=== PATIENT | male | born 1955 | race Caucasian/White ===

== ENCOUNTER → 2017-06-19 | Outpatient (CLI) | payer MEDICARE | END | disposition home or self-care (01) | LOC: RADUSMAIN 08:51 | PROVIDERS: ATTEND Family Medicine | DX: Z53.9 Procedure and treatment not carried out, unspecified reason (principal) ==

== ENCOUNTER → 2018-03-15 | Outpatient (CLI) | payer MEDICARE ==
[2018-03-15 11:08] LABS: INR 1.4 (<1.2); Prothrombin Time 13.2 sec (9.0-12.0)
== END | disposition home or self-care (01) ==
LOC: LABWHC1 10:20
PROVIDERS: ATTEND Dentist Oral and Maxillofacial Surgery
DX: D68.9 Coagulation defect, unspecified (principal)
CPT/HCPCS: 36415; 85610

== ENCOUNTER → 2018-05-30 | Outpatient (CLI) | payer MEDICARE ==
--- NOTE | 2018-05-30 14:05 | US ---
EXAMINATION TYPE: US duplex aorta DATE OF EXAM: 05/30/2018 COMPARISON: NONE CLINICAL HISTORY: 63-year-old male Z13.6Encounter for screening for cardiovascular di. TECHNIQUE: Multiple sonographic images of the abdominal aorta are obtained. FINDINGS: EXAM MEASUREMENTS: Abdominal Aorta: Proximal: 1.8cm Mid: 1.4cm Distal: 1.5cm Bifurcation: Right 1.0, Left 1.1cm Salt Cutter notes: Patient of large body habitus carrying weight in his abdomen, extensive overlying bowel gas. Limited views of aorta, not seen in it's entirety. IMPRESSION: Technically limited exam. Only segments of the abdominal aorta are visualized. No AAA is identified i n the visualized portions.
== END | disposition home or self-care (01) ==
LOC: RADUSWWP 12:46
PROVIDERS: ATTEND Family Medicine
DX: Z13.6 Encounter for screening for cardiovascular disorders (principal)
CPT/HCPCS: 93979

== ENCOUNTER 2020-05-06 20:07 | Inpatient (IN) | payer MEDICARE ==
[2020-05-06 20:20] VITALS: RESP 18
--- NOTE | 2020-05-06 20:35 | ED ---
Recheck HPI - General Chief Complaint: Recheck/Abnormal Lab/Rx Stated Complaint: Hypotension, poss med reaction Time Seen by Provider: 05/06/20 20:10 Source: patient, family, RN notes reviewed Mode of arrival: wheelchair Limitations: no limitations - History of Present Illness Initial Comments: This is a 65-year-old male history atrial fibrillation who had previously been on sotalol which apparently was not keeping his rate down he was started on vera pamil today and strongly after taking it was used feeling dizzy lightheaded with some visual disturbances. 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 Patient denies any chest pain shortness of breath or other symptoms at this time. He just feels weak MD Complaint: other - Related Data Home Medications Medication Instructions Recorded Confirmed Lisinopril-Hctz 20-25 mg 1 tab PO DAILY 11/30/15 05/06/20 [Zestoretic 20-25] Sotalol [Betapace] 240 mg PO BID 11/30/15 05/06/20 Cholecalciferol [Vitamin D3 (25 2,000 unit PO DAILY 05/06/20 05/06/20 Mcg = 1000 Iu)] Melatonin 5 mg PO HS 05/06/20 05/06/20 Verapamil HCl [Verapamil ER] 120 mg PO BID 05/06/20 05/06/20 Warfarin [Coumadin] 2.5 mg PO MOTH@2100 05/06/20 05/06/20 Warfarin [Coumadin] 5 mg PO SUTUWEFRSA@2100 05/06/20 05/06/20 diphenhydrAMINE HCL [Benadryl] 12.5 mg PO HS PRN 05/06/20 05/06/20 Allergies Allergy/AdvReac Type Severity Reaction Status Date / Time Sulfa (Sulfonamide Allergy dizzy,light Verified 05/06/20 21:40 Antibiotics) headed/hivsudeep s Review of Systems ROS Statement: Those systems with pertinent positive or pertinent negative responses have been documented in the HPI. ROS Other: All systems not noted in ROS Statement are negative. Past Medical History Past Medical History: Atrial Fibrillation, Hypertension History of Any Multi-Drug Resistant Organisms: None Reported Past Surgical History: Cardiac Ablation, Orthopedic Surgery Additional Past Surgical History / Comment(s): cardioversion x 2, right shoulder surg. Past Anesthesia/Blood Transfusion Reactions: No Reported Reaction Smoking Status: Never smoker Past Alcohol Use History: Occasional Past Drug Use History: None Reported - Past Family History Mother Family Medical History: No Reported History General Exam - General Exam Comments Initial Comments: This is a well-developed well-nourished awake alert oriented 3 male Limitations: no limitations General appearance: alert, in no apparent distress Head exam: Present: atraumatic, normocephalic, normal inspection Eye exam: Present: normal appearance, PERRL, EOMI. Absent: scleral icterus, conjunctival injection, periorbital swelling ENT exam: Present: normal exam, mucous membranes moist Neck exam: Present: normal inspection, full ROM, other. Absent: tenderness, meningismus, lymphadenopathy Respiratory exam: Present: normal lung sounds bilaterally. Absent: respiratory distress, wheezes, rales, rhonchi, stridor Cardiovascular Exam: Present: normal rhythm, bradycardia, irregular rhythm. Absent: systolic murmur, diastolic murmur, rubs, gallop, clicks GI/Abdominal exam: Present: soft, normal bowel sounds. Absent: distended, tenderness, guarding, rebound, rigid Extremities exam: Present: normal inspection, full ROM, normal capillary refill. Absent: tenderness, pedal edema, joint swelling, calf tenderness Back exam: Present: normal inspection Neurological exam: Present: alert, oriented X3, CN II-XII intact Psychiatric exam: Present: normal affect, normal mood Skin exam: Present: warm, dry, intact, normal color. Absent: rash Course Vital Signs 05/06/20 05/06/20 05/06/20 20:09 20:19 20:36 Temperature 98.0 F Pulse Rate 42 L 46 L 45 L Respiratory 20 18 18 Rate Blood Pressure 83/52 91/65 90/60 O2 Sat by Pulse 97 98 100 Oximetry 05/06/20 05/06/20 05/06/20 21:06 21:35 22:13 Temperature 98.3 F Pulse Rate 46 L 50 L 45 L Respiratory 18 18 18 Rate Blood Pressure 79/45 87/56 93/61 O2 Sat by Pulse 100 98 99 Oximetry 05/06/20 22:35 Temperature Pulse Rate 45 L Respiratory 18 Rate Blood Pressure 105/64 O2 Sat by Pulse 100 Oximetry - Reevaluation(s) Reevaluation #1: 05/06/20 22:53 I did reevaluate patient several occasions. He is feeling improved though his blood pressure is slowly coming up. Heart rate still in the 40s. Medical Decision Making - Medical Decision Making Patient is responding slowly to the fluids and his blood pressure is responding appropriately. Heart rate still in the 40s. He is awake alert oriented 3 in no distress at this time I did discuss findings with him and his . Also Dr. Pak patient will be admitted for monitoring and cardiology consultation - Lab Data Result diagrams: 05/06/20 20:33 05/06/20 20:33 Lab Results 05/06/20 05/06/20 05/06/20 Range/Units 20:33 20:33 20:33 WBC 13.7 H (3.8-10.6) k/uL RBC 4.52 (4.30-5.90) m/uL Hgb 13.9 (13.0-17.5) gm/dL Hct 43.6 (39.0-53.0) % MCV 96.3 (80.0-100.0) fL MCH 30.7 (25.0-35.0) pg MCHC 31.9 (31.0-37.0) g/dL RDW 12.5 (11.5-15.5) % Plt Count 375 (150-450) k/uL Neutrophils % 78 % Lymphocytes % 12 % Monocytes % 5 % Eosinophils % 2 % Basophils % 1 % Neutrophils # 10.7 H (1.3-7.7) k/uL Lymphocytes # 1.6 (1.0-4.8) k/uL Monocytes # 0.7 (0-1.0) k/uL Eosinophils # 0.3 (0-0.7) k/uL Basophils # 0.1 (0-0.2) k/uL PT 15.7 H (9.0-12.0) sec INR 1.6 H (<1.2) APTT 31.1 H (22.0-30.0) sec Sodium 128 L (137-145) mmol/L Potassium 4.5 (3.5-5.1) mmol/L Chloride 90 L (98-107) mmol/L Carbon Dioxide 26 (22-30) mmol/L Anion Gap 12 mmol/L BUN 30 H (9-20) mg/dL Creatinine 1.69 H (0.66-1.25) mg/dL Est GFR (CKD-EPI)AfAm 48 (>60 ml/min/1.73 sqM) Est GFR (CKD-EPI)NonAf 41 (>60 ml/min/1.73 sqM) Glucose 102 H (74-99) mg/dL Calcium 10.2 (8.4-10.2) mg/dL Magnesium 1.6 (1.6-2.3) mg/dL Total Bilirubin 0.4 (0.2-1.3) mg/dL AST 34 (17-59) U/L ALT 32 (4-49) U/L Alkaline Phosphatase 141 H (38-126) U/L Creatine Kinase 39 L (55-170) U/L Troponin I (0.000-0.034) ng/mL Total Protein 7.6 (6.3-8.2) g/dL Albumin 4.7 (3.5-5.0) g/dL 05/06/20 Range/Units 20:33 WBC (3.8-10.6) k/uL RBC (4.30-5.90) m/uL Hgb (13.0-17.5) gm/dL Hct (39.0-53.0) % MCV (80.0-100.0) fL MCH (25.0-35.0) pg MCHC (31.0-37.0) g/dL RDW (11.5-15.5) % Plt Count (150-450) k/uL Neutrophils % % Lymphocytes % % Monocytes % % Eosinophils % % Basophils % % Neutrophils # (1.3-7.7) k/uL Lymphocytes # (1.0-4.8) k/uL Monocytes # (0-1.0) k/uL Eosinophils # (0-0.7) k/uL Basophils # (0-0.2) k/uL PT (9.0-12.0) sec INR (<1.2) APTT (22.0-30.0) sec Sodium (137-145) mmol/L Potassium (3.5-5.1) mmol/L Chloride (98-107) mmol/L Carbon Dioxide (22-30) mmol/L Anion Gap mmol/L BUN (9-20) mg/dL Creatinine (0.66-1.25) mg/dL Est GFR (CKD-EPI)AfAm (>60 ml/min/1.73 sqM) Est GFR (CKD-EPI)NonAf (>60 ml/min/1.73 sqM) Glucose (74-99) mg/dL Calcium (8.4-10.2) mg/dL Magnesium (1.6-2.3) mg/dL Total Bilirubin (0.2-1.3) mg/dL AST (17-59) U/L ALT (4-49) U/L Alkaline Phosphatase (38-126) U/L Creatine Kinase (55-170) U/L Troponin I <0.012 (0.000-0.034) ng/mL Total Protein (6.3-8.2) g/dL Albumin (3.5-5.0) g/dL - EKG Data -: EKG Interpreted by Me (Atrial fibrillation rate of 46 QRS 80 QT since QTC 506/442) - Radiology Data Radiology results: report reviewed (I did review the imaging and report no acute findings.), image reviewed Critical Care Time Critical Care Time: Yes Total Critical Care Time: 37 Critical Care Time: 37 minutes of critical care time which includes the initial presentation with history physical labs x-rays multiple reevaluation the patient response to therapy discuss with the patient has regarding findings discussed with the admitting physician admission orders and documentation of the above Disposition Clinical Impression: Bradycardia, Hypotension, Renal insufficiency, Dehydration, Idiosyncratic reaction to medication after proper dose Disposition: ADMITTED IP TO THIS [facility] Condition: Fair Referrals: Fitz Barton MD [Primary Care Provider] - 1-2 days
[2020-05-06] MEDS ORDERED: SODIUM CHLORIDE 0.9% 1,000 ML IV STA (20:38)
[2020-05-06] MEDS ORDERED: SODIUM CHLORIDE 0.9% 1,000 ML IV ONE (20:38)
[2020-05-06 20:51] LABS: Basophils # (A) 0.1 k/uL (0-0.2); Basophils % (A) 1 %; Eosinophils # (A) 0.3 k/uL (0-0.7); Eosinophils % (A) 2 %; HCT 43.6 % (39.0-53.0); HGB 13.9 gm/dL (13.0-17.5); Lymphocytes # (A) 1.6 k/uL (1.0-4.8); Lymphocytes % (A) 12 %; MCH 30.7 pg (25.0-35.0); MCHC 31.9 g/dL (31.0-37.0); MCV 96.3 fL (80.0-100.0); Mean Platelet Volume 7.9; Monocytes # (A) 0.7 k/uL (0-1.0); Monocytes % (A) 5 %; Neutrophils # (A) 10.7 k/uL (1.3-7.7); Neutrophils % (A) 78 %; Platelet Count 375 k/uL (150-450); RBC 4.52 m/uL (4.30-5.90); RDW 12.5 % (11.5-15.5); WBC 13.7 k/uL (3.8-10.6)
--- NOTE | 2020-05-06 20:52 | XR ---
EXAMINATION TYPE: XR chest 2V DATE OF EXAM: 05/06/2020 COMPARISON: 05/28/2013 HISTORY: Short of breath. Dizziness. Dysrhythmia. TECHNIQUE: 2 views FINDINGS: Heart and mediastinum are normal. Lungs are clear. Diaphragm is normal. Bony thorax appears normal. IMPRESSION: Normal chest. No change.
[2020-05-06 20:59] LABS: INR 1.6 (<1.2); Partial Thromboplastin Time 31.1 sec (22.0-30.0); Prothrombin Time 15.7 sec (9.0-12.0)
[2020-05-06 21:22] LABS: Albumin 4.7 g/dL (3.5-5.0); Calcium 10.2 mg/dL (8.4-10.2); Magnesium 1.6 mg/dL (1.6-2.3); Potassium 4.5 mmol/L (3.5-5.1); Total Bilirubin 0.4 mg/dL (0.2-1.3); Total Protein 7.6 g/dL (6.3-8.2)
[2020-05-06] MEDS ORDERED: WARFARIN 5 MG TAB PO ONE (22:15)
[2020-05-06] MEDS ORDERED: NALOXONE 0.4 MG/ML 1 ML VIAL IV PRN (22:56)
[2020-05-07] MEDS ORDERED: diphenhydrAMINE ELIXIR 25 MG/10 ML CUP PO PRN
--- NOTE | 2020-05-07 00:07 | P.HPIM ---
History of Present Illness H&P Date: 05/06/20 The patient is a 65-year-old male with a PMH of paroxysmal atrial fibrillation (on Coumadin) and hypertension who presented to the ED for dizziness. The patient reports that he was seen at his PMDs office a few days ago and was noted to have A. fib with RVR on EKG, for which he was prescribed Cardizem. The insurance however did not cover Cardizem and the patient was subsequently switched to verapamil which he finally filled the prescription for today. reports that 3-4 hours after taking his verapamil, he was outside with his when he began feeling dizzy and lightheaded. The symptoms progressed and the patient's subsequently drove him home where she checked his blood pressure which was 80s over 60s and his heart rate was in the 40s. She then drove the patient to the emergency room. At time of interview, the patient reported no dizziness at rest, though he had not been up out of his bed. He denied any additional complaints including chest pain, shortness of breath, nausea, v omiting, or diaphoresis. He further denied fever, chills, cough, or abdominal pain. Chest x-ray was unremarkable with EKG showing sinus bradycardia with first-degree AV block at 46 bpm. Laboratory evaluation revealed a troponin less than 0.012, WBC count 13.7, BUN 30, creatinine 1.69, sodium 128, chloride 90, and INR 1.6. Review of Systems Pertinent positives and negatives as discussed in HPI, a complete review of systems was performed and all other systems are negative. Past Medical History Past Medical History: Atrial Fibrillation, Hypertension History of Any Multi-Drug Resistant Organisms: None Reported Past Surgical History: Cardiac Ablation, Orthopedic Surgery Additional Past Surgical History / Comment(s): cardioversion x 2, right shoulder surg. Past Anesthesia/Blood Transfusion Reactions: No Reported Reaction Smoking Status: Never smoker Past Alcohol Use History: Occasional Past Drug Use History: None Reported - Past Family History Mother Family Medical History: No Reported History Medications and Allergies Home Medications Medication Instructions Recorded Confirmed Type Lisinopril-Hctz 20-25 mg 1 tab PO DAILY 11/30/15 05/06/20 History [Zestoretic 20-25] Sotalol [Betapace] 240 mg PO BID 11/30/15 05/06/20 History Cholecalciferol [Vitamin D3 (25 2,000 unit PO DAILY 05/06/20 05/06/20 History Mcg = 1000 Iu)] Melatonin 5 mg PO HS 05/06/20 05/06/20 History Verapamil HCl [Verapamil ER] 120 mg PO BID 05/06/20 05/06/20 History Warfarin [Coumadin] 2.5 mg PO MOTH@209905/06/20 05/06/20 History Warfarin [Coumadin] 5 mg PO SUTUWEFRSA@2100 05/06/20 05/06/20 History diphenhydrAMINE HCL [Benadryl] 12.5 mg PO HS PRN 05/06/20 05/06/20 History Allergies Allergy/AdvReac Type Severity Reaction Status Date / Time Sulfa (Sulfonamide Allergy dizzy,light Verified 05/06/20 21:40 Antibiotics) headed/hive s Physical Exam Vitals: Vital Signs Temp Pulse Resp BP Pulse Ox 05/06/20 22:35 45 L 18 105/64 100 05/06/20 22:13 98.3 F 45 L 18 93/61 99 05/06/20 21:35 50 L 18 87/56 98 05/06/20 21:06 46 L 18 79/45 100 05/06/20 20:36 45 L 18 90/60 100 05/06/20 20:19 46 L 18 91/65 98 05/06/20 20:09 98.0 F 42 L 20 83/52 97 Intake and Output 05/06/20 05/06/20 05/06/20 06:59 14:59 22:59 Other: Weight 116.12 kg General: non toxic, no distress, appears at stated age, obese Derm: no unusual rashes/lesions no unusual ecchymoses, warm, dry Head: atraumatic, normocephalic, symmetric Eyes: EOMI, no lid lag, anicteric sclera, pupils equal round reactive to light ENT: Nose and ears atraumatic, no thrush, no pharyngeal erythema Neck: No thyromegaly, no cervical lymphadenopathy, trachea midline, supple Mouth: no lip lesion, mucus membranes moist Cardiovascular: S1S2 reg, bradycardia, no murmur, positive posterior tibial pul se bilateral, no edema, capillary refill less than 2 seconds Lungs: CTA bilateral, no rhonchi, no rales , no accessory muscle use Abdominal: Obese, nontender to palpation, no guarding, no appreciable organomegaly, normal bowel sounds Ext: no gross muscle atrophy, muscle strength 5 out of 5 in all 4 extremities grossly, no contractures, Neuro: CN II-XI grossly intact, light touch intact all 4 extremities, finger to nose within normal limits, Psych: Alert, oriented, appropriate affect Results CBC & Chem 7: 05/06/20 20:33 05/06/20 20:33 Labs: Abnormal Lab Results - Last 24 Hours (Table) 05/06/20 05/06/20 05/06/20 Range/Units 20:33 20:33 20:33 WBC 13.7 H (3.8-10.6) k/uL Neutrophils # 10.7 H (1.3-7.7) k/uL PT 15.7 H (9.0-12.0) sec INR 1.6 H (<1.2) APTT 31.1 H (22.0-30.0) sec Sodium 128 L (137-145) mmol/L Chloride 90 L (98-107) mmol/L BUN 30 H (9-20) mg/dL Creatinine 1.69 H (0.66-1.25) mg/dL Glucose 102 H (74-99) mg/dL Alkaline Phosphatase 141 H (38-126) U/L Creatine Kinase 39 L (55-170) U/L Assessment and Plan Plan: Hypotension and bradycardia, adverse reaction from verapamil -Improved -IV fluids at 100 mL an hour -Avoid verapamil and home antihypertensives at this time -Cardiology consulted -Cardiac monitoring -Fall precautions SAMI vs CKD -Unknown baseline -Monitor BMP -Cw IVFs Hyponatremia, hypochloremic -C/w IVFs and monitor BMP Leukocytosis, no clear signs of infection -Monitor CBC for now Paroxysmal A. fib, sub-therapeutic on Coumadin -Continue with Coumadin home dose -Continue to monitor INR -Cardiac monitoring Hypertension -Hold all home antihypertensives at this time -Resume in a.m. if BP has normalized DVT prophylaxis -Coumadin The patient is admitted with an anticipated greater than 2 midnight stay for evaluation of hypotension CODE STATUS: Full Code Discussed with: Patient Anticipated discharge date: 05/[address]: Home A total of 40 minutes was spent on the care of this complex patient more than 50% of the time was spent in counseling and care coordination.
[2020-05-07] MEDS: SODIUM CHLORIDE 0.9% 1,000 ML IV SCH ×2 (00:11→09:29)
[2020-05-07 08:17] LABS: HCT 38.4 % (39.0-53.0); HGB 12.4 gm/dL (13.0-17.5); MCH 31.4 pg (25.0-35.0); MCHC 32.3 g/dL (31.0-37.0); MCV 97.4 fL (80.0-100.0); Mean Platelet Volume 8.1; Platelet Count 260 k/uL (150-450); RBC 3.95 m/uL (4.30-5.90); RDW 12.6 % (11.5-15.5); WBC 10.6 k/uL (3.8-10.6)
[2020-05-07 08:29] LABS: Calcium 8.7 mg/dL (8.4-10.2); Magnesium 1.4 mg/dL (1.6-2.3); Potassium 4.5 mmol/L (3.5-5.1)
[2020-05-07] MEDS ORDERED: CHOLECALCIFEROL 1,000 UNIT TAB PO SCH (09:00)
[2020-05-07] MEDS ORDERED: SOTALOL 120 MG TAB PO SCH ×2 (09:00→10:30)
[2020-05-07] MEDS: MAGNESIUM SULFATE-D5W PMX 1 GM in DEXTROSE/WATER 1 100ML.BAG IVPB SCH ×3 (09:28→12:44)
[2020-05-07 09:37] LABS: INR 1.8 (<1.2); Prothrombin Time 17.9 sec (9.0-12.0)
[2020-05-07] MEDS ORDERED: LISINOPRIL-HCTZ 20-25 MG 1 EACH TAB PO SCH (10:30)
--- NOTE | 2020-05-07 11:15 | ECHOF ---
Referral Reason:manpreet MEASUREMENTS -------- HEIGHT: 182.9 cm WEIGHT: 118.8 kg BP: 118/59 RVIDd: 3.8 cm (< 3.3) IVSd: 1.3 cm (0.6 - 1.1) LVIDd: 4.3 cm (3.9 - 5.3) LVPWd: 1.1 cm (0.6 - 1.1) IVSs: 1.3 cm LVIDs: 3.2 cm LVPWs: 1.5 cm LAESV Index (A-L): 29.67 ml/m Ao Diam: 3.1 cm (2.0 - 3.7) AV Cusp: 1.8 cm (1.5 - 2.6) RAP: 5.00 mmHg RVSP: 44.12 mmHg FINDINGS -------- This was a technically difficult study with suboptimal parasternal views. The left ventricular size is normal. There is mild concentric left ventricular hypertrophy. Overa ll left ventricular systolic function is low-normal with, an EF between 50 - 55 %. Septal wall danna on is delayed, and consistent with conduction delay/bundle branch block. The right ventricle is mild to moderately enlarged. LA is midly dilated 29-33ml/m2. The right atrium is mildly enlarged. 5.0mg of Lumason was utilized for enhancement of images Interatrial and interventricular septum intact. The aortic valve was not well visualized. There is no evidence of aortic regurgitation. There is no evidence of aortic stenosis. [id number] mitral regurgitation is present. Frcw-[id number] tricuspid regurgitation present. There is mild to moderate pulmonary hypertension. The right ventricular systolic pressure, as measured by Doppler, is 44.12mmHg. The pulmonic valve was not well visualized. The aortic root size is normal. IVC Not well visulized. There is no pericardial effusion. CONCLUSIONS -------- 1. The left ventricular size is normal. 2. There is mild concentric left ventricular hypertrophy. 3. Overall left ventricular systolic function is low-normal with, an EF between 50 - 55 %. 4. Septal wall motion is delayed, and consistent with conduction delay/bundle branch block. 5. The right ventricle is mild to moderately enlarged. 6. LA is midly dilated 29-33ml/m2. 7. The right atrium is mildly enlarged. 8. Psss-tg-[id number] mitral regurgitation is present. 9. Xuzn-[id number] tricuspid regurgitation present. 10. There is mild to moderate pulmonary hypertension. 11. The right ventricular systolic pressure, as measured by Doppler, is 44.12mmHg. BUILD AND RELEASE MANAGER: Petra Ramirez RDCS
[2020-05-07 12:20] VITALS: TEMP 98
[2020-05-07 12:24] VITALS: BP 155/80; PULSE 94
--- NOTE | 2020-05-07 13:15 | P.CRDCN ---
<Gisella Moreno Oracio - Last Filed: 05/07/20 13:14> History of Present Illness Consult date: 05/07/20 History of present illness: CHIEF COMPLAINT: Hypotension, bradycardia HISTORY OF PRESENT ILLNESS: 65-year-old male with a history of paroxysmal atrial fibrillation on long-term anticoagulation with Coumadin and hypertension who presented to the emergency room due to dizziness and hypotension. Patient states he follows with a ball racker out of [facility]. He reports his sotalol had been decreased to 120mg BID recently by his ball racker, but he was having episodes of RVR so his dose was increased back to 240mg BID. He reports seeing his primary care physician recently who prescribed the patient cardizem as well. His insurance did not cover this, so he was then prescribed verapamil. Patient states he took his first dose yesterday afternoon. He states he went to [facility] with his . He states he sat in the car while she went inside and shopped. He reports he started feeling "funny". When his returned to the car, he told her he wasnt feeling well and that he needed her to drive home. When the patient returned home he checked his blood pressure and it was found to be 70/40s. He presented to the ER for further evaluation. Patients blood pressure has improved this mornin/71. HR 70-80s. He denies chest pain. Denies shortness of breath. Denies dizziness or lightheadedness. DIAGNOSTICS EKG: atrial tachycardia with a 2 to 1 conduction rate Chest xray negative for acute process Laboratory data: WBC 10.6. Hemoglobin 12.4. Platelet count 260. Sodium 132. Potassium 4.5. BUN 34. Creatinine 1.47. Troponin negative 1. INR 1.8 Current home cardiac medications include Coumadin, Sotalol 240 mg twice a day, Zestoretic 20-25mg REVIEW OF SYSTEMS: CONSTITUTIONAL: Denies fever or chills. HEENT: Denies blurred vision, vision changes, or eye pain. Denies hemoptysis CARDIOVASCULAR: Denies chest pain, orthopnea, PND or palpitations RESPIRATORY: No shortness of breath. GASTROINTESTINAL: Denies abdominal pain. Denies nausea or vomiting. HEMATOLOGIC: Denies bleeding disorders. GENITOURINARY: Denies any blood in urine. SKIN: Denies pruitis. Denies rash. PHYSICAL EXAM: VITAL SIGNS: Reviewed. GENERAL: Well-developed in no acute distress. HEENT: Head is normocephalic. Pupils are equal, round. Sclerae anicteric. Mucous membranes of the mouth are moist. Neck supple. No JVD or thyromegaly LUNGS: Respirations even and unlabored. Lungs essentially clear to auscultation bilaterally. HEART: Regular rate and rhythm. S1 and S2 heard. ABDOMEN: Soft. Nondistended. Nontender. EXTREMITIES: Normal range of motion. No clubbing or cyanosis. Peripheral pu lses intact. No lower extremity edema NEUROLOGIC: Awake and alert. Oriented x 3. ASSESSMENT: 1. Hypotension and bradycardia secondary to verapamil 2. Paroxysmal atrial fibrillation on long-term anticoagulation with Coumadin 3. Hypertension 4. History of cardiac ablation x 2 5. SAMI, patient baseline unknown PLAN: Hypotension and bradycardia have resolved Resume lisinopril/HCTZ Continue Coumadin. Monitor INR Replace magnesium Repeat EKG ordered and reviewed by Dr. Willams. EKG still revealing atrial tachycardia per Dr. Willams. Due to elevated creatinine, will resume sotalol at a decreased dose Stable for discharge home today from a cardiac standpoint Patient to follow up with his ball racker, Dr. Daniels Nurse practitioner note has been reviewed by physician. Signing provider agrees with the documented findings, assessment, and plan of care. Past Medical History Past Medical History: Atrial Fibrillation, Hypertension Additional Past Medical History / Comment(s): prostate CA History of Any Multi-Drug Resistant Organisms: None Reported Past Surgical History: Cardiac Ablation, Orthopedic Surgery Additional Past Surgical History / Comment(s): cardioversion x 2, right shoulder surg. Past Anesthesia/Blood Transfusion Reactions: No Reported Reaction Smoking Status: Never smoker Past Alcohol Use History: Occasional Past Drug Use History: None Reported - Past Family History Mother Family Medical History: No Reported History Medications and Allergies Home Medications Medication Instructions Recorded Confirmed Type Lisinopril-Hctz 20-25 mg 1 tab PO DAILY 11/30/15 05/06/20 History [Zestoretic 20-25] Cholecalciferol [Vitamin D3 (25 2,000 unit PO DAILY 05/06/20 05/06/20 History Mcg = 1000 Iu)] Melatonin 5 mg PO HS 05/06/20 05/06/20 History Warfarin [Coumadin] 2.5 mg PO MOTH@2100 05/06/2005/06/20 History Warfarin [Coumadin] 5 mg PO SUTUWEFRSA@209905/06/20 05/06/20 History diphenhydrAMINE HCL [Benadryl] 12.5 mg PO HS PRN 05/06/20 05/06/20 History Sotalol [Betapace] 120 mg PO DAILY #30 tablet 05/07/20 Rx Allergies Allergy/AdvReac Type Severity Reaction Status Date / Time Sulfa (Sulfonamide Allergy dizzy,light Verified 05/06/20 21:40 Antibiotics) headed/hive s Physical Exam Vitals: Vital Signs Temp Pulse Pulse Resp BP BP Pulse Ox 05/07/20 08:00 97.5 F L 88 18 130/71 98 05/07/20 04:00 64 18 05/07/20 03:59 97.9 F 64 18 118/59 95 05/07/20 00:01 97.5 F L 59 L 18 135/75 100 05/07/20 00:00 59 L 18 05/06/20 23:48 97.6 F 05/06/20 23:39 47 L 18 113/72 99 05/06/20 23:02 100/59 05/06/20 22:35 45 L 18 105/64 100 05/06/20 22:13 98.3 F 45 L 18 93/61 99 05/06/20 21:35 50 L 18 87/56 98 05/06/20 21:06 46 L 18 79/45 100 05/06/20 20:36 45 L 18 90/60 100 05/06/20 20:19 46 L 18 91/65 98 05/06/20 20:09 98.0 F 42 L 20 83/52 97 Intake and Output 05/06/20 05/07/20 05/07/20 22:59 06:59 14:59 Intake Total 400 Balance 400 Intake: Intake, IV Titration 400 Amount Sodium Chloride 0.9% 1, 400 000 ml @ 100 mls/hr IV . Q10H [facility] Rx#:[id number] Other: Voiding Method Toilet Urinal # Voids 2 Weight 116.12 kg 119.1 kg Results 05/07/20 08:02 05/07/20 08:02 Cardiac Enzymes 05/06/20 05/06/20 Range/Units 20:33 20:33 AST 34 (17-59) U/L Troponin I <0.012 (0.000-0.034) ng/mL Coagulation 05/06/20 05/07/20 Range/Units 20:33 08:02 PT 15.7 H 17.9 H (9.0-12.0) sec APTT 31.1 H (22.0-30.0) sec CBC 05/06/20 05/07/20 Range/Units 20:33 08:02 WBC 13.7 H 10.6 (3.8-10.6) k/uL RBC 4.52 3.95 L (4.30-5.90) m/uL Hgb 13.9 12.4 L (13.0-17.5) gm/dL Hct 43.6 38.4 L (39.0-53.0) % Plt Count 375 260 (150-450) k/uL Comprehensive Metabolic Panel 05/06/20 05/07/20 Range/Units 20:33 08:02 Sodium 128 L 132 L (137-145) mmol/L Potassium 4.5 4.5 (3.5-5.1) mmol/L Chloride 90 L 96 L (98-107) mmol/L Carbon Dioxide 26 27 (22-30) mmol/L BUN 30 H 34 H (9-20) mg/dL Creatinine 1.69 H 1.47 H (0.66-1.25) mg/dL Glucose 102 H 109 H (74-99) mg/dL Calcium 10.2 8.7 (8.4-10.2) mg/dL AST 34 (17-59) U/L ALT 32 (4-49) U/L Alkaline Phosphatase 141 H (38-126) U/L Total Protein 7.6 (6.3-8.2) g/dL Albumin 4.7 (3.5-5.0) g/dL Current Medications Generic Name Dose Route Start Last Admin Trade Name Freq PRN Reason Stop Dose Admin Cholecalciferol 2,000 unit 05/07/20 09:00 05/07/20 09:28 Vitamin D3 (25 Mcg = 1000 Iu) PO 2,000 unit DAILY ANA ROSA Administration Diphenhydramine HCl 12.5 mg 05/07/20 00:00 Benadryl Elixir PO HS PRN Insomnia Sodium Chloride 1,000 mls @ 100 mls/hr 05/06/20 23:00 05/07/20 09:29 Saline 0.9% IV 100 mls/hr .Q10H ANA ROSA Administration Magnesium Sulfate/Dextrose 1 100 mls @ 100 mls/hr 05/07/20 09:15 05/07/20 09:28 gm/ IV Solution IVPB 05/07/20 12:14 100 mls/hr Q1H ANA ROSA Administration Melatonin 5 mg 05/07/20 21:00 Melatonin PO HS ANA ROSA Naloxone HCl 0.2 mg 05/06/20 22:56 Narcan IV Q2M PRN Opioid Reversal Warfarin Sodium 5 mg 05/08/20 18:00 Coumadin PO SuTuWeFrSa@1800 ANA ROSA Protocol Warfarin Sodium 2.5 mg 05/07/20 18:00 Coumadin PO MoTh@1800 ANA ROSA Protocol Intake and Output 05/06/20 05/07/20 05/07/20 22:59 06:59 14:59 Intake Total 400 Balance 400 Intake: Intake, IV Titration 400 Amount Sodium Chloride 0.9% 1, 400 000 ml @ 100 mls/hr IV . Q10H [facility] Rx#:[id number] Other: Voiding Method Toilet Urinal # Voids 2 Weight 116.12 kg 119.1 kg 05/07/20 08:02 05/07/20 08:02 <Aroldo Willams - Last Filed: 05/07/20 16:54> History of Present Illness History of present illness: Agree with assessment and plan as above. Patient presented with symptomatic bradycardia after starting verapamil. Patient has had long history of atrial fibrillation with 2 prior ablations, antiarrhythmics including sotalol with freq uent adjustments which has mainly been by his primary ball racker, Dr. Guzman. Patient was found to be in atrial tachycardia with a atrial rate of approximately 180 with a 4-1 block with heart rates in the 40s. His verapamil was stopped and he was monitored on telemetry with improvement in his heart rates up to approximately 90. Repeat EKG shows continued atrial tachycardia with a 2-1 block with a heart rate in the 90s. QTC is noted to be at 440. He was taking increased Sotalol dose however has new onset either acute kidney injury or chronic kidney disease which can affect the sotalol. We will therefore decrease it to 120 mg once daily and have him follow-up with his pipe or steam fitter furnace installer, Dr. Guzman. No evidence of RVR in the hospital however if she continues to have RVR and bradycardic episodes this would be evidence of tachybradycardia syndrome and possible need for Permanent pacemaker. We will defer further management of this to his primary pipe or steam fitter furnace installer. Aroldo Willasm, DO Physical Exam Vitals: Vital Signs Temp Pulse Pulse Resp BP BP Pulse Ox 05/07/20 12:00 98 F 94 18 155/80 96 05/07/20 08:00 97.5 F L 88 18 130/71 98 05/07/20 04:00 64 18 05/07/20 03:59 97.9 F 64 18 118/59 95 05/07/20 00:01 97.5 F L 59 L 18 135/75 100 05/07/20 00:00 59 L 18 05/06/20 23:48 97.6 F 05/06/20 23:39 47 L 18 113/72 99 05/06/20 23:02 100/59 05/06/20 22:35 45 L 18 105/64 100 05/06/20 22:13 98.3 F 45 L 18 93/61 99 05/06/20 21:35 50 L 18 87/56 98 05/06/20 21:06 46 L 18 79/45 100 05/06/20 20:36 45 L 18 90/60 100 05/06/20 20:19 46 L 18 91/65 98 05/06/20 20:09 98.0 F 42 L 20 83/52 97 Intake and Output 05/07/20 05/07/20 05/07/20 06:59 14:59 22:59 Intake Total 400 480 Balance 400 480 Intake: Intake, IV Titration 400 Amount Sodium Chloride 0.9% 1, 400 000 ml @ 100 mls/hr IV . Q10H [facility] Rx#:[id number] Oral 480 Other: Voiding Method Toilet Toilet Urinal Urinal # Voids 2 3 Weight 119.1 kg Results 05/07/20 08:02 05/07/20 08:02 Cardiac Enzymes 05/06/20 05/06/20 Range/Units 20:33 20:33 AST 34 (17-59) U/L Troponin I <0.012 (0.000-0.034) ng/mL Coagulation 05/06/20 05/07/20 Range/Units 20:33 08:02 PT 15.7 H 17.9 H (9.0-12.0) sec APTT 31.1 H (22.0-30.0) sec CBC 05/06/20 05/07/20 Range/Units 20:33 08:02 WBC 13.7 H 10.6 (3.8-10.6) k/uL RBC 4.52 3.95 L (4.30-5.90) m/uL Hgb 13.9 12.4 L (13.0-17.5) gm/dL Hct 43.6 38.4 L (39.0-53.0) % Plt Count 375 260 (150-450) k/uL Comprehensive Metabolic Panel 05/06/20 05/07/20 Range/Units 20:33 08:02 Sodium 128 L 132 L (137-145) mmol/L Potassium 4.5 4.5 (3.5-5.1) mmol/L Chloride 90 L 96 L (98-107) mmol/L Carbon Dioxide 26 27 (22-30) mmol/L BUN 30 H 34 H (9-20) mg/dL Creatinine 1.69 H 1.47 H (0.66-1.25) mg/dL Glucose 102 H 109 H (74-99) mg/dL Calcium 10.2 8.7 (8.4-10.2) mg/dL AST 34 (17-59) U/L ALT 32 (4-49) U/L Alkaline Phosphatase 141 H (38-126) U/L Total Protein 7.6 (6.3-8.2) g/dL Albumin 4.7 (3.5-5.0) g/dL Intake and Output 05/07/20 05/07/20 05/07/20 06:59 14:59 22:59 Intake Total 400 480 Balance 400 480 Intake: Intake, IV Titration 400 Amount Sodium Chloride 0.9% 1, 400 000 ml @ 100 mls/hr IV . Q10H [facility] Rx#:[id number] Oral 480 Other: Voiding Method Toilet Toilet Urinal Urinal # Voids 2 3 Weight 119.1 kg 05/07/20 08:02 05/07/20 08:02
[2020-05-07] MEDS ORDERED: ACETAMINOPHEN TAB 325 MG TAB PO PRN (14:14)
[2020-05-07] MEDS ORDERED: SOTALOL 120 MG TAB PO STA (14:39)
--- NOTE | 2020-05-07 16:08 | P.DS ---
Providers Date of admission: 05/06/20 23:00 Expected date of discharge: 05/07/20 Attending physician: Power Pak MD Consults: 05/06/20 22:57 Consult Physician Routine Consulting Provider: Ricky Welch Consult Reason/Comments: Medication reaction, bradycardia with hypotension Do you want consulting provider notified?: Yes Primary care physician: [facility] Course: The patient is a 65-year-old male with a PMH of paroxysmal atrial fibrillation (on Coumadin) and hypertension who presented to the ED for dizziness. The patient reports that he was seen at his PMDs office a few days ago and was noted to have A. fib with RVR on EKG, for which he was prescribed Cardizem. The insurance however did not cover Cardizem and the patient was subsequently switched to verapamil which he finally filled the prescription for today. reports that 3-4 hours after taking his verapamil, he was outside with his when he began feeling dizzy and lightheaded. The symptoms progressed and the patient's subsequently drove him home where she checked his blood pressure which was 80s over 60s and his heart rate was in the 40s. She then drove the patient to the emergency room. At time of interview, the patient reported no dizziness at rest, though he had not been up out of his bed. He denied any additional complaints including chest pain, shortness of breath, nausea, vomiting, or diaphoresis. He further denied fever, chills, cough, or abdominal pain. Chest x-ray was unremarkable with EKG showing sinus bradycardia with first-degree AV block at 46 bpm. Laboratory evaluation revealed a troponin less than 0.012, WBC count 13.7, BUN 30, creatinine 1.69, sodium 128, chloride 90, and INR 1.6. All antihypertensive medication was held and his bradycardia resolved. Patient no more dizziness during his hospitalization. Echocardiogram was obtained which showed EF 50-55% with delayed septal wall motion, mild concentric LVH. Cardiology was consulted and recommended discontinuing verapamil and continuing sotalol 120 mg by mouth once a day. Patient was cleared for discharge from cardiology standpoint. Patient was seen and examined. No acute events overnight. Patient denies any chest pain, shortness breath or palpitations. No dizziness. No nausea vomiting. No fever or chills. General: [non toxic], [no distress], [appears at stated age] Derm: [warm], [dry] Head: [atraumatic], [normocephalic], [symmetric] Eyes: [EOMI], [no lid lag], [anicteric sclera] Mouth: [no lip lesion], [mucus membranes moist] Cardiovascular: [S1S2 reg], [no murmur], [positive posterior tibial pulse bilateral], Lungs: [CTA bilateral], [no rhonchi, no rales] , [no accessory muscle use] Abdominal: [soft], [ nontender to palpation], [no guarding], [no appreciable organomegaly] Ext: [no gross muscle atrophy], [no edema], [no contractures] Neuro: [ CN II-XI grossly intact], [no focal neuro deficits] Psych: [Alert], [oriented], [appropriate affect] Hypotension and bradycardia, adverse reaction from verapamil -Improved -DC IVF and encourage hydration by mouth -Avoid verapamil at home and decrease sotalol to 120 mg by mouth daily -Cardiology consulted, recommends outpatient follow-up with decrease sotalol dose and discontinued verapamil -Cardiac monitoring -Fall precautions SAMI vs CKD -Unknown baseline, improved -Monitor BMP -Cw IVFs Hyponatremia, hypochloremic -Improved -C/w IVFs and monitor BMP Paroxysmal A. fib, sub-therapeutic on Coumadin -Continue with Coumadin home dose -Continue to monitor INR -Cardiac monitoring Hypertension -Restart hydrochlorothiazide and lisinopril. Restart sotalol at decreased dose. Discontinue verapamil. DVT prophylaxis -Coumadin [Patient admitted for symptom medical bradycardia likely due to verapamil. Medication has been discontinued. Bradycardia is resolved. No more dizziness. Anticipated DC home today to follow-up with PCP and case manager. Continue sotalol 120 mg by mouth daily. Discontinue verapamil. Patient verbalized understanding the plan.] Pertinent Studies: Chest x-ray, echocardiogram Patient Condition at Discharge: Stable Plan - Discharge Summary New Discharge Prescriptions: New Sotalol [Betapace] 120 mg PO DAILY #30 tablet Continue Lisinopril-Hctz 20-25 mg [Zestoretic 20-25] 1 tab PO DAILY diphenhydrAMINE HCL [Benadryl] 12.5 mg PO HS PRN PRN Reason: Insomnia Cholecalciferol [Vitamin D3 (25 Mcg = 1000 Iu)] 2,000 unit PO DAILY Warfarin [Coumadin] 2.5 mg PO MOTH@2100 Warfarin [Coumadin] 5 mg PO SUTUWEFRSA@2099 Melatonin 5 mg PO HS Discontinued Sotalol [Betapace] 240 mg PO BID Verapamil HCl [Verapamil ER] 120 mg PO BID Discharge Medication List Lisinopril-Hctz 20-25 mg [Zestoretic 20-25] 1 tab PO DAILY 11/30/15 [History] Cholecalciferol [Vitamin D3 (25 Mcg = 1000 Iu)] 2,000 unit PO DAILY 05/06/20 [History] Melatonin 5 mg PO HS 05/06/20 [History] Warfarin [Coumadin] 2.5 mg PO MOTH@209905/06/20 [History] Warfarin [Coumadin] 5 mg PO SUTUWEFRSA@2100 05/06/20 [History] diphenhydrAMINE HCL [Benadryl] 12.5 mg PO HS PRN 05/06/20 [History] Sotalol [Betapace] 120 mg PO DAILY #30 tablet 05/07/20 [Rx] Follow up Appointment(s)/Referral(s): Fitz Barton MD [Primary Care Provider] - 1-2 days Mikie Guzman DO [REFERRING] - 1 Week Activity/Diet/Wound Care/Special Instructions: Diet: Cardiac FU PCP within 3 days of DC. FU Cardiology within 7 days of DC. Take all meds as advised. Come back to ED or call 911 for worsening CP, SOB, dizziness or palpitations. Discharge Disposition: HOME SELF-CARE
[2020-05-07] MEDS ORDERED: WARFARIN 2.5 MG TAB PO SCH (18:00)
[2020-05-07] MEDS ORDERED: MELATONIN 5 MG TABLET PO SCH (21:00)
[2020-05-08] MEDS ORDERED: WARFARIN 5 MG TAB PO SCH (18:00)
== END 2020-05-07 15:29 | disposition home or self-care (01) | DRG 315 ==
LOC: EC 20:07 → 3SCARD 23:00
PROVIDERS: ADMIT Internal Medicine; ATTEND Internal Medicine
DX: I95.9 Hypotension, unspecified (principal); N17.9 Acute kidney failure, unspecified; E87.1 Hypo-osmolality and hyponatremia; R00.1 Bradycardia, unspecified; E86.0 Dehydration; N18.9 Chronic kidney disease, unspecified; T46.1X5A Adverse effect of calcium-channel blockers, initial encounter; I44.0 Atrioventricular block, first degree; I48.0 Paroxysmal atrial fibrillation; I12.9 Hypertensive chronic kidney disease with stage 1 through stage 4 chronic kidney disease, or unspecified chronic kidney disease; E87.8 Other disorders of electrolyte and fluid balance, not elsewhere classified; Z79.01 Long term (current) use of anticoagulants; Z79.899 Other long term (current) drug therapy; Z88.2 Allergy status to sulfonamides; Z98.890 Other specified postprocedural states; Z85.46 Personal history of malignant neoplasm of prostate
CPT/HCPCS: 36415; 71046; 80048; 80053; 82550; 83735; 84484; 85025; 85027; 85610; 85730; 93005; 93306; 96360; 96361; 99291

== ENCOUNTER → 2021-09-06 | Outpatient (CLI) | payer MEDICARE ==
--- NOTE | 2021-09-07 07:13 | CT ---
EXAMINATION TYPE: CT chest wo con DATE OF EXAM: 09/06/2021 COMPARISON: Chest x-ray 11 days ago on older x-ray from 2019. HISTORY: Dyspnea, hx covid CT DLP: 718 mGycm. Automated Exposure Control for Dose Reduction was Utilized. TECHNIQUE: CT scan of the thorax is performed without IV contrast. FINDINGS: LUNGS: Patchy left basilar reticulation and groundglass opacity seen best on coronal image 75 for ref erence and sagittal image 79. Extension to superior aspect left lower lobe with reticulation and grou ndglass opacity axial image 28 is present. No pleural effusion or pneumothorax seen currently. No or focal consolidation. No concerning pulmonary masses MEDIASTINUM: Lack of IV contrast is noted to limit evaluation for mediastinal and especially hilar ad enopathy. There are no definitive greater than 1 cm mediastinal lymph nodes. Concentric pericardial c alcification. Heart size upper limits of normal with moderate left atrial dilatation and lipomatous h ypertrophy of the intra-arterial septum. Enlarged main pulmonary artery of 3.0 cm consistent with und erlying pulmonary hypertension. Coronary calcification is present which is noted marked underlying co ronary artery disease. OTHER: Patchy bilateral gynecomastia. Cortical thinning both kidneys. IMPRESSION: Patchy left lower lobe findings favor scarring or chronic inflammatory change. Diffuse ca lcific pericarditis is present. Underlying pulmonary artery hypertension. No acute pulmonary process clearly seen.
== END | disposition home or self-care (01) ==
LOC: RADCTMAIN 17:01
PROVIDERS: ATTEND Internal Medicine Critical Care Medicine
DX: I31.9 Disease of pericardium, unspecified (principal); I27.21 Secondary pulmonary arterial hypertension
CPT/HCPCS: 71250

== ENCOUNTER 2021-10-20 10:27 | Day surgery (SDC) | payer MEDICARE ==
[2021-10-18 14:31] VITALS: BMI 36.6
[~2021-10-20 10:27] MED LIST: LACTATED RINGERS 1,000 ML IV SCH; LIDOCAINE 1% (10MG/ML) FOR IV START INTRADERMA PRN
[2021-10-20 10:53] VITALS: TEMP 97.8
[2021-10-20] MEDS ORDERED: PROPOFOL 10 MG/ML 20 ML VIAL IV ONE (11:06)
--- NOTE | 2021-10-20 11:30 | P.PCN ---
Date of Procedure: 10/20/21 Procedure(s) Performed: BRIEF HISTORY: Patient is a 66-year-old pleasant white male scheduled for an elective colonoscopy as a part of last colonoscopy was 5 years ago. He was noted to have 2 adenomas. His last colonoscopy in 2016. PROCEDURE PERFORMED: Colonoscopy with argon plasma coagulation. PREOPERATIVE DIAGNOSIS: History of colon polyps. IV sedation per Anesthesia. PROCEDURE: After informed consent was obtained, the patient, was brought into the endoscopy unit. IV sedation was administered by Anesthesia under continuous monitoring. Digital rectal examination was normal. Initially the Olympus CF-160 flexible video colonoscope was then inserted in the rectum, gradually advanced into the cecum without any difficulty. Careful examination was performed as the scope was gradually being withdrawn. Ileocecal valve and the appendiceal orifice were visualized and appeared normal. Prep was excellent. Mucosa of the cecum, ascending colon, transverse colon, descending colon, sigmoid colon, appeared normal. Scattered sigmoid diverticulosis seen. In the distal rectum there were multiple telangiectasis identified consistent with radiation proctitis argon plasma coagulation was performed. Retroflexion was performed in the rectum and no lesions were seen. The patient tolerated the procedure well. 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 RECOMMENDATIONS: Findings of this examination were discussed with the patient as well as his family. He was advised to have a repeat surveillance colonoscopy in 5 years from now because of the prior history of colon polyps.
[2021-10-20 11:49] VITALS: BP 106/69; PULSE 89; RESP 20
== END 2021-10-20 12:01 | disposition home or self-care (01) ==
LOC: ORWHC2ENDO 10:27
PROVIDERS: ATTEND Internal Medicine Gastroenterology
DX: Z12.11 Encounter for screening for malignant neoplasm of colon (principal); K57.30 Diverticulosis of large intestine without perforation or abscess without bleeding; Z86.010 Personal history of colon polyps; K62.7 Radiation proctitis; I78.1 Nevus, non-neoplastic; Z79.01 Long term (current) use of anticoagulants; Z79.899 Other long term (current) drug therapy
CPT/HCPCS: 45388; J2704

== ENCOUNTER 2022-01-03 11:26 | Inpatient (IN) | payer MEDICARE ==
[2022-01-03] MEDS ORDERED: SODIUM CHLORIDE 0.9% 1,000 ML IV STA (11:41)
[2022-01-03] MEDS ORDERED: PANTOPRAZOLE 40 MG/10 ML VIAL IVP STA (11:41)
--- NOTE | 2022-01-03 11:44 | ED ---
General Adult HPI - General Chief complaint: GI Bleed Stated complaint: GI bleed Time Seen by Provider: 01/03/22 11:30 Source: patient, RN/MD (Spoke with Dr. Momin from [facility]), EMS, RN notes reviewed Mode of arrival: EMS Limitations: no limitations - History of Present Illness Initial comments: Patient is a pleasant 66-year-old male presenting to the emergency Department with rectal bleeding. Onset was around 6 this morning. Patient states bleeding has been waxing and waning however mostly steady. Patient states it has been mostly blood with some small amount of stool. Patient does feel somewhat lightheaded and fatigued. No nausea. No vomiting. No other areas of bleeding. Patient does take Coumadin secondary to history of atrial fibrillation. Patient did receive 2 units of blood. Patient did have blood pressure in the 80s that decreased to the 60s prior to that. Patient does have history of similar symptoms years ago and needed colonoscopy with Dr. Malin at that time. Patient denies any abdominal pain. Patient was also given vitamin K earlier. - Related Data Home Medications Medication Instructions Recorded Confirmed Melatonin 5 mg PO HS PRN 05/06/20 01/03/22 Warfarin [Coumadin] 5 mg PO HS 05/06/20 01/03/22 Dofetilide 500 mcg PO BID 10/18/21 01/03/22 Furosemide [Lasix] 40 mg PO QAM 10/18/21 01/03/22 Metoprolol Tartrate [Lopressor] 50 mg PO BID 10/18/21 01/03/22 lisinopriL [Prinivil] 20 mg PO QAM 10/18/21 01/03/22 Albuterol Inhaler [Ventolin Hfa 2 puff INHALATION RT-QID PRN 01/03/22 01/03/22 Inhaler] Cholecalciferol [Vitamin D3 (25 50 mcg PO DAILY 01/03/22 01/03/22 Mcg = 1000 Iu)] Fluticasone/Umeclidin/Vilanter 1 puff INHALATION RT-DAILY 01/03/22 01/03/22 [Trelegy Ellipta 100-62.5-25] Warfarin [Coumadin] 0.5 mg PO SUMOTUTHFRSA@21 01/03/22 01/03/22 Allergies Allergy/AdvReac Type Severity Reaction Status Date / Time Sulfa (Sulfonamide Allergy dizzy,light Verified 01/03/22 12:17 Antibiotics) headed/hive s Review of Systems ROS Statement: Those systems with pertinent positive or pertinent negative responses have been documented in the HPI. ROS Other: All systems not noted in ROS Statement are negative. Constitutional: Denies: fever Eyes: Denies: eye pain ENT: Denies: ear pain Respiratory: Denies: cough Cardiovascular: Denies: chest pain Endocrine: Denies: fatigue Gastrointestinal: Reports: hematochezia. Denies: abdominal pain, nausea, vomiting Genitourinary: Denies: dysuria Musculoskeletal: Denies: back pain Skin: Denies: rash Neurological: Denies: weakness Past Medical History Past Medical History: Atrial Fibrillation, Cancer, Hearing Disorder / Deafness, Hypertension Additional Past Medical History / Comment(s): Hx Prostate Cancer 3-4 yrs ago. Hard of hearing in left ear. History of Any Multi-Drug Resistant Organisms: None Reported Past Surgical History: Cardiac Ablation, Orthopedic Surgery Additional Past Surgical History / Comment(s): Cardioversion X2, right shoulder surgery. colonoscopy 10/2021 Past Anesthesia/Blood Transfusion Reactions: No Reported Reaction Past Psychological History: No Psychological Hx Reported Smoking Status: Former smoker Past Alcohol Use History: None Reported Past Drug Use History: None Reported - Past Family History Mother Family Medical History: No Reported History General Exam Limitations: no limitations General appearance: alert Head exam: Present: normocephalic Eye exam: Present: other (Pale conjunctiva) Neck exam: Present: normal inspection Respiratory exam: Present: normal lung sounds bilaterally Cardiovascular Exam: Present: regular rate, irregular rhythm GI/Abdominal exam: Present: soft. Absent: distended, tenderness, guarding, rebound, rigid Rectal exam: Present: bloody stool (Gross blood is present) Extremities exam: Present: normal inspection Neurological exam: Present: alert Psychiatric exam: Present: normal affect, normal mood Skin exam: Present: normal color Course Vital Signs 01/03/22 11:29 Temperature 97.5 F L Pulse Rate 81 Respiratory 18 Rate Blood Pressure 122/82 O2 Sat by Pulse 99 Oximetry - Reevaluation(s) Reevaluation #1: 01/03/22 11:54 Case was discussed in detail with Dr. Malin who will come evaluate the patient. 01/03/22 12:09 Case also discussed with Dr. Hayes, who will consult and agrees with ICU. 01/03/22 12:25 Case also discussed with Dr. flower, who will admit covering Dr. Barton. EKG Findings - EKG Comments: EKG Findings:: A. fib rate of 90. QRS 88. QT 412. QTC 460. Normal axis. Normal QRS. No acute ST change. Critical Care Time Critical Care Time: Yes Total Critical Care Time: 35 Disposition Clinical Impression: Lower GI hemorrhage Disposition: ADMITTED IP TO THIS HOSP Condition: Serious Is patient prescribed a controlled substance at d/c from ED?: No Time of Disposition: 11:58
[2022-01-03] MEDS ORDERED: NALOXONE 0.4 MG/ML 1 ML VIAL IV PRN (12:10)
[2022-01-03 12:29] LABS: Basophils % (A) 0 %; Eosinophils # (A) 0.2 k/uL (0-0.7); Eosinophils % (A) 1 %; HCT 33.6 % (39.0-53.0); Lymphocytes # (A) 1.3 k/uL (1.0-4.8); Lymphocytes % (A) 8 %; MCH 29.5 pg (25.0-35.0); MCHC 32.6 g/dL (31.0-37.0); MCV 90.2 fL (80.0-100.0); Mean Platelet Volume 8.1; Monocytes # (A) 0.4 k/uL (0-1.0); Monocytes % (A) 3 %; Neutrophils # (A) 13.4 k/uL (1.3-7.7); Neutrophils % (A) 86 %; Platelet Count 270 k/uL (150-450); RBC 3.72 m/uL (4.30-5.90); RDW 15.2 % (11.5-15.5); WBC 15.6 k/uL (3.8-10.6)
--- NOTE | 2022-01-03 12:32 | P.CONS ---
History of Present Illness - Reason for Consult Consult date: 01/03/22 Acute lower GI bleed - History of Present Illness Patient is a 66-year-old pleasant white male was transferred from [facility] where he presented early this morning after having several episodes of bright red blood per rectum with clots. He currently the patient woke up at 639 morning and had 4 bloody bowel movements almost 15-20 minutes apart and became somewhat lightheaded and went to the emergency room at [facility]. While in the hospital he had another 4 episodes of rectal bleeding with clots. He became hypotensive and tachycardic. He was given 2 units of PRBC transfusion and initial hemoglobin was 10 g/dL. He was a segment of transferred to [facility] for further management. The patient has history of A. fib and has been on Coumadin with an INR of 3. He reports no abdominal pain. No nausea vomiting. Never had these symptoms in the past. He did have a routine outpatient colonoscopy in October of this year and was noted to have severe radiation proctitis for which she underwent Underwent argon plasma coagulation. He had prostate cancer and underwent radiation therapy approximately 4 years ago. Review of Systems Review of systems Cardiac and pulmonary no chest pain or shortness of breath Genito urinary unremarkable Skin unremarkable Endocrine unremarkable Psychiatric unremarkable Neurology mild dizziness ENT and the patient unremarkable Constitutional no recent weight loss, no fever chills night sweats GI as mentioned Past Medical History Past Medical History: Atrial Fibrillation, Cancer, Hearing Disorder / Deafness, Hypertension Additional Past Medical History / Comment(s): Hx Prostate Cancer 3-4 yrs ago. Hard of hearing in left ear. History of Any Multi-Drug Resistant Organisms: None Reported Past Surgical History: Cardiac Ablation, Orthopedic Surgery Additional Past Surgical History / Comment(s): Cardioversion X2, right shoulder surgery. colonoscopy 10/2021 Past Anesthesia/Blood Transfusion Reactions: No Reported Reaction Past Psychological History: No Psychological Hx Reported Smoking Status: Former smoker Past Alcohol Use History: None Reported Past Drug Use History: None Reported - Past Family History Mother Family Medical History: No Reported History Medications and Allergies Home Medications Medication Instructions Recorded Confirmed Type Melatonin 5 mg PO HS PRN 05/06/20 01/03/22 History Warfarin [Coumadin] 5 mg PO HS 05/06/20 01/03/22 History Dofetilide 500 mcg PO BID 10/18/21 01/03/22 History Furosemide [Lasix] 40 mg PO QAM 10/18/21 01/03/22 History Metoprolol Tartrate [Lopressor] 50 mg PO BID 10/18/21 01/03/22 History lisinopriL [Prinivil] 20 mg PO QAM 10/18/21 01/03/22 History Albuterol Inhaler [Ventolin Hfa 2 puff INHALATION RT-QID PRN 01/03/22 01/03/22 History Inhaler] Cholecalciferol [Vitamin D3 (25 50 mcg PO DAILY 01/03/22 01/03/22 History Mcg = 1000 Iu)] Fluticasone/Umeclidin/Vilanter 1 puff INHALATION RT-DAILY 01/03/22 01/03/22 History [Trelescooter Ellipta 100-62.5-25] Warfarin [Coumadin] 0.5 mg PO SUMOTUTHFRSA@21 01/03/22 01/03/22 History Allergies Allergy/AdvReac Type Severity Reaction Status Date / Time Sulfa (Sulfonamide Allergy dizzy,light Verified 01/03/22 12:17 Antibiotics) headed/hive s Physical Exam Vitals: Vital Signs Temp Pulse Resp BP Pulse Ox 01/03/22 11:29 97.5 F L 81 18 122/82 99 Intake and Output 01/02/22 01/03/22 01/03/22 22:59 06:59 14:59 Other: Weight 122.47 kg HEENT examination unremarkable conjunctivae pink, sclerae anicteric Oral cavity no lesions Neck no JVD or lymph node enlargement Chest was clear to auscultation Heart regular rate and rhythm Abdomen is soft, positive posterior, nontender and no organomegaly Extremities no pedal edema Neurologic alert and oriented 3 Results Results: Labs from this morning from [facility]. Hemoglobin was 10 g/dL and INR was 3 repeat labs from this hospital is still pending Assessment and Plan (1) Lower GI hemorrhage Narrative/Plan: Patient presented with multiple episodes of bright red blood per rectum with clots since 6:30 AM this morning. He had 6 episodes of hard. He became somewhat hypotensive and tachycardic in the emergency room at [facility] and hence he received 2 units of RBC transfusion. He is feeling much better now. Hemodynamically more stable. He did not have any further bleeding in the last one was. He was apparently given vitamin K at the [facility] ER. Most likely the bleeding is related to radiation proctitis but possibility of a diverticular bleed cannot be excluded. The patient did have a colonoscopy in October 2021 that showed severe radiation proctitis for which he underwent argon plasma coagulation. Current Visit: Yes Status: Acute Code(s): K92.2 - GASTROINTESTINAL HEMORRHAGE, UNSPECIFIED SNOMED Code(s): 97724472 (2) Radiation proctitis Narrative/Plan: History of radiation to the prostate 4 years ago Current Visit: Yes Status: Acute Code(s): K62.7 - RADIATION PROCTITIS SNOMED Code(s): 452338021 (3) Atrial fibrillation Narrative/Plan: On Coumadin for the last 5 years. Recent INR was 3. Current Visit: Yes Status: Acute Code(s): I48.91 - UNSPECIFIED ATRIAL FIBRILLATION SNOMED Code(s): 82785577 Plan: 1. Hold Coumadin 2 monitor CBC every 6 hours 3 start on clear liquid diet 4. Monitor PT/INR daily 5. Once INR is less than 1.5 and consider flexible sigmoidoscopy with argon plasma coagulation for radiation proctitis will follow with you closely. Thank you for this consultation .
[2022-01-03 12:41] LABS: INR 3.4 (<1.2); Partial Thromboplastin Time 33.5 sec (22.0-30.0); Prothrombin Time 34.3 sec (9.0-12.0)
[2022-01-03 12:48] LABS: Albumin 3.1 g/dL (3.5-5.0); Calcium 7.8 mg/dL (8.4-10.2); Potassium 5.3 mmol/L (3.5-5.1); Total Bilirubin 0.9 mg/dL (0.2-1.3); Total Protein 5.9 g/dL (6.3-8.2)
[2022-01-03] MEDS: SODIUM CHLORIDE 0.9% 1,000 ML IV SCH ×2 (13:07→20:00)
[2022-01-03 13:44] LABS: Glucose,Whole Blood 103 mg/dL (75-99)
[2022-01-03] MEDS ORDERED: MELATONIN 3 MG TABLET PO PRN (13:45)
[2022-01-03] MEDS ORDERED: ONDANSETRON 4 MG/2 ML VIAL IVP PRN (13:45)
[2022-01-03] MEDS ORDERED: ALBUTEROL NEBULIZED 2.5 MG/3 ML INHALATION PRN (13:56)
--- NOTE | 2022-01-03 13:59 | P.HPIM ---
History of Present Illness H&P Date: 01/03/22 Chief Complaint: GI bleed Patient is a 66-year-old male with A. fib anticoagulated on Coumadin, COPD, and history of prior prostate cancer with radiation presented to the ER at [facility] with complaints of bright red blood per rectum. In the ER there he was found to have a hemoglobin of 10, INR 3.05. He has copious amounts of bright red blood per rectum. He was subsequently transfused 2 units of packed red blood cells and IV vitamin K. He was transferred to our facility for surgical or GI evaluation. In the ER here his repeat hemoglobin was 11. He was seen by Dr. Welch and plan is for sigmoidoscopy once INR is less than 1.5. Patient seen and examined at bedside with present. He denies any abdominal pain. He states at 6 AM he started having bright red blood per rectum. He eventually did get lightheaded and dizzy and have some worsening shortness breath. He denies any recent fevers, chills, sick contacts. He does have a history of internal hemorrhoids. In October 2021 he required colonoscopy with intervention for radiation proctitis and telangiectasias. Pertinent positives and negatives as discussed in HPI, a complete review of systems was performed and all other systems are negative. General: non toxic, no distress, appears at stated age Derm: warm, dry Head: atraumatic, normocephalic, symmetric Eyes: EOMI, no lid lag, anicteric sclera, pupils equal round reactive to light ENT: Nose and ears atraumatic, no thrush, no pharyngeal erythema Neck: No thyromegaly, no cervical lymphadenopathy, trachea midline, supple Mouth: no lip lesion, mucus membranes moist Cardiovascular: S1S2 reg, no murmur, positive posterior tibial pulse bilateral, no edema, capillary refill less than 2 seconds Lungs: clear to ascultation bilateral, no ronchi, no rales, no wheeze, no accessory muscle use Abdominal: soft, nontender to palpation, no guarding, no appreciable organomegaly, normal bowel sounds Ext: no gross muscle atrophy, muscle strength muscle strength 5 out of 5 in all 4 extremities, no contractures Neuro: CN II-XI grossly intact, light touch intact all 4 extremities, finger to nose within normal limits, Psych: Alert, oriented, appropriate affect Assessment/plan: Lower GI bleed Acute blood loss anemia Coagulopathy - s/p Vitamin K - s/p 2 units pRBC - admit to ICU - Dr. Welch plans on sigmoidoscopy once INR <1.5 - serial CBC - follow INR A fib HTN, controlled - hold coumadin - tele - metoprolol - lisinopril on hold - lasix - dofetilide COPD without exacerbation - Bronchdilators Obesity with BMI 36.6 - structured outpatient weight loss ETOH dependency - Monitor for signs of withdrawal - CIWA - Thamine and folic acid will be ordered once eating. The patient is admitted with an anticipated greater than 2 midnight stay for evaluation of GI bleed. Surrogate decision-maker: CODE STATUS: full DVT prophylaxis: SCDs Discussed with: Patient, nursing, ED physician Anticipated discharge date: in 2-[address]: home A total of 65 minutes was spent on the care of this complex patient more than 50% of the time was spent in counseling and care coordination. Past Medical History Past Medical History: Atrial Fibrillation, Cancer, COPD, Hearing Disorder / Deafness, Hypertension Additional Past Medical History / Comment(s): Hx Prostate Cancer 3-4 yrs ago. Hard of hearing in left ear. History of Any Multi-Drug Resistant Organisms: None Reported Past Surgical History: Cardiac Ablation (X2), Orthopedic Surgery Additional Past Surgical History / Comment(s): Cardioversion X2, right shoulder surgery. colonoscopy 10/2021 Past Anesthesia/Blood Transfusion Reactions: No Reported Reaction Past Psychological History: No Psychological Hx Reported Smoking Status: Former smoker (Quit smoking 2011, smoked 1ppd since teens.) Past Alcohol Use History: Heavy Past Drug Use History: None Reported - Past Family History Mother Family Medical History: No Reported History family Family Medical History: Diabetes Mellitus Medications and Allergies Home Medications Medication Instructions Recorded Confirmed Type Melatonin 5 mg PO HS PRN 05/06/20 01/03/22 History Warfarin [Coumadin] 5 mg PO HS 05/06/20 01/03/22 History Dofetilide 500 mcg PO BID 10/18/21 01/03/22 History Furosemide [Lasix] 40 mg PO QAM 10/18/21 01/03/22 History Metoprolol Tartrate [Lopressor] 50 mg PO BID 10/18/21 01/03/22 History lisinopriL [Prinivil] 20 mg PO QAM 10/18/21 01/03/22 History Albuterol Inhaler [Ventolin Hfa 2 puff INHALATION RT-QID PRN 01/03/22 01/03/22 History Inhaler] Cholecalciferol [Vitamin D3 (25 50 mcg PO DAILY 01/03/22 01/03/22 History Mcg = 1000 Iu)] Fluticasone/Umeclidin/Vilanter 1 puff INHALATION RT-DAILY 01/03/22 01/03/22 History [Trelegy Ellipta 100-62.5-25] Warfarin [Coumadin] 0.5 mg PO SUMOTUTHFRSA@21 01/03/22 01/03/22 History Allergies Allergy/AdvReac Type Severity Reaction Status Date / Time Sulfa (Sulfonamide Allergy dizzy,light Verified 01/03/22 12:17 Antibiotics) headed/hive s Physical Exam Osteopathic Statement: *. No significant issues noted on an osteopathic structural exam other than those noted in the History and Physical/Consult. Vitals: Vital Signs Temp Pulse Resp BP Pulse Ox 01/03/22 13:00 97.6 F 90 16 78/64 99 01/03/22 12:05 97.5 F L 89 16 99/69 98 01/03/22 11:53 97.5 F L 80 16 105/64 98 01/03/22 11:29 97.5 F L 81 18 122/82 99 Intake and Output 01/02/22 01/03/22 01/03/22 22:59 06:59 14:59 Other: Weight 122.47 kg Results CBC & Chem 7: 01/03/22 12:15 01/03/22 12:15 Labs: Abnormal Lab Results - Last 24 Hours (Table) 01/03/22 01/03/22 01/03/22 Range/Units 12:15 12:15 12:15 WBC 15.6 H (3.8-10.6) k/uL RBC 3.72 L (4.30-5.90) m/uL Hgb 11.0 L (13.0-17.5) gm/dL Hct 33.6 L (39.0-53.0) % Neutrophils # 13.4 H (1.3-7.7) k/uL PT 34.3 H (9.0-12.0) sec INR 3.4 H (<1.2) APTT 33.5 H (22.0-30.0) sec Sodium 133 L (137-145) mmol/L Potassium 5.3 H (3.5-5.1) mmol/L BUN 33 H (9-20) mg/dL Creatinine 1.41 H (0.66-1.25) mg/dL Glucose 112 H (74-99) mg/dL POC Glucose (mg/dL) (75-99) mg/dL Calcium 7.8 L (8.4-10.2) mg/dL Total Protein 5.9 L (6.3-8.2) g/dL Albumin 3.1 L (3.5-5.0) g/dL 01/03/22 Range/Units 13:42 WBC (3.8-10.6) k/uL RBC (4.30-5.90) m/uL Hgb (13.0-17.5) gm/dL Hct (39.0-53.0) % Neutrophils # (1.3-7.7) k/uL PT (9.0-12.0) sec INR (<1.2) APTT (22.0-30.0) sec Sodium (137-145) mmol/L Potassium (3.5-5.1) mmol/L BUN (9-20) mg/dL Creatinine (0.66-1.25) mg/dL Glucose (74-99) mg/dL POC Glucose (mg/dL) 103 H (75-99) mg/dL Calcium (8.4-10.2) mg/dL Total Protein (6.3-8.2) g/dL Albumin (3.5-5.0) g/dL
--- NOTE | 2022-01-03 14:06 | P.CNPUL ---
History of Present Illness Consult date: 01/03/22 Requesting physician: Shereen Titus Reason for consult: other Chief complaint: Lower GI bleed. History of present illness: Pulmonary consult dated 01/03/2022. 66-year-old white male seen in the emergency department. He was seen by Dr. Lion Osorio. He apparently was initially evaluated at [facility]. He went there, initially, because he was having some bright red bleeding from the rectal area. It apparently started 6:00 this morning. In addition, the patient apparently had some mild hypotension. The patient did receive 2 units of blood at the outside hospital, and then was transferred here. He also received some vitamin K. The patient was seen by the tower helper this morning. The plan is once the INR is below 1.5, the patient would be a candidate for colonoscopy. 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 The patient had previous prostate cancer, was treated with radiation. The patient is on warfarin for atrial fibrillation. The patient states that he never had bleeding from the colon or from the gastrointestinal tract in the past. In addition to atrial fibrillation and prostate cancer, he has a history of hypertension, and impaired hearing. He is also a former smoker. Laboratory data here includes a white count of 15.6, hemoglobin 11, hematocrit 33.6, platelet count 370,000. PTT was 34.3 INR was 3.4. Sodium 133, potassium 5.3, chlorides 106, CO2 23, BUN 33, and creatinine 1.41. Albumin is 3.1. Review of Systems REVIEW OF SYSTEMS: CONSTITUTIONAL: [Negative.] NEUROLOGIC: [ Negative.] HEENT: [ Negative.] CARDIAC: [Negative.] PULMONARY: [Negative.] GI: Bright red bleeding from the rectum. : [Negative.] RHEUMATOLOGIC: [ Negative.] IMMUNOLOGIC: [ Negative.] ENDOCRINE: [Negative. ] DERMATOLOGIC: [Negative.] Past Medical History Past Medical History: Atrial Fibrillation, Cancer, COPD, Hearing Disorder / Deafness, Hypertension Additional Past Medical History / Comment(s): Hx Prostate Cancer 3-4 yrs ago. Hard of hearing in left ear. History of Any Multi-Drug Resistant Organisms: None Reported Past Surgical History: Cardiac Ablation, Orthopedic Surgery Additional Past Surgical History / Comment(s): Cardioversion X2, right shoulder surgery. colonoscopy 10/2021 Past Anesthesia/Blood Transfusion Reactions: No Reported Reaction Past Psychological History: No Psychological Hx Reported Smoking Status: Former smoker Past Alcohol Use History: Occasional Additional Past Alcohol Use History / Comment(s): Quit smoking 2011, smoked 1ppd since teens. Past Drug Use History: None Reported - Past Family History Mother Family Medical History: No Reported History Medications and Allergies Home Medications Medication Instructions Recorded Confirmed Type Melatonin 5 mg PO HS PRN 05/06/20 01/03/22 History Warfarin [Coumadin] 5 mg PO HS 05/06/20 01/03/22 History Dofetilide 500 mcg PO BID 10/18/21 01/03/22 History Furosemide [Lasix] 40 mg PO QAM 10/18/21 01/03/22 History Metoprolol Tartrate [Lopressor] 50 mg PO BID 10/18/21 01/03/22 History lisinopriL [Prinivil] 20 mg PO QAM 10/18/21 01/03/22 History Albuterol Inhaler [Ventolin Hfa 2 puff INHALATION RT-QID PRN 01/03/22 01/03/22 History Inhaler] Cholecalciferol [Vitamin D3 (25 50 mcg PO DAILY 01/03/22 01/03/22 History Mcg = 1000 Iu)] Fluticasone/Umeclidin/Vilanter 1 puff INHALATION RT-DAILY 01/03/22 01/03/22 H istory [Trelegy Ellipta 100-62.5-25] Warfarin [Coumadin] 0.5 mg PO SUMOTUTHFRSA@21 01/03/22 01/03/22 History Allergies Allergy/AdvReac Type Severity Reaction Status Date / Time Sulfa (Sulfonamide Allergy dizzy,light Verified 01/03/22 12:17 Antibiotics) headed/hive s Physical Exam Osteopathic Statement: *. No significant issues noted on an osteopathic structural exam other than those noted in the History and Physical/Consult. Vitals: Vital Signs Temp Pulse Resp BP Pulse Ox 01/03/22 13:00 97.6 F 90 16 78/64 99 01/03/22 12:05 97.5 F L 89 16 99/69 98 01/03/22 11:53 97.5 F L 80 16 105/64 98 01/03/22 11:29 97.5 F L 81 18 122/82 99 Intake and Output 01/02/22 01/03/22 01/03/22 22:59 06:59 14:59 Other: Weight 122.47 kg No acute distress, oriented 3. No supplemental oxygen. HEENT examination is grossly unremarkable. Neck supple. Full range of motion. No adenopathy thyromegaly or neck vein distention. Cardiovascular examination reveals regular rhythm rate. S1-S2 normal. No S3 or S4. No discernible murmur noted. Heart rate 90 bpm. Lungs reveal clear breath sounds. Breath sounds are equal bilaterally. No adventitious lung sounds including wheezes rhonchi or crackles. Abdomen soft and slightly distended. No tenderness on palpation. Extremities are intact. No cyanosis clubbing or edema. Skin is without rash or lesion. Neurologic examination is brief but nonfocal. Results - Laboratory Findings CBC and BMP: 01/03/22 12:15 01/03/22 12:15 PT/INR, D-dimer PT 34.3 sec (9.0-12.0) H 01/03/22 12:15 INR 3.4 (<1.2) H 01/03/22 12:15 Abnormal lab findings: Abnormal Labs 01/03/22 01/03/22 01/03/22 12:15 12:15 12:15 WBC 15.6 H RBC 3.72 L Hgb 11.0 L Hct 33.6 L Neutrophils # 13.4 H PT 34.3 H INR 3.4 H APTT 33.5 H Sodium 133 L Potassium 5.3 H BUN 33 H Creatinine 1.41 H Glucose 112 H POC Glucose (mg/dL) Calcium 7.8 L Total Protein 5.9 L Albumin 3.1 L 01/03/22 13:42 WBC RBC Hgb Hct Neutrophils # PT INR APTT Sodium Potassium BUN Creatinine Glucose POC Glucose (mg/dL) 103 H Calcium Total Protein Albumin Assessment and Plan Assessment: Bright red bleeding per rectum, rule out angiodysplasia, diverticulosis, or radiation colitis. History of prostate cancer, status post radiation therapy. History of chronic atrial fibrillation, maintained on Coumadin. Prior history of tobacco use. History of impaired hearing. History of hypertension. Probable COPD based on the patient's outpatient medications. Plan: Plan 01/03/2022. The patient is in intensive care unit. The patient appears to be relatively stable. The patient has been seen by gastroenterology. The plan is to do a colonoscopy once the INR is less than 1.5. The patient did receive 2 units of blood. The patient also received some vitamin K. The outside hospital and transferred here. His respiratory status is currently stable. His hemodynamic status is stable. Continue to follow the patient make recommendations where appropriate. Time with Patient: Greater than 30
[2022-01-03] MEDS ORDERED: SODIUM CHLORIDE 0.9% 1,000 ML IV ONE (15:50)
[2022-01-03 17:45] LABS: HCT 26.5 % (39.0-53.0); Hypochromasia Slight; MCH 29.1 pg (25.0-35.0); MCHC 31.5 g/dL (31.0-37.0); MCV 92.6 fL (80.0-100.0); Mean Platelet Volume 8.2; Platelet Count 236 k/uL (150-450); RBC 2.87 m/uL (4.30-5.90); RDW 15.2 % (11.5-15.5); WBC 13.8 k/uL (3.8-10.6)
[2022-01-03 17:53] LABS: HGB 8.4 gm/dL (13.0-17.5)
[2022-01-03 18:04] LABS: Albumin 2.4 g/dL (3.5-5.0); Calcium 7.1 mg/dL (8.4-10.2); Potassium 4.9 mmol/L (3.5-5.1); Total Bilirubin 0.8 mg/dL (0.2-1.3); Total Protein 4.8 g/dL (6.3-8.2)
[2022-01-03] MEDS: NOREPINEPHRINE 4 MG in SODIUM CHLORIDE 0.9% 250 ML IV SCH (18:29)
[2022-01-03] MEDS ORDERED: METOPROLOL TARTRATE 50 MG TAB PO SCH (21:00)
[2022-01-03] MEDS ORDERED: DOFETILIDE 500 MCG CAP PO SCH (21:00)
[2022-01-03] MEDS: MELATONIN 5 MG TABLET PO PRN (21:14)
[2022-01-04 00:10] LABS: HCT 22.9 % (39.0-53.0); HGB 7.2 gm/dL (13.0-17.5); Hypochromasia Slight; MCHC 31.5 g/dL (31.0-37.0); MCV 91.9 fL (80.0-100.0); Mean Platelet Volume 8.8; Platelet Count 227 k/uL (150-450); RBC 2.49 m/uL (4.30-5.90); RDW 15.5 % (11.5-15.5); WBC 12.3 k/uL (3.8-10.6)
[2022-01-04] MEDS: SODIUM CHLORIDE 0.9% 1,000 ML IV SCH ×3 (03:19→20:00)
[2022-01-04] MEDS: NOREPINEPHRINE 4 MG in SODIUM CHLORIDE 0.9% 250 ML IV SCH ×2 (04:55→15:36)
[2022-01-04 06:16] LABS: Basophils % (A) 0 %; Eosinophils # (A) 0.1 k/uL (0-0.7); Eosinophils % (A) 1 %; HGB 7.8 gm/dL (13.0-17.5); Hypochromasia Slight; Lymphocytes # (A) 1.7 k/uL (1.0-4.8); Lymphocytes % (A) 15 %; MCHC 31.4 g/dL (31.0-37.0); MCV 92.5 fL (80.0-100.0); Mean Platelet Volume 8.3; Monocytes # (A) 0.8 k/uL (0-1.0); Monocytes % (A) 7 %; Neutrophils # (A) 8.1 k/uL (1.3-7.7); Neutrophils % (A) 74 %; Platelet Count 238 k/uL (150-450); RDW 15.4 % (11.5-15.5)
[2022-01-04 06:25] LABS: Calcium 7.5 mg/dL (8.4-10.2); Potassium 4.5 mmol/L (3.5-5.1)
[2022-01-04 06:32] LABS: Prothrombin Time 20.1 sec (9.0-12.0)
[2022-01-04] MEDS: SYMBICORT 80-4.5 MCG INHALER INHALATION SCH ×2 (07:16→20:08)
[2022-01-04] MEDS: IPRATROPIUM 0.5 MG/2.5 ML NEBU INHALATION SCH ×4 (07:16→20:08)
[2022-01-04] MEDS: METOPROLOL TARTRATE 50 MG TAB PO SCH ×3 (08:03→21:00)
[2022-01-04] MEDS ORDERED: Magnesium Replacement Protocol 1 EACH MISC MISCELLANE PRN (08:42)
[2022-01-04] MEDS: PANTOPRAZOLE 40 MG/10 ML VIAL IV SCH (08:52)
[2022-01-04] MEDS: MAGNESIUM SULFATE-D5W PMX 1 GM in DEXTROSE/WATER 1 100ML.BAG IVPB SCH ×2 (08:58→10:32)
[2022-01-04] MEDS ORDERED: FUROSEMIDE 40 MG TAB PO SCH (09:00)
--- NOTE | 2022-01-04 09:26 | P.CRDCN ---
History of Present Illness Consult date: 01/04/22 Reason for Consult (text): wide complex tachycardia History of present illness: The patient is a 66-year-old male with past cardiac medical history of atrial tachycardia and atrial fibrillation who follows with Dr. Guzman in [place]. The patient is currently admitted to the hospital with an acute GI bleed, which prior multiple blood product transfusions. The patient was being monitored in the ICU as he was requiring vasopressors. ICU nursing staff notified gold leaf roller this morning that the patient converted to a wide complex tachycardia. At the time of Dr. Gómez's examination, he was off norepinephrine with stable blood pressure. Telemetry showed wide complex tachycardia with a heart rate in the 180s. Dr Gómez analyzed this as an atrial tachycardia with RVR. Home records reviewed, which shows the patient is curre ntly on dofetilide 500 g, and also has mildly elevated kidney function. Because baseline function is not known, Dr. Gómez recommends holding the dofetilide and not giving the patient any antiarrhythmic therapy over the next 24 hours until there is dofetilide washout. He recommends treating the patient with beta blockers. DIAGNOSTICS: EKG on arrival shows slow atrial tachycardia Laboratory data, WBC 12.3, hemoglobin 7.2, hematocrit 22.9, platelet 227, INR 3.4, sodium 133, BUN 34, creatinine 1.57, AST 17, ALT 14 Vital signs: Blood pressure 100/77, heart rate 180, respiratory rate 22, temp 98.4F, SpO2 98% on room air PAST MEDICAL HISTORY: Atrial fibrillation, COPD, prostate cancer, hypertension, cardiac ablation, EtOH abuse REVIEW OF SYSTEMS: No fever or chills. No cough or expectoration. No diaphoresis. Patient denies headache, dizziness, blurred vision, double vision. No nausea, vomiting. Denies dysuria or hematuria. No muscle weakness or numbness. No chest pain or chest pressure. No heart racing or fluttering. No difficulty breathing or orthopnea. PHYSICAL EXAMINATION: This is a 66-year-old male in no apparent distress at the time of my examination. HEENT: Head is atraumatic, normocephalic. Pupils are equal, round. Sclerae anicteric. Conjunctivae are clear. Mucous membranes of the mouth are dry. Neck is supple. There is no jugular venous distention. No carotid bruit is heard. Skin is pale. CHEST EXAMINATION: Lungs are clear to auscultation. No chest wall tenderness is noted on palpation or with deep breathing. HEART EXAMINATION: Heart regular rate. Unable to appreciate abnormal heart sounds. ABDOMEN: Soft, nontender. No organomegaly noted. EXTREMITIES: 2+ peripheral pulses with no evidence of peripheral edema and no calf tenderness noted. NEUROLOGIC EXAMINATION: Patient is awake, alert and oriented x3. FINAL ASSESSMENT AND PLAN: Atrial tachycardia with RVR, avoid antiarrhythmic therapy as the patient is on dofetilide History of atrial fibrillation, previous cardiac ablations, currently on dofetilide Acute GI bleeding, Coumadin currently on hold, plan for sigmoidoscopy when INR is less than 1.5 Hypotension, discontinue furosemide Acute anemia, blood loss, hemoglobin 7.8 Chronic kidney disease, GFR from 2020 41 and 49 PLAN: Increase metoprolol tartrate 50 mg 3 times a day Discontinue dofetilide Hold furosemide to avoid hypotension When heart rates have improved, echocardiogram to assess heart structure will be ordered Further recommendations to be based on clinical course I am dictating on behalf of Dr Art Gómez's history/physical and assessment/plan. Past Medical History Past Medical History: Atrial Fibrillation, Cancer, COPD, Hearing Disorder / Deafness, Hypertension Additional Past Medical History / Comment(s): Hx Prostate Cancer 3-4 yrs ago. Hard of hearing in left ear. History of Any Multi-Drug Resistant Organisms: None Reported Past Surgical History: Cardiac Ablation (X2), Orthopedic Surgery Additional Past Surgical History / Comment(s): Cardioversion X2, right shoulder surgery. colonoscopy 10/2021 Past Anesthesia/Blood Transfusion Reactions: No Reported Reaction Past Psychological History: No Psychological Hx Reported Smoking Status: Former smoker (Quit smoking 2011, smoked 1ppd since teens.) Past Alcohol Use History: Heavy Past Drug Use History: None Reported - Past Family History Mother Family Medical History: No Reported History family Family Medical History: Diabetes Mellitus Medications and Allergies Home Medications Medication Instructions Recorded Confirmed Type Melatonin 5 mg PO HS PRN 05/06/20 01/03/22 History Warfarin [Coumadin] 5 mg PO HS 05/06/20 01/03/22 History Dofetilide 500 mcg PO BID 10/18/21 01/03/22 History Furosemide [Lasix] 40 mg PO QAM 10/18/21 01/03/22 History Metoprolol Tartrate [Lopressor] 50 mg PO BID 10/18/21 01/03/22 History lisinopriL [Prinivil] 20 mg PO QAM 10/18/21 01/03/22 History Albuterol Inhaler [Ventolin Hfa 2 puff INHALATION RT-QID PRN 01/03/22 01/03/22 History Inhaler] Cholecalciferol [Vitamin D3 (25 50 mcg PO DAILY 01/03/22 01/03/22 History Mcg = 1000 Iu)] Fluticasone/Umeclidin/Vilanter 1 puff INHALATION RT-DAILY 01/03/22 01/03/22 History [Trelegy Ellipta 100-62.5-25] Warfarin [Coumadin] 0.5 mg PO SUMOTUTHFR01/03/22 01/03/22 History Allergies Allergy/AdvReac Type Severity Reaction Status Date / Time Sulfa (Sulfonamide Allergy dizzy,light Verified 01/03/22 12:17 Antibiotics) headed/hive s Physical Exam Vitals: Vital Signs Temp Pulse Resp BP Pulse Ox 01/04/22 07:00 87 18 97/63 98 01/04/22 06:30 87 10 L 106/59 98 01/04/22 06:00 89 22 105/61 98 01/04/22 05:30 88 16 117/68 99 01/04/22 05:00 88 22 126/72 98 01/04/22 04:30 87 12 98/66 99 01/04/22 04:06 97.6 F 87 21 127/73 97 01/04/22 04:00 97.6 F 87 20 119/67 98 01/04/22 03:30 87 13 121/64 97 01/04/22 03:16 97.8 F 88 12 121/64 98 01/04/22 03:00 87 20 121/73 98 01/04/22 02:46 98.0 F 10 L 11 L 121/73 97 01/04/22 02:36 99.2 F 98 14 110/69 99 01/04/22 02:30 98 12 104/56 98 01/04/22 02:00 105 H 21 107/58 98 01/04/22 01:30 105 H 16 80/56 97 04/19/22 01:00 112 H 20 86/56 01/04/22 00:30 109 H 14 99/58 01/04/22 00:03 109 H 21 97/61 01/04/22 00:00 109 H 22 104/72 99 01/03/22 23:30 108 H 19 101/58 98 01/03/22 23:00 100 16 96/63 96 01/03/22 22:30 112 H 22 106/59 98 01/03/22 22:00 107 H 17 90/60 97 01/03/22 21:30 99 22 101/65 100 01/03/22 21:07 98.5 F 103 H 15 94/61 01/03/22 21:06 98.5 F 103 H 15 94/61 99 01/03/22 21:00 87 21 101/64 99 01/03/22 20:45 90 17 94/59 98 01/03/22 20:30 101 H 19 97/60 99 01/03/22 20:15 106 H 22 93/58 99 01/03/22 20:00 98.3 F 114 H 18 92/54 97 01/03/22 19:56 98.3 F 109 H 16 93/58 98 01/03/22 19:45 109 H 20 108/78 97 01/03/22 19:30 95 13 101/59 97 01/03/22 19:26 97.9 F 110 H 14 108/78 98 01/03/22 19:16 97.5 F L 100 21 101/59 97 01/03/22 19:15 94 17 107/55 97 01/03/22 19:00 89 21 102/65 98 01/03/22 18:45 89 16 76/57 97 01/03/22 18:30 100 18 77/48 95 01/03/22 18:15 106 H 19 68/44 96 01/03/22 18:00 98 20 87/54 92 L 01/03/22 17:45 92 20 90/50 96 01/03/22 17:30 94 20 89/55 99 01/03/22 17:15 101 H 20 85/53 94 L 01/03/22 17:00 101 H 21 86/55 97 01/03/22 16:45 94 21 96/65 95 01/03/22 16:30 90 17 72/51 96 01/03/22 16:15 87 15 67/52 94 L 01/03/22 16:00 87 15 69/41 98 01/03/22 15:45 93 21 78/45 98 01/03/22 15:00 89 19 91/62 98 01/03/22 14:32 88 24 96/61 96 01/03/22 13:00 98.4 F 92 20 99/69 97 01/03/22 12:05 97.5 F L 89 16 99/69 98 01/03/22 11:53 97.4 F L 80 16 105/64 98 01/03/22 11:29 97.5 F L 81 18 122/82 99 Intake and Output 01/03/22 01/04/22 01/04/22 22:59 06:59 14:59 Intake Total 2267 1710.000 Output Total 50 1070 Balance 2217 640.000 Intake: IV 1910 1170 Sodium Chloride 0.9% 1, 910 1170 000 ml @ 130 mls/hr IV . Q7H42M [facility] Rx#:[id number] Sodium Chloride 0.9% 1, 1000 000 ml @ 999 mls/hr IV . Q1H1M [facility] Rx#:[id number] Intake, IV Titration 254.000 Amount Norepinephrine 4 mg In 254.000 Sodium Chloride 0.9% 250 ml @ 0.05 MCG/KG/MIN 23. 331 mls/hr IV .[id number] [facility] Rx#:[id number] Blood Product 357 286 Ffp 24 Cpd Unit 357 [id number] Rc Pheresis 2 As3 Unit 286 [id number] Output: Urine 50 950 Post Void Residual 120 Other: Voiding Method Urinal # Voids 1 # Bowel Movements 1 0 Weight 131.8 kg Results 01/04/22 05:48 01/04/22 05:48 Cardiac Enzymes 01/03/22 01/03/22 Range/Units 12:15 17:29 AST 20 17 (17-59) U/L Coagulation 01/03/22 01/04/22 Range/Units 12:15 05:48 PT 34.3 H 20.1 H (9.0-12.0) sec APTT 33.5 H (22.0-30.0) sec CBC 01/03/22 01/03/22 01/03/22 Range/Units 12:15 17:29 23:53 WBC 15.6 H 13.8 H 12.3 H (3.8-10.6) k/uL RBC 3.72 L 2.87 L 2.49 L (4.30-5.90) m/uL Hgb 11.0 L 8.4 L D 7.2 L (13.0-17.5) gm/dL Hct 33.6 L 26.5 L 22.9 L (39.0-53.0) % Plt Count 270 236 227 (150-450) k/uL 01/04/22 Range/Units 05:48 WBC 11.0 H (3.8-10.6) k/uL RBC 2.70 L (4.30-5.90) m/uL Hgb 7.8 L (13.0-17.5) gm/dL Hct 25.0 L (39.0-53.0) % Plt Count 238 (150-450) k/uL Comprehensive Metabolic Panel 01/03/22 01/03/22 01/04/22 Range/Units 12:15 17:29 05:48 Sodium 133 L 133 L 137 (137-145) mmol/L Potassium 5.3 H 4.9 4.5 (3.5-5.1) mmol/L Chloride 106 108 H 112 H (98-107) mmol/L Carbon Dioxide 23 20 L 19 L (22-30) mmol/L BUN 33 H 34 H 32 H (9-20) mg/dL Creatinine 1.41 H 1.57 H 1.40 H (0.66-1.25) mg/dL Glucose 112 H 118 H 104 H (74-99) mg/dL Calcium 7.8 L 7.1 L 7.5 L (8.4-10.2) mg/dL AST 20 17 (17-59) U/L ALT 16 14 (4-49) U/L Alkaline Phosphatase 102 81 (38-126) U/L Total Protein 5.9 L 4.8 L (6.3-8.2) g/dL Albumin 3.1 L 2.4 L (3.5-5.0) g/dL Current Medications Generic Name Dose Route Start Last Admin Trade Name Freq PRN Reason Stop Dose Admin Acetaminophen 650 mg 01/03/22 13:45 Acetaminophen Tab 325 Mg Tab PO Q6HR PRN Mild Pain or Fever > 100.5 Albuterol Sulfate 2.5 mg 01/03/22 13:56 Albuterol Nebulized 2.5 Mg/3 Ml INHALATION RT-QID PRN Shortness Of Breath Budesonide/Formoterol Fumarate 2 puff 01/04/22 08:00 01/04/22 07:16 Symbicort 80-4.5 Mcg Inhaler INHALATION Not Given RT-BID ANA ROSA Sodium Chloride 1,000 mls @ 130 mls/hr 01/03/22 12:15 01/04/22 03:19 Saline 0.9% IV 130 mls/hr .Q7H42M ANA ROSA Administration Norepinephrine Bitartrate 4 mg 254 mls @ 23.331 mls/hr 01/03/22 18:15 01/04/22 04:55 / Sodium Chloride IV 0.05 mcg/kg/min .[id number] ANA ROSA 23.331 mls/hr Administration Protocol 0.05 MCG/KG/MIN Magnesium Sulfate/Dextrose 1 100 mls @ 100 mls/hr 01/04/22 09:30 01/04/22 08:58 gm/ IV Solution IVPB 01/04/22 11:29 100 mls/hr Q1H ANA ROSA Administration Ipratropium [place] 0.5 mg 01/04/22 08:00 01/04/22 07:16 Ipratropium 0.5 Mg/2.5 Ml Nebu INHALATION Not Given RT-QID ANA ROSA Melatonin 5 mg 01/03/22 13:56 01/03/22 21:14 Melatonin 5 Mg Tablet PO 5 mg HS PRN Administration Insomnia Metoprolol Tartrate 50 mg 01/04/22 09:00 01/04/22 08:03 Metoprolol Tartrate 50 Mg Tab PO 50 mg TID ANA ROSA Administration Miscellaneous Information 1 each 01/04/22 08:42 Magnesium Replacement Protocol 1 Each Misc MISCELLANE DAILY PRN Per Protocol Protocol Naloxone HCl 0.2 mg 01/03/22 12:10 Naloxone 0.4 Mg/Ml 1 Ml Vial IV Q2M PRN Opioid Reversal Ondansetron HCl 4 mg 01/03/22 13:45 Ondansetron 4 Mg/2 Ml Vial IVP Q8HR PRN Nausea And Vomiting Pantoprazole Sodium 40 mg 01/04/22 09:00 01/04/22 08:52 Pantoprazole 40 Mg/10 Ml Vial IV 40 mg DAILY ANA ROSA Administration Intake and Output 01/03/22 01/04/22 01/04/22 22:59 06:59 14:59 Intake Total 2267 1710.000 Output Total 50 1070 Balance 2217 640.000 Intake: IV 1910 1170 Sodium Chloride 0.9% 1, 910 1170 000 ml @ 130 mls/hr IV . Q7H42M [facility] Rx#:[id number] Sodium Chloride 0.9% 1, 1000 000 ml @ 999 mls/hr IV . Q1H1M [facility] Rx#:[id number] Intake, IV Titration 254.000 Amount Norepinephrine 4 mg In 254.000 Sodium Chloride 0.9% 250 ml @ 0.05 MCG/KG/MIN 23. 331 mls/hr IV .[id number] [facility] Rx#:[id number] Blood Product 357 286 Ffp 24 Cpd Unit 357 [id number] Rc Pheresis 2 As3 Unit 286 [id number] Output: Urine 50 950 Post Void Residual 120 Other: Voiding Method Urinal # Voids 1 # Bowel Movements 1 0 Weight 131.8 kg 01/04/22 05:48 01/04/22 05:48
--- NOTE | 2022-01-04 10:31 | P.PN ---
Subjective Progress Note Date: 01/04/22 66-year-old white male seen in the emergency department. He was seen by Dr. Lion Osorio. He apparently was initially evaluated at [facility]. He went there, initially, because he was having some bright red bleeding from the rectal area. It apparently started 6:00 this morning. In addition, the patient apparently had some mild hypotension. The patient did receive 2 units of blood at the outside hospital, and then was transferred here. He also received some vitamin K. The patient was seen by the fence erector this morning. The plan is once the INR is below 1.5, the patient would be a candidate for colonoscopy. 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 The patient had previous prostate cancer, was treated with radiation. The patient is on warfarin for atrial fibrillation. The patient states that he never had bleeding from the colon or from the gastrointestinal t ract in the past. In addition to atrial fibrillation and prostate cancer, he has a history of hypertension, and impaired hearing. He is also a former smoker. Laboratory data here includes a white count of 15.6, hemoglobin 11, hematocrit 33.6, platelet count 370,000. PTT was 34.3 INR was 3.4. Sodium 133, potassium 5.3, chlorides 106, CO2 23, BUN 33, and creatinine 1.41. Albumin is 3.1. The patient is seen today 01/04/2022 in follow-up in the intensive care unit. He is currently awake and alert in no acute distress. He is on room air and maintaining O2 saturations in the 90s. He has 0.9% normal saline running at 130 mls an hour. His norepinephrine has been off. Current hemoglobin 8.7. He is having some issues with cardiac arrhythmias including some wide complex tachycardia at rates up to 180. He had been on dofetilide in the outpatient setting. He was anticoagulated with warfarin. INR today 2.0. Cardiology has been consulted. White count 11.0. Hemoglobin is 7.8. Platelets 238. Sodium 137. Potassium 4.5. Bicarb 19. BUN 32. Creatinine 1.4. Glucose 104. Appendectomy is status post 1 unit of packed red blood cells and 1 unit fresh frozen plasma so far this admission. He did have a large bowel movement last night that had clots within. None so far this morning. If he is continuing on Symbicort, albuterol. He's been initiated on magnesium for a level of 1.9. Objective - Vital Signs Vital signs: Vital Signs Temp 98.4 F 01/04/22 08:00 Pulse 184 H 01/04/22 09:00 Resp 22 01/04/22 09:00 BP 100/77 01/04/22 09:00 Pulse Ox 98 01/04/22 07:00 Intake & Output 01/03/22 01/04/22 01/04/22 18:59 06:59 18:59 Intake Total 1650 2587.000 360 Output Total 0 1120 200 Balance 1650 1467.000 160 Weight 122.47 kg 131.8 kg Intake: IV 1650 1690 360 Magnesium Sulfate-D5w Pmx 100 1 gm In Dextrose/Water 1 100ml.bag @ 100 mls/hr IVPB Q1H [facility] Rx#: [id number] Sodium Chloride 0.9% 1, 650 1690 260 000 ml @ 130 mls/hr IV . Q7H42M [facility] Rx#:[id number] Sodium Chloride 0.9% 1, 1000 000 ml @ 999 mls/hr IV . Q1H1M [facility] Rx#:[id number] Intake, IV Titration 254.000 Amount Norepinephrine 4 mg In 254.000 Sodium Chloride 0.9% 250 ml @ 0.05 MCG/KG/MIN 23. 331 mls/hr IV .[id number] [facility] Rx#:[id number] Blood Product 643 Ffp 24 Cpd Unit 357 [id number] Rc Pheresis 2 As3 Unit 286 [id number] Output: Urine 0 1000 200 Post Void Residual 120 Other: Voiding Method Urinal # Voids 1 0 # Bowel Movements 2 0 - Exam GENERAL EXAM: Alert, very pleasant 66-year-old male patient, on room air, fairly comfortable in no apparent distress. HEAD: Normocephalic. EYES: Normal reaction of pupils, equal size. NOSE: Clear with pink turbinates. THROAT: No erythema or exudates. NECK: No masses, no JVD. CHEST: No chest wall deformity. LUNGS: Equal air entry with no crackles, wheeze, rhonchi or dullness. CVS: S1 and S2 normal with no audible murmur, irregular rhythm. Tachycardic ABDOMEN: No hepatosplenomegaly, normal bowel sounds, no guarding or rigidity. SPINE: No scoliosis or deformity SKIN: No rashes CENTRAL NERVOUS SYSTEM: No focal deficits, tone is normal in all 4 extremities. EXTREMITIES: There is no peripheral edema. No clubbing, no cyanosis. Peripheral pulses are intact. - Labs CBC & Chem 7: 01/04/22 05:48 01/04/22 05:48 Labs: Abnormal Lab Results - Last 24 Hours (Table) 01/03/22 01/03/22 01/03/22 Range/Units 12:15 12:15 12:15 WBC 15.6 H (3.8-10.6) k/uL RBC 3.72 L (4.30-5.90) m/uL Hgb 11.0 L (13.0-17.5) gm/dL Hct 33.6 L (39.0-53.0) % Neutrophils # 13.4 H (1.3-7.7) k/uL PT 34.3 H (9.0-12.0) sec INR 3.4 H (<1.2) APTT 33.5 H (22.0-30.0) sec Sodium 133 L (137-145) mmol/L Potassium 5.3 H (3.5-5.1) mmol/L Chloride (98-107) mmol/L Carbon Dioxide (22-30) mmol/L BUN 33 H (9-20) mg/dL Creatinine 1.41 H (0.66-1.25) mg/dL Glucose 112 H (74-99) mg/dL POC Glucose (mg/dL) (75-99) mg/dL Calcium 7.8 L (8.4-10.2) mg/dL Total Protein 5.9 L (6.3-8.2) g/dL Albumin 3.1 L (3.5-5.0) g/dL Crossmatch 01/03/22 01/03/22 01/03/22 Range/Units 12:15 13:42 17:29 WBC (3.8-10.6) k/uL RBC (4.30-5.90) m/uL Hgb (13.0-17.5) gm/dL Hct (39.0-53.0) % Neutrophils # (1.3-7.7) k/uL PT (9.0-12.0) sec INR (<1.2) APTT (22.0-30.0) sec Sodium 133 L (137-145) mmol/L Potassium (3.5-5.1) mmol/L Chloride 108 H (98-107) mmol/L Carbon Dioxide 20 L (22-30) mmol/L BUN 34 H (9-20) mg/dL Creatinine 1.57 H (0.66-1.25) mg/dL Glucose 118 H (74-99) mg/dL POC Glucose (mg/dL) 103 H (75-99) mg/dL Calcium 7.1 L (8.4-10.2) mg/dL Total Protein 4.8 L (6.3-8.2) g/dL Albumin 2.4 L (3.5-5.0) g/dL Crossmatch See Detail 01/03/22 01/03/22 01/04/22 Range/Units 17:29 23:53 05:48 WBC 13.8 H 12.3 H 11.0 H (3.8-10.6) k/uL RBC 2.87 L 2.49 L 2.70 L (4.30-5.90) m/uL Hgb 8.4 L D 7.2 L 7.8 L (13.0-17.5) gm/dL Hct 26.5 L 22.9 L 25.0 L (39.0-53.0) % Neutrophils # 8.1 H (1.3-7.7) k/uL PT (9.0-12.0) sec INR (<1.2) APTT (22.0-30.0) sec Sodium (137-145) mmol/L Potassium (3.5-5.1) mmol/L Chloride (98-107) mmol/L Carbon Dioxide (22-30) mmol/L BUN (9-20) mg/dL Creatinine (0.66-1.25) mg/dL Glucose (74-99) mg/dL POC Glucose (mg/dL) (75-99) mg/dL Calcium (8.4-10.2) mg/dL Total Protein (6.3-8.2) g/dL Albumin (3.5-5.0) g/dL Crossmatch 01/04/22 01/04/22 Range/Units 05:48 05:48 WBC (3.8-10.6) k/uL RBC (4.30-5.90) m/uL Hgb (13.0-17.5) gm/dL Hct (39.0-53.0) % Neutrophils # (1.3-7.7) k/uL PT 20.1 H (9.0-12.0) sec INR 2.0 H (<1.2) APTT (22.0-30.0) sec Sodium (137-145) mmol/L Potassium (3.5-5.1) mmol/L Chloride 112 H (98-107) mmol/L Carbon Dioxide 19 L (22-30) mmol/L BUN 32 H (9-20) mg/dL Creatinine 1.40 H (0.66-1.25) mg/dL Glucose 104 H (74-99) mg/dL POC Glucose (mg/dL) (75-99) mg/dL Calcium 7.5 L (8.4-10.2) mg/dL Total Protein (6.3-8.2) g/dL Albumin (3.5-5.0) g/dL Crossmatch Assessment and Plan Assessment: 1 Bright red bleeding per rectum, rule out angiodysplasia, diverticulosis, or r adiation colitis 2 Acute anemia secondary to above. Received 2 units of packed red blood cells at [facility], another unit here along with 1 unit of fresh frozen plasma 3 History of severe radiation proctitis and previous argon plasma coagulation in October 2021 4 History of prostate cancer, status post radiation therapy 4 years ago 5 History of chronic atrial fibrillation, maintained on Coumadin. Previous lesion 6 Prior history of tobacco use. 7 History of impaired hearing. 8 History of hypertension. 9 Probable COPD based on the patient's outpatient medications. 10 Wide-complex tachycardia Plan: The patient was seen and evaluated Currently off norepinephrine Normal saline at 130 ML's per hour Hemoglobin 7.8, INR 2.0 Possible colonoscopy once INR recovers Magnesium being replaced Continue to monitor closely here in the intensive care unit We'll continue to follow and make further recommendations based on his clinical status I have personally seen and examined the patient, performed the documentation and the assessment and plan as written. Number of minutes spent on the visit: 10.
--- NOTE | 2022-01-04 11:38 | P.PN ---
Subjective Progress Note Date: 01/04/22 Principal diagnosis: Acute lower GI bleed This a 58-year-old male who has a history of radiation for prostate cancer approximately 4-5 years ago with a history of colonoscopy in October of this year noted to have severe radiation proctitis and underwent argon plasma coagulation.. He was transferred from [facility] with acute lower GI bleed with several episodes of bright red blood per rectum with clots. He was admitted to the ICU, he had a drop in his hemoglobin yesterday to 7.2 and was given 1 unit of PRBC transfusion as well as 1 unit of FFP. Patient had been on Coumadin for history of atrial fibrillation had elevated INR yesterday of 3.4 apparently had been given vitamin K at [facility]. Today he was seen and examined denies any abdominal pain. Rectal bleeding has pretty much subsided. He had one large episode yesterday evening and then now he is just passing gas with a couple smears of blood. WBC 11.0 hemoglobin 7.8 platelet co unt 238,000, repeat INR 2.0. Nursing reported this morning that he had run of atrial fibrillation with RVR from 7:30 denied a.m. Cardiology was consulted he was started on 50 mg of metoprolol with a return back to normal sinus rhythm. Objective - Vital Signs Vital signs: Vital Signs Temp 98.4 F 01/04/22 08:00 Pulse 184 H 01/04/22 09:00 Resp 22 01/04/22 09:00 BP 100/77 01/04/22 09:00 Pulse Ox 98 01/04/22 07:00 Intake & Output 01/03/22 01/04/22 01/04/22 18:59 06:59 18:59 Intake Total 1650 2587.000 360 Output Total 0 1120 200 Balance 1650 1467.000 160 Weight 122.47 kg 131.8 kg Intake: IV 1650 1690 360 Magnesium Sulfate-D5w Pmx 100 1 gm In Dextrose/Water 1 100ml.bag @ 100 mls/hr IVPB Q1H [facility] Rx#: [id number] Sodium Chloride 0.9% 1, 650 1690 260 000 ml @ 130 mls/hr IV . Q7H42M [facility] Rx#:[id number] Sodium Chloride 0.9% 1, 1000 000 ml @ 999 mls/hr IV . Q1H1M [facility] Rx#:[id number] Intake, IV Titration 254.000 Amount Norepinephrine 4 mg In 254.000 Sodium Chloride 0.9% 250 ml @ 0.05 MCG/KG/MIN 23. 331 mls/hr IV .[id number] [facility] Rx#:[id number] Blood Product 643 Ffp 24 Cpd Unit 357 [id number] Rc Pheresis 2 As3 Unit 286 [id number] Output: Urine 0 1000 200 Post Void Residual 120 Other: Voiding Method Urinal # Voids 1 0 # Bowel Movements 2 0 - Exam General appearance: The patient is alert, oriented, appears in no acute distress. HET: Head is normocephalic and atraumatic. Conjunctiva pink. Sclera anicteric. Neck: Supple without lymphadenopathy. Abdomen: Soft, nontender, nondistended with bowel sounds. No guarding or rigidity. Extremities: Normal skin color and turgor. No pedal edema Skin: No rashes, no jaundice Neurological: No focal deficits. Alert and oriented x3. - Labs CBC & Chem 7: 01/04/22 05:48 01/04/22 05:48 Labs: Abnormal Lab Results - Last 24 Hours (Table) 01/03/22 01/03/22 01/03/22 Range/Units 12:15 12:15 12:15 WBC 15.6 H (3.8-10.6) k/uL RBC 3.72 L (4.30-5.90) m/uL Hgb 11.0 L (13.0-17.5) gm/dL Hct 33.6 L (39.0-53.0) % Neutrophils # 13.4 H (1.3-7.7) k/uL PT 34.3 H (9.0-12.0) sec INR 3.4 H (<1.2) APTT 33.5 H (22.0-30.0) sec Sodium 133 L (137-145) mmol/L Potassium 5.3 H (3.5-5.1) mmol/L Chloride (98-107) mmol/L Carbon Dioxide (22-30) mmol/L BUN 33 H (9-20) mg/dL Creatinine 1.41 H (0.66-1.25) mg/dL Glucose 112 H (74-99) mg/dL POC Glucose (mg/dL) (75-99) mg/dL Calcium 7.8 L (8.4-10.2) mg/dL Total Protein 5.9 L (6.3-8.2) g/dL Albumin 3.1 L (3.5-5.0) g/dL Crossmatch 01/03/22 01/03/22 01/03/22 Range/Units 12:15 13:42 17:29 WBC (3.8-10.6) k/uL RBC (4.30-5.90) m/uL Hgb (13.0-17.5) gm/dL Hct (39.0-53.0) % Neutrophils # (1.3-7.7) k/uL PT (9.0-12.0) sec INR (<1.2) APTT (22.0-30.0) sec Sodium 133 L (137-145) mmol/L Potassium (3.5-5.1) mmol/L Chloride 108 H (98-107) mmol/L Carbon Dioxide 20 L (22-30) mmol/L BUN 34 H (9-20) mg/dL Creatinine 1.57 H (0.66-1.25) mg/dL Glucose 118 H (74-99) mg/dL POC Glucose (mg/dL) 103 H (75-99) mg/dL Calcium 7.1 L (8.4-10.2) mg/dL Total Protein 4.8 L (6.3-8.2) g/dL Albumin 2.4 L (3.5-5.0) g/dL Crossmatch See Detail 01/03/22 01/03/22 01/04/22 Range/Units 17:29 23:53 05:48 WBC 13.8 H 12.3 H 11.0 H (3.8-10.6) k/uL RBC 2.87 L 2.49 L 2.70 L (4.30-5.90) m/uL Hgb 8.4 L D 7.2 L 7.8 L (13.0-17.5) gm/dL Hct 26.5 L 22.9 L 25.0 L (39.0-53.0) % Neutrophils # 8.1 H (1.3-7.7) k/uL PT (9.0-12.0) sec INR (<1.2) APTT (22.0-30.0) sec Sodium (137-145) mmol/L Potassium (3.5-5.1) mmol/L Chloride (98-107) mmol/L Carbon Dioxide (22-30) mmol/L BUN (9-20) mg/dL Creatinine (0.66-1.25) mg/dL Glucose (74-99) mg/dL POC Glucose (mg/dL) (75-99) mg/dL Calcium (8.4-10.2) mg/dL Total Protein (6.3-8.2) g/dL Albumin (3.5-5.0) g/dL Crossmatch 01/04/22 01/04/22 Range/Units 05:48 05:48 WBC (3.8-10.6) k/uL RBC (4.30-5.90) m/uL Hgb (13.0-17.5) gm/dL Hct (39.0-53.0) % Neutrophils # (1.3-7.7) k/uL PT 20.1 H (9.0-12.0) sec INR 2.0 H (<1.2) APTT (22.0-30.0) sec Sodium (137-145) mmol/L Potassium (3.5-5.1) mmol/L Chloride 112 H (98-107) mmol/L Carbon Dioxide 19 L (22-30) mmol/L BUN 32 H (9-20) mg/dL Creatinine 1.40 H (0.66-1.25) mg/dL Glucose 104 H (74-99) mg/dL POC Glucose (mg/dL) (75-99) mg/dL Calcium 7.5 L (8.4-10.2) mg/dL Total Protein (6.3-8.2) g/dL Albumin (3.5-5.0) g/dL Crossmatch Assessment and Plan (1) Lower GI hemorrhage Narrative/Plan: Patient presented with multiple episodes of bright red blood per rectum with clots. He became somewhat hypotensive and tachycardic in the emergency room at [facility] and hence he received 2 units of RBC transfusion and was transferred to [facility] ICU. He is feeling much better now. Hemodynamically more stable. He has not had any further bleeding since yesterday evening. The small amount of gas with streak of blood. He was apparently given vitamin K at the [facility] ER. Most likely the bleeding is related to radiation proctitis but possibility of a diverticular bleed cannot be excluded. The patient did have a colonoscopy in October 2021 that showed severe radiation proctitis for which he underwent argon plasma coagulation. Current Visit: Yes Status: Acute Code(s): K92.2 - GASTROINTESTINAL HEMORRHAGE, UNSPECIFIED SNOMED Code(s): 73641721 (2) Atrial fibrillation Current Visit: Yes Status: Acute Code(s): I48.91 - UNSPECIFIED ATRIAL FIBRILLATION SNOMED Code(s): 61931409 (3) Radiation proctitis Current Visit: Yes Status: Acute Code(s): K62.7 - RADIATION PROCTITIS SNOMED Code(s): 257148470 Plan: 1. Continue symptomatic and supportive care 2. Continue with clear liquid diet 3. Continue to hold Coumadin 4. Await repeat INR 5. Tentative plan for flex sigmoidoscopy tomorrow if bleeding continues and if INR less than 1.5 6. Further recommendations forthcoming Thank you for this consultation, we will continue to follow. Dr. Betzaida Welch I agree with the dictator's note, documented as a scribe by Letty Quintanilla.
[2022-01-04 11:59] LABS: HCT 26.2 % (39.0-53.0); HGB 8.1 gm/dL (13.0-17.5); Hypochromasia Marked; MCH 29.6 pg (25.0-35.0); MCHC 30.9 g/dL (31.0-37.0); MCV 95.8 fL (80.0-100.0); Platelet Count 217 k/uL (150-450); RBC 2.73 m/uL (4.30-5.90); RDW 15.7 % (11.5-15.5); WBC 11.7 k/uL (3.8-10.6)
[2022-01-04 12:11] LABS: INR 1.9 (<1.2); Prothrombin Time 19.5 sec (9.0-12.0)
--- NOTE | 2022-01-04 13:12 | P.PN ---
Subjective Principal diagnosis: GI bleed and anemia Seen and examined intensive care unit. Reports no blood in the stool no abdominal pain no respiratory GI complaints at this time. Objective - Vital Signs Vital signs: Vital Signs Temp 98.4 F 01/04/22 08:00 Pulse 87 01/04/22 11:00 Resp 21 01/04/22 11:00 BP 114/70 01/04/22 11:00 Pulse Ox 98 01/04/22 07:00 Intake & Output 01/03/22 01/04/22 01/04/22 18:59 06:59 18:59 Intake Total 1650 2587.000 720 Output Total 0 1120 200 Balance 1650 1467.000 520 Weight 122.47 kg 131.8 kg Intake: IV 1650 1690 720 Magnesium Sulfate-D5w Pmx 200 1 gm In Dextrose/Water 1 100ml.bag @ 100 mls/hr IVPB Q1H [facility] Rx#: [id number] Sodium Chloride 0.9% 1, 650 1690 520 000 ml @ 130 mls/hr IV . Q7H42M [facility] Rx#:[id number] Sodium Chloride 0.9% 1, 1000 000 ml @ 999 mls/hr IV . Q1H1M [facility] Rx#:[id number] Intake, IV Titration 254.000 Amount Norepinephrine 4 mg In 254.000 Sodium Chloride 0.9% 250 ml @ 0.05 MCG/KG/MIN 23. 331 mls/hr IV .[id number] [facility] Rx#:[id number] Blood Product 643 Ffp 24 Cpd Unit 357 [id number] Rc Pheresis 2 As3 Unit 286 [id number] Output: Urine 0 1000 200 Post Void Residual 120 Other: Voiding Method Urinal Urinal # Voids 1 0 # Bowel Movements 2 0 - Exam General: non toxic, no distress, appears at stated age Derm: warm, dry Head: atraumatic, normocephalic, symmetric Eyes: EOMI, no lid lag, anicteric sclera, pupils equal round reactive to light ENT: Nose and ears atraumatic, no thrush, no pharyngeal erythema Neck: No thyromegaly, no cervical lymphadenopathy, trachea midline, supple Mouth: no lip lesion, mucus membranes moist Cardiovascular: S1S2 reg, no murmur, positive posterior tibial pulse bilateral, no edema, capillary refill less than 2 seconds Lungs: clear to ascultation bilateral, no ronchi, no rales, no wheeze, no ac cessory muscle use Abdominal: soft, nontender to palpation, no guarding, no appreciable organomegaly, normal bowel sounds Ext: no gross muscle atrophy, muscle strength muscle strength 5 out of 5 in all 4 extremities, no contractures Neuro: CN II-XI grossly intact, light touch intact all 4 extremities, finger to nose within normal limits, Psych: Alert, oriented, appropriate affect - Labs CBC & Chem 7: 01/04/22 11:44 01/04/22 05:48 Labs: Abnormal Lab Results - Last 24 Hours (Table) 01/03/22 01/03/22 01/03/22 Range/Units 12:15 13:42 17:29 WBC (3.8-10.6) k/uL RBC (4.30-5.90) m/uL Hgb (13.0-17.5) gm/dL Hct (39.0-53.0) % MCHC (31.0-37.0) g/dL RDW (11.5-15.5) % Neutrophils # (1.3-7.7) k/uL PT (9.0-12.0) sec INR (<1.2) Sodium 133 L (137-145) mmol/L Chloride 108 H (98-107) mmol/L Carbon Dioxide 20 L (22-30) mmol/L BUN 34 H (9-20) mg/dL Creatinine 1.57 H (0.66-1.25) mg/dL Glucose 118 H (74-99) mg/dL POC Glucose (mg/dL) 103 H (75-99) mg/dL Calcium 7.1 L (8.4-10.2) mg/dL Total Protein 4.8 L (6.3-8.2) g/dL Albumin 2.4 L (3.5-5.0) g/dL Crossmatch See Detail 01/03/22 01/03/22 01/04/22 Range/Units 17:29 23:53 05:48 WBC 13.8 H 12.3 H 11.0 H (3.8-10.6) k/uL RBC 2.87 L 2.49 L 2.70 L (4.30-5.90) m/uL Hgb 8.4 L D 7.2 L 7.8 L (13.0-17.5) gm/dL Hct 26.5 L 22.9 L 25.0 L (39.0-53.0) % MCHC (31.0-37.0) g/dL RDW (11.5-15.5) % Neutrophils # 8.1 H (1.3-7.7) k/uL PT (9.0-12.0) sec INR (<1.2) Sodium (137-145) mmol/L Chloride (98-107) mmol/L Carbon Dioxide (22-30) mmol/L BUN (9-20) mg/dL Creatinine (0.66-1.25) mg/dL Glucose (74-99) mg/dL POC Glucose (mg/dL) (75-99) mg/dL Calcium (8.4-10.2) mg/dL Total Protein (6.3-8.2) g/dL Albumin (3.5-5.0) g/dL Crossmatch 01/04/22 01/04/22 01/04/22 Range/Units 05:48 05:48 11:44 WBC 11.7 H (3.8-10.6) k/uL RBC 2.73 L (4.30-5.90) m/uL Hgb 8.1 L (13.0-17.5) gm/dL Hct 26.2 L (39.0-53.0) % MCHC 30.9 L (31.0-37.0) g/dL RDW 15.7 H (11.5-15.5) % Neutrophils # (1.3-7.7) k/uL PT 20.1 H (9.0-12.0) sec INR 2.0 H (<1.2) Sodium (137-145) mmol/L Chloride 112 H (98-107) mmol/L Carbon Dioxide 19 L (22-30) mmol/L BUN 32 H (9-20) mg/dL Creatinine 1.40 H (0.66-1.25) mg/dL Glucose 104 H (74-99) mg/dL POC Glucose (mg/dL) (75-99) mg/dL Calcium 7.5 L (8.4-10.2) mg/dL Total Protein (6.3-8.2) g/dL Albumin (3.5-5.0) g/dL Crossmatch 01/04/22 Range/Units 11:44 WBC (3.8-10.6) k/uL RBC (4.30-5.90) m/uL Hgb (13.0-17.5) gm/dL Hct (39.0-53.0) % MCHC (31.0-37.0) g/dL RDW (11.5-15.5) % Neutrophils # (1.3-7.7) k/uL PT 19.5 H (9.0-12.0) sec INR 1.9 H (<1.2) Sodium (137-145) mmol/L Chloride (98-107) mmol/L Carbon Dioxide (22-30) mmol/L BUN (9-20) mg/dL Creatinine (0.66-1.25) mg/dL Glucose (74-99) mg/dL POC Glucose (mg/dL) (75-99) mg/dL Calcium (8.4-10.2) mg/dL Total Protein (6.3-8.2) g/dL Albumin (3.5-5.0) g/dL Crossmatch Assessment and Plan Plan: #Lower GI bleed with acute blood loss anemia Status post 2 units PRBCs and vitamin K INR/warfarin reversed with vitamin K GI consultation, plan for colonoscopy Monitor intensive care unit Serial H&H #Paroxysmal A. fib with RVR Continue to hold Coumadin, INR reversed Continue metoprolol, dofetilide Cardiology #Hypertension Continue to hold lisinopril #COPD without acute exacerbation Continue with bronchodilators. #EtOH abuse No effective signs of withdrawals, continue CIWA, thiamine and folic acid DVT prophylaxis: SCDs
[2022-01-04 16:40] LABS: Calcium 7.7 mg/dL (8.4-10.2); Potassium 4.4 mmol/L (3.5-5.1)
[2022-01-04] MEDS: LACTATED RINGERS 1,000 ML IV SCH (19:01)
[2022-01-05] MEDS: NOREPINEPHRINE 4 MG in SODIUM CHLORIDE 0.9% 250 ML IV SCH ×2 (02:06→13:41)
[2022-01-05] MEDS ORDERED: METOPROLOL TARTRATE 50 MG TAB PO STA (02:54)
[2022-01-05] MEDS: SODIUM CHLORIDE 0.9% 1,000 ML IV SCH ×3 (03:08→17:53)
[2022-01-05] MEDS: SYMBICORT 80-4.5 MCG INHALER INHALATION SCH (07:30)
[2022-01-05] MEDS: IPRATROPIUM 0.5 MG/2.5 ML NEBU INHALATION SCH (07:30)
[2022-01-05 07:47] LABS: HCT 23.4 % (39.0-53.0); HGB 7.3 gm/dL (13.0-17.5); Hypochromasia Slight; MCH 29.1 pg (25.0-35.0); MCHC 31.3 g/dL (31.0-37.0); Mean Platelet Volume 8.9; Platelet Count 213 k/uL (150-450); RBC 2.51 m/uL (4.30-5.90); RDW 15.9 % (11.5-15.5); WBC 10.3 k/uL (3.8-10.6)
[2022-01-05 07:51] LABS: INR 2.1 (<1.2); Prothrombin Time 20.9 sec (9.0-12.0)
[2022-01-05] MEDS ORDERED: PHYTONADIONE 5 MG in SODIUM CHLORIDE 0.9% 50 ML IVPB STA (08:02)
[2022-01-05 08:13] LABS: Potassium 4.5 mmol/L (3.5-5.1)
[2022-01-05] MEDS: METOPROLOL TARTRATE 25 MG TAB PO SCH ×3 (08:17→21:31)
[2022-01-05] MEDS: ACETAMINOPHEN TAB 325 MG TAB PO PRN (08:18)
[2022-01-05] MEDS: PANTOPRAZOLE 40 MG/10 ML VIAL IV SCH (08:21)
[2022-01-05] MEDS ORDERED: NA PHOS,M-B/NA PHOS,DI-BA 133 ML ENEMA RECTAL ONE (10:00)
--- NOTE | 2022-01-05 10:02 | P.PN ---
Subjective Progress Note Date: 01/05/22 66-year-old white male seen in the emergency department. He was seen by Dr. Lion Osorio. He apparently was initially evaluated at [facility]. He went there, initially, because he was having some bright red bleeding from the rectal area. It apparently started 6:00 this morning. In addition, the patient apparently had some mild hypotension. The patient did receive 2 units of blood at the outside hospital, and then was transferred here. He also received some vitamin K. The patient was seen by the pattern fitter this morning. The plan is once the INR is below 1.5, the patient would be a candidate for colonoscopy. 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 The patient had previous prostate cancer, was treated with radiation. The patient is on warfarin for atrial fibrillation. The patient states that he never had bleeding from the colon or from the gastrointestinal t ract in the past. In addition to atrial fibrillation and prostate cancer, he has a history of hypertension, and impaired hearing. He is also a former smoker. Laboratory data here includes a white count of 15.6, hemoglobin 11, hematocrit 33.6, platelet count 370,000. PTT was 34.3 INR was 3.4. Sodium 133, potassium 5.3, chlorides 106, CO2 23, BUN 33, and creatinine 1.41. Albumin is 3.1. The patient is seen today 01/04/2022 in follow-up in the intensive care unit. He is currently awake and alert in no acute distress. He is on room air and maintaining O2 saturations in the 90s. He has 0.9% normal saline running at 130 mls an hour. His norepinephrine has been off. Current hemoglobin 8.7. He is having some issues with cardiac arrhythmias including some wide complex tachycardia at rates up to 180. He had been on dofetilide in the outpatient setting. He was anticoagulated with warfarin. INR today 2.0. Cardiology has been consulted. White count 11.0. Hemoglobin is 7.8. Platelets 238. Sodium 137. Potassium 4.5. Bicarb 19. BUN 32. Creatinine 1.4. Glucose 104. He is status post 1 unit of packed red blood cells and 1 unit fresh frozen plasma so far this admission. He did have a large bowel movement last night that had clots within. None so far this morning. If he is continuing on Symbicort, albuterol. He's been initiated on magnesium for a level of 1.9. The patient is seen today the 2021 follow-up in the intensive care unit. He is currently resting comfortably in bed. Awake and alert in no acute distress. Maintaining O2 saturation in the 90s on room air. Currently having episodes of sinus rhythm with breakthrough atrial fibrillation with occasional PVCs. No further active bleeding noted. Hemoglobin today 7.3. White count 10.3. Platelets 213. INR 2.1. Sodium 139. Potassium 4.5. Chloride 112. BUN 16. Creatinine 1.14. Glucose 101. He remains on normal saline at 130 ML's per hour. Objective - Vital Signs Vital signs: Vital Signs Temp 98.3 F 01/05/22 08:00 Pulse 90 01/05/22 09:00 Resp 20 01/05/22 09:00 BP 126/66 01/05/22 09:00 Pulse Ox 97 01/05/22 09:00 Intake & Output 01/04/22 01/05/22 01/05/22 18:59 06:59 18:59 Intake Total 1760 1430 440 Output Total 1800 1000 600 Balance -40 430 -160 Weight 133 kg Intake: IV 1760 1430 440 Magnesium Sulfate-D5w Pmx 200 1 gm In Dextrose/Water 1 100ml.bag @ 100 mls/hr IVPB Q1H [facility] Rx#: [id number] Phytonadione 5 mg In 50 Sodium Chloride 0.9% 50 ml @ 100 mls/hr IVPB ONCE [facility] Rx#:[id number] Sodium Chloride 0.9% 1, 1560 1430 390 000 ml @ 130 mls/hr IV . Q7H42M [facility] Rx#:[id number] Output: Urine 1800 1000 600 Other: Voiding Method Urinal Urinal Urinal # Voids 0 0 0 - Exam GENERAL EXAM: Alert, obese 66-year-old male patient, on room air, comfortable in no apparent distress. HEAD: Normocephalic. EYES: Normal reaction of pupils, equal size. NOSE: Clear with pink turbinates. THROAT: No erythema or exudates. NECK: No masses, no JVD. CHEST: No chest wall deformity. LUNGS: Equal air entry with no crackles, wheeze, rhonchi or dullness. CVS: S1 and S2 normal with no audible murmur, regular rhythm. ABDOMEN: No hepatosplenomegaly, normal bowel sounds, no guarding or rigidity. SPINE: No scoliosis or deformity SKIN: No rashes CENTRAL NERVOUS SYSTEM: No focal deficits, tone is normal in all 4 extremities. EXTREMITIES: There is no peripheral edema. No clubbing, no cyanosis. Peripheral pulses are intact. - Labs CBC & Chem 7: 01/05/22 07:14 01/05/22 07:14 Labs: Abnormal Lab Results - Last 24 Hours (Table) 01/04/22 01/04/22 01/04/22 Range/Units 11:44 11:44 16:07 WBC 11.7 H (3.8-10.6) k/uL RBC 2.73 L (4.30-5.90) m/uL Hgb 8.1 L (13.0-17.5) gm/dL Hct 26.2 L (39.0-53.0) % MCHC 30.9 L (31.0-37.0) g/dL RDW 15.7 H (11.5-15.5) % PT 19.5 H (9.0-12.0) sec INR 1.9 H (<1.2) Sodium 136 L (137-145) mmol/L Chloride 112 H (98-107) mmol/L BUN 25 H (9-20) mg/dL Creatinine 1.28 H (0.66-1.25) mg/dL Glucose 106 H (74-99) mg/dL Calcium 7.7 L (8.4-10.2) mg/dL 01/05/22 01/05/22 01/05/22 Range/Units 07:14 07:14 07:14 WBC (3.8-10.6) k/uL RBC 2.51 L (4.30-5.90) m/uL Hgb 7.3 L (13.0-17.5) gm/dL Hct 23.4 L (39.0-53.0) % MCHC (31.0-37.0) g/dL RDW 15.9 H (11.5-15.5) % PT 20.9 H (9.0-12.0) sec INR 2.1 H (<1.2) Sodium (137-145) mmol/L Chloride 112 H (98-107) mmol/L BUN (9-20) mg/dL Creatinine (0.66-1.25) mg/dL Glucose 101 H (74-99) mg/dL Calcium 8.0 L (8.4-10.2) mg/dL Assessment and Plan Assessment: 1 Bright red bleeding per rectum, rule out angiodysplasia, diverticulosis, or radiation colitis 2 Acute anemia secondary to above. Received 2 units of packed red blood cells at [facility], another unit here along with 1 unit of fresh frozen plasma 3 History of severe radiation proctitis and previous argon plasma coagulation in October 2021 4 History of prostate cancer, status post radiation therapy 4 years ago 5 History of chronic atrial fibrillation, maintained on Coumadin. Previous ablation 6 Prior history of tobacco use. 7 History of impaired hearing. 8 History of hypertension. 9 Probable COPD based on the patient's outpatient medications. 10 Wide-complex tachycardia Plan: The patient was seen and evaluated Labs and medications reviewed Normal saline at 130 ML's per hour Hemoglobin 7.3, INR 2.1 Possible colonoscopy once INR recovers We'll continue to follow I have personally seen and examined the patient, performed the documentation and the assessment and plan as written. Number of minutes spent on the visit: 10.
--- NOTE | 2022-01-05 10:41 | P.PN ---
Subjective Progress Note Date: 01/05/22 Principal diagnosis: Acute lower GI bleed This is a 58-year-old male who has a history of radiation for prostate cancer approximately 4-5 years ago with a history of colonoscopy in October of this year noted to have severe radiation proctitis and underwent argon plasma coagulation.. He was transferred from [facility] with acute lower GI bleed with several episodes of bright red blood per rectum with clots. He was admitted to the ICU, he had a drop in his hemoglobin yesterday to 7.2 and was given 1 unit of PRBC transfusion as well as 1 unit of FFP. Patient had been on Coumadin for history of atrial fibrillation had elevated INR with Vitamin K reportedly given at [facility]. Today he was seen and examined in the ICU. He denies any abdominal pain, no further rectal bleeding or bloody stool. He continues to have episodes of atrial fibrillation with RVR, metoprolol increased today. Patient had a repeat INR this morning that was 2.1, therefore flexible sigmoidoscopy canceled for today. Hemoglobin stable at 7.3. Objective - Vital Signs Vital signs: Vital Signs Temp 98.3 F 01/05/22 08:00 Pulse 89 01/05/22 10:00 Resp 24 01/05/22 10:00 BP 114/73 01/05/22 10:00 Pulse Ox 97 01/05/22 10:00 Intake & Output 01/04/22 01/05/22 01/05/22 18:59 06:59 18:59 Intake Total 1760 1430 570 Output Total 1800 1000 600 Balance -40 430 -30 Weight 133 kg Intake: IV 1760 1430 570 Magnesium Sulfate-D5w Pmx 200 1 gm In Dextrose/Water 1 100ml.bag @ 100 mls/hr IVPB Q1H [facility] Rx#: [id number] Phytonadione 5 mg In 50 Sodium Chloride 0.9% 50 ml @ 100 mls/hr IVPB ONCE [facility] Rx#:[id number] Sodium Chloride 0.9% 1, 1560 1430 520 000 ml @ 130 mls/hr IV . Q7H42M [facility] Rx#:[id number] Output: Urine 1800 1000 600 Other: Voiding Method Urinal Urinal Urinal # Voids 0 0 0 - Exam General appearance: The patient is alert, oriented, appears in no acute distress. HET: Head is normocephalic and atraumatic. Conjunctiva pink. Sclera anicteric. Neck: Supple without lymphadenopathy. Abdomen: Soft, nontender, nondistended with bowel sounds. No guarding or rigidity. Extremities: Normal skin color and turgor. No pedal edema Skin: No rashes, no jaundice Neurological: No focal deficits. Alert and oriented x3. - Labs CBC & Chem 7: 01/05/22 07:14 01/05/22 07:14 Labs: Abnormal Lab Results - Last 24 Hours (Table) 01/04/22 01/04/22 01/04/22 Range/Units 11:44 11:44 16:07 WBC 11.7 H (3.8-10.6) k/uL RBC 2.73 L (4.30-5.90) m/uL Hgb 8.1 L (13.0-17.5) gm/dL Hct 26.2 L (39.0-53.0) % MCHC 30.9 L (31.0-37.0) g/dL RDW 15.7 H (11.5-15.5) % PT 19.5 H (9.0-12.0) sec INR 1.9 H (<1.2) Sodium 136 L (137-145) mmol/L Chloride 112 H (98-107) mmol/L BUN 25 H (9-20) mg/dL Creatinine 1.28 H (0.66-1.25) mg/dL Glucose 106 H (74-99) mg/dL Calcium 7.7 L (8.4-10.2) mg/dL 01/05/22 01/05/22 01/05/22 Range/Units 07:14 07:14 07:14 WBC (3.8-10.6) k/uL RBC 2.51 L (4.30-5.90) m/uL Hgb 7.3 L (13.0-17.5) gm/dL Hct 23.4 L (39.0-53.0) % MCHC (31.0-37.0) g/dL RDW 15.9 H (11.5-15.5) % PT 20.9 H (9.0-12.0) sec INR 2.1 H (<1.2) Sodium (137-145) mmol/L Chloride 112 H (98-107) mmol/L BUN (9-20) mg/dL Creatinine (0.66-1.25) mg/dL Glucose 101 H (74-99) mg/dL Calcium 8.0 L (8.4-10.2) mg/dL Assessment and Plan (1) Lower GI hemorrhage Narrative/Plan: Patient presented with multiple episodes of bright red blood per rectum with clots. He became somewhat hypotensive and tachycardic in the emergency room at [facility] and hence he received 2 units of RBC transfusion and was transferred to [facility] ICU. He is feeling much better now. Hemodynamically more stable. He has not had any further bleeding since yesterday evening. The small amount of gas with streak of blood. He was apparently given vitamin K at the [facility] ER. Most likely the bleeding is related to radiation proctitis but possibility of a diverticular bleed cannot be excluded. The patient did have a colonoscopy in October 2021 that showed severe radiation proctitis for which he underwent argon plasma coagulation. We'll plan flexible sigmoidoscopy tomorrow if INR improves after vitamin K. Current Visit: Yes Status: Acute Code(s): K92.2 - GASTROINTESTINAL HEMORRHAGE, UNSPECIFIED SNOMED Code(s): 75797349 (2) Atrial fibrillation Current Visit: Yes Status: Acute Code(s): I48.91 - UNSPECIFIED ATRIAL FIBRILLATION SNOMED Code(s): 16419611 (3) Radiation proctitis Current Visit: Yes Status: Acute Code(s): K62.7 - RADIATION PROCTITIS SNOMED Code(s): 641665432 Plan: 1. Continue symptomatic and supportive care 2. Continue with clear liquid diet, nothing by mouth after midnight 3. Continue to hold Coumadin 4. Repeat INR ordered this afternoon, and in the morning 5. Daily CBC 6. Tentative plan for flex sigmoidoscopy tomorrow if INR less than 1.5 7. Vitamin K 5 mg IVPB Thank you for this consultation, we will continue to follow. Dr. Betzaida Welch I agree with the dictator's note, documented as a scribe by Letty Quintanilla.
--- NOTE | 2022-01-05 12:32 | P.PN ---
Subjective Patient is back in sinus rhythm with a narrow QRS Yesterday he had A. fib with RVR with a wide QRS of a right bundle branch block morphology, apparent conduction He goes back and forth into atrial fibrillation at that time he has intermittent right bundle branch block aberrancy He also has a left bundle branch block aberrancy intermittently He came in with GI bleed He has had a history of atrial flutter ablation and 2 A. fib ablations He is now on dofetilide when he came in he was in the slow atrial tachycardia Dofetilide was discontinued temporarily while he is in the ICU Hemoglobin 7.3 INR 2.1 Potassium 4.5 Creatinine is improved to 1.14 The highest creatinine was 1.57 on the 18 of this month. Dofetilide was discontinued at that point Suggest Increase beta blockers GI workup for GI bleeding Hold off on Tikosyn until he sees masking machine feeder as an outpatient Objective - Vital Signs Vital signs: Vital Signs Temp 98.3 F 01/05/22 08:00 Pulse 89 01/05/22 11:00 Resp 23 01/05/22 11:00 BP 111/68 01/05/22 11:00 Pulse Ox 97 01/05/22 11:00 Intake & Output 01/04/22 01/05/22 01/05/22 18:59 06:59 18:59 Intake Total 1760 1430 830 Output Total 1800 1000 800 Balance -40 430 30 Weight 133 kg Intake: IV 1760 1430 830 Magnesium Sulfate-D5w Pmx 200 1 gm In Dextrose/Water 1 100ml.bag @ 100 mls/hr IVPB Q1H [facility] Rx#: [id number] Phytonadione 5 mg In 50 Sodium Chloride 0.9% 50 ml @ 100 mls/hr IVPB ONCE [facility] Rx#:[id number] Sodium Chloride 0.9% 1, 1560 1430 780 000 ml @ 130 mls/hr IV . Q7H42M [facility] Rx#:[id number] Output: Urine 1800 1000 800 Other: Voiding Method Urinal Urinal Urinal # Voids 0 0 0 - Labs CBC & Chem 7: 01/05/22 07:14 01/05/22 07:14 Labs: Abnormal Lab Results - Last 24 Hours (Table) 01/04/22 01/05/22 01/05/22 Range/Units 16:07 07:14 07:14 RBC 2.51 L (4.30-5.90) m/uL Hgb 7.3 L (13.0-17.5) gm/dL Hct 23.4 L (39.0-53.0) % RDW 15.9 H (11.5-15.5) % PT 20.9 H (9.0-12.0) sec INR 2.1 H (<1.2) Sodium 136 L (137-145) mmol/L Chloride 112 H (98-107) mmol/L BUN 25 H (9-20) mg/dL Creatinine 1.28 H (0.66-1.25) mg/dL Glucose 106 H (74-99) mg/dL Calcium 7.7 L (8.4-10.2) mg/dL 01/05/22 Range/Units 07:14 RBC (4.30-5.90) m/uL Hgb (13.0-17.5) gm/dL Hct (39.0-53.0) % RDW (11.5-15.5) % PT (9.0-12.0) sec INR (<1.2) Sodium (137-145) mmol/L Chloride 112 H (98-107) mmol/L BUN (9-20) mg/dL Creatinine (0.66-1.25) mg/dL Glucose 101 H (74-99) mg/dL Calcium 8.0 L (8.4-10.2) mg/dL
[2022-01-05] MEDS: LACTATED RINGERS 1,000 ML IV SCH (13:41)
[2022-01-05 15:03] LABS: INR 1.7 (<1.2); Prothrombin Time 16.9 sec (9.0-12.0)
--- NOTE | 2022-01-05 17:16 | P.PN ---
Subjective History of Present Illness H&P Date: 01/03/22 Chief Complaint: GI bleed Patient is a 66-year-old male with A. fib anticoagulated on Coumadin, COPD, and history of prior prostate cancer with radiation presented to the ER at [facility] with complaints of bright red blood per rectum. In the ER there he was found to have a hemoglobin of 10, INR 3.05. He has copious amounts of bright red blood per rectum. He was subsequently transfused 2 units of packed red blood cells and IV vitamin K. He was transferred to our facility for surgical or GI evaluation. In the ER here his repeat hemoglobin was 11. He was seen by Dr. Welch and plan is for sigmoidoscopy once INR is less than 1.5. Patient seen and examined at bedside with present. He denies any abdominal pain. He states at 6 AM he started having bright red blood per rectum. He eventually did get lightheaded and dizzy and have some worsening shortness breath. He denies any recent fevers, chills, sick contacts. He does have a history of internal hemorrhoids. In October 2021 he required colonoscopy with intervention for radiation proctitis and telangiectasias. Interval history 01/05 patient was examined at the bedside. He denies any chest pain or shortness of breath. INR still elevated 2.1 colonoscopy on hold. Otherwise no acute changes overnight Physical examination: Derm: warm, dry Head: atraumatic, normocephalic, symmetric Eyes: EOMI, no lid lag, anicteric sclera, pupils equal round reactive to light ENT: Nose and ears atraumatic, no thrush, no pharyngeal erythema Neck: No thyromegaly, no cervical lymphadenopathy, trachea midline, supple Mouth: no lip lesion, mucus membranes moist Cardiovascular: S1S2 reg, no murmur, positive posterior tibial pulse bilateral, no edema, capillary refill less than 2 seconds Lungs: clear to ascultation bilateral, no ronchi, no rales, no wheeze, no accessory muscle use Abdominal: soft, nontender to palpation, no guarding, no appreciable organomegaly, normal bowel sounds Ext: no gross muscle atrophy, muscle strength muscle strength 5 out of 5 in all 4 extremities, no contractures Neuro: CN II-XI grossly intact, light touch intact all 4 extremities, finger to nose within normal limits, Psych: Alert, oriented, appropriate affect Assessment and plan #Bright red blood per rectum/Lower GI bleed with acute blood loss anemia Status post 2 units PRBCs and vitamin K Hemoglobin 7.3 today INR/warfarin reversed with vitamin K GI consultation, plan for colonoscopy when INR improved Monitor intensive care unit Serial H&H #History of severe radiation proctitis and previous argon plasma coagulation in October 2021 #Paroxysmal A. fib with RVR Continue to hold Coumadin INR 2.1 today Continue metoprolol, dofetilide Cardiology #Hypertension Continue to hold lisinopril #COPD without acute exacerbation Continue with bronchodilators. #History of prostate cancer, status post radiation therapy 4 years ago #Prior history of tobacco use. History of impaired hearing. #Wide-complex tachycardia #EtOH abuse No effective signs of withdrawals, continue CIWA, thiamine and folic acid DVT prophylaxis: SCDs Objective - Vital Signs Vital signs: Vital Signs Temp 98.2 F 01/05/22 16:00 Pulse 89 01/05/22 17:00 Resp 15 01/05/22 17:00 BP 128/76 01/05/22 17:00 Pulse Ox 95 01/05/22 16:00 Intake & Output 01/04/22 01/05/22 01/05/22 18:59 06:59 18:59 Intake Total 1760 1430 1480 Output Total 1800 1000 800 Balance -40 430 680 Weight 133 kg Intake: IV 1760 1430 1480 Magnesium Sulfate-D5w Pmx 200 1 gm In Dextrose/Water 1 100ml.bag @ 100 mls/hr IVPB Q1H [facility] Rx#: [id number] Phytonadione 5 mg In 50 Sodium Chloride 0.9% 50 ml @ 100 mls/hr IVPB ONCE [facility] Rx#:[id number] Sodium Chloride 0.9% 1, 1560 1430 1430 000 ml @ 130 mls/hr IV . Q7H42M [facility] Rx#:[id number] Output: Urine 1800 1000 800 Other: Voiding Method Urinal Urinal Urinal # Voids 0 0 0 - Labs CBC & Chem 7: 01/05/22 07:14 01/05/22 07:14 Labs: Abnormal Lab Results - Last 24 Hours (Table) 01/05/22 01/05/22 01/05/22 Range/Units 07:14 07:14 07:14 RBC 2.51 L (4.30-5.90) m/uL Hgb 7.3 L (13.0-17.5) gm/dL Hct 23.4 L (39.0-53.0) % RDW 15.9 H (11.5-15.5) % PT 20.9 H (9.0-12.0) sec INR 2.1 H (<1.2) Chloride 112 H (98-107) mmol/L Glucose 101 H (74-99) mg/dL Calcium 8.0 L (8.4-10.2) mg/dL 01/05/22 Range/Units 14:39 RBC (4.30-5.90) m/uL Hgb (13.0-17.5) gm/dL Hct (39.0-53.0) % RDW (11.5-15.5) % PT 16.9 H (9.0-12.0) sec INR 1.7 H (<1.2) Chloride (98-107) mmol/L Glucose (74-99) mg/dL Calcium (8.4-10.2) mg/dL
[2022-01-05] MEDS: MELATONIN 5 MG TABLET PO PRN (21:32)
[2022-01-06] MEDS: LACTATED RINGERS 1,000 ML IV SCH (01:20)
[2022-01-06] MEDS: SODIUM CHLORIDE 0.9% 1,000 ML IV SCH ×3 (01:22→16:05)
[2022-01-06 07:35] LABS: Anisocytosis Slight; Basophils % (A) 0 %; Eosinophils # (A) 0.1 k/uL (0-0.7); Eosinophils % (A) 2 %; HCT 20.4 % (39.0-53.0); Hypochromasia Moderate; Lymphocytes # (A) 1.2 k/uL (1.0-4.8); Lymphocytes % (A) 13 %; MCH 29.6 pg (25.0-35.0); MCHC 31.4 g/dL (31.0-37.0); MCV 94.2 fL (80.0-100.0); Mean Platelet Volume 7.9; Monocytes # (A) 0.5 k/uL (0-1.0); Monocytes % (A) 5 %; Neutrophils # (A) 6.9 k/uL (1.3-7.7); Neutrophils % (A) 77 %; Platelet Count 223 k/uL (150-450); RBC 2.17 m/uL (4.30-5.90); RDW 16.5 % (11.5-15.5)
[2022-01-06] MEDS: NOREPINEPHRINE 4 MG in SODIUM CHLORIDE 0.9% 250 ML IV SCH ×2 (07:38→14:19)
[2022-01-06 07:41] LABS: Potassium 4.3 mmol/L (3.5-5.1)
[2022-01-06 07:49] LABS: HGB 6.4 gm/dL (13.0-17.5)
[2022-01-06 07:54] LABS: INR 1.1 (<1.2); Prothrombin Time 11.7 sec (9.0-12.0)
[2022-01-06] MEDS: PANTOPRAZOLE 40 MG/10 ML VIAL IV SCH (08:11)
[2022-01-06] MEDS: METOPROLOL TARTRATE 25 MG TAB PO SCH ×3 (08:12→21:10)
--- NOTE | 2022-01-06 08:36 | P.PN ---
Subjective Progress Note Date: 01/06/22 The patient is a 66-year-old male currently admitted to the hospital with acute GI bleed. Etiology was consulted for wide complex tachycardia, which is A. fib with RVR with aberrant conduction. EKG on initial presentation was slow atrial tachycardia and the patient was on dofetilide. Dofetilide was discontinued and the patient spontaneously converted to sinus mechanism with increased dose of oral beta blockers. The patient was interviewed and examined lying comfortably in bed. He states he is doing relatively well and will be undergoing a colonoscopy later today for his acute GI bleed. He denies any chest pain or chest pressure. No heart racing or fluttering. No shortness of breath. GENERAL: Well-appearing, well-nourished and in no acute distress. NECK: Supple without JVD or thyromegaly. LUNGS: Breath sounds clear to auscultation bilaterally. Respiration equal and unlabored. No wheezes, rales or rhonchi. HEART: Regular rate and rhythm without murmurs, rubs or gallops. S1 and S2 hear d. EXTREMITIES: Normal range of motion, mild edema. No clubbing or cyanosis. Peripheral pulses intact and strong. VITALS: Blood pressure 121/70, respiratory rate 23, pulse 89, SpO2 94% on room air, temperature 97.6F TELEMETRY: Sinus rhythm with occasional PACs. LABS: WBC 9.0, hemoglobin 6.4, hematocrit 20.4, platelet 223, INR 1.1, sodium 139, potassium 4.3, BUN 11, creatinine 1.12 IMPRESSION: A. 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 Objective - Vital Signs Vital signs: Vital Signs Temp 97.6 F 01/06/22 05:00 Pulse 89 01/06/22 07:00 Resp 23 01/06/22 07:00 BP 121/70 01/06/22 07:00 Pulse Ox 94 L 01/06/22 07:00 Intake & Output 01/05/22 01/06/22 01/06/22 18:59 06:59 18:59 Intake Total 1740 1430 130 Output Total 800 600 Balance 940 830 130 Weight 134.3 kg Intake: IV 1740 1430 130 Phytonadione 5 mg In 50 Sodium Chloride 0.9% 50 ml @ 100 mls/hr IVPB ONCE [facility] Rx#:[id number] Sodium Chloride 0.9% 1, 1690 1430 130 000 ml @ 130 mls/hr IV . Q7H42M [facility] Rx#:[id number] Output: Urine 800 600 Other: Voiding Method Urinal Urinal # Voids 0 1 - Labs CBC & Chem 7: 01/06/22 06:54 01/06/22 06:54 Labs: Abnormal Lab Results - Last 24 Hours (Table) 01/03/22 01/05/22 01/06/22 Range/Units 12:15 14:39 06:54 RBC 2.17 L (4.30-5.90) m/uL Hgb 6.4 L* (13.0-17.5) gm/dL Hct 20.4 L (39.0-53.0) % RDW 16.5 H (11.5-15.5) % PT 16.9 H (9.0-12.0) sec INR 1.7 H (<1.2) Chloride (98-107) mmol/L Glucose (74-99) mg/dL Calcium (8.4-10.2) mg/dL Crossmatch See Detail 01/06/22 Range/Units 06:54 RBC (4.30-5.90) m/uL Hgb (13.0-17.5) gm/dL Hct (39.0-53.0) % RDW (11.5-15.5) % PT (9.0-12.0) sec INR (<1.2) Chloride 112 H (98-107) mmol/L Glucose 108 H (74-99) mg/dL Calcium 8.0 L (8.4-10.2) mg/dL Crossmatch
[2022-01-06] MEDS ORDERED: NA PHOS,M-B/NA PHOS,DI-BA 133 ML ENEMA RECTAL ONE ×2 (10:00→11:00)
--- NOTE | 2022-01-06 10:16 | P.PN ---
Subjective Progress Note Date: 01/06/22 66-year-old white male seen in the emergency department. He was seen by Dr. Lion Osorio. He apparently was initially evaluated at [facility]. He went there, initially, because he was having some bright red bleeding from the rectal area. It apparently started 6:00 this morning. In addition, the patient apparently had some mild hypotension. The patient did receive 2 units of blood at the outside hospital, and then was transferred here. He also received some vitamin K. The patient was seen by the air gun operator this morning. The plan is once the INR is below 1.5, the patient would be a candidate for colonoscopy. 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 The patient had previous prostate cancer, was treated with radiation. The patient is on warfarin for atrial fibrillation. The patient states that he never had bleeding from the colon or from the gastrointestinal t ract in the past. In addition to atrial fibrillation and prostate cancer, he has a history of hypertension, and impaired hearing. He is also a former smoker. Laboratory data here includes a white count of 15.6, hemoglobin 11, hematocrit 33.6, platelet count 370,000. PTT was 34.3 INR was 3.4. Sodium 133, potassium 5.3, chlorides 106, CO2 23, BUN 33, and creatinine 1.41. Albumin is 3.1. The patient is seen today 01/04/2022 in follow-up in the intensive care unit. He is currently awake and alert in no acute distress. He is on room air and maintaining O2 saturations in the 90s. He has 0.9% normal saline running at 130 mls an hour. His norepinephrine has been off. Current hemoglobin 8.7. He is having some issues with cardiac arrhythmias including some wide complex tachycardia at rates up to 180. He had been on dofetilide in the outpatient setting. He was anticoagulated with warfarin. INR today 2.0. Cardiology has been consulted. White count 11.0. Hemoglobin is 7.8. Platelets 238. Sodium 137. Potassium 4.5. Bicarb 19. BUN 32. Creatinine 1.4. Glucose 104. He is status post 1 unit of packed red blood cells and 1 unit fresh frozen plasma so far this admission. He did have a large bowel movement last night that had clots within. None so far this morning. If he is continuing on Symbicort, albuterol. He's been initiated on magnesium for a level of 1.9. The patient is seen today the 2021 follow-up in the intensive care unit. He is currently resting comfortably in bed. Awake and alert in no acute distress. Maintaining O2 saturation in the 90s on room air. Currently having episodes of sinus rhythm with breakthrough atrial fibrillation with occasional PVCs. No further active bleeding noted. Hemoglobin today 7.3. White count 10.3. Platelets 213. INR 2.1. Sodium 139. Potassium 4.5. Chloride 112. BUN 16. Creatinine 1.14. Glucose 101. He remains on normal saline at 130 ML's per hour. The patient is seen today 01/06/2022 in follow-up in the intensive care unit. He is awake and alert in no acute distress. Maintaining good O2 saturations in the 90s on room air. He is continued on normal saline at 130 MLS per hour. He did have bloody bowel movements again last night. His been hemodynamically stable and off pressors. His hemoglobin is 6.4. He is seeming another unit of packed red blood cells. He is received 1 unit previously on fresh frozen plasma. White count 9.0. Platelets 223. INR 1.1. Sodium 139. Potassium 4.3. BUN 11. Creatinine 1.12. Glucose 108. He remains nothing by mouth for possible colonoscopy today. Objective - Vital Signs Vital signs: Vital Signs Temp 98.8 F 01/06/22 08:45 Pulse 90 01/06/22 08:45 Resp 12 01/06/22 08:45 BP 130/79 01/06/22 08:45 Pulse Ox 99 01/06/22 08:45 Intake & Output 01/05/22 01/06/22 01/06/22 18:59 06:59 18:59 Intake Total 1740 1430 130 Output Total 800 600 Balance 940 830 130 Weight 134.3 kg Intake: IV 1740 1430 130 Phytonadione 5 mg In 50 Sodium Chloride 0.9% 50 ml @ 100 mls/hr IVPB ONCE [facility] Rx#:[id number] Sodium Chloride 0.9% 1, 1690 1430 130 000 ml @ 130 mls/hr IV . [facility]H42M [facility] Rx#:[id number] Blood Product 0 Rc As-1 Unit 0 [id number] Output: Urine 800 600 Other: Voiding Method Urinal Urinal # Voids 0 1 - Exam GENERAL EXAM: Alert, obese 66-year-old male patient, on room air, comfortable in no apparent distress. HEAD: Normocephalic. EYES: Normal reaction of pupils, equal size. NOSE: Clear with pink turbinates. THROAT: No erythema or exudates. NECK: No masses, no JVD. CHEST: No chest wall deformity. LUNGS: Equal air entry with no crackles, wheeze, rhonchi or dullness. CVS: S1 and S2 normal with no audible murmur, regular rhythm. ABDOMEN: No hepatosplenomegaly, normal bowel sounds, no guarding or rigidity. SPINE: No scoliosis or deformity SKIN: No rashes CENTRAL NERVOUS SYSTEM: No focal deficits, tone is normal in all 4 extremities. EXTREMITIES: There is no peripheral edema. No clubbing, no cyanosis. Peripheral pulses are intact. - Labs CBC & Chem 7: 01/06/22 06:54 01/06/22 06:54 Labs: Abnormal Lab Results - Last 24 Hours (Table) 01/03/22 01/05/22 01/06/22 Range/Units 12:15 14:39 06:54 RBC 2.17 L (4.30-5.90) m/uL Hgb 6.4 L* (13.0-17.5) gm/dL Hct 20.4 L (39.0-53.0) % RDW 16.5 H (11.5-15.5) % PT 16.9 H (9.0-12.0) sec INR 1.7 H (<1.2) Chloride (98-107) mmol/L Glucose (74-99) mg/dL Calcium (8.4-10.2) mg/dL Crossmatch See Detail 01/06/22 Range/Units 06:54 RBC (4.30-5.90) m/uL Hgb (13.0-17.5) gm/dL Hct (39.0-53.0) % RDW (11.5-15.5) % PT (9.0-12.0) sec INR (<1.2) Chloride 112 H (98-107) mmol/L Glucose 108 H (74-99) mg/dL Calcium 8.0 L (8.4-10.2) mg/dL Crossmatch Assessment and Plan Assessment: 1 Bright red bleeding per rectum, rule out angiodysplasia, diverticulosis, or radiation colitis 2 Acute anemia secondary to above. Received 2 units of packed red blood cells at [facility], another unit here along with 1 unit of fresh frozen plasma. Hemoglobin today 6.4 and is receiving an additional unit of packed red blood cells this morning. Colonoscopy pending. 3 History of severe radiation proctitis and previous argon plasma coagulation in October 2021 4 History of prostate cancer, status post radiation therapy 4 years ago 5 History of chronic atrial fibrillation, maintained on Coumadin. Previous abla tion 6 Prior history of tobacco use. 7 History of impaired hearing. 8 History of hypertension. 9 Probable COPD based on the patient's outpatient medications. 10 Wide-complex tachycardia Plan: The patient was seen and evaluated Labs and medications reviewed Normal saline at 130 ML's per hour Hemoglobin 6.4, INR 1.1 Receiving an additional unit of packed red blood cells today Scheduled for colonoscopy today We'll continue to follow I have personally seen and examined the patient, performed the documentation and the assessment and plan as written. Number of minutes spent on the visit: 10.
--- NOTE | 2022-01-06 11:28 | P.PN ---
Subjective History of Present Illness H&P Date: 01/03/22 Chief Complaint: GI bleed Patient is a 66-year-old male with A. fib anticoagulated on Coumadin, COPD, and history of prior prostate cancer with radiation presented to the ER at [facility] with complaints of bright red blood per rectum. In the ER there he was found to have a hemoglobin of 10, INR 3.05. He has copious amounts of bright red blood per rectum. He was subsequently transfused 2 units of packed red blood cells and IV vitamin K. He was transferred to our facility for surgical or GI evaluation. In the ER here his repeat hemoglobin was 11. He was seen by Dr. Welch and plan is for sigmoidoscopy once INR is less than 1.5. Patient seen and examined at bedside with present. He denies any abdominal pain. He states at 6 AM he started having bright red blood per rectum. He eventually did get lightheaded and dizzy and have some worsening shortness breath. He denies any recent fevers, chills, sick contacts. He does have a history of internal hemorrhoids. In October 2021 he required colonoscopy with intervention for radiation proctitis and telangiectasias. Interval history 01/05 patient was seen and examined at the bedside. He denies any chest pain or shortness of breath. INR still elevated 2.1 colonoscopy on hold. Otherwise no acute changes overnight 01/06 patient was seen and examined at the bedside. He is alert and oriented 3. He denies any chest pain shortness of breath. Hemoglobin dropped to 6.4. Patient stated that he had a bowel movement last night with dark blood clots with it. Physical examination: Derm: warm, dry Head: atraumatic, normocephalic, symmetric Eyes: EOMI, no lid lag, anicteric sclera, pupils equal round reactive to light ENT: Nose and ears atraumatic, no thrush, no pharyngeal erythema Neck: No thyromegaly, no cervical lymphadenopathy, trachea midline, supple Mouth: no lip lesion, mucus membranes moist Cardiovascular: S1S2 reg, no murmur, positive posterior tibial pulse bilateral, no edema, capillary refill less than 2 seconds Lungs: clear to ascultation bilateral, no ronchi, no rales, no wheeze, no accessory muscle use Abdominal: soft, nontender to palpation, no guarding, no appreciable organomegaly, normal bowel sounds Ext: no gross muscle atrophy, muscle strength muscle strength 5 out of 5 in all 4 extremities, no contractures Neuro: CN II-XI grossly intact, light touch intact all 4 extremities, finger to nose within normal limits, Psych: Alert, oriented, appropriate affect Assessment and plan #Bright red blood per rectum/Lower GI bleed with acute blood loss anemia Status post 3 units PRBCs and vitamin K Hemoglobin 6.4 INR/warfarin reversed with vitamin K GI consultation, plan for colonoscopy when INR improved Monitor intensive care unit Serial H&H #History of severe radiation proctitis and previous argon plasma coagulation in October 2021 #Paroxysmal A. fib with RVR Continue to hold Coumadin INR 2.1 today Continue metoprolol, dofetilide Cardiology #Hypertension Continue to hold lisinopril #COPD without acute exacerbation Continue with bronchodilators. #History of prostate cancer, status post radiation therapy 4 years ago #Prior history of tobacco use. History of impaired hearing. #Wide-complex tachycardia #EtOH abuse No effective signs of withdrawals, continue CIWA, thiamine and folic acid DVT prophylaxis: SCDs Objective - Vital Signs Vital signs: Vital Signs Temp 98.8 F 01/06/22 08:45 Pulse 90 01/06/22 08:45 Resp 12 01/06/22 08:45 BP 130/79 01/06/22 08:45 Pulse Ox 99 01/06/22 08:45 Intake & Output 01/05/22 01/06/22 01/06/22 18:59 06:59 18:59 Intake Total 1740 1430 130 Output Total 800 600 Balance 940 830 130 Weight 134.3 kg Intake: IV 1740 1430 130 Phytonadione 5 mg In 50 Sodium Chloride 0.9% 50 ml @ 100 mls/hr IVPB ONCE [facility] Rx#:[id number] Sodium Chloride 0.9% 1, 1690 1430 130 000 ml @ 130 mls/hr IV . [facility]7H42M [facility] Rx#:[id number] Blood Product 0 Rc As-1 Unit 0 [id number] Output: Urine 800 600 Other: Voiding Method Urinal Urinal # Voids 0 1 - Labs CBC & Chem 7: 01/06/22 06:54 01/06/22 06:54 Labs: Abnormal Lab Results - Last 24 Hours (Table) 01/03/22 01/05/22 01/06/22 Range/Units 12:15 14:39 06:54 RBC 2.17 L (4.30-5.90) m/uL Hgb 6.4 L* (13.0-17.5) gm/dL Hct 20.4 L (39.0-53.0) % RDW 16.5 H (11.5-15.5) % PT 16.9 H (9.0-12.0) sec INR 1.7 H (<1.2) Chloride (98-107) mmol/L Glucose (74-99) mg/dL Calcium (8.4-10.2) mg/dL Crossmatch See Detail 01/06/22 Range/Units 06:54 RBC (4.30-5.90) m/uL Hgb (13.0-17.5) gm/dL Hct (39.0-53.0) % RDW (11.5-15.5) % PT (9.0-12.0) sec INR (<1.2) Chloride 112 H (98-107) mmol/L Glucose 108 H (74-99) mg/dL Calcium 8.0 L (8.4-10.2) mg/dL Crossmatch
[2022-01-06] MEDS ORDERED: SODIUM CHLORIDE 0.9% 1,000 ML IV ONE (12:17)
[2022-01-06] MEDS ORDERED: PROPOFOL 10 MG/ML 20 ML VIAL IV ONE (12:20)
--- NOTE | 2022-01-06 12:53 | P.PCN ---
Date of Procedure: 01/06/22 Procedure(s) Performed: BRIEF HISTORY: Patient is a 66-year-old [place] 8 male admitted hospital with acute lower GI bleed. He presented with multiple episodes of bright red blood per rectum and 11-6.4 requiring 4 units of PRBC transfusion. He had a colonoscopy 2 months ago and was noted to have radiation proctitis for which she underwent argon plasma coagulation. The patient has A. fib and is on Coumadin . He was given vitamin K and fresh frozen plasma 9 this morning is 1.1. He scheduled for a flexible sigmoidoscopic evaluate further PROCEDURE PERFORMED: Flexible sigmoid scope with argon plasma coagulation, and attempted Endo Clip placement and cautery. PREOPERATIVE DIAGNOSIS: Acute lower GI bleed. IV sedation per Anesthesia. PROCEDURE: After informed consent was obtained, the patient, was brought into the endoscopy unit. IV sedation was administered by Anesthesia under continuous monitoring. Digital rectal examination was normal. Initially the Olympus CF-160 flexible video colonoscope was then inserted in the rectum, gradually advanced into the ascending colon revealed there was solid stool with some clots identified.. Careful examination was performed as the scope was gradually being withdrawn. The descendin colon and sigmoid colon, appeared normal. in the distal rectum there was mild radiation proctitis noted and argon plasma coag ablation was performed. Also there was a 1 cm superficial ulceration with a small visible vessel with no active bleeding seen. However I proceeded with Endo Clip placement was unsuccessful and subsequently cautery was performed using a gold probe with good basis. Retroflexion was performed in the rectum and no lesions were seen. The patient tolerated the procedure well. IMPRESSION: Mild distal radiation proctitis status post argon plasma coagulation 1 cm superficial ulceration in the distal rectum with a small visible vessel it is post cautery using a gold probe Scope advanced up to the mid descending colon. RECOMMENDATIONS: Findings of this examination were discussed with the patient as well as his family. Continue with a clear liquid diet today. Will watch his hemoglobin closely..
[2022-01-06 13:54] LABS: Anisocytosis Slight; HCT 22.8 % (39.0-53.0); HGB 7.3 gm/dL (13.0-17.5); Hypochromasia Moderate; MCH 28.9 pg (25.0-35.0); MCHC 31.9 g/dL (31.0-37.0); MCV 90.7 fL (80.0-100.0); Mean Platelet Volume 7.9; Platelet Count 224 k/uL (150-450); RBC 2.52 m/uL (4.30-5.90); RDW 17.8 % (11.5-15.5); WBC 9.7 k/uL (3.8-10.6)
[2022-01-06] MEDS: MELATONIN 5 MG TABLET PO PRN (21:09)
[2022-01-07] MEDS: SODIUM CHLORIDE 0.9% 1,000 ML IV SCH ×4 (05:57→23:19)
[2022-01-07] MEDS: METOPROLOL TARTRATE 25 MG TAB PO SCH ×3 (06:24→23:17)
--- NOTE | 2022-01-07 07:46 | P.PN ---
Subjective Progress Note Date: 01/07/22 Principal diagnosis: Acute lower GI bleed This is a 58-year-old male who has a history of radiation for prostate cancer approximately 4-5 years ago with a history of colonoscopy in October of this year noted to have severe radiation proctitis and underwent argon plasma coagulation.. He was transferred from [facility] with acute lower GI bleed with several episodes of bright red blood per rectum with clots. He was admitted to the ICU, he had a drop in his hemoglobin yesterday to 7.2 and was given 1 unit of PRBC transfusion as well as 1 unit of FFP. Patient had been on Coumadin for history of atrial fibrillation had elevated INR with Vitamin K reportedly given at [facility]. The patient underwent a flexible sigmoidoscopy yesterday with findings of mild distal radiation proctitis status post argon plasma coagulation. 1 cm superficial ulceration in the distal rectum with a small visible vessel status post cautery using a gold probe ablation. Scope advanced up to the mid descending colon. Today he states he has not had a bowel movement just passing gas. Yesterday evening he still had some darker red colored rectal bleeding was some clotting. He has remained in the ICU for cardiac monitoring as he has had some arrhythmias and atrial fibrillation. Cardiology is following. Hemoglobin improved at 8.5 Objective - Vital Signs Vital signs: Vital Signs Temp 98 F 01/07/22 02:00 Pulse 91 01/07/22 02:00 Resp 28 H 01/07/22 02:00 BP 127/87 01/07/22 02:00 Pulse Ox 94 L 01/07/22 02:00 Intake & Output 01/06/22 01/07/22 01/07/22 18:59 06:59 18:59 Intake Total 2080 1430 Output Total 900 300 Balance 1180 1130 Intake: IV 1470 1430 Sodium Chloride 0.9% 1, 1170 1430 000 ml @ 130 mls/hr IV . Q7H42M [facility] Rx#:[id number] Oral 300 Blood Product 310 Rc As-1 Unit 310 [id number] Output: Urine 900 300 Other: Voiding Method Urinal # Voids 1 - Exam General appearance: The patient is alert, oriented, appears in no acute distress. HET: Head is normocephalic and atraumatic. Conjunctiva pink. Sclera anicteric. Neck: Supple without lymphadenopathy. Abdomen: Soft, nontender, nondistended with bowel sounds. No guarding or rigidity. Extremities: Normal skin color and turgor. No pedal edema Skin: No rashes, no jaundice Neurological: No focal deficits. Alert and oriented x3. - Labs CBC & Chem 7: 01/07/22 07:43 01/07/22 07:48 Labs: Abnormal Lab Results - Last 24 Hours (Table) 01/03/22 01/06/22 01/06/22 Range/Units 12:15 06:54 06:54 RBC 2.17 L (4.30-5.90) m/uL Hgb 6.4 L* (13.0-17.5) gm/dL Hct 20.4 L (39.0-53.0) % RDW 16.5 H (11.5-15.5) % Chloride 112 H (98-107) mmol/L Glucose 108 H (74-99) mg/dL Calcium 8.0 L (8.4-10.2) mg/dL Crossmatch See Detail 01/06/22 Range/Units 13:29 RBC 2.52 L (4.30-5.90) m/uL Hgb 7.3 L (13.0-17.5) gm/dL Hct 22.8 L (39.0-53.0) % RDW 17.8 H (11.5-15.5) % Chloride (98-107) mmol/L Glucose (74-99) mg/dL Calcium (8.4-10.2) mg/dL Crossmatch Assessment and Plan (1) Lower GI hemorrhage Narrative/Plan: Patient presented with multiple episodes of bright red blood per rectum with clots. He became somewhat hypotensive and tachycardic in the emergency room at [facility] and hence he received 2 units of RBC transfusion and was transferred to [facility] ICU. He is feeling much better now. Hemodynamically more stable. He has not had any further bleeding since yesterday evening. The small amount of gas with streak of blood. He was apparently given vitamin K at the [facility] ER. Most likely the bleeding is related to radiation proctitis but possibility of a diverticular bleed cannot be excluded. The patient did have a colonoscopy in October 2021 that showed severe radiation proctitis for which he underwent argon plasma coagulation. The patient underwent flexible sigmoidoscopy with findings of mild distal radiation proctitis status post argon plasma coagulation. 1 cm superficial ulceration in the distal rectum with a small visible vessel status post cautery using a gold probe ablation. Scope advanced up to the mid descending colon. Current Visit: Yes Status: Acute Code(s): K92.2 - GASTROINTESTINAL HEMORRHAGE, UNSPECIFIED SNOMED Code(s): 30095670 (2) Atrial fibrillation Current Visit: Yes Status: Acute Code(s): I48.91 - UNSPECIFIED ATRIAL FIBRILLATION SNOMED Code(s): 71281414 (3) Radiation proctitis Current Visit: Yes Status: Acute Code(s): K62.7 - RADIATION PROCTITIS SNOMED Code(s): 578451947 Plan: 1. Continue symptomatic and supportive care 2. Full liquid diet, advance as tolerated 3. Hold anticoagulation for 1 more day 5. Daily CBC, transfuse per protocol Thank you for allowing us to participate in the care of the patient, the GI service will sign off, gastroenterology will not be available at the hospital this weekend and through next week. If further evaluation by gastroenterology is required the patient will need transfer as per the primary team's discretion. Dr. Betzaida Welch I agree with the dictator's note, documented as a scribe by Letty Quintanilla.
[2022-01-07 07:59] LABS: Anisocytosis Slight; HCT 27.1 % (39.0-53.0); HGB 8.5 gm/dL (13.0-17.5); Hypochromasia Marked; MCHC 31.4 g/dL (31.0-37.0); MCV 92.4 fL (80.0-100.0); Mean Platelet Volume 8.7; Platelet Count 321 k/uL (150-450); RBC 2.94 m/uL (4.30-5.90); RDW 18.5 % (11.5-15.5); WBC 16.2 k/uL (3.8-10.6)
[2022-01-07 08:19] LABS: Calcium 8.7 mg/dL (8.4-10.2); Potassium 4.3 mmol/L (3.5-5.1)
[2022-01-07] MEDS: PANTOPRAZOLE 40 MG/10 ML VIAL IV SCH (10:07)
--- NOTE | 2022-01-07 11:16 | P.PN ---
Subjective Progress Note Date: 01/07/22 66-year-old white male seen in the emergency department. He was seen by Dr. Lion Osorio. He apparently was initially evaluated at [facility]. He went there, initially, because he was having some bright red bleeding from the rectal area. It apparently started 6:00 this morning. In addition, the patient apparently had some mild hypotension. The patient did receive 2 units of blood at the outside hospital, and then was transferred here. He also received some vitamin K. The patient was seen by the branner machine tender this morning. The plan is once the INR is below 1.5, the patient would be a candidate for colonoscopy. 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 The patient had previous prostate cancer, was treated with radiation. The patient is on warfarin for atrial fibrillation. The patient states that he never had bleeding from the colon or from the gastrointestinal t ract in the past. In addition to atrial fibrillation and prostate cancer, he has a history of hypertension, and impaired hearing. He is also a former smoker. Laboratory data here includes a white count of 15.6, hemoglobin 11, hematocrit 33.6, platelet count 370,000. PTT was 34.3 INR was 3.4. Sodium 133, potassium 5.3, chlorides 106, CO2 23, BUN 33, and creatinine 1.41. Albumin is 3.1. The patient is seen today 01/04/2022 in follow-up in the intensive care unit. He is currently awake and alert in no acute distress. He is on room air and maintaining O2 saturations in the 90s. He has 0.9% normal saline running at 130 mls an hour. His norepinephrine has been off. Current hemoglobin 8.7. He is having some issues with cardiac arrhythmias including some wide complex tachycardia at rates up to 180. He had been on dofetilide in the outpatient setting. He was anticoagulated with warfarin. INR today 2.0. Cardiology has been consulted. White count 11.0. Hemoglobin is 7.8. Platelets 238. Sodium 137. Potassium 4.5. Bicarb 19. BUN 32. Creatinine 1.4. Glucose 104. He is status post 1 unit of packed red blood cells and 1 unit fresh frozen plasma so far this admission. He did have a large bowel movement last night that had clots within. None so far this morning. If he is continuing on Symbicort, albuterol. He's been initiated on magnesium for a level of 1.9. The patient is seen today the 2021 follow-up in the intensive care unit. He is currently resting comfortably in bed. Awake and alert in no acute distress. Maintaining O2 saturation in the 90s on room air. Currently having episodes of sinus rhythm with breakthrough atrial fibrillation with occasional PVCs. No further active bleeding noted. Hemoglobin today 7.3. White count 10.3. Platelets 213. INR 2.1. Sodium 139. Potassium 4.5. Chloride 112. BUN 16. Creatinine 1.14. Glucose 101. He remains on normal saline at 130 ML's per hour. The patient is seen today 01/06/2022 in follow-up in the intensive care unit. He is awake and alert in no acute distress. Maintaining good O2 saturations in the 90s on room air. He is continued on normal saline at 130 MLS per hour. He did have bloody bowel movements again last night. His been hemodynamically stable and off pressors. His hemoglobin is 6.4. He is seeming another unit of packed red blood cells. He is received 1 unit previously on fresh frozen plasma. White count 9.0. Platelets 223. INR 1.1. Sodium 139. Potassium 4.3. BUN 11. Creatinine 1.12. Glucose 108. He remains nothing by mouth for possible colonoscopy today. The patient is seen today 01/07/2022 in follow-up in the intensive care unit. He is currently resting comfortably in bed. Awake and alert in no acute distress. He did undergo colonoscopy yesterday that again revealed radiation proctitis status post argon plasma coagulation. There was a 1 cm superficial ulceration in the distal rectum and a small visible vessel post cautery. No further noted bleeding. White count 16.2. Hemoglobin 8.5. Platelets 321. Sodium 140. Potassium 4.3. Bicarb 21. BUN 9. Creatinine 1.18. He is continued on IV Protonix. He is still having some issues with significant tachycardia with minimal exertion. Currently on Lopressor 75 mg by mouth 3 times a day. Objective - Vital Signs Vital signs: Vital Signs Temp 98 F 01/07/22 10:23 Pulse 116 H 01/07/22 08:00 Resp 20 01/07/22 10:23 BP 151/73 01/07/22 10:23 Pulse Ox 96 01/07/22 10:23 Intake & Output 01/06/22 01/07/22 01/07/22 18:59 06:59 18:59 Intake Total 2080 1430 240 Output Total 900 300 0 Balance 1180 1130 240 Intake: IV 1470 1430 0 Sodium Chloride 0.9% 1, 1170 1430 0 000 ml @ 130 mls/hr IV . Q7H42M [facility] Rx#:[id number] Oral 300 Blood Product 310 240 Rc As-1 Unit 310 [id number] Output: Urine 900 300 0 Other: Voiding Method Urinal Urinal # Voids 1 1 - Exam GENERAL EXAM: Alert, obese 66-year-old male patient, on room air, comfortable in no apparent distress. HEAD: Normocephalic. EYES: Normal reaction of pupils, equal size. NOSE: Clear with pink turbinates. THROAT: No erythema or exudates. NECK: No masses, no JVD. CHEST: No chest wall deformity. LUNGS: Equal air entry with no crackles, wheeze, rhonchi or dullness. CVS: S1 and S2 normal with no audible murmur, currently regular rhythm. ABDOMEN: No hepatosplenomegaly, normal bowel sounds, no guarding or rigidity. SPINE: No scoliosis or deformity SKIN: No rashes CENTRAL NERVOUS SYSTEM: No focal deficits, tone is normal in all 4 extremities. EXTREMITIES: There is no peripheral edema. No clubbing, no cyanosis. Pe ripheral pulses are intact. - Labs CBC & Chem 7: 01/07/22 07:43 01/07/22 07:48 Labs: Abnormal Lab Results - Last 24 Hours (Table) 01/03/22 01/06/22 01/07/22 Range/Units 12:15 13:29 07:43 WBC 16.2 H (3.8-10.6) k/uL RBC 2.52 L 2.94 L (4.30-5.90) m/uL Hgb 7.3 L 8.5 L (13.0-17.5) gm/dL Hct 22.8 L 27.1 L (39.0-53.0) % RDW 17.8 H 18.5 H (11.5-15.5) % Chloride (98-107) mmol/L Carbon Dioxide (22-30) mmol/L Glucose (74-99) mg/dL Crossmatch See Detail 01/07/22 Range/Units 07:48 WBC (3.8-10.6) k/uL RBC (4.30-5.90) m/uL Hgb (13.0-17.5) gm/dL Hct (39.0-53.0) % RDW (11.5-15.5) % Chloride 111 H (98-107) mmol/L Carbon Dioxide 21 L (22-30) mmol/L Glucose 120 H (74-99) mg/dL Crossmatch Assessment and Plan Assessment: 1 Bright red bleeding per rectum, rule out angiodysplasia, diverticulosis, or radiation colitis. Colonoscopy 01/06/2022 revealed evidence of radiation proctitis status post argon plasma coagulation. 1 cm superficial ulceration in the distal rectum with a small visible vessel that was cauterized. No further active bleeding today. 2 Acute anemia secondary to above. Received 2 units of packed red blood cells at [facility], another 2 units here along with 1 unit of fresh frozen plasma. Hemoglobin today 8.5. 3 History of severe radiation proctitis and previous argon plasma coagulation in October 2021 4 History of prostate cancer, status post radiation therapy 4 years ago 5 History of chronic atrial fibrillation, maintained on Coumadin. Previous ablation 6 Prior history of tobacco use. 7 History of impaired hearing. 8 History of hypertension. 9 Probable COPD based on the patient's outpatient medications. 10 Wide-complex tachycardia Plan: The patient was seen and evaluated Labs and medications reviewed Hemoglobin 8.5 Stable for transfer to the selective care unit I have personally seen and examined the patient, performed the documentation and the assessment and plan as written. Number of minutes spent on the visit: 10.
[2022-01-07] MEDS: LACTATED RINGERS 1,000 ML IV SCH (12:29)
[2022-01-07] MEDS: ACETAMINOPHEN TAB 325 MG TAB PO PRN (13:16)
[2022-01-07] MEDS: DILTIAZEM 125 MG in SODIUM CHLORIDE 0.9% 100 ML IV SCH ×2 (13:17→23:17)
--- NOTE | 2022-01-07 14:04 | P.PN ---
Subjective Progress Note Date: 01/07/22 History of Present Illness H&P Date: 01/03/22 Chief Complaint: GI bleed Patient is a 66-year-old male with A. fib anticoagulated on Coumadin, COPD, and history of prior prostate cancer with radiation presented to the ER at [facility] with complaints of bright red blood per rectum. In the ER there he was found to have a hemoglobin of 10, INR 3.05. He has copious amounts of bright red blood per rectum. He was subsequently transfused 2 units of packed red blood cells and IV vitamin K. He was transferred to our facility for surgical or GI evaluation. In the ER here his repeat hemoglobin was 11. He was seen by Dr. Welch and plan is for sigmoidoscopy once INR is less than 1.5. Patient seen and examined at bedside with present. He denies any abdominal pain. He states at 6 AM he started having bright red blood per rectum. He eventually did get lightheaded and dizzy and have some worsening shortness breath. He denies any recent fevers, chills, sick contacts. He does have a history of internal hemorrhoids. In October 2021 he required colonoscopy with intervention for radiation proctitis and telangiectasias. Interval history 01/05 patient was seen and examined at the bedside. He denies any chest pain or shortness of breath. INR still elevated 2.1 colonoscopy on hold. Otherwise no acute changes overnight 01/06 patient was seen and examined at the bedside. He is alert and oriented 3. He denies any chest pain shortness of breath. Hemoglobin dropped to 6.4. Patient stated that he had a bowel movement last night with dark blood clots with it. 01/07 patient was examined at the bedside. He was transferred out of the ICU. We'll go is stable today at 8.5. The patient goes to [facility] with RVR heart rate around 180s with any minimal activities. He had a sigmoidoscopy yesterday showed distal radiation proctitis status post argon plasma coagulation. 1 cm superficial ulceration in the distal rectum with small visible visits is status post cautery using gold probe ablation. The scope advanced to the mid descending colon. Physical examination: Derm: warm, dry Head: atraumatic, normocephalic, symmetric Eyes: EOMI, no lid lag, anicteric sclera, pupils equal round reactive to light ENT: Nose and ears atraumatic, no thrush, no pharyngeal erythema Neck: No thyromegaly, no cervical lymphadenopathy, trachea midline, supple Mouth: no lip lesion, mucus membranes moist Cardiovascular: S1S2 reg, no murmur, positive posterior tibial pulse bilateral, no edema, capillary refill less than 2 seconds Lungs: clear to ascultation bilateral, no ronchi, no rales, no wheeze, no accessory muscle use Abdominal: soft, nontender to palpation, no guarding, no appreciable organomegaly, normal bowel sounds Ext: no gross muscle atrophy, muscle strength muscle strength 5 out of 5 in all 4 extremities, no contractures Neuro: CN II-XI grossly intact, light touch intact all 4 extremities, finger to nose within normal limits, Psych: Alert, oriented, appropriate affect Assessment and plan #Bright red blood per rectum/Lower GI bleed with acute blood loss anemia The patient underwent flexible sigmoidoscopy with findings of mild distal radiation proctitis status post argon plasma coagulation. 1 cm superficial ulceration in the distal rectum with a small visible vessel status post cautery using a gold probe ablation. Scope advanced up to the mid descending colon. Status post 3 units PRBCs and vitamin K Hemoglobin 8.5 today #History of severe radiation proctitis and previous argon plasma coagulation in October 2021 #Paroxysmal A. fib with RVR Continue to hold Coumadin GI recommended told that ovulation for another day Continue metoprolol, dofetilide Cardiology #Hypertension Continue to hold lisinopril #COPD without acute exacerbation Continue with bronchodilators. #History of prostate cancer, status post radiation therapy 4 years ago #Prior history of tobacco use. History of impaired hearing. #Wide-complex tachycardia #EtOH abuse No effective signs of withdrawals, continue CIWA, thiamine and folic acid DVT prophylaxis: SCDs Objective - Vital Signs Vital signs: Vital Signs Temp 97.9 F 01/07/22 12:00 Pulse 142 H 01/07/22 12:00 Resp 18 01/07/22 12:00 BP 119/64 01/07/22 12:00 Pulse Ox 94 L 01/07/22 12:00 Intake & Output 01/06/22 01/07/22 01/07/22 18:59 06:59 18:59 Intake Total 2080 1430 240 Output Total 900 300 0 Balance 1180 1130 240 Intake: IV 1470 1430 0 Sodium Chloride 0.9% 1, 1170 1430 0 000 ml @ 130 mls/hr IV . Q7H42M [facility] Rx#:[id number] Oral 300 Blood Product 310 240 Rc As-1 Unit 310 [id number] Output: Urine 900 300 0 Other: Voiding Method Urinal Urinal # Voids 1 1 - Labs CBC & Chem 7: 01/07/22 07:43 01/07/22 07:48 Labs: Abnormal Lab Results - Last 24 Hours (Table) 01/03/22 01/07/22 01/07/22 Range/Units 12:15 07:43 07:48 WBC 16.2 H (3.8-10.6) k/uL RBC 2.94 L (4.30-5.90) m/uL Hgb 8.5 L (13.0-17.5) gm/dL Hct 27.1 L (39.0-53.0) % RDW 18.5 H (11.5-15.5) % Chloride 111 H (98-107) mmol/L Carbon Dioxide 21 L (22-30) mmol/L Glucose 120 H (74-99) mg/dL Crossmatch See Detail
[2022-01-07] MEDS: TRELEGY ELLIPTA 100-62.5-25 INHALATION SCH (14:57)
[2022-01-08] MEDS: SODIUM CHLORIDE 0.9% 1,000 ML IV SCH ×2 (06:22→23:32)
[2022-01-08] MEDS: TRELEGY ELLIPTA 100-62.5-25 INHALATION SCH (08:23)
[2022-01-08] MEDS: METOPROLOL TARTRATE 25 MG TAB PO SCH ×3 (08:56→21:23)
[2022-01-08] MEDS: PANTOPRAZOLE 40 MG/10 ML VIAL IV SCH (11:12)
[2022-01-08] MEDS: DOFETILIDE 500 MCG CAP PO SCH ×2 (11:12→17:31)
[2022-01-08 12:13] LABS: Anisocytosis Slight; Basophils % (A) 0 %; Eosinophils # (A) 0.1 k/uL (0-0.7); Eosinophils % (A) 1 %; HCT 23.8 % (39.0-53.0); HGB 7.3 gm/dL (13.0-17.5); Hypochromasia Moderate; Lymphocytes # (A) 1.1 k/uL (1.0-4.8); Lymphocytes % (A) 10 %; MCH 28.3 pg (25.0-35.0); MCHC 30.7 g/dL (31.0-37.0); MCV 92.3 fL (80.0-100.0); Mean Platelet Volume 8.7; Monocytes # (A) 0.9 k/uL (0-1.0); Monocytes % (A) 8 %; Neutrophils # (A) 8.9 k/uL (1.3-7.7); Neutrophils % (A) 79 %; Platelet Count 307 k/uL (150-450); RBC 2.58 m/uL (4.30-5.90); RDW 18.5 % (11.5-15.5); WBC 11.4 k/uL (3.8-10.6)
--- NOTE | 2022-01-08 12:41 | P.PN ---
Subjective Progress Note Date: 01/08/22 The patient is a 66-year-old male currently admitted to the hospital with acute GI bleed. Etiology was consulted for wide complex tachycardia, which is A. fib with RVR with aberrant conduction. EKG on initial presentation was slow atrial tachycardia and the patient was on dofetilide. Dofetilide was discontinued and the patient spontaneously converted to sinus mechanism with increased dose of oral beta blockers. The patient underwent colonoscopy on 01/06/2022, where he was found to have mild distal radiation for otitis with 1 cm superficial ulceration of the distal rectum, which was cauterized. After returning to the floor post colonoscopy, he did have an episode of A. fib with RVR. He was subsequently started on a Cardizem drip by Dr. Gómez. He spontaneously converted back to sinus mechanism. The patient was interviewed and examined lying comfortably in bed. He states he is feeling much better now that his hemoglobin has been stable. He denies any chest pain or chest pressure. No heart racing or fluttering. No dizziness, lightheadedness, or shortness of breath. GENERAL: Well-appearing, well-nourished and in no acute distress. NECK: Supple without JVD or thyromegaly. LUNGS: Breath sounds clear to auscultation bilaterally. Respiration equal and unlabored. No wheezes, rales or rhonchi. HEART: Regular rate and rhythm without murmurs, rubs or gallops. S1 and S2 heard. EXTREMITIES: Normal range of motion, mild edema. No clubbing or cyanosis. Peripheral pulses intact and strong. VITALS: Blood pressure 117/61, pulse 93, respiratory rate 18, SpO2 94% on 2 L nasal cannula, temp 98.3F TELEMETRY: Sinus rhythm LABS: WBC 11.4, hemoglobin 7.3, hematocrit 23.8, platelet 307 IMPRESSION: A. fib with RVR, wide QRS with apparent conduction Acute GI bleed, status post cauterization History of atrial fibrillation/flutter, with prior ablations On Tikosyn outpatient, temporarily discontinued Acute kidney injury, resolved PLAN: Discontinue Cardizem drip Resume home dose of dofetilide Daily EKGs thereafter Continue to monitor for slow atrial tachycardia/proarrhythmic effect Further recommendations will be based on clinical course I am dictating on behalf of Dr Art Gómez's history/physical and assessment/plan. Objective - Vital Signs Vital signs: Vital Signs Temp 98 F 01/08/22 03:47 Pulse 92 01/08/22 03:47 Resp 19 01/08/22 03:47 BP 111/65 01/08/22 03:47 Pulse Ox 98 01/08/22 03:47 Intake & Output 01/07/22 01/08/22 01/08/22 18:59 06:59 18:59 Intake Total 660 340 Output Total 0 Balance 660 340 Intake: IV 0 Sodium Chloride 0.9% 1, 0 000 ml @ 130 mls/hr IV . Q7H42M [facility] Rx#:[id number] Intake, IV Titration 60 100 Amount Diltiazem 125 mg In 60 100 Sodium Chloride 0.9% 100 ml @ 10 MG/HR 10 mls/hr IV .[id number] [facility] Rx#: [id number] Oral 360 240 Blood Product 240 Output: Urine 0 Other: Voiding Method Urinal Toilet # Voids 1 1 - Labs CBC & Chem 7: 01/08/22 11:57 01/07/22 07:48
--- NOTE | 2022-01-08 14:39 | P.PN ---
Subjective History of Present Illness H&P Date: 01/03/22 Chief Complaint: GI bleed Patient is a 66-year-old male with A. fib anticoagulated on Coumadin, COPD, and history of prior prostate cancer with radiation presented to the ER at [facility] with complaints of bright red blood per rectum. In the ER there he was found to have a hemoglobin of 10, INR 3.05. He has copious amounts of bright red blood per rectum. He was subsequently transfused 2 units of packed red blood cells and IV vitamin K. He was transferred to our facility for surgical or GI evaluation. In the ER here his repeat hemoglobin was 11. He was seen by Dr. Welch and plan is for sigmoidoscopy once INR is less than 1.5. Patient seen and examined at bedside with present. He denies any abdominal pain. He states at 6 AM he started having bright red blood per rectum. He eventually did get lightheaded and dizzy and have some worsening shortness breath. He denies any recent fevers, chills, sick contacts. He does have a history of internal hemorrhoids. In October 2021 he required colonoscopy with intervention for radiation proctitis and telangiectasias. Interval history 01/05 patient was seen and examined at the bedside. He denies any chest pain or shortness of breath. INR still elevated 2.1 colonoscopy on hold. Otherwise no acute changes overnight 01/06 patient was seen and examined at the bedside. He is alert and oriented 3. He denies any chest pain shortness of breath. Hemoglobin dropped to 6.4. Patient stated that he had a bowel movement last night with dark blood clots with it. 01/07 patient was examined at the bedside. He was transferred out of the ICU. We'll go is stable today at 8.5. The patient goes to [facility] with RVR heart rate around 180s with any minimal activities. He had a sigmoidoscopy yesterday showed distal radiation proctitis status post argon plasma coagulation. 1 cm superficial ulceration in the distal rectum with small visible visits is status post cautery using gold probe ablation. The scope advanced to the mid descending colon. 01/08 patient was examined at the bedside. He denies any chest pain or shortness of breath. No acute changes overnight. Physical examination: Derm: warm, dry Head: atraumatic, normocephalic, symmetric Eyes: EOMI, no lid lag, anicteric sclera, pupils equal round reactive to light ENT: Nose and ears atraumatic, no thrush, no pharyngeal erythema Neck: No thyromegaly, no cervical lymphadenopathy, trachea midline, supple Mouth: no lip lesion, mucus membranes moist Cardiovascular: S1S2 reg, no murmur, positive posterior tibial pulse bilateral, no edema, capillary refill less than 2 seconds Lungs: clear to ascultation bilateral, no ronchi, no rales, no wheeze, no accessory muscle use Abdominal: soft, nontender to palpation, no guarding, no appreciable organomegaly, normal bowel sounds Ext: no gross muscle atrophy, muscle strength muscle strength 5 out of 5 in all 4 extremities, no contractures Neuro: CN II-XI grossly intact, light touch intact all 4 extremities, finger to nose within normal limits, Psych: Alert, oriented, appropriate affect Assessment and plan #Bright red blood per rectum/Lower GI bleed with acute blood loss anemia The patient underwent flexible sigmoidoscopy with findings of mild distal radiation proctitis status post argon plasma coagulation. 1 cm superficial ul ceration in the distal rectum with a small visible vessel status post cautery using a gold probe ablation. Scope advanced up to the mid descending colon. Status post 3 units PRBCs Hemoglobin 7.1 today #History of severe radiation proctitis and previous argon plasma coagulation in October 2021 #Paroxysmal A. fib with RVR Resume Coumadin per cardiology Continue metoprolol, dofetilide Cardiology #Hypertension Continue to hold lisinopril #COPD without acute exacerbation Continue with bronchodilators. #History of prostate cancer, status post radiation therapy 4 years ago #Prior history of tobacco use. History of impaired hearing. #Wide-complex tachycardia #EtOH abuse No effective signs of withdrawals, continue CIWA, thiamine and folic acid DVT prophylaxis: SCDs Objective - Vital Signs Vital signs: Vital Signs Temp 98.3 F 01/08/22 08:00 Pulse 93 01/08/22 08:00 Resp 18 01/08/22 08:00 BP 117/61 01/08/22 08:00 Pulse Ox 94 L 01/08/22 08:00 Intake & Output 01/07/22 01/08/22 01/08/22 18:59 06:59 18:59 Intake Total 660 340 120 Output Total 0 Balance 660 340 120 Intake: IV 0 Sodium Chloride 0.9% 1, 0 000 ml @ 130 mls/hr IV . [id number] ANA ROSA Rx#:[id number] Intake, IV Titration 60 100 Amount Diltiazem 125 mg In 60 100 Sodium Chloride 0.9% 100 ml @ 10 MG/HR 10 mls/hr IV .[id number] [facility] Rx#: [id number] Oral 360 240 120 Blood Product 240 Output: Urine 0 Other: Voiding Method Urinal Toilet # Voids 1 1 4 - Labs CBC & Chem 7: 01/08/22 11:57 01/07/22 07:48 Labs: Abnormal Lab Results - Last 24 Hours (Table) 01/08/22 Range/Units 11:57 WBC 11.4 H (3.8-10.6) k/uL RBC 2.58 L (4.30-5.90) m/uL Hgb 7.3 L (13.0-17.5) gm/dL Hct 23.8 L (39.0-53.0) % MCHC 30.7 L (31.0-37.0) g/dL RDW 18.5 H (11.5-15.5) % Neutrophils # 8.9 H (1.3-7.7) k/uL
[2022-01-08] MEDS: LACTATED RINGERS 1,000 ML IV SCH (23:32)
[2022-01-09] MEDS: SODIUM CHLORIDE 0.9% 1,000 ML IV SCH ×3 (03:24→21:42)
[2022-01-09] MEDS: MELATONIN 5 MG TABLET PO PRN (03:49)
[2022-01-09] MEDS: DOFETILIDE 500 MCG CAP PO SCH (06:04)
[2022-01-09] MEDS: ACETAMINOPHEN TAB 325 MG TAB PO PRN (06:30)
[2022-01-09] MEDS: TRELEGY ELLIPTA 100-62.5-25 INHALATION SCH (08:32)
[2022-01-09] MEDS: PANTOPRAZOLE 40 MG/10 ML VIAL IV SCH (08:56)
[2022-01-09] MEDS: METOPROLOL TARTRATE 25 MG TAB PO SCH (08:56)
[2022-01-09 09:08] LABS: Anisocytosis Slight; Basophils % (A) 0 %; Eosinophils # (A) 0.2 k/uL (0-0.7); Eosinophils % (A) 2 %; HCT 23.2 % (39.0-53.0); HGB 7.2 gm/dL (13.0-17.5); Hypochromasia Moderate; Lymphocytes % (A) 9 %; MCH 28.8 pg (25.0-35.0); MCV 92.8 fL (80.0-100.0); Mean Platelet Volume 8.7; Monocytes # (A) 0.8 k/uL (0-1.0); Monocytes % (A) 7 %; Neutrophils # (A) 8.6 k/uL (1.3-7.7); Neutrophils % (A) 80 %; Platelet Count 318 k/uL (150-450); WBC 10.8 k/uL (3.8-10.6)
[2022-01-09 09:12] LABS: Calcium 8.6 mg/dL (8.4-10.2); Magnesium 1.7 mg/dL (1.6-2.3); Total Bilirubin 0.8 mg/dL (0.2-1.3); Total Protein 5.6 g/dL (6.3-8.2)
--- NOTE | 2022-01-09 13:21 | P.PN ---
Subjective Progress Note Date: 01/09/22 This is Julien Johnson NP, I'm dictating on behalf of Dr. Gómez's H&P and A&P. Patient was interviewed and examined. The patient is a pleasant 66-year-old male who initially presented to the hospital for lower GI hemorrhage, with subsequent found to have what appeared to be A. fib with RVR. Review the patient's EKGs, actually demonstrates a 2:1 atrial tachycardia at rest, with one-to-one atrial tachycardia with exertion. This explains his periods of tachycardia with movement. Patient was initially started on Tikosyn, it's recommended this time that we stop the Tikosyn, as the patient was started on it in an attempt to control the atrial fibrillation, however the dofetilide is organizing the atrial fibrillation into a 2:1 atrial tachycardia at rest, which then converts to a 1:1 atrial tachycardia with minimal exertion, which is extremely difficult to rate control. We will stop the dofetilide, continue the patient's rate control medications. He should follow up with his eligibility worker Dr. Guzman within 6 weeks, this patient is recommended to have an ablation for the atrial fibrillation, only after resolution of his GI bleeding. GENERAL: Well-appearing, well-nourished and in no acute distress. NECK: Supple without JVD or thyromegaly. LUNGS: Breath sounds clear to auscultation bilaterally. Respiration equal and unlabored. No wheezes, rales or rhonchi. HEART: Regular rate and rhythm without murmurs, rubs or gallops. S1 and S2 heard. EXTREMITIES: Normal range of motion, no edema. No clubbing or cyanosis. Peripheral pulses intact and strong. VITALS: Temp 98.4, pulse 93, respirations 20, blood pressure 179/78, O2 saturation 95% on room air TELEMETRY: Atrial tachycardia with 2:1 conduction LABS: White count 10.8, hemoglobin 7.2, platelets 318, sodium 140, potassium 4.0, B1 13, creatinine 1.16, calcium 8.6, magnesium 1.7 IMPRESSION/PLAN: 1. Atrial tachycardia with 2:1 conduction-discontinue dofetilide. Continue rate control medications. Recommend follow-up for A. fib ablation once GI issues have resolved. 2. Acute GI bleed-status post cauterization. Continue to follow general surgery recommendations. 3. Acute kidney injury-resolved. From a cardiology standpoint the patient can be discharged. If further recommendations are needed please don't hesitate to reconsult us. Objective - Vital Signs Vital signs: Vital Signs Temp 98.4 F 01/09/22 08:00 Pulse 93 01/09/22 08:00 Resp 20 01/09/22 08:00 BP 179/78 01/09/22 08:00 Pulse Ox 95 01/09/22 08:00 Intake & Output 01/08/22 01/09/22 01/09/22 18:59 06:59 18:59 Intake Total 120 200 Balance 120 200 Weight 132.1 kg Intake: Oral 120 200 Other: Voiding Method Toilet # Voids 3 1 # Bowel Movements 1 - Labs CBC & Chem 7: 01/09/22 08:26 01/09/22 08:26 Labs: Abnormal Lab Results - Last 24 Hours (Table) 01/09/22 01/09/22 Range/Units 08:26 08:26 WBC 10.8 H (3.8-10.6) k/uL RBC 2.50 L (4.30-5.90) m/uL Hgb 7.2 L (13.0-17.5) gm/dL Hct 23.2 L (39.0-53.0) % RDW 18.0 H (11.5-15.5) % Neutrophils # 8.6 H (1.3-7.7) k/uL Chloride 110 H (98-107) mmol/L Glucose 115 H (74-99) mg/dL Total Protein 5.6 L (6.3-8.2) g/dL Albumin 3.0 L (3.5-5.0) g/dL
--- NOTE | 2022-01-09 14:11 | P.PN ---
Subjective History of Present Illness H&P Date: 01/03/22 Chief Complaint: GI bleed Patient is a 66-year-old male with A. fib anticoagulated on Coumadin, COPD, and history of prior prostate cancer with radiation presented to the ER at [facility] with complaints of bright red blood per rectum. In the ER there he was found to have a hemoglobin of 10, INR 3.05. He has copious amounts of bright red blood per rectum. He was subsequently transfused 2 units of packed red blood cells and IV vitamin K. He was transferred to our facility for surgical or GI evaluation. In the ER here his repeat hemoglobin was 11. He was seen by Dr. Welch and plan is for sigmoidoscopy once INR is less than 1.5. Patient seen and examined at bedside with present. He denies any abdominal pain. He states at 6 AM he started having bright red blood per rectum. He eventually did get lightheaded and dizzy and have some worsening shortness breath. He denies any recent fevers, chills, sick contacts. He does have a history of internal hemorrhoids. In October 2021 he required colonoscopy with intervention for radiation proctitis and telangiectasias. Interval history 01/05 patient was seen and examined at the bedside. He denies any chest pain or shortness of breath. INR still elevated 2.1 colonoscopy on hold. Otherwise no acute changes overnight 01/06 patient was seen and examined at the bedside. He is alert and oriented 3. He denies any chest pain shortness of breath. Hemoglobin dropped to 6.4. Patient stated that he had a bowel movement last night with dark blood clots with it. 01/07 patient was examined at the bedside. He was transferred out of the ICU. We'll go is stable today at 8.5. The patient goes to [facility] with RVR heart rate around 180s with any minimal activities. He had a sigmoidoscopy yesterday showed distal radiation proctitis status post argon plasma coagulation. 1 cm superficial ulceration in the distal rectum with small visible visits is status post cautery using gold probe ablation. The scope advanced to the mid descending colon. 01/08 patient was examined at the bedside. He denies any chest pain or shortness of breath. No acute changes overnight. 01/09 patient was examined at the bedside. He denies any chest pain or shortness of breath. Physical examination: Derm: warm, dry Head: atraumatic, normocephalic, symmetric Eyes: EOMI, no lid lag, anicteric sclera, pupils equal round reactive to light ENT: Nose and ears atraumatic, no thrush, no pharyngeal erythema Neck: No thyromegaly, no cervical lymphadenopathy, trachea midline, supple Mouth: no lip lesion, mucus membranes moist Cardiovascular: S1S2 reg, no murmur, positive posterior tibial pulse bilateral, no edema, capillary refill less than 2 seconds Lungs: clear to ascultation bilateral, no ronchi, no rales, no wheeze, no accessory muscle use Abdominal: soft, nontender to palpation, no guarding, no appreciable organomegaly, normal bowel sounds Ext: no gross muscle atrophy, muscle strength muscle strength 5 out of 5 in all 4 extremities, no contractures Neuro: CN II-XI grossly intact, light touch intact all 4 extremities, finger to nose within normal limits, Psych: Alert, oriented, appropriate affect Assessment and plan #Bright red blood per rectum/Lower GI bleed with acute blood loss anemia The patient underwent flexible sigmoidoscopy with findings of mild distal radiation proctitis status post argon plasma coagulation. 1 cm superficial ulceration in the distal rectum with a small visible vessel status post cautery using a gold probe ablation. Scope advanced up to the mid descending colon. Status post 3 units PRBCs Hemoglobin 7.2 today Resume Coumadin per pharmacy to dose #History of severe radiation proctitis and previous argon plasma coagulation in October 2021 #Paroxysmal A. fib with RVR Resume Coumadin Increase metoprolol 100 mg twice daily Sample Prep Technician discontinued discontinue dofetilide. Cardiology #Hypertension Continue to hold lisinopril #COPD without acute exacerbation Continue with bronchodilators. #History of prostate cancer, status post radiation therapy 4 years ago #Prior history of tobacco use. History of impaired hearing. #Wide-complex tachycardia #EtOH abuse No effective signs of withdrawals, continue CIWA, thiamine and folic acid DVT prophylaxis: SCDs Discharge home tomorrow January 10 Objective - Vital Signs Vital signs: Vital Signs Temp 98.4 F 01/09/22 08:00 Pulse 93 01/09/22 08:00 Resp 20 01/09/22 08:00 BP 179/78 01/09/22 08:00 Pulse Ox 95 01/09/22 08:00 Intake & Output 01/08/22 01/09/22 01/09/22 18:59 06:59 18:59 Intake Total 120 200 Balance 120 200 Weight 132.1 kg Intake: Oral 120 200 Other: Voiding Method Toilet # Voids 3 1 # Bowel Movements 1 - Labs CBC & Chem 7: 01/09/22 08:26 01/09/22 08:26 Labs: Abnormal Lab Results - Last 24 Hours (Table) 01/09/22 01/09/22 Range/Units 08:26 08:26 WBC 10.8 H (3.8-10.6) k/uL RBC 2.50 L (4.30-5.90) m/uL Hgb 7.2 L (13.0-17.5) gm/dL Hct 23.2 L (39.0-53.0) % RDW 18.0 H (11.5-15.5) % Neutrophils # 8.6 H (1.3-7.7) k/uL Chloride 110 H (98-107) mmol/L Glucose 115 H (74-99) mg/dL Total Protein 5.6 L (6.3-8.2) g/dL Albumin 3.0 L (3.5-5.0) g/dL
[2022-01-09] MEDS: METOPROLOL TARTRATE 50 MG TAB PO SCH (17:41)
[2022-01-09] MEDS ORDERED: WARFARIN 5 MG TAB PO ONE (18:00)
[2022-01-09] MEDS: LACTATED RINGERS 1,000 ML IV SCH (21:41)
[2022-01-10] MEDS: MELATONIN 5 MG TABLET PO PRN (00:46)
[2022-01-10 08:26] LABS: Anisocytosis Slight; Basophils % (A) 0 %; Eosinophils # (A) 0.2 k/uL (0-0.7); Eosinophils % (A) 2 %; HGB 7.3 gm/dL (13.0-17.5); Hypochromasia Moderate; Lymphocytes % (A) 12 %; MCH 27.8 pg (25.0-35.0); MCHC 30.3 g/dL (31.0-37.0); MCV 91.9 fL (80.0-100.0); Mean Platelet Volume 8.1; Monocytes # (A) 0.6 k/uL (0-1.0); Monocytes % (A) 7 %; Neutrophils # (A) 6.5 k/uL (1.3-7.7); Neutrophils % (A) 77 %; Platelet Count 353 k/uL (150-450); RBC 2.61 m/uL (4.30-5.90); RDW 17.5 % (11.5-15.5); WBC 8.4 k/uL (3.8-10.6)
[2022-01-10 08:27] LABS: INR 1.1 (<1.2); Prothrombin Time 11.7 sec (9.0-12.0)
[2022-01-10 08:41] LABS: Albumin 2.8 g/dL (3.5-5.0); Calcium 8.7 mg/dL (8.4-10.2); Magnesium 1.7 mg/dL (1.6-2.3); Potassium 4.2 mmol/L (3.5-5.1); Total Bilirubin 0.7 mg/dL (0.2-1.3); Total Protein 5.5 g/dL (6.3-8.2)
--- NOTE | 2022-01-10 11:10 | PN ---
PROGRESS NOTE FOLLOW-UP NOTE: This patient is admitted to hospital primarily with GI bleed. He has history of paroxysmal atrial fibrillation and was on Tikosyn and Coumadin for the same. The patient was off Coumadin and has currently just started back on Coumadin. I am seeing him for the first time today. He remains in atrial tachycardia with a heart rate in the 170s and 180s. His Tikosyn was stopped. He is currently on metoprolol 100 b.i.d., stable hemodynamically. On exam, his blood pressure is 120/80. Chest exam reveals good air entry bilaterally. Heart exam reveals first and second heart sounds. No gallop. No murmur. Abdomen is soft. Examination of extremities did not reveal any edema. I do not have access to his labs this morning. ASSESSMENT: History of paroxysmal atrial fibrillation, status post ablation. Atrial tachycardia with heart rates in the 180s and 90s. PLAN: I am going to increase the dose of metoprolol, start him back on Cardizem and see if we can slow him down or convert him back to sinus. He follows with a channel worker at [facility] and he will be encouraged to follow up there. We are doing this evaluation of the patient and this dictation at a time when [facility] is down and we do not have access to all the information, so the dictation may be incomplete. MMODL / IJN: [id number] /
[2022-01-10] MEDS ORDERED: DILTIAZEM 125 MG in SODIUM CHLORIDE 0.9% 100 ML IV SCH (12:15)
[2022-01-10] MEDS ORDERED: DILTIAZEM DRIP BOLUS FROM BAG 1 MG SOLN IV ONE (12:15)
[2022-01-10] MEDS: ACETAMINOPHEN TAB 325 MG TAB PO PRN (12:23)
--- NOTE | 2022-01-10 13:15 | P.PN ---
Subjective History of Present Illness H&P Date: 01/03/22 Chief Complaint: GI bleed Patient is a 66-year-old male with A. fib anticoagulated on Coumadin, COPD, and history of prior prostate cancer with radiation presented to the ER at [facility] with complaints of bright red blood per rectum. In the ER there he was found to have a hemoglobin of 10, INR 3.05. He has copious amounts of bright red blood per rectum. He was subsequently transfused 2 units of packed red blood cells and IV vitamin K. He was transferred to our facility for surgical or GI evaluation. In the ER here his repeat hemoglobin was 11. He was seen by Dr. Welch and plan is for sigmoidoscopy once INR is less than 1.5. Patient seen and examined at bedside with present. He denies any abdominal pain. He states at 6 AM he started having bright red blood per rectum. He eventually did get lightheaded and dizzy and have some worsening shortness breath. He denies any recent fevers, chills, sick contacts. He does have a history of internal hemorrhoids. In October 2021 he required colonoscopy with intervention for radiation proctitis and telangiectasias. Interval history 01/05 patient was seen and examined at the bedside. He denies any chest pain or shortness of breath. INR still elevated 2.1 colonoscopy on hold. Otherwise no acute changes overnight 01/06 patient was seen and examined at the bedside. He is alert and oriented 3. He denies any chest pain shortness of breath. Hemoglobin dropped to 6.4. Patient stated that he had a bowel movement last night with dark blood clots with it. 01/07 patient was examined at the bedside. He was transferred out of the ICU. We'll go is stable today at 8.5. The patient goes to [facility] with RVR heart rate around 180s with any minimal activities. He had a sigmoidoscopy yesterday showed distal radiation proctitis status post argon plasma coagulation. 1 cm superficial ulceration in the distal rectum with small visible visits is status post cautery using gold probe ablation. The scope advanced to the mid descending colon. 01/08 patient was examined at the bedside. He denies any chest pain or shortness of breath. No acute changes overnight. 01/09 patient was examined at the bedside. He denies any chest pain or shortness of breath. 01/10 patient was examined at the bedside. Discharge was held today due to recurrence of A. fib with RVR. Patient was started on a Cardizem drip. Otherwise no acute changes overnight Physical examination: Derm: warm, dry Head: atraumatic, normocephalic, symmetric Eyes: EOMI, no lid lag, anicteric sclera, pupils equal round reactive to light ENT: Nose and ears atraumatic, no thrush, no pharyngeal erythema Neck: No thyromegaly, no cervical lymphadenopathy, trachea midline, supple Mouth: no lip lesion, mucus membranes moist Cardiovascular: S1S2 reg, no murmur, positive posterior tibial pulse bilateral, no edema, capillary refill less than 2 seconds Lungs: clear to ascultation bilateral, no ronchi, no rales, no wheeze, no accessory muscle use Abdominal: soft, nontender to palpation, no guarding, no appreciable organom egaly, normal bowel sounds Ext: no gross muscle atrophy, muscle strength muscle strength 5 out of 5 in all 4 extremities, no contractures Neuro: CN II-XI grossly intact, light touch intact all 4 extremities, finger to nose within normal limits, Psych: Alert, oriented, appropriate affect Assessment and plan #Bright red blood per rectum/Lower GI bleed with acute blood loss anemia The patient underwent flexible sigmoidoscopy with findings of mild distal r adiation proctitis status post argon plasma coagulation. 1 cm superficial ulceration in the distal rectum with a small visible vessel status post cautery using a gold probe ablation. Scope advanced up to the mid descending colon. Status post 3 units PRBCs Hemoglobin 7.2 today Resume Coumadin per pharmacy to dose #History of severe radiation proctitis and previous argon plasma coagulation in October 2021 #Paroxysmal A. fib with RVR Resume Coumadin Brake Liner increased metoprolol 100 mg 3 times daily Brake Liner discontinued discontinue dofetilide. Cardiology #Hypertension Continue to hold lisinopril #COPD without acute exacerbation Continue with bronchodilators. #History of prostate cancer, status post radiation therapy 4 years ago #Prior history of tobacco use. History of impaired hearing. #Wide-complex tachycardia #EtOH abuse No effective signs of withdrawals, continue CIWA, thiamine and folic acid DVT prophylaxis: SCDs Discharge home tomorrow January 10 Objective - Vital Signs Vital signs: Vital Signs Temp 98.7 F 01/10/22 08:00 Pulse 148 H 01/10/22 08:00 Resp 18 04/25/22 08:00 BP 122/75 01/10/22 08:00 Pulse Ox 94 L 01/10/22 08:00 Intake & Output 01/09/22 01/10/22 01/10/22 18:59 06:59 18:59 Intake Total 120 Balance 120 Intake: Oral 120 Other: Voiding Method Toilet # Voids 1 2 # Bowel Movements 1 - Labs CBC & Chem 7: 01/10/22 07:31 01/10/22 07:31 Labs: Abnormal Lab Results - Last 24 Hours (Table) 01/10/22 01/10/22 Range/Units 07:31 07:31 RBC 2.61 L (4.30-5.90) m/uL Hgb 7.3 L (13.0-17.5) gm/dL Hct 24.0 L (39.0-53.0) % MCHC 30.3 L (31.0-37.0) g/dL RDW 17.5 H (11.5-15.5) % Chloride 111 H (98-107) mmol/L Glucose 105 H (74-99) mg/dL Total Protein 5.5 L (6.3-8.2) g/dL Albumin 2.8 L (3.5-5.0) g/dL
[2022-01-10] MEDS: TRELEGY ELLIPTA 100-62.5-25 INHALATION SCH (16:04)
[2022-01-10] MEDS: LACTATED RINGERS 1,000 ML IV SCH (16:05)
[2022-01-10] MEDS: SODIUM CHLORIDE 0.9% 1,000 ML IV SCH ×2 (16:09→22:08)
[2022-01-10] MEDS: METOPROLOL TARTRATE 50 MG TAB PO SCH ×3 (16:09→22:08)
[2022-01-10] MEDS ORDERED: WARFARIN 5 MG TAB PO ONE (18:00)
[2022-01-11] MEDS: MELATONIN 5 MG TABLET PO PRN (00:49)
[2022-01-11] MEDS: SODIUM CHLORIDE 0.9% 1,000 ML IV SCH ×3 (06:16→21:18)
[2022-01-11] MEDS: TRELEGY ELLIPTA 100-62.5-25 INHALATION SCH (07:52)
[2022-01-11 07:55] LABS: Anisocytosis Slight; Basophils % (A) 0 %; Eosinophils # (A) 0.2 k/uL (0-0.7); Eosinophils % (A) 3 %; HCT 23.7 % (39.0-53.0); HGB 7.3 gm/dL (13.0-17.5); Hypochromasia Marked; Lymphocytes % (A) 12 %; MCH 28.1 pg (25.0-35.0); MCHC 30.8 g/dL (31.0-37.0); MCV 91.4 fL (80.0-100.0); Mean Platelet Volume 7.4; Monocytes # (A) 0.5 k/uL (0-1.0); Monocytes % (A) 6 %; Neutrophils # (A) 6.4 k/uL (1.3-7.7); Neutrophils % (A) 76 %; Platelet Count 417 k/uL (150-450); Poikilocytosis Slight; RDW 17.5 % (11.5-15.5); WBC 8.4 k/uL (3.8-10.6)
[2022-01-11 08:05] LABS: INR 1.1 (<1.2); Prothrombin Time 11.4 sec (9.0-12.0)
[2022-01-11 08:28] LABS: Albumin 3.1 g/dL (3.5-5.0); Magnesium 1.7 mg/dL (1.6-2.3); Potassium 4.1 mmol/L (3.5-5.1); Total Bilirubin 0.7 mg/dL (0.2-1.3)
[2022-01-11] MEDS: METOPROLOL TARTRATE 50 MG TAB PO SCH ×3 (08:56→21:18)
--- NOTE | 2022-01-11 11:42 | P.PN ---
Subjective Progress Note Date: 01/11/22 HISTORY OF PRESENT ILLNESS: Patient examined this morning at the bedside. Patient denies chest pain or pressure. He denies shortness of breath. Telemetry reveals sinus mechanism wi th a heart rate in the 80s. He remains on IV Cardizem. PHYSICAL EXAM: VITAL SIGNS: Reviewed. GENERAL: Well-developed in no acute distress. NECK: Supple. No JVD or thyromegaly LUNGS: Respirations even and unlabored. Lungs essentially clear to auscultation bilaterally. HEART: Regular rate and rhythm. S1 and S2 heard. EXTREMITIES: Normal range of motion. No clubbing or cyanosis. Peripheral pulses intact. No lower extremity edema ASSESSMENT: GI bleed Paroxysmal atrial fibrillation with RVR Atrial tachycardia History of previous ablation PLAN: Discontinue IV Cardizem Continue current dose of metoprolol Continue anticoagulation with warfarin. Monitor INR Continue telemetry monitoring Further recommendations pending patient's course Nurse practitioner note has been reviewed by physician. Signing provider agrees with the documented findings, assessment, and plan of care. Objective - Vital Signs Vital signs: Vital Signs Temp 97.9 F 01/11/22 04:55 Pulse 91 01/11/22 08:00 Resp 16 01/11/22 08:00 BP 129/76 01/11/22 04:55 Pulse Ox 98 01/11/22 04:55 Intake & Output 01/10/22 01/11/22 01/11/22 18:59 06:59 18:59 Intake Total 120 120 Balance 120 120 Intake: Oral 120 120 Other: Voiding Method Toilet Toilet Toilet # Voids 4 1 - Labs CBC & Chem 7: 01/11/22 07:39 01/11/22 07:39 Labs: Abnormal Lab Results - Last 24 Hours (Table) 01/11/22 01/11/22 Range/Units 07:39 07:39 RBC 2.60 L (4.30-5.90) m/uL Hgb 7.3 L (13.0-17.5) gm/dL Hct 23.7 L (39.0-53.0) % MCHC 30.8 L (31.0-37.0) g/dL RDW 17.5 H (11.5-15.5) % Chloride 109 H (98-107) mmol/L Glucose 110 H (74-99) mg/dL Total Protein 6.0 L (6.3-8.2) g/dL Albumin 3.1 L (3.5-5.0) g/dL
[2022-01-11] MEDS: ACETAMINOPHEN TAB 325 MG TAB PO PRN (12:13)
--- NOTE | 2022-01-11 14:22 | P.PN ---
Subjective Progress Note Date: 01/11/22 Principal diagnosis: GI bleed Patient is a 66-year-old male with A. fib anticoagulated on Coumadin, COPD, and history of prior prostate cancer with radiation presented to the ER at [facility] with complaints of bright red blood per rectum. In the ER there he was found to have a hemoglobin of 10, INR 3.05. He has copious amounts of bright red blood per rectum. He was subsequently transfused 2 units of packed red blood cells and IV vitamin K. He was transferred to our facility for surgical or GI evaluation. In the ER here his repeat hemoglobin was 11. He was seen by Dr. Welch and plan is for sigmoidoscopy once INR is less than 1.5. 01/06/22: Patient underwent a sigmoidoscopy which showed distal radiation proctitis. Patient is status post argon plasma coagulation and 1 cm superficial ulceration in the distal rectum, cautery was performed by GI. 01/11/2022: Patient seen and examined. He denies any complaints of chest pain shortness breath nausea vomiting fever or chills. He is not having any further episodes of GI bleeding. Patient continues to have some multifocal atrial tachycardia and was on IV Cardizem which has now been discontinued in the [facility] cardiology team. And medication adjustments were made to his metoprolol. Objective - Vital Signs Vital signs: Vital Signs Temp 98.6 F 01/11/22 12:00 Pulse 94 01/11/22 12:00 Resp 18 01/11/22 12:00 BP 151/91 01/11/22 12:00 Pulse Ox 97 01/11/22 12:00 Intake & Output 01/10/22 01/11/22 01/11/22 18:59 06:59 18:59 Intake Total 120 120 Balance 120 120 Intake: Oral 120 120 Other: Voiding Method Toilet Toilet Toilet # Voids 4 1 - Exam Head: atraumatic, normocephalic, symmetric Eyes: EOMI, no lid lag, anicteric sclera, pupils equal round reactive to light ENT: Nose and ears atraumatic, no thrush, no pharyngeal erythema Neck: No thyromegaly, no cervical lymphadenopathy, trachea midline, supple Mouth: no lip lesion, mucus membranes moist Cardiovascular: S1S2 reg, no murmur, positive posterior tibial pulse bilateral, no edema, capillary refill less than 2 seconds Lungs: clear to ascultation bilateral, no ronchi, no rales, no wheeze, no accessory muscle use Abdominal: soft, nontender to palpation, no guarding, no appreciable o rganomegaly, normal bowel sounds Ext: no gross muscle atrophy, muscle strength muscle strength 5 out of 5 in all 4 extremities, no contractures Neuro: CN II-XI grossly intact, light touch intact all 4 extremities, finger to nose within normal limits, Psych: Alert, oriented, appropriate affect - Labs CBC & Chem 7: 01/11/22 07:39 01/11/22 07:39 Labs: Abnormal Lab Results - Last 24 Hours (Table) 01/11/22 01/11/22 Range/Units 07:39 07:39 RBC 2.60 L (4.30-5.90) m/uL Hgb 7.3 L (13.0-17.5) gm/dL Hct 23.7 L (39.0-53.0) % MCHC 30.8 L (31.0-37.0) g/dL RDW 17.5 H (11.5-15.5) % Chloride 109 H (98-107) mmol/L Glucose 110 H (74-99) mg/dL Total Protein 6.0 L (6.3-8.2) g/dL Albumin 3.1 L (3.5-5.0) g/dL Assessment and Plan (1) Lower GI hemorrhage Current Visit: Yes Status: Acute Code(s): K92.2 - GASTROINTESTINAL HEMORRHAGE, UNSPECIFIED SNOMED Code(s): 92140727 (2) Renal insufficiency Current Visit: No Status: Acute Code(s): N28.9 - DISORDER OF KIDNEY AND URETER, UNSPECIFIED SNOMED Code(s): 146902786 (3) Radiation proctitis Current Visit: Yes Status: Acute Code(s): K62.7 - RADIATION PROCTITIS SNOMED Code(s): 036289025 Plan: #Bright red blood per rectum/Lower GI bleed with acute blood loss anemia The patient underwent flexible sigmoidoscopy with findings of mild distal radiation proctitis status post argon plasma coagulation. 1 cm superficial ulceration in the distal rectum with a small visible vessel status post cautery using a gold probe ablation. Scope advanced up to the mid descending colon. Status post 3 units PRBCs during this hospital stay Patient's hemoglobin remained stable. At 7.2 today. Patient has been resumed on Coumadin therapy. Pharmacy to dose. He is subtherapeutic at this time. #Paroxysmal A. fib with RVR Patient continues to have some issues with multifocal atrial tachycardia. Cardiology team is currently following. Patient was on a Cardizem drip which now has been discontinued this morning. Patient is currently on metoprolol 100 mg 3 times a day patient's home medication of dofetilide was discontinued during this hospital stay by cardiology team. #Hypertension -Resume lisinopril #COPD without acute exacerbation Continue with bronchodilators. #History of prostate cancer, status post radiation therapy 4 years ago #Prior history of tobacco use. #EtOH abuse No effective signs of withdrawals, continue CIWA, thiamine and folic acid DVT prophylaxis: SCDs Disposition: Anticipate discharge in the next 24 hours when cleared by cardiology
[2022-01-11] MEDS: LACTATED RINGERS 1,000 ML IV SCH (16:13)
[2022-01-11 16:21] VITALS: BMI 39.4
[2022-01-11] MEDS ORDERED: WARFARIN 5 MG TAB PO ONE (18:00)
[2022-01-12] MEDS: SODIUM CHLORIDE 0.9% 1,000 ML IV SCH ×2 (05:11→19:18)
[2022-01-12 07:33] LABS: INR 1.1 (<1.2); Prothrombin Time 12.2 sec (9.0-12.0)
[2022-01-12] MEDS: METOPROLOL TARTRATE 50 MG TAB PO SCH ×3 (08:38→21:19)
[2022-01-12] MEDS: TRELEGY ELLIPTA 100-62.5-25 INHALATION SCH ×2 (08:38→08:40)
[2022-01-12] MEDS: lisinopriL 10 MG TAB PO SCH (08:38)
[2022-01-12 10:19] LABS: Anisocytosis Slight; HCT 23.9 % (39.0-53.0); HGB 7.5 gm/dL (13.0-17.5); Hypochromasia Marked; MCH 29.3 pg (25.0-35.0); MCHC 31.2 g/dL (31.0-37.0); MCV 93.9 fL (80.0-100.0); Mean Platelet Volume 8.1; Platelet Count 406 k/uL (150-450); Poikilocytosis Slight; RBC 2.55 m/uL (4.30-5.90); RDW 16.9 % (11.5-15.5); WBC 8.2 k/uL (3.8-10.6)
[2022-01-12] MEDS: DILTIAZEM ORAL 30 MG TAB PO SCH ×3 (11:59→21:19)
--- NOTE | 2022-01-12 12:15 | P.PN ---
Subjective Progress Note Date: 01/12/22 Principal diagnosis: GI bleed Patient is a 66-year-old male with A. fib anticoagulated on Coumadin, COPD, and history of prior prostate cancer with radiation presented to the ER at [facility] with complaints of bright red blood per rectum. In the ER there he was found to have a hemoglobin of 10, INR 3.05. He has copious amounts of bright red blood per rectum. He was subsequently transfused 2 units of packed red blood cells and IV vitamin K. He was transferred to our facility for surgical or GI evaluation. In the ER here his repeat hemoglobin was 11. He was seen by Dr. Welch and plan is for sigmoidoscopy once INR is less than 1.5. 01/06/22: Patient underwent a sigmoidoscopy which showed distal radiation proctitis. Patient is status post argon plasma coagulation and 1 cm superficial ulceration in the distal rectum, cautery was performed by GI. 01/12/2022: Patient seen and examined. Patient denies any complaints of chest pain. He reports that he continues to have some shortness of breath especially with any type of exertion. Patient continues to have multifocal atrial tachycardia episodes with any type of activity. Cardiology team is following Objective - Vital Signs Vital signs: Vital Signs Temp 98.0 F 01/12/22 08:00 Pulse 95 01/12/22 08:00 Resp 18 01/12/22 08:00 BP 152/79 01/12/22 08:00 Pulse Ox 94 L 01/12/22 08:00 Intake & Output 01/11/22 01/12/22 01/12/22 18:59 06:59 18:59 Intake Total 600 420 Balance 600 420 Weight 132.1 kg Intake: Oral 600 420 Other: Voiding Method Toilet Toilet Toilet # Voids 3 1 1 - Exam Head: atraumatic, normocephalic, symmetric Eyes: EOMI, no lid lag, anicteric sclera, pupils equal round reactive to light ENT: Nose and ears atraumatic, no thrush, no pharyngeal erythema Neck: No thyromegaly, no cervical lymphadenopathy, trachea midline, supple Mouth: no lip lesion, mucus membranes moist Cardiovascular: S1S2 reg, no murmur, positive posterior tibial pulse bilateral, no edema, capillary refill less than 2 seconds Lungs: clear to ascultation bilateral, no ronchi, no rales, no wheeze, no accessory muscle use Abdominal: soft, nontender to palpation, no guarding, no appreciable organomegaly, normal bowel sounds Ext: no gross muscle atrophy, muscle strength muscle strength 5 out of 5 in all 4 extremities, no contractures Neuro: CN II-XI grossly intact, light touch intact all 4 extremities, finger to nose within normal limits, Psych: Alert, oriented, appropriate affect - Labs CBC & Chem 7: 01/12/22 06:57 01/11/22 07:39 Labs: Abnormal Lab Results - Last 24 Hours (Table) 01/12/22 01/12/22 Range/Units 06:57 06:57 RBC 2.55 L (4.30-5.90) m/uL Hgb 7.5 L (13.0-17.5) gm/dL Hct 23.9 L (39.0-53.0) % RDW 16.9 H (11.5-15.5) % PT 12.2 H (9.0-12.0) sec Assessment and Plan (1) Lower GI hemorrhage Current Visit: Yes Status: Acute Code(s): K92.2 - GASTROINTESTINAL HEMORRHAGE, UNSPECIFIED SNOMED Code(s): 94572473 (2) Renal insufficiency Current Visit: No Status: Acute Code(s): N28.9 - DISORDER OF KIDNEY AND URETER, UNSPECIFIED SNOMED Code(s): 587285832 (3) Radiation proctitis Current Visit: Yes Status: Acute Code(s): K62.7 - RADIATION PROCTITIS SNOMED Code(s): 855372172 Plan: #Bright red blood per rectum/Lower GI bleed with acute blood loss anemia The patient underwent flexible sigmoidoscopy with findings of mild distal r adiation proctitis status post argon plasma coagulation. 1 cm superficial ulceration in the distal rectum with a small visible vessel status post cautery using a gold probe ablation. Scope advanced up to the mid descending colon. Status post 3 units PRBCs during this hospital stay Patient's hemoglobin has stabilized at 7.2 Patient has been resumed on Coumadin therapy. Pharmacy to dose. He is subtherapeutic at this time. #Paroxysmal A. fib with RVR Patient continues to have some issues with multifocal atrial tachycardia. Cardiology team is currently following. Patient is currently on metoprolol 100 mg 3 times a day. Patient's home medication antiarrhythmic was discontinued by cardiology. Patient continues to have issues with the multifocal atrial tachycardia and has heart rate elevating into the low 160 range with any type of activity. We'll await further cardiology recommendations on medication adjustments #Hypertension -On lisinopril #COPD without acute exacerbation Continue with bronchodilators. #History of prostate cancer, status post radiation therapy 4 years ago #Prior history of tobacco use. #EtOH abuse No effective signs of withdrawals, continue CIWA, thiamine and folic acid DVT prophylaxis: SCDs Disposition: Awaiting clearance from cardiology team
--- NOTE | 2022-01-12 13:43 | P.PN ---
Subjective Progress Note Date: 01/12/22 HISTORY OF PRESENT ILLNESS: Patient examined this morning at the bedside. Patient denies chest pain or pressure. He denies shortness of breath. Telemetry reveals sinus mechanism wi th a heart rate in the 80s. He remains on IV Cardizem. 01/12/2022 patient examined this morning at the bedside. Patient denies chest pain or pressure. Telemetry reveals sinus mechanism. Patient was up ambulating to the bathroom this morning and went into atrial tachycardia with a heart rate of 190. His IV Cardizem has been discontinued. Patient reports feeling palpitations and shortness of breath while he was up ambulating. His symptoms have resolved after getting back to bed and resting. PHYSICAL EXAM: VITAL SIGNS: Reviewed. GENERAL: Well-developed in no acute distress. NECK: Supple. No JVD or thyromegaly LUNGS: Respirations even and unlabored. Lungs essentially clear to auscultation bilaterally. HEART: Regular rate and rhythm. S1 and S2 heard. EXTREMITIES: Normal range of motion. No clubbing or cyanosis. Peripheral pulses intact. No lower extremity edema ASSESSMENT: GI bleed Paroxysmal atrial fibrillation with RVR Atrial tachycardia History of previous ablation PLAN: Continue current dose of metoprolol Add Cardizem 30 mg 3 times a day Continue anticoagulation with warfarin. Monitor INR Continue telemetry monitoring Further recommendations pending patient's course Nurse practitioner note has been reviewed by physician. Signing provider agrees with the documented findings, assessment, and plan of care. Objective - Vital Signs Vital signs: Vital Signs Temp 98.0 F 01/12/22 08:00 Pulse 93 01/12/22 12:00 Resp 18 01/12/22 12:00 BP 127/76 01/12/22 12:00 Pulse Ox 95 01/12/22 12:00 Intake & Output 01/11/22 01/12/22 01/12/22 18:59 06:59 18:59 Intake Total 600 420 Balance 600 420 Weight 132.1 kg Intake: Oral 600 420 Other: Voiding Method Toilet Toilet Toilet # Voids 3 1 1 - Labs CBC & Chem 7: 01/12/22 06:57 01/11/22 07:39 Labs: Abnormal Lab Results - Last 24 Hours (Table) 01/12/22 01/12/22 Range/Units 06:57 06:57 RBC 2.55 L (4.30-5.90) m/uL Hgb 7.5 L (13.0-17.5) gm/dL Hct 23.9 L (39.0-53.0) % RDW 16.9 H (11.5-15.5) % PT 12.2 H (9.0-12.0) sec
[2022-01-12] MEDS ORDERED: WARFARIN 7.5 MG TAB PO ONE (18:00)
[2022-01-12] MEDS: LACTATED RINGERS 1,000 ML IV SCH (19:17)
--- NOTE | 2022-01-13 07:01 | CA ---
Transthoracic Echo Report Name: Moy Gallardo Age: 66 Gender: M : 1955 Exam Date: 01/12/2022 14:37 Exam Location: [place] [facility] Ht (in): 72 Wt (lb): 291 Ordering Physician: Ricky Welch MD ([id number]) Attending/Referring Phys: Rebekah ASCENCIO Plan Consultant Arlette Hernandez, MERA Procedure CPT: Indications: elevated heart rate Cardiac Hx: COPD, MORBID OBESITY Technical Quality: Fair Contrast 1: Total Dose (mL): Contrast 2: Total Dose (mL): MEASUREMENTS (Male / Female) Normal Values 2D ECHO LV Diastolic Diameter PLAX 4.3 cm 4.2 - 5.9 / 3.9 - 5.3 cm LV Systolic Diameter PLAX 3.3 cm IVS Diastolic Thickness 1.1 cm 0.6 - 1.0 / 0.6 - 0.9 cm LVPW Diastolic Thickness 1.7 cm 0.6 - 1.0 / 0.6 - 0.9 cm LV Relative Wall Thickness 0.7 LA Volume 78.5 cm 18 - 58 / 22 - 52 cm M-MODE Aortic Root Diameter MM 3.1 cm DOPPLER TR Peak Velocity 255.3 cm/s TR Peak Gradient 26.1 mmHg Right Ventricular Systolic Press 30.5 mmHg FINDINGS Left Ventricle Left ventricular ejection fraction is estimated at 50-55% Right Ventricle Normal right ventricular size and function. Right ventricular systolic pressure within normal limits. Right Atrium Right atrium not well visualized. Left Atrium Moderately increased left atrial volume. Mildly increased left atrial area. Mitral Valve Mild mitral regurgitation. Aortic Valve Aortic valve sclerosis. Tricuspid Valve Tricuspid valve not well visualized. Pulmonic Valve Pulmonic valve not well visualized. Pericardium No pericardial effusion Aorta Aortic root and proximal ascending aorta not well visualized. CONCLUSIONS Normal LV size and preserved systolic function. Ejection fraction of nearly 55%. Both atria are enlarged. Minimal aortic valve sclerosis and mitral valve calcification. Doppler study is suboptimal. No pericardial effusion Previewed by: Dr. Cristel Dykes MD (Electronically Signed) Final Date: 13 January 2022 06:59
[2022-01-13] MEDS: TRELEGY ELLIPTA 100-62.5-25 INHALATION SCH (08:04)
[2022-01-13] MEDS: lisinopriL 10 MG TAB PO SCH (09:34)
[2022-01-13] MEDS: DILTIAZEM ORAL 30 MG TAB PO SCH (09:34)
[2022-01-13] MEDS: METOPROLOL TARTRATE 50 MG TAB PO SCH (09:34)
[2022-01-13 10:33] LABS: INR 1.2 (<1.2); Prothrombin Time 12.9 sec (9.0-12.0)
[2022-01-13 10:43] VITALS: RESP 18
[2022-01-13] MEDS: LACTATED RINGERS 1,000 ML IV SCH (11:35)
--- NOTE | 2022-01-13 12:11 | P.PN ---
Subjective Progress Note Date: 01/13/22 HISTORY OF PRESENT ILLNESS: Patient examined this morning at the bedside. Patient denies chest pain or pressure. He denies shortness of breath. Telemetry reveals sinus mechanism wi th a heart rate in the 80s. He remains on IV Cardizem. 01/12/2022 patient examined this morning at the bedside. Patient denies chest pain or pressure. Telemetry reveals sinus mechanism. Patient was up ambulating to the bathroom this morning and went into atrial tachycardia with a heart rate of 190. His IV Cardizem has been discontinued. Patient reports feeling palpitations and shortness of breath while he was up ambulating. His symptoms have resolved after getting back to bed and resting. 01/13/2022 Patient examined this morning. Patient is sitting up in the chair. He denies chest pain or pressure. He denies shortness of breath. Telemetry reveals sinus mechanism. Patient's heart rates have been controlled. PHYSICAL EXAM: VITAL SIGNS: Reviewed. GENERAL: Well-developed in no acute distress. NECK: Supple. No JVD or thyromegaly LUNGS: Respirations even and unlabored. Lungs essentially clear to auscultation bilaterally. HEART: Regular rate and rhythm. S1 and S2 heard. EXTREMITIES: Normal range of motion. No clubbing or cyanosis. Peripheral pulses intact. No lower extremity edema ASSESSMENT: GI bleed Paroxysmal atrial fibrillation with RVR Atrial tachycardia History of previous ablation PLAN: Continue telemetry monitoring Continue current cardiac medications Increase activity as tolerated Anticipate discharge home this afternoon Nurse practitioner note has been reviewed by physician. Signing provider agrees with the documented findings, assessment, and plan of care. Objective - Vital Signs Vital signs: Vital Signs Temp 98.2 F 01/13/22 08:15 Pulse 95 01/13/22 08:15 Resp 18 01/13/22 08:15 BP 120/73 01/13/22 08:15 Pulse Ox 97 01/13/22 08:15 Intake & Output 01/12/22 01/13/22 01/13/22 18:59 06:59 18:59 Intake Total 1340 420 Balance 1340 420 Intake: Oral 1340 420 Other: Voiding Method Toilet Toilet # Voids 1 1 1 - Labs CBC & Chem 7: 01/12/22 06:57 01/11/22 07:39 Labs: Abnormal Lab Results - Last 24 Hours (Table) 01/13/22 Range/Units 09:43 PT 12.9 H (9.0-12.0) sec INR 1.2 H (<1.2)
[2022-01-13 13:23] VITALS: BP 119/71; PULSE 94; TEMP 98.4
--- NOTE | 2022-01-13 14:03 | P.DS ---
Providers Date of admission: 01/03/22 12:10 Expected date of discharge: 01/13/22 Attending physician: Shereen Titus DO Consults: 01/03/22 12:10 Consult Physician Stat Consulting Provider: Mikie Rivera Consult Reason/Comments: critical care Do you want consulting provider notified?: Already Contacted Consult Physician Stat Consulting Provider: Kirstie Welch Consult Reason/Comments: lower gi hemorrhage Do you want consulting provider notified?: Already Contacted 01/04/22 07:42 Consult Physician Routine Consulting Provider: Aroldo Willams Consult Reason/Comments: afib rvr, Gib Do you want consulting provider notified?: Yes Primary care physician: [facility] Course: 66-year-old male with A. fib anticoagulated on Coumadin, COPD, and history of prior prostate cancer with radiation presented to the ER at [facility] with complaints of bright red blood per rectum. In the ER there he was found to have a hemoglobin of 10, INR 3.05. He has copious amounts of bright red blood per rectum. He was subsequently transfused 2 units of packed red blood cells and IV vitamin K. He was transferred to our facility for surgical or GI evaluation. In the ER here his repeat hemoglobin was 11. He was seen by Dr. Welch, had fex sigmoidoscopy that found mild distal radiation proctitis, had argon plasma coagulation, also had 1 cm superficial ulceration in the distal rectum with a small visible vessel status post cautery. Scope was advanced up to the mid descending colon. Hgb dropped again during this admission to 6.4, had one more unit of blood. Received total of 3 units during the hospitalization. Hgb eventually stabilized at 7.5, he was resumed on coumadin and hgb remained stable. He also had issues with atrial fib/flutter with RVR and multifocal atrial tachycardia episodes with any type of activity. Cardiology was consulted, he was placed on cardizem and toprol p.o. Currently HR is controlled but up with activity to the low 100s. Cardio ok with that. He was cleared for discharge. Time for discharge 36 min Patient Condition at Discharge: Serious Plan - Discharge Summary Discharge Rx Participant: Yes New Discharge Prescriptions: New Warfarin [Coumadin] 2.5 mg PO DAILY 30 Days #30 tab lisinopriL [Zestril] 10 mg PO DAILY 30 Days #30 tab Metoprolol Tartrate [Lopressor] 100 mg PO BID 30 Days #60 tab Diltiazem Oral [Cardizem*] 30 mg PO TID 30 Days #90 tab Continue Melatonin 5 mg PO HS PRN PRN Reason: Insomnia Fluticasone/Umeclidin/Vilanter [Trelegy Ellipta 100-62.5-25] 1 puff INHALATION RT-DAILY Cholecalciferol [Vitamin D3 (25 Mcg = 1000 Iu)] 50 mcg PO DAILY Albuterol Inhaler [Ventolin Hfa Inhaler] 2 puff INHALATION RT-QID PRN PRN Reason: Shortness Of Breath Discontinued Warfarin [Coumadin] 5 mg PO HS Metoprolol Tartrate [Lopressor] 50 mg PO BID Dofetilide 500 mcg PO BID Furosemide [Lasix] 40 mg PO QAM lisinopriL [Prinivil] 20 mg PO QAM Warfarin [Coumadin] 0.5 mg PO [id number] Discharge Medication List Melatonin 5 mg PO HS PRN 05/06/20 [History] Albuterol Inhaler [Ventolin Hfa Inhaler] 2 puff INHALATION RT-QID PRN 01/03/22 [History] Cholecalciferol [Vitamin D3 (25 Mcg = 1000 Iu)] 50 mcg PO DAILY 01/03/22 [History] Fluticasone/Umeclidin/Vilanter [Trelegy Ellipta 100-62.5-25] 1 puff INHALATION RT-DAILY 01/03/22 [History] Metoprolol Tartrate [Lopressor] 100 mg PO BID 30 Days #60 tab 01/10/22 [Rx] Warfarin [Coumadin] 2.5 mg PO DAILY 30 Days #30 tab 01/10/22 [Rx] Diltiazem Oral [Cardizem*] 30 mg PO TID 30 Days #90 tab 01/13/22 [Rx] lisinopriL [Zestril] 10 mg PO DAILY 30 Days #30 tab 01/13/22 [Rx] Follow up Appointment(s)/Referral(s): Fitz Barton MD [Primary Care Provider] - 1-2 days (keep scheduled appointment) Patient Instructions/Handouts: Gastrointestinal Bleeding (DC)
[2022-01-13] MEDS ORDERED: WARFARIN 7.5 MG TAB PO ONE (18:00)
== END 2022-01-13 14:06 | disposition home or self-care (01) | DRG 394 ==
LOC: EC 11:26 → 2SICU 12:10 → 3SCARD 01-07 10:14
PROVIDERS: ADMIT Internal Medicine; ATTEND Internal Medicine
PROC: 30233K1 Transfusion of Nonautologous Frozen Plasma into Peripheral Vein, Percutaneous Approach (ICD-10-PCS; 2022-01-03)
PROC: 3E043XZ Introduction of Vasopressor into Central Vein, Percutaneous Approach (ICD-10-PCS; 2022-01-03)
PROC: 30233N1 Transfusion of Nonautologous Red Blood Cells into Peripheral Vein, Percutaneous Approach (ICD-10-PCS; 2022-01-04)
PROC: 0W3P8ZZ Control Bleeding in Gastrointestinal Tract, Via Natural or Artificial Opening Endoscopic (ICD-10-PCS; principal; 2022-01-06 12:00)
DX: K62.7 Radiation proctitis (principal); D62 Acute posthemorrhagic anemia; D68.9 Coagulation defect, unspecified; I45.2 Bifascicular block; I47.1 Supraventricular tachycardia; I47.2 Ventricular tachycardia; I48.92 Unspecified atrial flutter; N17.9 Acute kidney failure, unspecified; K62.6 Ulcer of anus and rectum; K62.5 Hemorrhage of anus and rectum; I95.9 Hypotension, unspecified; Y84.2 Radiological procedure and radiotherapy as the cause of abnormal reaction of the patient, or of later complication, without mention of misadventure at the time of the procedure; Z28.310 Unvaccinated for COVID-19; Z85.46 Personal history of malignant neoplasm of prostate; E66.9 Obesity, unspecified; F10.20 Alcohol dependence, uncomplicated; T45.515A Adverse effect of anticoagulants, initial encounter; H91.92 Unspecified hearing loss, left ear; I10 Essential (primary) hypertension; I48.0 Paroxysmal atrial fibrillation; J44.9 Chronic obstructive pulmonary disease, unspecified; Z87.19 Personal history of other diseases of the digestive system; Z68.36 Body mass index [BMI] 36.0-36.9, adult; Z79.01 Long term (current) use of anticoagulants; Z79.899 Other long term (current) drug therapy; Z83.3 Family history of diabetes mellitus; Z87.891 Personal history of nicotine dependence; Z92.3 Personal history of irradiation; Z98.890 Other specified postprocedural states
CPT/HCPCS: 45334; 45346; 80048; 80053; 83735; 85025; 85027; 85610; 85730; 86850; 86900; 86901; 86920; 93005; 93306; 94640; 96361; 96374; 99291

== ENCOUNTER 2023-07-11 15:06 | Emergency (ER) | payer MEDICARE ==
[2023-07-11 15:40] LABS: Basophils % (A) 0 %; Eosinophils # (A) 0.2 k/uL (0-0.7); Eosinophils % (A) 2 %; HCT 43.4 % (39.0-53.0); HGB 14.3 gm/dL (13.0-17.5); Lymphocytes # (A) 1.2 k/uL (1.0-4.8); Lymphocytes % (A) 13 %; MCH 31.9 pg (25.0-35.0); MCV 96.7 fL (80.0-100.0); Mean Platelet Volume 7.9; Monocytes # (A) 0.7 k/uL (0-1.0); Monocytes % (A) 8 %; Neutrophils % (A) 75 %; Platelet Count 253 k/uL (150-450); RBC 4.49 m/uL (4.30-5.90); RDW 12.8 % (11.5-15.5); WBC 9.3 k/uL (3.8-10.6)
[2023-07-11 16:08] LABS: ALT 24 U/L (4-49); AST 24 U/L (17-59); African American GFR (CKD) 34 (>60 ml/min/1.73 sqM); Albumin 4.3 g/dL (3.5-5.0); Alkaline Phosphatase 201 U/L (38-126); Anion Gap 12 mmol/L; Blood Urea Nitrogen 49 mg/dL (9-20); Calcium 10.2 mg/dL (8.4-10.2); Carbon Dioxide 20 mmol/L (22-30); Chloride 101 mmol/L (98-107); Glucose 105 mg/dL (74-99); Non-African American GFR(CKD) 30 (>60 ml/min/1.73 sqM); Potassium 5.7 mmol/L (3.5-5.1); Sodium 133 mmol/L (137-145); Total Bilirubin 0.7 mg/dL (0.2-1.3); Total Protein 7.4 g/dL (6.3-8.2)
--- NOTE | 2023-07-11 17:07 | ED ---
Recheck HPI - General Chief Complaint: Recheck/Abnormal Lab/Rx Stated Complaint: high potassium Time Seen by Provider: 07/11/23 16:50 Source: patient, RN notes reviewed Mode of arrival: ambulatory Limitations: no limitations - History of Present Illness Initial Comments: This is a 68-year-old male who presents to the emergency department for elevated potassium. Patient states that he had routine blood work done with his call center professional yesterday as a result of the chronic kidney disease. He received a phone call today that his potassium was elevated at 6.4, and was instructed to come to the emergency department. He cannot recall what his GFR was yesterday, but states that a week ago it was 23. He denies any chest pain or shortness of breath and states that he feels fine. He notes that he did just start spironolactone not too long ago, which he states may be the cause of this. MD Complaint: abnormal lab - Related Data Home Medications Medication Instructions Recorded Confirmed Melatonin 5 mg PO HS PRN 05/06/20 01/03/22 Albuterol Inhaler [Ventolin Hfa 2 puff INHALATION RT-QID PRN 01/03/22 01/03/22 Inhaler] Cholecalciferol [Vitamin D3 (25 50 mcg PO DAILY 01/03/22 01/03/22 Mcg = 1000 Iu)] Fluticasone/Umeclidin/Vilanter 1 puff INHALATION RT-DAILY 01/03/22 01/03/22 [Trelegy Ellipta 100-62.5-25] Previous Rx's Medication Instructions Recorded Metoprolol Tartrate [Lopressor] 100 mg PO BID 30 Days #60 tab 01/10/22 Warfarin [Coumadin] 2.5 mg PO DAILY 30 Days #30 tab 01/10/22 Diltiazem Oral [Cardizem*] 30 mg PO TID 30 Days #90 tab 01/13/22 lisinopriL [Zestril] 10 mg PO DAILY 30 Days #30 tab 01/13/22 Allergies Allergy/AdvReac Type Severity Reaction Status Date / Time Sulfa (Sulfonamide Allergy dizzy,light Verified 07/11/23 15:11 Antibiotics) headed/hive s Review of Systems ROS Statement: Those systems with pertinent positive or pertinent negative responses have been documented in the HPI. ROS Other: All systems not noted in ROS Statement are negative. Past Medical History Past Medical History: Atrial Fibrillation, Cancer, Heart Failure, COPD, Hearing Disorder / Deafness, Hypertension Additional Past Medical History / Comment(s): Hx Prostate Cancer 3-4 yrs ago. Hard of hearing in left ear. kidney disease History of Any Multi-Drug Resistant Organisms: None Reported Past Surgical History: Cardiac Ablation, Orthopedic Surgery Additional Past Surgical History / Comment(s): Cardioversion X2, right shoulder surgery. colonoscopy 10/2021 Past Anesthesia/Blood Transfusion Reactions: No Reported Reaction Past Psychological History: No Psychological Hx Reported Smoking Status: Former smoker Past Alcohol Use History: Heavy Past Drug Use History: None Reported - Past Family History Mother Family Medical History: No Reported History family Family Medical History: Diabetes Mellitus General Exam Limitations: no limitations General appearance: alert, in no apparent distress Head exam: Present: atraumatic, normocephalic, normal inspection Respiratory exam: Present: normal lung sounds bilaterally. Absent: respiratory distress, wheezes, rales, rhonchi, stridor Cardiovascular Exam: Present: regular rate, normal rhythm, normal heart sounds. Absent: systolic murmur, diastolic murmur, rubs, gallop, clicks Neurological exam: Present: alert, oriented X3, CN II-XII intact Psychiatric exam: Present: normal affect, normal mood Skin exam: Present: warm, dry, intact, normal color. Absent: rash Course Vital Signs 07/11/23 15:08 Temperature 97.6 F Pulse Rate 81 Respiratory 18 Rate Blood Pressure 120/66 O2 Sat by Pulse 98 Oximetry Medical Decision Making - Medical Decision Making This is a 68-year-old male who presents to the emergency department for hyperkalemia. Was pt. sent in by a medical professional or institution? @ -His call center professional Did you speak to anyone other than the patient for history? @ -His provided the information about his renal function on his blood work one week ago. Did you review nursing and triage notes? @ -I disagree with the PCP aspect, patient states that he was sent in by nephrology. Were old charts reviewed? @ -No Differential Diagnosis? @ -Differential Hyperkalemia: Hemodialysis, renal failure, medications, cellular shift, this is not meant to be an all inclusive list. EKG interpreted by me (3pts min.)? @ -EKG interpreted by me demonstrating the following: Sinus rhythm. Ventricular rate 80 beats per minute, ND interval 172 ms, QRS duration 78 ms, QTC 391 ms. X-rays interpreted by me (1pt min.)? @ -Not obtained CT interpreted by me (1pt min.)? @ -Not obtained U/S interpreted by me (1pt. min.)? @ -Not obtained What testing was considered but not performed? (CT, X-rays, U/S, labs)? Why? @ -None What meds were considered but not given? Why? @ -None Did you discuss the management of the patient with other professionals? @ -No Did you reconcile home meds? @ -No Was smoking cessation discussed for >3mins.? @ -No Was critical care preformed (if so, how long)? @ -No Were there social determinants of health that impacted care today? How? (Homelessness, low income, unemployed, alcoholism, drug addiction, transportation, low edu. Level, literacy, decrease access to med. care, nursing home, rehab)? @ -No Was there de-escalation of care discussed even if they declined? (Discuss DNR or withdrawal of care, Hospice)? @ -No What co-morbidities impacted this encounter? (DM, HTN, Smoking, COPD, CAD, Cancer, CVA, Hep., AIDS, mental health diagnosis, sleep apnea, morbid obesity)? @ -CKD Was patient admitted / discharged? @ -Discharged. Lab work obtained revealing a potassium of 5.7, which is improved when compared with 6.4, which the patient reportedly had yesterday. This may be due to hemolysis. GFR is 30 and creatinine is 2.18. This is improved when compared with one week ago as well per the patient's . Discussed that this may be related to the patient starting spironolactone. The patient is asymptomatic and his EKG reveals no acute changes, indicating that the patient can be discharged home. Advised close follow-up with his call center professional and primary care provider. Patient expresses understanding and was discharged home in stable condition. Undiagnosed new problem with uncertain prognosis? @ -None Drug Therapy requiring intensive monitoring for toxicity (Heparin, Nitro, Insulin, Cardizem)? @ -None Were any procedures done? @ -None Diagnosis/symptom? @ -Hyperkalemia Acute, or Chronic, or Acute on Chronic? @ -Acute Uncomplicated (without systemic symptoms) or Complicated (systemic symptoms)? @ -Uncomplicated Side effects of treatment? @ -None Exacerbation, Progression, or Severe Exacerbation] @ -Not applicable Poses a threat to life or bodily function? @ -Unlikely at its current level Return precautions reviewed in depth, the patient is instructed to return to the emergency department with any new, worsening, or concerning symptoms. Patient verbalized understanding. This case was discussed in detail with the attending ED physician, Dr. Starr. Presentation, findings, and treatment plan discussed in detail as well. - Lab Data Result diagrams: 07/11/23 15:19 07/11/23 15:19 Lab Results 07/11/23 07/11/23 Range/Units 15:19 15:19 WBC 9.3 (3.8-10.6) k/uL RBC 4.49 (4.30-5.90) m/uL Hgb 14.3 (13.0-17.5) gm/dL Hct 43.4 (39.0-53.0) % MCV 96.7 (80.0-100.0) fL MCH 31.9 (25.0-35.0) pg MCHC 33.0 (31.0-37.0) g/dL RDW 12.8 (11.5-15.5) % Plt Count 253 (150-450) k/uL MPV 7.9 Neutrophils % 75 % Lymphocytes % 13 % Monocytes % 8 % Eosinophils % 2 % Basophils % 0 % Neutrophils # 7.0 (1.3-7.7) k/uL Lymphocytes # 1.2 (1.0-4.8) k/uL Monocytes # 0.7 (0-1.0) k/uL Eosinophils # 0.2 (0-0.7) k/uL Basophils # 0.0 (0-0.2) k/uL Sodium 133 L (137-145) mmol/L Potassium 5.7 H (3.5-5.1) mmol/L Chloride 101 (98-107) mmol/L Carbon Dioxide 20 L (22-30) mmol/L Anion Gap 12 mmol/L BUN 49 H (9-20) mg/dL Creatinine 2.18 H (0.66-1.25) mg/dL Est GFR (CKD-EPI)AfAm 34 (>60 ml/min/1.73 sqM) Est GFR (CKD-EPI)NonAf 30 (>60 ml/min/1.73 sqM) Glucose 105 H (74-99) mg/dL Calcium 10.2 (8.4-10.2) mg/dL Total Bilirubin 0.7 (0.2-1.3) mg/dL AST 24 (17-59) U/L ALT 24 (4-49) U/L Alkaline Phosphatase 201 H (38-126) U/L Total Protein 7.4 (6.3-8.2) g/dL Albumin 4.3 (3.5-5.0) g/dL Disposition Clinical Impression: Hyperkalemia, CKD (chronic kidney disease) Disposition: HOME SELF-CARE Instructions (If sedation given, give patient instructions): Hyperkalemia (ED) Additional Instructions: Return to the emergency department with any new, worsening, or concerning symptoms. Contact your nephrology office. Let them know that your potassium today was 5.7. Follow up with your call center professional and primary care provider. Is patient prescribed a controlled substance at d/c from ED?: No Referrals: Fitz Barton MD [Primary Care Provider] - 1-2 days
[2023-07-11 17:49] VITALS: BP 145/81; PULSE 80; RESP 20; TEMP 98
== END 2023-07-11 17:42 | disposition home or self-care (01) ==
LOC: EC 15:06
DX: E87.5 Hyperkalemia (principal); N18.9 Chronic kidney disease, unspecified; I13.0 Hypertensive heart and chronic kidney disease with heart failure and stage 1 through stage 4 chronic kidney disease, or unspecified chronic kidney disease; I50.9 Heart failure, unspecified; I48.91 Unspecified atrial fibrillation; Z87.891 Personal history of nicotine dependence; Z88.2 Allergy status to sulfonamides; Z79.899 Other long term (current) drug therapy
CPT/HCPCS: 36415; 80053; 85025; 93005; 99285

== ENCOUNTER 2023-08-10 14:33 | Inpatient (IN) | payer MEDICARE ==
--- NOTE | 2023-08-10 14:51 | ED ---
General Adult HPI - General Chief complaint: Arrhythmia/Palpitations Stated complaint: SOB Time Seen by Provider: 08/10/23 14:47 Source: patient Mode of arrival: ambulatory Limitations: no limitations - History of Present Illness Initial comments: Patient presents to the ED with his for evaluation. Patient states that he has felt lightheaded and somewhat more dyspneic than usual over the past 3 hours or so. Patient states that his lightheadedness is worse when standing, and better when lying flat. Patient is noted to be in sinus bradycardia on the property assessment monitor. Patient denies any recent changes in his medications/medication dosing or medication overdose. Patient denies having any pain, fever or chills, headache, focal numbness/weakness/neuro deficit, chest pain or pressure, cough or cold symptoms, palpitations, syncope, abdominal pain, nausea/vomiting/diarrhea, dysuria or urinary symptoms, decreased urine output, leg or calf swelling or pain, or any other symptoms or complaints. - Related Data Home Medications Medication Instructions Recorded Confirmed Albuterol Sulfate [Albuterol 2 puff INHALATION RT-Q4H PRN 08/10/23 08/10/23 Sulfate Hfa] Aspirin EC [Ecotrin Low Dose] 81 mg PO DAILY 08/10/23 08/10/23 Dofetilide 125 mcg PO BID 08/10/23 08/10/23 Ferrous Sulfate [Feosol] 325 mg PO DAILY 08/10/23 08/10/23 Fluticasone/Vilanterol [Breo 1 puff INHALATION RT-DAILY 08/10/23 08/10/23 Ellipta 200-25 Mcg Inhaler] Furosemide [Lasix] 40 mg PO DAILY 08/10/23 08/10/23 Magnesium Oxide [Magox 400] 400 mg PO HS 08/10/23 08/10/23 Metoprolol Tartrate [Lopressor] 25 mg PO BID 08/10/23 08/10/23 Spironolactone [Aldactone] 25 mg PO DAILY 08/10/23 08/10/23 dilTIAZem HCL [Cardizem CD] 240 mg PO DAILY 08/10/23 08/10/23 Previous Rx's Medication Instructions Recorded lisinopriL [Zestril] 10 mg PO DAILY 30 Days #30 tab 01/13/22 Allergies Allergy/AdvReac Type Severity Reaction Status Date / Time Sulfa (Sulfonamide Allergy dizzy,lightheaded/hives Verified 08/10/23 17:20 Antibiotics) all over body Review of Systems ROS Statement: Those systems with pertinent positive or pertinent negative responses have been documented in the HPI. ROS Other: All systems not noted in ROS Statement are negative. Past Medical History Past Medical History: Atrial Fibrillation, Cancer, Heart Failure, COPD, Hearing Disorder / Deafness, Hypertension Additional Past Medical History / Comment(s): Hx Prostate Cancer 3-4 yrs ago. Hard of hearing in left ear. kidney disease History of Any Multi-Drug Resistant Organisms: None Reported Past Surgical History: Cardiac Ablation, Orthopedic Surgery Additional Past Surgical History / Comment(s): Cardioversion X2, right shoulder surgery. colonoscopy 10/2021 Past Anesthesia/Blood Transfusion Reactions: No Reported Reaction Past Psychological History: No Psychological Hx Reported Smoking Status: Former smoker Past Alcohol Use History: Heavy Past Drug Use History: None Reported - Past Family History Mother Family Medical History: No Reported History family Family Medical History: Diabetes Mellitus General Exam Limitations: no limitations General appearance: alert Head exam: Present: normocephalic Eye exam: Present: normal appearance, PERRL ENT exam: Present: mucous membranes moist Neck exam: Present: other (Trachea is in the midline) Respiratory exam: Present: normal lung sounds bilaterally. Absent: respiratory distress, wheezes, rales, rhonchi, stridor Cardiovascular Exam: Present: normal rhythm, bradycardia, normal heart sounds, other (Normal radial pulses bilaterally) GI/Abdominal exam: Present: soft. Absent: distended, tenderness, guarding Extremities exam: Absent: tenderness, pedal edema, calf tenderness Neurological exam: Present: alert, oriented X3. Absent: motor sensory deficit Psychiatric exam: Present: normal affect Skin exam: Present: warm, dry, intact, normal color Course Vital Signs 08/10/23 08/10/23 08/10/23 14:36 14:38 15:38 Temperature 98.4 F Pulse Rate 37 L 38 L 36 L Respiratory 20 18 18 Rate Blood Pressure 87/63 96/48 90/42 O2 Sat by Pulse 98 100 100 Oximetry 08/10/23 16:42 Temperature Pulse Rate 36 L Respiratory 18 Rate Blood Pressure 91/43 O2 Sat by Pulse 98 Oximetry - Reevaluation(s) Reevaluation #1: 08/10/23 17:25 Case, H&P, test results and ED management thus far were discussed with Dr. Song (cardiology). He recommends starting the patient on a dopamine drip and admitting the patient to the ICU. He also recommends serial troponins. He states that he will see the patient in consultation. He has no further re commendations at this time. 08/10/23 17:29 Case, H&P, test results, ED management thus far and my discussion with Dr. Song/his recommendations as above were discussed with Dr. Hayes. He agrees with plan to start the patient on a dopamine drip at this time. He also agrees with plan to admit the patient to the ICU. He has no further recommendations at this time. 08/10/23 17:34 Patient remains in sinus bradycardia on the property assessment monitor with heart rate in the high 30s. Patient and are aware of the patient's test results and my discussions as above, and they both agree with hospital admission at this time. Patient remains alert and breathing comfortably. Patient denies development of any new symptoms while in the ED, and he continues to deny having any chest pain. 08/10/23 17:39 Case, H&P, test results, ED management thus far and my discussions as above were discussed with Dr. Titus. She accepts hospital ICU admission. She asks to order a venous blood gas, which she states she will follow-up on. She has no further recommendations at this time. EKG Findings - EKG Comments: EKG Findings:: ED physician interpretation (interpreted by me): Sinus bradycardia, ventricular rate of 40 bpm, no ectopy, normal [place] and QRS intervals, normal QT interval, normal axis, no ST or T-wave abnormality Medical Decision Making - Medical Decision Making Was pt. sent in by a medical professional or institution (, PA, MANDARIN TUTOR, urgent care, hospital, or penitentiary...) When possible be specific @ -No Did you speak to anyone other than the patient for history (EMS, parent, family, police, friend...)? What history was obtained from this source @ -No Did you review nursing and triage notes (agree or disagree)? Why? @ -I reviewed and agree with nursing and triage notes Were old charts reviewed (outside hosp., previous admission, EMS record, old EKG, old radiological studies, urgent care reports/EKG's, penitentiary records)? Report findings @ -No old charts were reviewed Differential Diagnosis (chest pain, altered mental status, abdominal pain women, abdominal pain men, vaginal bleeding, weakness, fever, dyspnea, syncope, headache, dizziness, GI bleed, back pain, seizure, CVA, palpatations, mental he alth, musculoskeletal)? @ -Differential Dizziness: Benign paroxysmal positional Vertigo, Menieres disease, hypovolemic, arrhythmia, coronary artery syndrome, anemia, hypoglycemia, hyperglycemia, renal disease, electrolyte abnormality, dehydration, medication reaction, ACS/CT, t his is not meant to be an all-inclusive list EKG interpreted by me (3pts min.). @ -As above X-rays interpreted by me (1pt min.). @ -Chest x-ray was reviewed myself and shows no acute abnormality. I agree with the radiologist's interpretation as above. CT interpreted by me (1pt min.). @ -None done U/S interpreted by me (1pt. min.). @ -None done What testing was considered but not performed or refused? (CT, X-rays, U/S, labs)? Why? @ -None What meds were considered but not given or refused? Why? @ -None Did you discuss the management of the patient with other professionals (professionals i.e. , PA, MANDARIN TUTOR, lab, RT, psych nurse, licensed social worker, legal entity controller, teacher, traffic control officer, spring encaser)? Give summary @ -As above. Was smoking cessation discussed for >3mins.? @ -No Was critical care preformed (if so, how long)? @ -Yes, 80 minutes.] Were there social determinants of health that impacted care today? How? (Homelessness, low income, unemployed, alcoholism, drug addiction, transportation, low edu. Level, literacy, decrease access to med. care, fpc, rehab)? @ -No Was there de-escalation of care discussed even if they declined (Discuss DNR or withdrawal of care, Hospice)? DNR status @ -No What co-morbidities impacted this encounter? (DM, HTN, Smoking, COPD, CAD, Cancer, CVA, ARF, Chemo, Hep., AIDS, mental health diagnosis, sleep apnea, morbid obesity)? @ -None Was patient admitted / discharged? Hospital course, mention meds given and route, prescriptions, significant lab abnormalities, going to OR and other p ertinent info. @ -Patient has been in a sinus bradycardia with borderline low blood pressure while in the ED. Patient's blood pressure has improved somewhat with IV fluid hydration. Patient is alert, breathing comfortably, and mentating appropriately in the ED. Patient denies having any chest pain, and his EKG does not show any ST or T-wave abnormalities. Patient's troponin is negative. Patient's labs reveal acute on chronic renal insufficiency, as well as mild hyperkalemia (5.5). Given the patient's hyperkalemia and sinus bradycardia, patient was treated with IV calcium, as well as potassium lowering agents. Patient was also started on an IV dopamine drip per cardiology's recommendation. Case was discussed with on-call record center specialist, as well as oil well service operator, and they both recommend ICU admission. Dr. Titus has accepted ICU hospital admission. Undiagnosed new problem with uncertain prognosis? @ -No Drug Therapy requiring intensive monitoring for toxicity (Heparin, Nitro, Insulin, Cardizem)? @ -No Were any procedures done? @ -No Diagnosis/symptom? @ -Symptomatic sinus bradycardia Acute, or Chronic, or Acute on Chronic? @ -default Uncomplicated (without systemic symptoms) or Complicated (systemic symptoms)? @ -default Side effects of treatment? @ -No Exacerbation, Progression, or Severe Exacerbation? @ -No Poses a threat to life or bodily function? How? (Chest pain, USA, CT, pneumonia, PE, COPD, DKA, ARF, appy, cholecystitis, CVA, Diverticulitis, Homicidal, Suicidal, threat to staff... and all critical care pts) @ -Yes, possibly. Diagnosis/symptom? @ -Acute on chronic renal insufficiency Acute, or Chronic, or Acute on Chronic? @ -Acute on chronic Uncomplicated (without systemic symptoms) or Complicated (systemic symptoms)? @ -default Side effects of treatment? @ -none Exacerbation, Progression, or Severe Exacerbation] @ -no Poses a threat to life or bodily function? @ -no Diagnosis/symptom? @ -Hyperkalemia Acute, or Chronic, or Acute on Chronic? @ -default Uncomplicated (without systemic symptoms) or Complicated (systemic symptoms)? @ -default Side effects of treatment? @ -none Exacerbation, Progression, or Severe Exacerbation] @ -no Poses a threat to life or bodily function? @ -no - Lab Data Result diagrams: 08/10/23 14:52 08/10/23 14:52 Lab Results 08/10/23 08/10/23 08/10/23 Range/Units 14:52 14:52 14:52 WBC 11.8 H (3.8-10.6) k/uL RBC 4.26 L (4.30-5.90) m/uL Hgb 13.6 (13.0-17.5) gm/dL Hct 41.4 (39.0-53.0) % MCV 97.2 (80.0-100.0) fL MCH 31.8 (25.0-35.0) pg MCHC 32.8 (31.0-37.0) g/dL RDW 13.1 (11.5-15.5) % Plt Count 263 (150-450) k/uL MPV 7.8 Neutrophils % 81 % Lymphocytes % 11 % Monocytes % 5 % Eosinophils % 1 % Basophils % 0 % Neutrophils # 9.6 H (1.3-7.7) k/uL Lymphocytes # 1.3 (1.0-4.8) k/uL Monocytes # 0.5 (0-1.0) k/uL Eosinophils # 0.1 (0-0.7) k/uL Basophils # 0.0 (0-0.2) k/uL PT 11.2 (10.0-12.5) sec INR 1.0 (<1.2) APTT 24.1 (22.0-30.0) sec Sodium 130 L (137-145) mmol/L Potassium 5.5 H (3.5-5.1) mmol/L Chloride 98 (98-107) mmol/L Carbon Dioxide 16 L (22-30) mmol/L Anion Gap 16 mmol/L BUN 54 H (9-20) mg/dL Creatinine 3.06 H (0.66-1.25) mg/dL Est GFR (CKD-EPI)AfAm 23 (>60 ml/min/1.73 sqM) Est GFR (CKD-EPI)NonAf 20 (>60 ml/min/1.73 sqM) Glucose 142 H (74-99) mg/dL Calcium 9.5 (8.4-10.2) mg/dL Magnesium 1.8 (1.6-2.3) mg/dL Total Bilirubin 0.8 (0.2-1.3) mg/dL AST 27 (17-59) U/L ALT 26 (4-49) U/L Alkaline Phosphatase 177 H (38-126) U/L Troponin I (0.000-0.034) ng/mL Total Protein 7.0 (6.3-8.2) g/dL Albumin 4.2 (3.5-5.0) g/dL TSH 1.860 (0.465-4.680) mIU/L Free T4 1.49 (0.78-2.19) ng/dL 08/10/23 Range/Units 14:52 WBC (3.8-10.6) k/uL RBC (4.30-5.90) m/uL Hgb (13.0-17.5) gm/dL Hct (39.0-53.0) % MCV (80.0-100.0) fL MCH (25.0-35.0) pg MCHC (31.0-37.0) g/dL RDW (11.5-15.5) % Plt Count (150-450) k/uL MPV Neutrophils % % Lymphocytes % % Monocytes % % Eosinophils % % Basophils % % Neutrophils # (1.3-7.7) k/uL Lymphocytes # (1.0-4.8) k/uL Monocytes # (0-1.0) k/uL Eosinophils # (0-0.7) k/uL Basophils # (0-0.2) k/uL PT (10.0-12.5) sec INR (<1.2) APTT (22.0-30.0) sec Sodium (137-145) mmol/L Potassium (3.5-5.1) mmol/L Chloride (98-107) mmol/L Carbon Dioxide (22-30) mmol/L Anion Gap mmol/L BUN (9-20) mg/dL Creatinine (0.66-1.25) mg/dL Est GFR (CKD-EPI)AfAm (>60 ml/min/1.73 sqM) Est GFR (CKD-EPI)NonAf (>60 ml/min/1.73 sqM) Glucose (74-99) mg/dL Calcium (8.4-10.2) mg/dL Magnesium (1.6-2.3) mg/dL Total Bilirubin (0.2-1.3) mg/dL AST (17-59) U/L ALT (4-49) U/L Alkaline Phosphatase (38-126) U/L Troponin I <0.012 (0.000-0.034) ng/mL Total Protein (6.3-8.2) g/dL Albumin (3.5-5.0) g/dL TSH (0.465-4.680) mIU/L Free T4 (0.78-2.19) ng/dL - Radiology Data Chest x-ray: Chronic changes without evidence for acute pulmonary disease. Critical Care Time Critical Care Time: Yes Total Critical Care Time: 80 Disposition Clinical Impression: Sinus bradycardia, Dizziness, Hyperkalemia, Acute on chronic renal insufficiency Disposition: ADMITTED IP TO THIS [facility] Condition: Serious Is patient prescribed a controlled substance at d/c from ED?: No Referrals: Fitz Barton MD [Primary Care Provider] - 1-2 days Time of Disposition: 17:39
[2023-08-10] MEDS ORDERED: SODIUM CHLORIDE 0.9% 500 ML 500 ML IV ONE ×2 (14:57→16:18)
[2023-08-10 15:09] LABS: Basophils % (A) 0 %; Eosinophils # (A) 0.1 k/uL (0-0.7); Eosinophils % (A) 1 %; HCT 41.4 % (39.0-53.0); HGB 13.6 gm/dL (13.0-17.5); Lymphocytes # (A) 1.3 k/uL (1.0-4.8); Lymphocytes % (A) 11 %; MCH 31.8 pg (25.0-35.0); MCHC 32.8 g/dL (31.0-37.0); MCV 97.2 fL (80.0-100.0); Mean Platelet Volume 7.8; Monocytes # (A) 0.5 k/uL (0-1.0); Monocytes % (A) 5 %; Neutrophils # (A) 9.6 k/uL (1.3-7.7); Neutrophils % (A) 81 %; Platelet Count 263 k/uL (150-450); RBC 4.26 m/uL (4.30-5.90); RDW 13.1 % (11.5-15.5); WBC 11.8 k/uL (3.8-10.6)
[2023-08-10 15:21] LABS: Partial Thromboplastin Time 24.1 sec (22.0-30.0); Prothrombin Time 11.2 sec (10.0-12.5)
[2023-08-10 15:29] LABS: ALT 26 U/L (4-49); AST 27 U/L (17-59); African American GFR (CKD) 23 (>60 ml/min/1.73 sqM); Albumin 4.2 g/dL (3.5-5.0); Alkaline Phosphatase 177 U/L (38-126); Anion Gap 16 mmol/L; Blood Urea Nitrogen 54 mg/dL (9-20); Calcium 9.5 mg/dL (8.4-10.2); Carbon Dioxide 16 mmol/L (22-30); Chloride 98 mmol/L (98-107); Glucose 142 mg/dL (74-99); Magnesium 1.8 mg/dL (1.6-2.3); Non-African American GFR(CKD) 20 (>60 ml/min/1.73 sqM); Potassium 5.5 mmol/L (3.5-5.1); Sodium 130 mmol/L (137-145); Total Bilirubin 0.8 mg/dL (0.2-1.3)
--- NOTE | 2023-08-10 15:38 | XR ---
EXAMINATION TYPE: XR chest 1V portable DATE OF EXAM: 08/10/2023 HISTORY: Shortness of breath. COMPARISON: 05/06/2020 TECHNIQUE: Single view of the chest is submitted. FINDINGS: Demonstrated are scattered senescent parenchymal change. There is no evidence for focal infiltrate. The heart is stable. Hilar and mediastinal structures are within normal limits. Degenerative changes are seen of the dorsal spine. IMPRESSION: 1. Chronic changes without evidence for acute pulmonary disease.
[2023-08-10] MEDS ORDERED: CALCIUM GLUCONATE IN NACL 1 GM in SALINE 1 100ML.BAG IVPB ONE (16:13)
[2023-08-10] MEDS ORDERED: INSULIN REGULAR 100 UNIT/ML VIAL (IV) IV STA (16:14)
[2023-08-10] MEDS ORDERED: SODIUM POLYSTYRENE SULFONATE 15 GM/60 ML BOTTLE PO STA (16:14)
[2023-08-10] MEDS ORDERED: SODIUM BICARB 8.4% 50 ML SYR (1 MEQ/ML) IV STA (16:15)
[2023-08-10] MEDS ORDERED: DEXTROSE 50% SYRINGE 50 ML IVP STA (16:15)
[2023-08-10 16:27] LABS: T4, Free (Free Thyroxine) 1.49 ng/dL (0.78-2.19)
[2023-08-10] MEDS ORDERED: DOPamine DRIP 800 MG in DEXTROSE/WATER 1 250ML.BAG IV ONE (17:30)
[2023-08-10] MEDS ORDERED: NALOXONE 0.4 MG/ML 1 ML VIAL IV PRN (17:40)
[2023-08-10] MEDS ORDERED: SODIUM CHLORIDE 0.9% 1,000 ML IV SCH (17:45)
[2023-08-10 18:37] LABS: Glucose,Whole Blood 103 mg/dL (70-110)
[2023-08-10] MEDS ORDERED: PROCHLORPERAZINE INJ 10 MG/2 ML VIAL IVP STA (18:54)
[2023-08-10] MEDS ORDERED: METOCLOPRAMIDE 5 MG/ML 2 ML VIAL IVP STA (18:59)
[2023-08-10 19:02] LABS: VBG PH 7.3 (7.31-7.41)
[2023-08-10] MEDS ORDERED: ONDANSETRON 4 MG/2 ML VIAL IVP PRN (19:24)
[2023-08-10] MEDS ORDERED: CALCIUM CARBONATE 500 MG CHEWABLE PO PRN (19:24)
[2023-08-10] MEDS ORDERED: HYDROcodone/APAP 5-325MG 1 EACH TAB PO PRN (19:24)
[2023-08-10] MEDS ORDERED: bisacodyL 5 MG TABLET.DR PO PRN (19:24)
[2023-08-10 19:31] LABS: African American GFR (CKD) 22 (>60 ml/min/1.73 sqM); Anion Gap 16 mmol/L; Blood Urea Nitrogen 55 mg/dL (9-20); Calcium 9.9 mg/dL (8.4-10.2); Carbon Dioxide 12 mmol/L (22-30); Chloride 103 mmol/L (98-107); Glucose 125 mg/dL (74-99); Non-African American GFR(CKD) 19 (>60 ml/min/1.73 sqM); Potassium 5.5 mmol/L (3.5-5.1); Sodium 131 mmol/L (137-145)
--- NOTE | 2023-08-10 19:39 | P.HPIM ---
History of Present Illness H&P Date: 08/10/23 Patient is a 68-year-old male with a history of atrial fibrillation status post watchman device due to prior GI bleed, congestive heart failure, COPD, hypertension who presented to the emergency department with sudden onset lightheadedness and dizziness. On arrival to the ER he was found to be significantly bradycardic with a pulse of 37 and a blood pressure of 87/63. Laboratory analysis included CBC, coags, CMP, troponin, and TSH which were remarkable for white blood cell count 11.8, sodium 130, potassium 5.5, carbon dioxide 18, BUN 54, creatinine 3.06. Chest x-ray reveals no acute process. Cardiology was contacted due to his symptomatic bradycardia and recommended a d opamine drip. Patient seen and examined at bedside. On transport to the ICU he developed sudden onset left sided vision loss associated with nausea. His vision now almost feels back to normal. His right-sided vision was intact. He reports that today at noon he started getting suddenly lightheaded and dizzy. He did not feel presyncopal. He did not have any changes in his chronic shortness of breath. He denied any chest pain or palpitations area he does report that he recently had a cold and is improving. He did test for "lid twice at home both of which were negative, however his daughter recently tested positive. He denies any recent fever. He recently started seeing a sales executive due to worsening kidney disease. He follows up with air crew officer however not [facility]. He has a hx of prostate cancer s/p radiation. He has a watchman done over a year ago and is no longer on anticoagulation due to significant bleeding from radiation proctitis (which prompted the watchman) Vital signs reviewed General: nontoxic, no distress, appears at stated age Derm: warm, dry Eyes: EOMI, no lid lag, anicteric sclera, pupils equal round reactive to light ENT: Nose and ears atraumatic, no thrush, no pharyngeal erythema Cardiovascular: S1S2 reg, no murmur, positive posterior tibial pulse bilateral, no edema, capillary refill less than 2 seconds Lungs: clear to auscultation bilateral, no rhonchi, no rales, no wheeze, no accessory muscle use Abdominal: soft, nontender to palpation, no guarding, no appreciable organomegaly, normal bowel sounds Ext: no gross muscle atrophy, muscle strength 5 out of 5 in all 4 extremities, no contractures Neuro: Pupils equal round reactive to light, face symmetrical, no tongue deviation, uvula elevation equal light touch intact all 4 extremities and bilateral face, right left 5/5, left leg 3-4/5, director visual strength equal, b/l arms 5/5 Psych: Alert, oriented, appropriate affect Assessment/Plan: Symptomatic Bradycardia Left eye visual loss/ left leg weakness-- consistent with TIA vs hypoperfusion: resolved SAMI on CKD Anion gap metabolic acidosis Paroxysmal A fib s/p watchman Nausea - admit to ICU - 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 - continue dopamine at 5 mcg. - check lactic acid - D/W Dr. Dalton that patient HR is 48 and he is having significant nausea after dopamine and had some neurologic changes. He is consider Temporoary pacemaker. We will hold cardizem, do - check echo - Insert wadsworth last urination is >6 hours ago and bladder scan is 0 - start D5W with 3 amps of sodium bicarb at 120 cc/hr, last echo with preserved - Repeat BMP stat - consult nephrology - hold lisinopril, lasix, metoprolol, aldactone and dofetilide -Head CT - reglan 5 mg IVP X 1 now, no zofran or compazine given tykosin Recent URI symptoms - recheck Flu/RSV/COVID testing given possible need for temporary pacer, patient tested negative at home. HX of GI Bleed Imaging: As per HPI Data Review: per HPI The patient is admitted with an anticipated greater than 2 midnight stay for evaluation of [symptomatic bradycardia]. Surrogate decision-maker: CODE STATUS:Full code DVT prophylaxis: Lovenox Anticipated discharge date: Pending Clinical Course Anticipated discharge place: Pending Clinical Course This dictation was prepared using [employer] voice recognition software. Though every attempt is made to correct errors during dictation some may still exist. Past Medical History Past Medical History: Atrial Fibrillation, Cancer, Heart Failure, COPD, Hearing Disorder / Deafness, Hypertension Additional Past Medical History / Comment(s): Hx Prostate Cancer 3-4 yrs ago. Hard of hearing in left ear. kidney disease History of Any Multi-Drug Resistant Organisms: None Reported Past Surgical History: Cardiac Ablation, Orthopedic Surgery Additional Past Surgical History / Comment(s): Cardioversion X2, right shoulder surgery. colonoscopy 10/2021, watchphillip Past Anesthesia/Blood Transfusion Reactions: No Reported Reaction Past Psychological History: No Psychological Hx Reported Smoking Status: Former smoker Past Alcohol Use History: Heavy Past Drug Use History: None Reported - Past Family History Mother Family Medical History: No Reported History family Family Medical History: Diabetes Mellitus Medications and Allergies Home Medications Medication Instructions Recorded Confirmed Type lisinopriL [Zestril] 10 mg PO DAILY 30 Days #30 tab 01/13/22 08/10/23 Rx Albuterol Sulfate [Albuterol 2 puff INHALATION RT-Q4H PRN 08/10/23 08/10/23 History Sulfate Hfa] Aspirin EC [Ecotrin Low Dose] 81 mg PO DAILY 08/10/23 08/10/23 History Dofetilide 125 mcg PO BID 08/10/23 08/10/23 History Ferrous Sulfate [Feosol] 325 mg PO DAILY 08/10/23 08/10/23 History Fluticasone/Vilanterol [Breo 1 puff INHALATION RT-DAILY 08/10/23 08/10/23 History Ellipta 200-25 Mcg Inhaler] Furosemide [Lasix] 40 mg PO DAILY 08/10/23 08/10/23 History Magnesium Oxide [Magox 400] 400 mg PO HS 08/10/23 08/10/23 History Metoprolol Tartrate [Lopressor] 25 mg PO BID 08/10/23 08/10/23 History Spironolactone [Aldactone] 25 mg PO DAILY 08/10/23 08/10/23 History dilTIAZem HCL [Cardizem CD] 240 mg PO DAILY 08/10/23 08/10/23 History Allergies Allergy/AdvReac Type Severity Reaction Status Date / Time Sulfa (Sulfonamide Allergy dizzy,lightheaded/hives Verified 08/10/23 17:20 Antibiotics) all over body Physical Exam Osteopathic Statement: *. No significant issues noted on an osteopathic stru ctural exam other than those noted in the History and Physical/Consult. Vitals: Vital Signs Temp Pulse Resp BP Pulse Ox 08/10/23 18:50 97.6 F 52 L 22 104/68 93 L 08/10/23 18:49 19 104/68 93 L 08/10/23 16:42 36 L 18 91/43 98 08/10/23 15:38 36 L 18 90/42 100 08/10/23 14:38 38 L 18 96/48 100 08/10/23 14:36 98.4 F 37 L 20 87/63 98 Intake and Output 08/10/23 08/10/23 08/10/23 06:59 14:59 22:59 Other: Weight 127.006 kg Results CBC & Chem 7: 08/10/23 14:52 08/10/23 18:54 Labs: Abnormal Lab Results - Last 24 Hours (Table) 08/10/23 08/10/23 08/10/23 Range/Units 14:52 14:52 18:14 WBC 11.8 H (3.8-10.6) k/uL RBC 4.26 L (4.30-5.90) m/uL Neutrophils # 9.6 H (1.3-7.7) k/uL VBG pH 7.30 L (7.31-7.41) VBG HCO3 19 L (24-28) mmol/L Sodium 130 L (137-145) mmol/L Potassium 5.5 H (3.5-5.1) mmol/L Carbon Dioxide 16 L (22-30) mmol/L BUN 54 H (9-20) mg/dL Creatinine 3.06 H (0.66-1.25) mg/dL Glucose 142 H (74-99) mg/dL Alkaline Phosphatase 177 H (38-126) U/L 08/10/23 Range/Units 18:54 WBC (3.8-10.6) k/uL RBC (4.30-5.90) m/uL Neutrophils # (1.3-7.7) k/uL VBG pH (7.31-7.41) VBG HCO3 (24-28) mmol/L Sodium 131 L (137-145) mmol/L Potassium 5.5 H (3.5-5.1) mmol/L Carbon Dioxide 12 L (22-30) mmol/L BUN 55 H (9-20) mg/dL Creatinine 3.16 H (0.66-1.25) mg/dL Glucose 125 H (74-99) mg/dL Alkaline Phosphatase (38-126) U/L
[2023-08-10] MEDS ORDERED: IV FLUID CONTINUATION 1,000 ML IV ONE (20:27)
--- NOTE | 2023-08-10 20:27 | CT ---
EXAMINATION TYPE: CODE STROKE: CT brain wo contr CT DLP: 1142.6 mGycm, Automated exposure control for dose reduction was used. DATE OF EXAM: 08/10/2023 8:17 PM COMPARISON: . CLINICAL INDICATION:Male, 68 years old with history of left leg weakness and left vision loss, left l eg weakness and left vision loss TECHNIQUE: Brain: Axial CT images of the brain were obtained with coronal and sagittal reformats created and rev iewed. Contrast used: None. Oral contrast used: None. FINDINGS: Brain: Extra-axial spaces: No abnormal extra-axial fluid collections. Ventricular system: Appear dilated in proportion to cerebral atrophy. Cerebral parenchyma: No acute intraparenchymal hemorrhage or mass effect. No loss of doty-white mat ter distinction to suggest acute lobar infarct. Mild/moderate generalized brain atrophy. Cerebellum: No acute abnormality. Mass effect: No evidence of midline shift. Intracranial vasculature: Mild atherosclerotic calcification of the carotid siphons. No hyperdense MC A suggested. Soft tissues: Normal. Calvarium/osseous structures: No evidence of calvarial fracture. Paranasal sinuses and mastoid air cells: Clear. Right frontal sinus is developmentally underpneumatiz ed. Visualized orbits: Orbital contents appear grossly intact. MRI is more sensitive for detecting acute processes such as infarct, and may be considered if clinica lly warranted. IMPRESSION: 1. Mild/moderate generalized brain atrophy. 2. No acute intracranial CT abnormality.
[2023-08-10] MEDS ORDERED: LIDOCAINE 1% INJ 10MG/ML (20 ML MDV) ONE (20:38)
[2023-08-10] MEDS ORDERED: LIDOCAINE 1% INJ 10MG/ML (30 ML VIAL-PF) SQ ONE (21:00)
[2023-08-10] MEDS ORDERED: MIDAZOLAM 2 MG/2 ML VIAL IVP ONE (21:01)
--- NOTE | 2023-08-10 21:15 | P.PCN ---
Date of Procedure: 08/10/23 Operative Findings: Temporary pacemaker placement Performing physician Gianfranco Song M.D. Procedure performed Successful placement of transvenous temporary pacemaker from right femoral vein Ultrasound-guided access of the right common femoral vein Indication Symptomatic bradycardia Complication None Level of sedation Moderate sedation length of 11 minutes Procedure description After obtaining an informed consent the patient was brought to the cardiac fence laborer. The right common femoral vein was cannulated using micropuncture technique under ultrasound guidance of micropuncture wire passed easily then I placed a 6- Bulgarian sheath at the right common femoral vein. Under fluoroscopy guidance a balloon tipped temporary pacemaker was advanced to the right ventricle and positioned in the right ventricle appears. The pacer was tested and was functioning normally. It was placed at a heart rate of 60 and and amp 5 as a ba ckup. The procedure was completed was no complication Postprocedure management ICU monitoring Follow-up with the patient
--- NOTE | 2023-08-10 21:19 | P.CRDCN ---
History of Present Illness Consult date: 08/10/23 Chief complaint: Dizziness and lightheadedness History of present illness: The patient is a 68-year-old gentleman who sees a fundraising sale representative at [facility] with a past medical history significant for paroxysmal atrial fibrillation as well as atrial tachycardia as well as hypertension and dyslipidemia and history of watch and device placement. The patient a presented to the emergency room complaining of dizziness and lightheadedness. He was found to be bradycardic with heart rate in the 40s. He was in sinus bradycardia. No symptoms of chest pain or chest discomfort and no presyncope or syncope. The EKG showed sinus bradycardia with heart rate in the 40s. No evidence of any AV block. The patient was receiving as an outpatient metoprolol and Cardizem and also he was on the I. All the above stopped. He does have history of chronic kidney disease and he was today in acute on chronic renal failure and also he was hyperkalemic. The patient subsequently was admitted to the intensive care unit after he was placed on dopamine was no significant improvement in the heart rate. He was feeling also nauseated. For that reason the patient was brought to the cardiac home performance laborer where a temporary pacemaker was placed from the right groin approach. He will be monitored in the intensive care unit. Currently he is not on any AV mary radhika agents and because of the nausea induced by dopamine I'm going to stop the dopamine at this point. We'll follow-up with the heart rate and follow-up with the patient. The examination is remarkable for regular rhythm with distant heart sounds and a systolic murmur as well as clear breathing sounds bilaterally. Assessment Symptomatic bradycardia Acute on chronic renal failure Hyperkalemia secondary to renal failure Paroxysmal atrial fibrillation History of atrial tachycardia History of watch mid device placement Multiple comorbid conditions Plan Monitor the electrolytes and correct the hyperkalemia DC dofetilide and DC metoprolol and DC Cardizem A temporary pacemaker was placed Follow-up with the patient Past Medical History Past Medical History: Atrial Fibrillation, Cancer, Heart Failure, COPD, Hearing Disorder / Deafness, Hypertension Additional Past Medical History / Comment(s): Hx Prostate Cancer 3-4 yrs ago. Hard of hearing in left ear. kidney disease History of Any Multi-Drug Resistant Organisms: None Reported Past Surgical History: Cardiac Ablation, Orthopedic Surgery Additional Past Surgical History / Comment(s): Cardioversion X2, right shoulder surgery. colonoscopy 10/2021, [place] Past Anesthesia/Blood Transfusion Reactions: No Reported Reaction Past Psychological History: No Psychological Hx Reported Smoking Status: Former smoker Past Alcohol Use History: Heavy Past Drug Use History: None Reported - Past Family History Mother Family Medical History: No Reported History family Family Medical History: Diabetes Mellitus Medications and Allergies Home Medications Medication Instructions Recorded Confirmed Type lisinopriL [Zestril] 10 mg PO DAILY 30 Days #30 tab 01/13/22 08/10/23 Rx Albuterol Sulfate [Albuterol 2 puff INHALATION RT-Q4H PRN 08/10/23 08/10/23 History Sulfate Hfa] Aspirin EC [Ecotrin Low Dose] 81 mg PO DAILY 08/10/23 08/10/23 History Dofetilide 125 mcg PO BID 08/10/23 08/10/23 History Ferrous Sulfate [Feosol] 325 mg PO DAILY 08/10/23 08/10/23 History Fluticasone/Vilanterol [Breo 1 puff INHALATION RT-DAILY 08/10/23 08/10/23 History Ellipta 200-25 Mcg Inhaler] Furosemide [Lasix] 40 mg PO DAILY 08/10/23 08/10/23 History Magnesium Oxide [Magox 400] 400 mg PO HS 08/10/23 08/10/23 History Metoprolol Tartrate [Lopressor] 25 mg PO BID 08/10/23 08/10/23 History Spironolactone [Aldactone] 25 mg PO DAILY 08/10/23 08/10/23 History dilTIAZem HCL [Cardizem CD] 240 mg PO DAILY 08/10/23 08/10/23 History Allergies Allergy/AdvReac Type Severity Reaction Status Date / Time Sulfa (Sulfonamide Allergy dizzy,lightheaded/hives Verified 08/10/23 17:20 Antibiotics) all over body Physical Exam Vitals: Vital Signs Temp Pulse Resp BP Pulse Ox 08/10/23 20:00 18 08/10/23 18:50 97.6 F 52 L 22 104/68 93 L 08/10/23 18:49 19 104/68 93 L 08/10/23 16:42 36 L 18 91/43 98 08/10/23 15:38 36 L 18 90/42 100 08/10/23 14:38 38 L 18 96/48 100 08/10/23 14:36 98.4 F 37 L 20 87/63 98 Intake and Output 08/10/23 08/10/23 08/10/23 06:59 14:59 22:59 Intake Total 50 Balance 50 Intake: IV 50 Other: Voiding Method Indwelling Catheter Weight 127.006 kg Results 08/10/23 14:52 08/10/23 18:54 Cardiac Enzymes 08/10/23 08/10/23 08/10/23 Range/Units 14:52 14:52 18:54 AST 27 (17-59) U/L Troponin I <0.012 <0.012 (0.000-0.034) ng/mL Coagulation 08/10/23 Range/Units 14:52 PT 11.2 (10.0-12.5) sec APTT 24.1 (22.0-30.0) sec CBC 08/10/23 Range/Units 14:52 WBC 11.8 H (3.8-10.6) k/uL RBC 4.26 L (4.30-5.90) m/uL Hgb 13.6 (13.0-17.5) gm/dL Hct 41.4 (39.0-53.0) % Plt Count 263 (150-450) k/uL Comprehensive Metabolic Panel 08/10/23 08/10/23 Range/Units 14:52 18:54 Sodium 130 L 131 L (137-145) mmol/L Potassium 5.5 H 5.5 H (3.5-5.1) mmol/L Chloride 98 103 (98-107) mmol/L Carbon Dioxide 16 L 12 L (22-30) mmol/L BUN 54 H 55 H (9-20) mg/dL Creatinine 3.06 H 3.16 H (0.66-1.25) mg/dL Glucose 142 H 125 H (74-99) mg/dL Calcium 9.5 9.9 (8.4-10.2) mg/dL AST 27 (17-59) U/L ALT 26 (4-49) U/L Alkaline Phosphatase 177 H (38-126) U/L Total Protein 7.0 (6.3-8.2) g/dL Albumin 4.2 (3.5-5.0) g/dL Current Medications Generic Name Dose Route Start Last Admin Trade Name Freq PRN Reason Stop Dose Admin Acetaminophen 650 mg 08/10/23 19:24 Acetaminophen Tab 325 Mg Tab PO Q6HR PRN Mild Pain or Fever > 100.5 Hydrocodone Bitart/Acetaminophen 1 each 08/10/23 19:24 Hydrocodone/Apap 5-325mg 1 Each Tab PO Q4HR PRN Moderate Pain (Scale 4 to 6) Albuterol Sulfate 2 puff 08/10/23 19:28 Albuterol Hfa Inhaler INHALATION RT-Q4H PRN Shortness Of Breath Aspirin 81 mg 08/11/23 09:00 Aspirin 81 Mg PO DAILY ANA ROSA Bisacodyl 5 mg 08/10/23 19:24 Bisacodyl 5 Mg Tablet.Dr PO DAILY PRN Constipation Calcium Carbonate/Glycine 1,000 mg 08/10/23 19:24 Calcium Carbonate 500 Mg Chewable PO Q4HR PRN Dyspepsia Enoxaparin Sodium 30 mg 08/11/23 09:00 Enoxaparin 30 Mg/0.3 Ml Syringe SQ DAILY ANA ROSA Ferrous Sulfate 325 mg 08/11/23 09:00 Ferrous Sulfate 325 Mg Tab PO DAILY ANA ROSA Dopamine HCl/Dextrose 800 mg/ 250 mls @ 11.907 mls/hr 08/10/23 17:30 08/10/23 18:20 IV Solution IV 08/11/23 14:29 5 mcg/kg/min .Q21H ONE 11.907 mls/hr Administration Protocol 5 MCG/KG/MIN Sodium Chloride 1,000 mls @ 70 mls/hr 08/10/23 17:45 08/10/23 18:44 Saline 0.9% IV 70 mls/hr .[id number] ANA ROSA Administration Sodium Bicarbonate 50 ml/ 1,050 mls @ 120 mls/hr 08/10/23 19:15 Dextrose/Water IV .Q8H45M ANA ROSA Melatonin 3 mg 08/10/23 19:24 Melatonin 3 Mg Tablet PO HS PRN Insomnia Naloxone HCl 0.2 mg 08/10/23 17:40 Naloxone 0.4 Mg/Ml 1 Ml Vial IV Q2M PRN Opioid Reversal Intake and Output 08/10/23 08/10/23 08/10/23 06:59 14:59 22:59 Intake Total 50 Balance 50 Intake: IV 50 Other: Voiding Method Indwelling Catheter Weight 127.006 kg Patient Weight 08/11/23 06:59 Weight 127.006 kg 08/10/23 14:52 08/10/23 18:54
[2023-08-10] MEDS: ACETAMINOPHEN TAB 325 MG TAB PO PRN (22:18)
[2023-08-11] MEDS: DEXTROSE 5% IN WATER 1,000 ML with SODIUM BICARB (1 MEQ/ML) 50 ML IV SCH ×2 (00:54→06:57)
[2023-08-11] MEDS: MELATONIN 3 MG TABLET PO PRN ×2 (01:55→22:14)
[2023-08-11 06:26] LABS: Basophils % (A) 0 %; Eosinophils # (A) 0.1 k/uL (0-0.7); Eosinophils % (A) 1 %; HCT 37.5 % (39.0-53.0); HGB 12.6 gm/dL (13.0-17.5); Lymphocytes # (A) 0.9 k/uL (1.0-4.8); Lymphocytes % (A) 10 %; MCH 32.4 pg (25.0-35.0); MCHC 33.7 g/dL (31.0-37.0); MCV 96.1 fL (80.0-100.0); Mean Platelet Volume 7.9; Monocytes # (A) 0.7 k/uL (0-1.0); Monocytes % (A) 8 %; Neutrophils # (A) 7.1 k/uL (1.3-7.7); Neutrophils % (A) 79 %; Platelet Count 215 k/uL (150-450); RDW 13.2 % (11.5-15.5)
[2023-08-11 06:39] LABS: ALT 22 U/L (4-49); AST 22 U/L (17-59); African American GFR (CKD) 27 (>60 ml/min/1.73 sqM); Albumin 3.8 g/dL (3.5-5.0); Alkaline Phosphatase 169 U/L (38-126); Anion Gap 10 mmol/L; Blood Urea Nitrogen 51 mg/dL (9-20); Calcium 9.6 mg/dL (8.4-10.2); Carbon Dioxide 20 mmol/L (22-30); Chloride 103 mmol/L (98-107); Glucose 106 mg/dL (74-99); Non-African American GFR(CKD) 23 (>60 ml/min/1.73 sqM); Potassium 4.7 mmol/L (3.5-5.1); Sodium 133 mmol/L (137-145); Total Bilirubin 0.9 mg/dL (0.2-1.3); Total Protein 6.6 g/dL (6.3-8.2)
[2023-08-11] MEDS: ALBUTEROL HFA INHALER INHALATION PRN ×3 (08:15→20:37)
--- NOTE | 2023-08-11 08:19 | P.PN ---
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 The patient a presented to the emergency room complaining of dizziness and lightheadedness. He was found to be bradycardic with heart rate in the 40s. He was in sinus bradycardia. No symptoms of chest pain or chest discomfort and no presyncope or syncope. The EKG showed sinus bradycardia with heart rate in the 40s. No evidence of any AV block. The patient was receiving as an outpatient metoprolol and Cardizem and also he was on the I. All the above stopped. He does have history of chronic kidney disease and he was today in acute on chronic renal failure and also he was hyperkalemic. The patient subsequently was admitted to the intensive care unit after he was placed on dopamine was no significant improvement in the heart rate. He was feeling also nauseated. For that reason the patient was brought to the cardiac laboratory chief where a temporary pacemaker was placed from the right groin approach. He will be monitored in the intensive care unit. Currently he is not on any AV mary radhika agents and because of the nausea induced by dopamine I'm going to stop the dopamine at this point. We'll follow-up with the heart rate and follow-up with the patient. The examination is remarkable for regular rhythm with distant heart sounds and a systolic murmur as well as clear breathing sounds bilaterally. 08/11/2023 The patient was seen and evaluated this morning. He is feeling better. The bradycardia has improved significantly. He is off dopamine at this point. He is not using the temporary pacemaker. I'm going to pull the pacemaker out. Restart the patient back on dofetilide. Monitor the patient for additional 24 hours. Troponin is normal. TSH and free T4 are normal. The echo is ordered and will follow-up with that. I would advise continue monitoring the patient for additional 24 hours and follow-up with the patient. The examination is remarkable for regular rhythm with distant heart sounds and clear breathing sounds bilaterally Assessment Symptomatic bradycardia Acute on chronic renal failure Hyperkalemia secondary to renal failure Paroxysmal atrial fibrillation History of atrial tachycardia History of watch mid device placement Multiple comorbid conditions Plan DC the temporary pacemaker Continue monitoring the patient for additional 24 hours Follow-up with the echocardiogram Restart the patient back on dofetilide Objective - Vital Signs Vital signs: Vital Signs Temp 97.9 F 08/11/23 04:00 Pulse 87 08/11/23 07:00 Resp 23 08/11/23 07:00 BP 129/72 08/11/23 07:00 Pulse Ox 96 08/11/23 08:10 FiO2 Intake & Output 08/10/23 08/11/23 08/11/23 18:59 06:59 18:59 Intake Total 612.706 75 Output Total 1070 100 Balance -457.294 -25 Weight 127.006 kg 134.1 kg Intake: IV 50 Intake, IV Titration 562.706 75 Amount DOPamine DRIP 800 mg In 37.706 Dextrose/Water 1 250ml. bag @ 5 MCG/KG/MIN 11.907 mls/hr IV .Q21H ONE Rx#: [id number] Dextrose 5% in Water 1, 525 75 000 ml @ 75 mls/hr IV . Q14H ANA ROSA with Sodium Bicarb (1 Meq/ml) 50 ml Rx#:[id number] Output: Urine 1070 100 Other: Voiding Method Indwelling Catheter - Labs CBC & Chem 7: 08/11/23 05:44 08/11/23 05:44 Labs: Abnormal Lab Results - Last 24 Hours (Table) 08/10/23 08/10/23 08/10/23 Range/Units 14:52 14:52 18:14 WBC 11.8 H (3.8-10.6) k/uL RBC 4.26 L (4.30-5.90) m/uL Hgb (13.0-17.5) gm/dL Hct (39.0-53.0) % Neutrophils # 9.6 H (1.3-7.7) k/uL Lymphocytes # (1.0-4.8) k/uL VBG pH 7.30 L (7.31-7.41) VBG HCO3 19 L (24-28) mmol/L Sodium 130 L (137-145) mmol/L Potassium 5.5 H (3.5-5.1) mmol/L Carbon Dioxide 16 L (22-30) mmol/L BUN 54 H (9-20) mg/dL Creatinine 3.06 H (0.66-1.25) mg/dL Glucose 142 H (74-99) mg/dL Alkaline Phosphatase 177 H (38-126) U/L 08/10/23 08/11/23 08/11/23 Range/Units 18:54 05:44 05:44 WBC (3.8-10.6) k/uL RBC 3.90 L (4.30-5.90) m/uL Hgb 12.6 L (13.0-17.5) gm/dL Hct 37.5 L (39.0-53.0) % Neutrophils # (1.3-7.7) k/uL Lymphocytes # 0.9 L (1.0-4.8) k/uL VBG pH (7.31-7.41) VBG HCO3 (24-28) mmol/L Sodium 131 L 133 L (137-145) mmol/L Potassium 5.5 H (3.5-5.1) mmol/L Carbon Dioxide 12 L 20 L (22-30) mmol/L BUN 55 H 51 H (9-20) mg/dL Creatinine 3.16 H 2.65 H (0.66-1.25) mg/dL Glucose 125 H 106 H (74-99) mg/dL Alkaline Phosphatase 169 H (38-126) U/L
[2023-08-11] MEDS: DOFETILIDE 125 MCG CAP PO SCH ×2 (08:49→18:24)
[2023-08-11] MEDS: FERROUS SULFATE 325 MG TAB PO SCH (08:49)
[2023-08-11] MEDS: ASPIRIN 81 MG PO SCH (08:49)
[2023-08-11] MEDS: ENOXAPARIN 30 MG/0.3 ML SYRINGE SQ SCH (08:49)
--- NOTE | 2023-08-11 11:59 | P.NPCON ---
History of Present Illness - Reason for Consult Consult date: 08/11/23 acute renal failure - Chief Complaint Dizziness and lightheadedness - History of Present Illness Admitted to the hospital with the above complaints. Currently in ICU. On admission systolic blood pressure was 80 along with heart rate in 30s. He has chronic kidney disease stage IIIB with a baseline creatinine around 2.0 MG per DL, follows with Dr. Noyola as outpatient. On admission serum creatinine was 3.2 improved to 2.6 MG per DL today. Hemodynamically much better. On bicarb drip. He was taking multiple AV mary blocking agents.. Which was discontinued by cardiology. No NSAID use or recent contrast studies. Urine output about 100-200 ML's per hour this morning. He was also on lisinopril and Aldactone at home. Review of Systems Constitutional: Reports as per HPI Past Medical History Past Medical History: Atrial Fibrillation, Cancer, Heart Failure, COPD, Hearing Disorder / Deafness, Hypertension Additional Past Medical History / Comment(s): Hx Prostate Cancer 3-4 yrs ago. Hard of hearing in left ear. kidney disease History of Any Multi-Drug Resistant Organisms: None Reported Past Surgical History: Cardiac Ablation, Orthopedic Surgery Additional Past Surgical History / Comment(s): Cardioversion X2, right shoulder surgery. colonoscopy 10/2021, watchman Past Anesthesia/Blood Transfusion Reactions: No Reported Reaction Smoking Status: Former smoker - Past Family History Mother Family Medical History: No Reported History family Family Medical History: Diabetes Mellitus Medications and Allergies Home Medications Medication Instructions Recorded Confirmed Type lisinopriL [Zestril] 10 mg PO DAILY 30 Days #30 tab 01/13/22 08/10/23 Rx Albuterol Sulfate [Albuterol 2 puff INHALATION RT-Q4H PRN 08/10/23 08/10/23 History Sulfate Hfa] Aspirin EC [Ecotrin Low Dose] 81 mg PO DAILY 08/10/23 08/10/23 History Dofetilide 125 mcg PO BID 08/10/23 08/10/23 History Ferrous Sulfate [Feosol] 325 mg PO DAILY 08/10/23 08/10/23 History Fluticasone/Vilanterol [Breo 1 puff INHALATION RT-DAILY 08/10/23 08/10/23 History Ellipta 200-25 Mcg Inhaler] Furosemide [Lasix] 40 mg PO DAILY 08/10/23 08/10/23 History Magnesium Oxide [Magox 400] 400 mg PO HS 08/10/23 08/10/23 History Metoprolol Tartrate [Lopressor] 25 mg PO BID 08/10/23 08/10/23 History Spironolactone [Aldactone] 25 mg PO DAILY 08/10/23 08/10/23 History dilTIAZem HCL [Cardizem CD] 240 mg PO DAILY 08/10/23 08/10/23 History Allergies Allergy/AdvReac Type Severity Reaction Status Date / Time Sulfa (Sulfonamide Allergy dizzy,lightheaded/hives Verified 08/10/23 17:20 Antibiotics) all over body Physical Exam Vitals: Vital Signs Temp Pulse Resp BP Pulse Ox 08/11/23 11:00 85 18 122/59 98 08/11/23 10:00 89 21 125/70 94 L 08/11/23 09:00 89 22 123/66 93 L 08/11/23 08:10 96 08/11/23 08:00 97.8 F 87 23 126/65 95 08/11/23 07:00 87 23 129/72 95 08/11/23 06:30 96 17 126/76 95 08/11/23 06:00 86 17 126/63 95 08/11/23 05:30 89 13 122/65 95 08/11/23 05:00 86 10 L 127/70 94 L 08/11/23 04:30 87 14 126/63 94 L 08/11/23 04:00 97.9 F 78 19 127/66 93 L 08/11/23 03:30 79 20 123/66 94 L 08/11/23 03:00 81 22 118/68 94 L 08/11/23 02:30 80 19 123/86 93 L 08/11/23 02:00 77 17 123/69 95 08/11/23 01:30 79 12 124/68 94 L 08/11/23 01:00 78 15 124/66 92 L 08/11/23 00:30 76 19 119/65 91 L 08/11/23 00:00 98.1 F 75 15 128/70 91 L 08/10/23 23:30 71 12 127/69 91 L 08/10/23 23:08 71 18 127/69 95 08/10/23 23:00 72 0 L 130/71 95 08/10/23 22:30 74 7 L 133/70 95 08/10/23 22:00 71 134/71 94 L 08/10/23 20:00 18 08/10/23 19:30 75 23 08/10/23 19:00 61 08/10/23 18:50 97.6 F 52 L 22 104/68 93 L 08/10/23 18:49 19 104/68 93 L 08/10/23 16:42 36 L 18 91/43 98 08/10/23 15:38 36 L 18 90/42 100 08/10/23 14:38 38 L 18 96/48 100 08/10/23 14:36 98.4 F 37 L 20 87/63 98 Intake and Output 08/10/23 08/11/23 08/11/23 22:59 06:59 14:59 Intake Total 87.706 525 495 Output Total 850 136 3749 Balance -212.320 -882 -062 Intake: IV 50 Intake, IV Titration 37.706 525 375 Amount DOPamine DRIP 800 mg In 37.706 Dextrose/Water 1 250ml. bag @ 5 MCG/KG/MIN 11.907 mls/hr IV .Q21H ONE Rx#: [id number] Dextrose 5% in Water 1, 525 375 000 ml @ 50 mls/hr IV . Q21H ANA ROSA with Sodium Bicarb (1 Meq/ml) 50 ml Rx#:[id number] Oral 120 Output: Urine 105 444 9014 Other: Voiding Method Indwelling Catheter Indwelling Catheter Weight 127.006 kg 134.1 kg No acute distress S1-S2 heard Decreased breath sounds Abdomen soft Edema Results - Lab Results Most recent lab results Calcium 9.6 mg/dL (8.4-10.2) 08/11/23 05:44 Magnesium 1.8 mg/dL (1.6-2.3) 08/10/23 14:52 08/11/23 05:44 08/11/23 05:44 Assessment and Plan Assessment: #1 nonoliguric acute kidney injury secondary to hemodynamic ATN -Baseline creatinine around 2.0 MG per DL. #2 chronic kidney disease stage III. Suspected nephrosclerosis. #3 hypotension with bradycardia secondary to antihypertensive agents and AV mary blockers. #4 atrial fibrillation #5 lower extremity edema #6 anion gap metabolic acidosis secondary to acute kidney injury #7 hyperkalemia secondary to acute kidney injury/lisinopril/Aldactone. Plan: #1 hemodynamically stable. Agree with holding lisinopril and Aldactone for now. #2 stop bicarb drip #3 Lasix 40 mg IV push once today. #4 labs in the morning
[2023-08-11] MEDS: FUROSEMIDE 10 MG/ML 4 ML VIAL IV SCH (12:44)
--- NOTE | 2023-08-11 13:04 | P.CNPUL ---
History of Present Illness Consult date: 08/11/23 Requesting physician: Shereen Titus Reason for consult: other (ICU management) Chief complaint: Dizziness and lightheadedness History of present illness: This is a 68-year-old white male with history of multiple medical problems including paroxysmal atrial fibrillation, benign essential hypertension, history of watchman device placement, chronic kidney disease being followed by nephrology, patient presented to the ER yesterday with recurrent episodes of lightheadedness and dizziness. Patient was noted to be bradycardic and his heart rate was in the 40s. And the patient has no symptoms to schedule chest pain. No syncopal episode. There was no evidence of AV block. Patient is normally maintained on Cardizem and metoprolol, and he is also on dofetilide. I was notified about this patient after cardiology was notified, and the recommendation by cardiology was to start the patient on dopamine, and admitted the patient to the ICU. Patient was seen by Dr. Dalton last night, and a temporary pacemaker was placed. However the patient's condition significantly improved overnight to the point that he went off dopamine, his cardiac medications are presently on hold, and the patient is now in sinus rhythm. His troponin was normal. His thyroid profile was also normal. Echocardiogram is pending, and noticing that the patient had worsening renal failure, nephrology consultation was initiated. During my evaluation, the patient was basically asymptomatic no further episodes of lightheadedness, no syncopal episodes, patient is doing great at present. As a matter of fact his temporary pacemaker was already removed by cardiology. The patient is back on dofetilide, remains off beta blockers and calcium channel blockers. Pulmonary-dozier the patient denies any cough wheezing or shortness of breath he does have history of COPD, remote smoking history, and he is mostly maintained on albuterol, and breo Review of Systems Constitutional: Negative HEENT: Negative Pulmonary: Negative Cardiac: As noted in HPI GI: Negative Genitourinary: Negative Muscular skeletal: Negative Neurologic: Negative Hematologic: Negative Psychiatric: Negative Skin: Negative Past Medical History Past Medical History: Atrial Fibrillation, Cancer, Heart Failure, COPD, Hearing Disorder / Deafness, Hypertension Additional Past Medical History / Comment(s): Hx Prostate Cancer 3-4 yrs ago. Hard of hearing in left ear. kidney disease History of Any Multi-Drug Resistant Organisms: None Reported Past Surgical History: Cardiac Ablation, Orthopedic Surgery Additional Past Surgical History / Comment(s): Cardioversion X2, right shoulder surgery. colonoscopy 10/2021, watchman Past Anesthesia/Blood Transfusion Reactions: No Reported Reaction Smoking Status: Former smoker - Past Family History Mother Family Medical History: No Reported History family Family Medical History: Diabetes Mellitus Medications and Allergies Home Medications Medication Instructions Recorded Confirmed Type lisinopriL [Zestril] 10 mg PO DAILY 30 Days #30 tab 01/13/22 08/10/23 Rx Albuterol Sulfate [Albuterol 2 puff INHALATION RT-Q4H PRN 08/10/23 08/10/23 History Sulfate Hfa] Aspirin EC [Ecotrin Low Dose] 81 mg PO DAILY 08/10/23 08/10/23 History Dofetilide 125 mcg PO BID 08/10/23 08/10/23 History Ferrous Sulfate [Feosol] 325 mg PO DAILY 08/10/23 08/10/23 History Fluticasone/Vilanterol [Breo 1 puff INHALATION RT-DAILY 08/10/23 08/10/23 History Ellipta 200-25 Mcg Inhaler] Furosemide [Lasix] 40 mg PO DAILY 08/10/23 08/10/23 History Magnesium Oxide [Magox 400] 400 mg PO HS 08/10/23 08/10/23 History Metoprolol Tartrate [Lopressor] 25 mg PO BID 08/10/23 08/10/23 History Spironolactone [Aldactone] 25 mg PO DAILY 08/10/23 08/10/23 History dilTIAZem HCL [Cardizem CD] 240 mg PO DAILY 08/10/23 08/10/23 History Allergies Allergy/AdvReac Type Severity Reaction Status Date / Time Sulfa (Sulfonamide Allergy dizzy,lightheaded/hives Verified 08/10/23 17:20 Antibiotics) all over body Physical Exam Vitals: Vital Signs Temp Pulse Resp BP Pulse Ox 08/11/23 11:00 85 18 122/59 98 08/11/23 10:00 89 21 125/70 94 L 08/11/23 09:00 89 22 123/66 93 L 08/11/23 08:10 96 08/11/23 08:00 97.8 F 87 23 126/65 95 08/11/23 07:00 87 23 129/72 95 08/11/23 06:30 96 17 126/76 95 08/11/23 06:00 86 17 126/63 95 08/11/23 05:30 89 13 122/65 95 08/11/23 05:00 86 10 L 127/70 94 L 08/11/23 04:30 87 14 126/63 94 L 08/11/23 04:00 97.9 F 78 19 127/66 93 L 08/11/23 03:30 79 20 123/66 94 L 08/11/23 03:00 81 22 118/68 94 L 08/11/23 02:30 80 19 123/86 93 L 08/11/23 02:00 77 17 123/69 95 08/11/23 01:30 79 12 124/68 94 L 08/11/23 01:00 78 15 124/66 92 L 08/11/23 00:30 76 19 119/65 91 L 08/11/23 00:00 98.1 F 75 15 128/70 91 L 08/10/23 23:30 71 12 127/69 91 L 08/10/23 23:08 71 18 127/69 95 08/10/23 23:00 72 0 L 130/71 95 08/10/23 22:30 74 7 L 133/70 95 08/10/23 22:00 71 134/71 94 L 08/10/23 20:00 18 08/10/23 19:30 75 23 08/10/23 19:00 61 08/10/23 18:50 97.6 F 52 L 22 104/68 93 L 08/10/23 18:49 19 104/68 93 L 08/10/23 16:42 36 L 18 91/43 98 08/10/23 15:38 36 L 18 90/42 100 08/10/23 14:38 38 L 18 96/48 100 08/10/23 14:36 98.4 F 37 L 20 87/63 98 Intake and Output 08/10/23 08/11/23 08/11/23 22:59 06:59 14:59 Intake Total 87.706 525 495 Output Total 077 861 0431 Balance -212.294 -440 -015 Intake: IV 50 Intake, IV Titration 37.706 525 375 Amount DOPamine DRIP 800 mg In 37.706 Dextrose/Water 1 250ml. bag @ 5 MCG/KG/MIN 11.907 mls/hr IV .Q21H ONE Rx#: [id number] Dextrose 5% in Water 1, 525 375 000 ml @ 50 mls/hr IV . Q21H ANA ROSA with Sodium Bicarb (1 Meq/ml) 50 ml Rx#:[id number] Oral 120 Output: Urine 813 310 1909 Other: Voiding Method Indwelling Catheter Indwelling Catheter Weight 127.006 kg 134.1 kg Physical Exam: Revealed 68-year-old white male in no distress Head: Atraumatic, normocephalic. HEENT:[Neck is supple.] [No neck masses.] [No thyromegaly.] [No JVD.] Chest: [Clear throughout, no crackles, no rhonchi, no wheezes.] Cardiac Exam: [Normal S1 and S2, no S3 gallop, no murmur.] Abdomen: [Soft, nontender, no megaly, no rebound, no guarding, normal bowel sounds.] Extremities: [No clubbing, no edema, no cyanosis.] Neurological Exam: [No focal neurologic deficit.] Alert oriented 3 Psychiatric: Normal mood affect and normal mental status examination. Skin: No rashes. Results - Laboratory Findings CBC and BMP: 08/11/23 05:44 08/11/23 05:44 PT/INR, D-dimer PT 11.2 sec (10.0-12.5) 08/10/23 14:52 INR 1.0 (<1.2) 08/10/23 14:52 Abnormal lab findings: Abnormal Labs 08/10/23 08/10/23 08/10/23 14:52 14:52 18:14 WBC 11.8 H RBC 4.26 L Hgb Hct Neutrophils # 9.6 H Lymphocytes # VBG pH 7.30 L VBG HCO3 19 L Sodium 130 L Potassium 5.5 H Carbon Dioxide 16 L BUN 54 H Creatinine 3.06 H Glucose 142 H Alkaline Phosphatase 177 H 08/10/23 08/11/23 08/11/23 18:54 05:44 05:44 WBC RBC 3.90 L Hgb 12.6 L Hct 37.5 L Neutrophils # Lymphocytes # 0.9 L VBG pH VBG HCO3 Sodium 131 L 133 L Potassium 5.5 H Carbon Dioxide 12 L 20 L BUN 55 H 51 H Creatinine 3.16 H 2.65 H Glucose 125 H 106 H Alkaline Phosphatase 169 H - Diagnostic Findings Chest x-ray: image reviewed (Chest x-ray showed no evidence of active disease) Assessment and Plan Assessment: Impression: Acute symptomatic bradycardia Acute on chronic kidney injury, nonoliguric acute kidney injury, most likely secondary to ATN. History of paroxysmal atrial fibrillation and previous watchman device basement History of underlying COPD but presently no active Chronic bipedal edema Anion gap metabolic acidosis secondary to acute kidney injury presently on bicarb drip. Acute hyperkalemia secondary to acute kidney injury not to mention the patient was on lisinopril and Aldactone, also contributing to his hyperkalemia. Status post placement and removal of temporary pacemaker, done by Dr. Dalton. Recommendation: Continue to monitor in the ICU for now. Consider stopping sodium bicarb drip Continue to monitor hemodynamically and hold lisinopril and Aldactone for now. Continue to monitor renal profile and his metabolic acidosis Continue to hold Cardizem and metoprolol for now. Gentle diuresis, patient already received Lasix. GI and DVT prophylaxis. We will continue to follow. Time with Patient: Greater than 30
[2023-08-11 13:09] LABS: Appearance,Urine Cloudy (Clear); Bilirubin,Urine Negative (Negative); Blood,Urine Large (Negative); Color,Urine Light Yellow; Glucose,Urine (UA) 3+ (Negative); Ketones,Urine Negative (Negative); Leukocyte Esterase,Urine Large (Negative); Mucus,Urine Rare /hpf; Nitrite,Urine Negative (Negative); Protein,Urine 1+ (Negative); RBC,Urine >182 /hpf (0-5); Specific Gravity,Urine 1.011 (1.001-1.035); Squamous Epithelial Cell,Urine 1 /hpf (0-4); Urobilinogen,Urine <2.0 mg/dL (<2.0); WBC,Urine 23 /hpf (0-5)
--- NOTE | 2023-08-11 16:04 | CA ---
Transthoracic Echo Report Name: Moy Gallardo Age: 68 Gender: M : 1955 Exam Date: 08/11/2023 09:12 Exam Location: [facility] Ht (in): 72 Wt (lb): 295 Ordering Physician: Gianfranco Song MD ([id number]) Attending/Referring Phys: Healthcare Insurance Sales Agent Petra Ramirez RDCS Procedure CPT: Indications: braycardia Cardiac Hx: Technical Quality: Technically difficult study Contrast 1: Definity Total Dose (mL): 2 Contrast 2: Total Dose (mL): MEASUREMENTS (Male / Female) Normal Values 2D ECHO LV Diastolic Diameter PLAX 5.1 cm 4.2 - 5.9 / 3.9 - 5.3 cm LV Systolic Diameter PLAX 3.8 cm IVS Diastolic Thickness 0.8 cm 0.6 - 1.0 / 0.6 - 0.9 cm LVPW Diastolic Thickness 1.1 cm 0.6 - 1.0 / 0.6 - 0.9 cm LV Relative Wall Thickness 0.4 LA Volume 71.1 cm??? 18 - 58 / 22 - 52 cm??? LA Volume Index 26.7 cm???/m??? 16 - 28 cm???/m??? DOPPLER AV Peak Velocity 157.9 cm/s AV Peak Gradient 10.0 mmHg AV Mean Velocity 100.1 cm/s AV Mean Gradient 4.7 mmHg AV Velocity Time Integral 27.8 cm LVOT Peak Velocity 120.8 cm/s LVOT Peak Gradient 5.8 mmHg LVOT Velocity Time Integral 25.1 cm MV Peak Velocity 153.5 cm/s MV Peak Gradient 9.4 mmHg MV Mean Velocity 81.9 cm/s MV Mean Gradient 3.4 mmHg MV Velocity Time Integral 28.1 cm MV Area PHT 4.1 cm??? Mitral E Point Velocity 115.8 cm/s Mitral A Point Velocity 38.2 cm/s Mitral E to A Ratio 3.0 MV Deceleration Time 184.9 ms MV E' Velocity 5.3 cm/s Mitral E to MV E' Ratio 22.0 TR Peak Velocity 255.3 cm/s TR Peak Gradient 26.1 mmHg Right Ventricular Systolic Press 31.1 mmHg FINDINGS Left Ventricle Left ventricular wall thickness normal. Left ventricular cavity size normal. Mildly reduced global left ventricular systolic function. Left ventricular ejection fraction is estimated at 45-50 %. Abnormal septal motion. Right Ventricle Right ventricle not well visualized. Right ventricular systolic pressure within normal limits. Right Atrium Right atrium not well visualized. Left Atrium Moderately increased left atrial volume. Mildly increased left atrial area. Mitral Valve Structurally normal mitral valve. Moderate mitral annular calcification. Mild mitral regurgitation. Aortic Valve No aortic valve stenosis or regurgitation. Tricuspid Valve Structurally normal tricuspid valve. Mild tricuspid regurgitation. Pulmonic Valve Pulmonic valve not well visualized. Pericardium No pericardial effusion. Aorta Aortic root and proximal ascending aorta not well visualized. CONCLUSIONS Mildly impaired LV function. The EF is 45-50% Previewed by: Dr. Gianfranco Song MD (Electronically Signed) Final Date: 11 August 2023 16:02
--- NOTE | 2023-08-11 16:48 | P.PN ---
Subjective Progress Note Date: 08/11/23 (delayed charting seen at 1015) Patient is a 68-year-old male with a history of atrial fibrillation status post watchman device due to prior GI bleed, congestive heart failure, COPD, hyper tension who presented to the emergency department with sudden onset lightheadedness and dizziness. On arrival to the ER he was found to be significantly bradycardic with a pulse of 37 and a blood pressure of 87/63. Laboratory analysis included CBC, coags, CMP, troponin, and TSH which were remarkable for white blood cell count 11.8, sodium 130, potassium 5.5, carbon dioxide 18, BUN 54, creatinine 3.06. Chest x-ray reveals no acute process. Cardiology was contacted due to his symptomatic bradycardia and recommended a dopamine drip. On admission to the ICU he remains slightly bradycardic and hypotensive but dopamine had just been initiated. His AV mary blocking agents held. He did have transient loss of vision in his left eye weakness in his left leg which resolved. Cardiology was contacted and placed a temporary pacemaker. Patient seen and examined at bedside. He denies any chest pain or shortness of breath. No more loss of vision in his left eye weakness in his left leg. His dizziness has resolved. No syncopal episodes overnight. Nausea has resolved. Feeling much better. Vital signs reviewed General: nontoxic, no distress, appears at stated age Cardiovascular: S1S2 reg, no murmur, positive posterior tibial pulse bilateral, Lungs: CTA bilateral, no rhonchi, no rales , no accessory muscle use Abdominal: soft, nontender to palpation, no guarding, no appreciable o rganomegaly Ext: no gross muscle atrophy, trace edema b/l lower extremities, no contractures Neuro: CN II-XI grossly intact, no focal neuro deficits Psych: Alert, oriented, appropriate affect Assessment/Plan: Symptomatic Bradycardia s/p TVP- removed morning of 08/11 Left eye visual loss/ left leg weakness--due to hypoprefusion resolved with head CT witout acute process. SAMI on CKD- improving with improve cardiac output Anion gap metabolic acidosis, improving Paroxysmal A fib s/p watchman Nausea, resolved - D/W Dr. Dalton- temporary pacer removed this mornig, started back on Tykosin, conitnue to monitor HR - Await echo - D/C IVF - Repeat BMP in AM - Awaitnephrology - hold lisinopril, lasix, metoprolol, aldactone Hyperkaelmia, resolved Recent URI symptoms -Flu/RSV/COVID negative HX of GI Bleed Imaging: None new Data Review: Labs reviewed to include CBC, CMP, and repeat troponins which were remarkable for hemoglobin 12.6, sodium 133, carbon dioxide 20, BUN 51, creatinine 2.65. DVT prophylaxis: Lovenox Anticipated discharge date: in 24-[address]: home This dictation was prepared using [employer] voice recognition software. Though every attempt is made to correct errors during dictation some may still exist. Objective - Vital Signs Vital signs: Vital Signs Temp 98.7 F 08/11/23 16:00 Pulse 103 H 08/11/23 16:00 Resp 22 08/11/23 16:00 BP 114/71 08/11/23 16:00 Pulse Ox 98 08/11/23 16:00 FiO2 Intake & Output 08/10/23 08/11/23 08/11/23 18:59 06:59 18:59 Intake Total 612.706 735 Output Total 1070 3400 Balance -457.294 -2665 Weight 127.006 kg 134.1 kg Intake: IV 50 Intake, IV Titration 562.706 375 Amount DOPamine DRIP 800 mg In 37.706 Dextrose/Water 1 250ml. bag @ 5 MCG/KG/MIN 11.907 mls/hr IV .Q21H ONE Rx#: [id number] Dextrose 5% in Water 1, 525 375 000 ml @ 50 mls/hr IV . Q21H ANA ROSA with Sodium Bicarb (1 Meq/ml) 50 ml Rx#:[id number] Oral 360 Output: Urine 1070 3400 Other: Voiding Method Indwelling Catheter Indwelling Catheter - Labs CBC & Chem 7: 08/11/23 05:44 08/11/23 05:44 Labs: Abnormal Lab Results - Last 24 Hours (Table) 08/10/23 08/10/23 08/11/23 Range/Units 18:14 18:54 05:44 RBC 3.90 L (4.30-5.90) m/uL Hgb 12.6 L (13.0-17.5) gm/dL Hct 37.5 L (39.0-53.0) % Lymphocytes # 0.9 L (1.0-4.8) k/uL VBG pH 7.30 L (7.31-7.41) VBG HCO3 19 L (24-28) mmol/L Sodium 131 L (137-145) mmol/L Potassium 5.5 H (3.5-5.1) mmol/L Carbon Dioxide 12 L (22-30) mmol/L BUN 55 H (9-20) mg/dL Creatinine 3.16 H (0.66-1.25) mg/dL Glucose 125 H (74-99) mg/dL Alkaline Phosphatase (38-126) U/L Urine Protein (Negative) Urine Glucose (UA) (Negative) Urine Blood (Negative) Ur Leukocyte Esterase (Negative) Urine RBC (0-5) /hpf Urine WBC (0-5) /hpf Urine WBC Clumps (None) /hpf Urine Mucus (None) /hpf 08/11/23 08/11/23 Range/Units 05:44 13:00 RBC (4.30-5.90) m/uL Hgb (13.0-17.5) gm/dL Hct (39.0-53.0) % Lymphocytes # (1.0-4.8) k/uL VBG pH (7.31-7.41) VBG HCO3 (24-28) mmol/L Sodium 133 L (137-145) mmol/L Potassium (3.5-5.1) mmol/L Carbon Dioxide 20 L (22-30) mmol/L BUN 51 H (9-20) mg/dL Creatinine 2.65 H (0.66-1.25) mg/dL Glucose 106 H (74-99) mg/dL Alkaline Phosphatase 169 H (38-126) U/L Urine Protein 1+ H (Negative) Urine Glucose (UA) 3+ H (Negative) Urine Blood Large H (Negative) Ur Leukocyte Esterase Large H (Negative) Urine RBC >182 H (0-5) /hpf Urine WBC 23 H (0-5) /hpf Urine WBC Clumps Few H (None) /hpf Urine Mucus Rare H (None) /hpf
[2023-08-11 19:54] LABS: Urine Creatinine 58.1 mg/dL (39.0-259.0)
[2023-08-11] MEDS: METOPROLOL TARTRATE 25 MG TAB PO SCH (20:18)
[2023-08-11] MEDS: ACETAMINOPHEN TAB 325 MG TAB PO PRN (22:14)
[2023-08-12 06:18] LABS: HCT 41.9 % (39.0-53.0); HGB 13.4 gm/dL (13.0-17.5); MCHC 32.1 g/dL (31.0-37.0); MCV 96.6 fL (80.0-100.0); Mean Platelet Volume 8.4; Platelet Count 266 k/uL (150-450); RBC 4.33 m/uL (4.30-5.90); RDW 13.5 % (11.5-15.5); WBC 9.7 k/uL (3.8-10.6)
[2023-08-12] MEDS: DOFETILIDE 125 MCG CAP PO SCH (06:21)
[2023-08-12 06:31] LABS: African American GFR (CKD) 52 (>60 ml/min/1.73 sqM); Anion Gap 12 mmol/L; Blood Urea Nitrogen 37 mg/dL (9-20); Calcium 10.1 mg/dL (8.4-10.2); Carbon Dioxide 23 mmol/L (22-30); Chloride 103 mmol/L (98-107); Glucose 104 mg/dL (74-99); Non-African American GFR(CKD) 45 (>60 ml/min/1.73 sqM); Potassium 5.1 mmol/L (3.5-5.1); Sodium 138 mmol/L (137-145)
[2023-08-12] MEDS: FUROSEMIDE 10 MG/ML 4 ML VIAL IV SCH (08:38)
[2023-08-12] MEDS: ASPIRIN 81 MG PO SCH (08:39)
[2023-08-12] MEDS: ENOXAPARIN 30 MG/0.3 ML SYRINGE SQ SCH (08:39)
[2023-08-12] MEDS: METOPROLOL TARTRATE 25 MG TAB PO SCH (08:39)
[2023-08-12] MEDS: FERROUS SULFATE 325 MG TAB PO SCH (08:39)
[2023-08-12] MEDS ORDERED: METOPROLOL TARTRATE 25 MG TAB PO STA (08:55)
--- NOTE | 2023-08-12 08:57 | P.PN ---
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 The patient a presented to the emergency room complaining of dizziness and lightheadedness. He was found to be bradycardic with heart rate in the 40s. He was in sinus bradycardia. No symptoms of chest pain or chest discomfort and no presyncope or syncope. The EKG showed sinus bradycardia with heart rate in the 40s. No evidence of any AV block. The patient was receiving as an outpatient metoprolol and Cardizem and also he was on the I. All the above stopped. He does have history of chronic kidney disease and he was today in acute on chronic renal failure and also he was hyperkalemic. The patient subsequently was admitted to the intensive care unit after he was placed on dopamine was no significant improvement in the heart rate. He was feeling also nauseated. For that reason the patient was brought to the cardiac lab[facility] where a temporary pacemaker was placed from the right groin approach. He will be monitored in the intensive care unit. Currently he is not on any AV mary radhika agents and because of the nausea induced by dopamine I'm going to stop the dopamine at this point. We'll follow-up with the heart rate and follow-up with the patient. The examination is remarkable for regular rhythm with distant heart sounds and a systolic murmur as well as clear breathing sounds bilaterally. 08/11/2023 The patient was seen and evaluated this morning. He is feeling better. The bradycardia has improved significantly. He is off dopamine at this point. He is not using the temporary pacemaker. I'm going to pull the pacemaker out. Restart the patient back on dofetilide. Monitor the patient for additional 24 hours. Troponin is normal. TSH and free T4 are normal. The echo is ordered and will follow-up with that. I would advise continue monitoring the patient for additional 24 hours and follow-up with the patient. The examination is remarkable for regular rhythm with distant heart sounds and clear breathing sounds bilaterally 08/12/2023 The patient was seen and evaluated this morning. As a matter of fact now he is tachycardic in spite of being on metoprolol 25 mg by mouth twice a day. I'm going to increase it to 50 mg by mouth twice a day. The echo showed mildly impaired LV function with EF around 45%. From a cardiovascular standpoint of view, I would continue the current medical regimen. The patient potentially can be discharged home in the next 12-24 hours and follow-up with his tower crane operator. The examination is remarkable for regular rhythm with distant heart sounds and clear breathing sounds bilaterally. Please note that his kidney function has improved Assessment Symptomatic bradycardia Acute on chronic renal failure Hyperkalemia secondary to renal failure Paroxysmal atrial fibrillation History of atrial tachycardia History of watch mid device placement Multiple comorbid conditions Plan Increase the dose of metoprolol Continue the rest of the current medical regimen The patient can be discharged home in the next 12-24 hours Objective - Vital Signs Vital signs: Vital Signs Temp 99.4 F 08/12/23 08:00 Pulse 110 H 08/12/23 08:00 Resp 16 08/12/23 08:00 BP 143/82 08/12/23 08:00 Pulse Ox 96 08/12/23 08:00 FiO2 Intake & Output 08/11/23 08/12/23 08/12/23 18:59 06:59 18:59 Intake Total 855 300 Output Total 4050 700 350 Balance -3195 -400 -350 Weight 123.5 kg Intake: Intake, IV Titration 375 Amount Dextrose 5% in Water 1, 375 000 ml @ 50 mls/hr IV . Q21H ANA ROSA with Sodium Bicarb (1 Meq/ml) 50 ml Rx#:[id number] Oral 480 300 Output: Urine 4050 700 350 Other: Voiding Method Indwelling Catheter Urinal # Voids 1 - Labs CBC & Chem 7: 08/12/23 05:21 08/12/23 05:21 Labs: Abnormal Lab Results - Last 24 Hours (Table) 08/11/23 08/11/23 08/12/23 Range/Units 13:00 13:00 05:21 BUN 37 H (9-20) mg/dL Creatinine 1.54 H (0.66-1.25) mg/dL Glucose 104 H (74-99) mg/dL Urine Protein 1+ H (Negative) Urine Glucose (UA) 3+ H (Negative) Urine Blood Large H (Negative) Ur Leukocyte Esterase Large H (Negative) Urine RBC >182 H (0-5) /hpf Urine WBC 23 H (0-5) /hpf Urine WBC Clumps Few H (None) /hpf Urine Mucus Rare H (None) /hpf Ur Random Microalbumin 14.7 H (0.0-1.9) mg/dL Microalb/Creat Ratio 253 H (0-30) mg/g Cr
--- NOTE | 2023-08-12 09:10 | P.GSCN ---
History of Present Illness Consult date: 08/11/23 Reason for Consult: Hematuria Requesting physician: Kamar Tom History of present illness: The patient is a 68-year-old white male with a history of paroxysmal atrial fibrillation, status post watchman device. He presented to the ER with dizziness and lightheadedness. He was found to be bradycardic. He was admitted and is being managed in the ICU. A Soto catheter was placed. He has developed gross hematuria. I am consulted for this reason. The patient has an unremarkable urologic history. Specifically, he denies any prior history of UTIs or urolithiasis. He has no history of hematuria. Review of Systems - Genitourinary Reports as per HPI Past Medical History Past Medical History: Atrial Fibrillation, Cancer, Heart Failure, COPD, Hearing Disorder / Deafness, Hypertension Additional Past Medical History / Comment(s): Hx Prostate Cancer 3-4 yrs ago. Hard of hearing in left ear. kidney disease History of Any Multi-Drug Resistant Organisms: None Reported Past Surgical History: Cardiac Ablation, Orthopedic Surgery Additional Past Surgical History / Comment(s): Cardioversion X2, right shoulder surgery. colonoscopy 10/2021, watchman Past Anesthesia/Blood Transfusion Reactions: No Reported Reaction Smoking Status: Former smoker - Past Family History Mother Family Medical History: No Reported History family Family Medical History: Diabetes Mellitus Medications and Allergies Home Medications Medication Instructions Recorded Confirmed Type lisinopriL [Zestril] 10 mg PO DAILY 30 Days #30 tab 01/13/22 08/10/23 Rx Albuterol Sulfate [Albuterol 2 puff INHALATION RT-Q4H PRN 08/10/23 08/10/23 History Sulfate Hfa] Aspirin EC [Ecotrin Low Dose] 81 mg PO DAILY 08/10/23 08/10/23 History Dofetilide 125 mcg PO BID 08/10/23 08/10/23 History Ferrous Sulfate [Feosol] 325 mg PO DAILY 08/10/23 08/10/23 History Fluticasone/Vilanterol [Breo 1 puff INHALATION RT-DAILY 08/10/23 08/10/23 History Ellipta 200-25 Mcg Inhaler] Furosemide [Lasix] 40 mg PO DAILY 08/10/23 08/10/23 History Magnesium Oxide [Magox 400] 400 mg PO HS 08/10/23 08/10/23 History Metoprolol Tartrate [Lopressor] 25 mg PO BID 08/10/23 08/10/23 History Spironolactone [Aldactone] 25 mg PO DAILY 08/10/23 08/10/23 History dilTIAZem HCL [Cardizem CD] 240 mg PO DAILY 08/10/23 08/10/23 History Allergies Allergy/AdvReac Type Severity Reaction Status Date / Time Sulfa (Sulfonamide Allergy dizzy,lightheaded/hives Verified 08/10/23 17:20 Antibiotics) all over body Surgical - Exam Vital Signs Temp Pulse Resp BP Pulse Ox 98.4 F 37 L 20 87/63 98 08/10/23 14:36 08/10/23 14:36 08/10/23 14:36 08/10/23 14:36 08/10/23 14:36 - General well developed, well nourished, no distress - Respiratory normal respiratory effort - Abdomen Abdomen: soft, non tender, no guarding, no rigid, no rebound - Genitourinary normal penis with no external lesions, testicles non-tender - Psychiatric oriented to time, oriented to person, oriented to place, speech is normal, memory intact Results - Labs 08/12/23 05:21 08/12/23 05:21 Abnormal Lab Results - Last 24 Hours (Table) 08/10/23 08/10/23 08/11/23 Range/Units 18:14 18:54 05:44 RBC 3.90 L (4.30-5.90) m/uL Hgb 12.6 L (13.0-17.5) gm/dL Hct 37.5 L (39.0-53.0) % Lymphocytes # 0.9 L (1.0-4.8) k/uL VBG pH 7.30 L (7.31-7.41) VBG HCO3 19 L (24-28) mmol/L Sodium 131 L (137-145) mmol/L Potassium 5.5 H (3.5-5.1) mmol/L Carbon Dioxide 12 L (22-30) mmol/L BUN 55 H (9-20) mg/dL Creatinine 3.16 H (0.66-1.25) mg/dL Glucose 125 H (74-99) mg/dL Alkaline Phosphatase (38-126) U/L Urine Protein (Negative) Urine Glucose (UA) (Negative) Urine Blood (Negative) Ur Leukocyte Esterase (Negative) Urine RBC (0-5) /hpf Urine WBC (0-5) /hpf Urine WBC Clumps (None) /hpf Urine Mucus (None) /hpf 08/11/23 08/11/23 Range/Units 05:44 13:00 RBC (4.30-5.90) m/uL Hgb (13.0-17.5) gm/dL Hct (39.0-53.0) % Lymphocytes # (1.0-4.8) k/uL VBG pH (7.31-7.41) VBG HCO3 (24-28) mmol/L Sodium 133 L (137-145) mmol/L Potassium (3.5-5.1) mmol/L Carbon Dioxide 20 L (22-30) mmol/L BUN 51 H (9-20) mg/dL Creatinine 2.65 H (0.66-1.25) mg/dL Glucose 106 H (74-99) mg/dL Alkaline Phosphatase 169 H (38-126) U/L Urine Protein 1+ H (Negative) Urine Glucose (UA) 3+ H (Negative) Urine Blood Large H (Negative) Ur Leukocyte Esterase Large H (Negative) Urine RBC >182 H (0-5) /hpf Urine WBC 23 H (0-5) /hpf Urine WBC Clumps Few H (None) /hpf Urine Mucus Rare H (None) /hpf Diabetes panel 08/10/23 08/11/23 Range/Units 18:54 05:44 Sodium 131 L 133 L (137-145) mmol/L Potassium 5.5 H 4.7 (3.5-5.1) mmol/L Chloride 103 103 (98-107) mmol/L Carbon Dioxide 12 L 20 L (22-30) mmol/L BUN 55 H 51 H (9-20) mg/dL Creatinine 3.16 H 2.65 H (0.66-1.25) mg/dL Glucose 125 H 106 H (74-99) mg/dL Calcium 9.9 9.6 (8.4-10.2) mg/dL AST 22 (17-59) U/L ALT 22 (4-49) U/L Alkaline Phosphatase 169 H (38-126) U/L Total Protein 6.6 (6.3-8.2) g/dL Albumin 3.8 (3.5-5.0) g/dL Calcium panel 08/10/23 08/11/23 Range/Units 18:54 05:44 Calcium 9.9 9.6 (8.4-10.2) mg/dL Albumin 3.8 (3.5-5.0) g/dL Pituitary panel 08/10/23 08/11/23 Range/Units 18:54 05:44 Sodium 131 L 133 L (137-145) mmol/L Potassium 5.5 H 4.7 (3.5-5.1) mmol/L Chloride 103 103 (98-107) mmol/L Carbon Dioxide 12 L 20 L (22-30) mmol/L BUN 55 H 51 H (9-20) mg/dL Creatinine 3.16 H 2.65 H (0.66-1.25) mg/dL Glucose 125 H 106 H (74-99) mg/dL Calcium 9.9 9.6 (8.4-10.2) mg/dL Adrenal panel 08/10/23 08/11/23 Range/Units 18:54 05:44 Sodium 131 L 133 L (137-145) mmol/L Potassium 5.5 H 4.7 (3.5-5.1) mmol/L Chloride 103 103 (98-107) mmol/L Carbon Dioxide 12 L 20 L (22-30) mmol/L BUN 55 H 51 H (9-20) mg/dL Creatinine 3.16 H 2.65 H (0.66-1.25) mg/dL Glucose 125 H 106 H (74-99) mg/dL Calcium 9.9 9.6 (8.4-10.2) mg/dL Total Bilirubin 0.9 (0.2-1.3) mg/dL AST 22 (17-59) U/L ALT 22 (4-49) U/L Alkaline Phosphatase 169 H (38-126) U/L Total Protein 6.6 (6.3-8.2) g/dL Albumin 3.8 (3.5-5.0) g/dL Assessment and Plan (1) Gross hematuria Current Visit: Yes Status: Acute Code(s): R31.0 - GROSS HEMATURIA SNOMED Code(s): 533672203 Plan: At the time of my evaluation, the hematuria had resolved and the Soto catheter was draining clear yellow urine. The patient believes the catheter was pulled on when he moved, resulting in hematuria. Indeed, I attribute the hematuria to the Soto catheter and do not feel that any further evaluation is warranted unless he develops recurrent hematuria following catheter removal. Please notify me if I can be of any further assistance. Time with Patient: Less than 30
[2023-08-12] MEDS: ACETAMINOPHEN TAB 325 MG TAB PO PRN ×2 (09:20→14:31)
[2023-08-12] MEDS: ALBUTEROL HFA INHALER INHALATION PRN ×2 (09:38→13:11)
--- NOTE | 2023-08-12 12:13 | P.PN ---
Subjective Progress Note Date: 08/12/23 Principal diagnosis: Symptomatic bradycardia This is a 68-year-old white male with history of multiple medical problems including paroxysmal atrial fibrillation, benign essential hypertension, history of watchman device placement, chronic kidney disease being followed by nephmarta fowler, patient presented to the ER yesterday with recurrent episodes of lightheadedness and dizziness. Patient was noted to be bradycardic and his heart rate was in the 40s. And the patient has no symptoms to schedule chest pain. No syncopal episode. There was no evidence of AV block. Patient is normally maintained on Cardizem and metoprolol, and he is also on dofetilide. I was notified about this patient after cardiology was notified, and the recommendation by cardiology was to start the patient on dopamine, and admitted the patient to the ICU. Patient was seen by Dr. Dalton last night, and a temporary pacemaker was placed. However the patient's condition significantly improved overnight to the point that he went off dopamine, his cardiac medications are presently on hold, and the patient is now in sinus rhythm. His troponin was normal. His thyroid profile was also normal. Echocardiogram is pending, and noticing that the patient had worsening renal failure, nephrology consultation was initiated. During my evaluation, the patient was basically asymptomatic no further episodes of lightheadedness, no syncopal episodes, patient is doing great at present. As a matter of fact his temporary pacemaker was already removed by cardiology. The patient is back on dofetilide, remains off beta blockers and calcium channel blockers. Pulmonary-dozier the patient denies any cough wheezing or shortness of breath he does have history of COPD, remote smoking history, and he is mostly maintained on albuterol, and breo Was reevaluated today on 08/10, doing great, basically asymptomatic, patient is in sinus rhythm, hemodynamically stable, his metoprolol dose is being adjusted by cardiology is now at 50 mg twice a day not taking any Cardizem. Renal functioning is significantly better today compared to the last 2 days creatinine is down to 1.54. Overall the patient is doing great, and being considered for discharge as recommended by cardiology and he was cleared by cardiology to be discharged home. Objective - Vital Signs Vital signs: Vital Signs Temp 99.4 F 08/12/23 08:00 Pulse 89 08/12/23 11:00 Resp 10 L 08/12/23 11:00 BP 146/81 08/12/23 11:00 Pulse Ox 94 L 08/12/23 11:00 FiO2 Intake & Output 08/11/23 08/12/23 08/12/23 18:59 06:59 18:59 Intake Total 855 300 Output Total 4050 700 800 Balance -3195 -400 -800 Weight 123.5 kg Intake: Intake, IV Titration 375 Amount Dextrose 5% in Water 1, 375 000 ml @ 50 mls/hr IV . Q21H ANA ROSA with Sodium Bicarb (1 Meq/ml) 50 ml Rx#:[id number] Oral 480 300 Output: Urine 4050 700 800 Other: Voiding Method Indwelling Catheter Urinal Urinal # Voids 1 - Exam Physical Exam: Revealed 68-year-old white male in no distress Head: Atraumatic, normocephalic. HEENT:[Neck is supple.] [No neck masses.] [No thyromegaly.] [No JVD.] Chest: [Clear throughout, no crackles, no rhonchi, no wheezes.] Cardiac Exam: [Normal S1 and S2, no S3 gallop, no murmur.] Abdomen: [Soft, nontender, no megaly, no rebound, no guarding, normal bowel sounds.] Extremities: [No clubbing, no edema, no cyanosis.] Neurological Exam: [No focal neurologic deficit.] Alert oriented 3 Psychiatric: Normal mood affect and normal mental status examination. Skin: No rashes. - Labs CBC & Chem 7: 08/12/23 05:21 08/12/23 05:21 Labs: Abnormal Lab Results - Last 24 Hours (Table) 08/11/23 08/11/23 08/12/23 Range/Units 13:00 13:00 05:21 BUN 37 H (9-20) mg/dL Creatinine 1.54 H (0.66-1.25) mg/dL Glucose 104 H (74-99) mg/dL Urine Protein 1+ H (Negative) Urine Glucose (UA) 3+ H (Negative) Urine Blood Large H (Negative) Ur Leukocyte Esterase Large H (Negative) Urine RBC >182 H (0-5) /hpf Urine WBC 23 H (0-5) /hpf Urine WBC Clumps Few H (None) /hpf Urine Mucus Rare H (None) /hpf Ur Random Microalbumin 14.7 H (0.0-1.9) mg/dL Microalb/Creat Ratio 253 H (0-30) mg/g Cr Assessment and Plan Assessment: Impression: Acute symptomatic bradycardia, resolved Acute on chronic kidney injury, nonoliguric acute kidney injury, most likely secondary to ATN. Significantly improved today compared to the last couple of days History of paroxysmal atrial fibrillation and previous watchman device basement History of underlying COPD remains do not active Chronic bipedal edema improved with diuretics Anion gap metabolic acidosis, resolved Acute hyperkalemia secondary to acute kidney injury not to mention the patient was on lisinopril and Aldactone, also contributing to his hyperkalemia., Resolved Status post placement and removal of temporary pacemaker, done by Dr. Dalton. Recommendation: Agree with discharge planning if cleared by cardiology Continue his usual bronchodilators and discharged home today Gentle diuresis, as felt necessary by nephrology GI and DVT prophylaxis. Will follow as needed if the patient does not get discharged home by admitting physician Time with Patient: Less than 30
--- NOTE | 2023-08-12 12:46 | P.PN ---
Subjective Progress Note Date: 08/12/23 Follow-up for acute kidney injury. Doing better. Overnight hematuria from Soto, removed by urology Objective - Vital Signs Vital signs: Vital Signs Temp 99.4 F 08/12/23 08:00 Pulse 98 08/12/23 12:00 Resp 10 L 08/12/23 12:00 BP 124/88 08/12/23 12:00 Pulse Ox 94 L 08/12/23 12:00 FiO2 Intake & Output 08/11/23 08/12/23 08/12/23 18:59 06:59 18:59 Intake Total 855 300 Output Total 4050 700 800 Balance -3195 -400 -800 Weight 123.5 kg Intake: Intake, IV Titration 375 Amount Dextrose 5% in Water 1, 375 000 ml @ 50 mls/hr IV . Q21H ANA ROSA with Sodium Bicarb (1 Meq/ml) 50 ml Rx#:[id number] Oral 480 300 Output: Urine 4050 700 800 Other: Voiding Method Indwelling Catheter Urinal Urinal # Voids 1 - Exam No acute distress S1-S2 heard Lungs clear Abdomen soft Edema - Labs CBC & Chem 7: 08/12/23 05:21 08/12/23 05:21 Labs: Abnormal Lab Results - Last 24 Hours (Table) 08/11/23 08/11/23 08/12/23 Range/Units 13:00 13:00 05:21 BUN 37 H (9-20) mg/dL Creatinine 1.54 H (0.66-1.25) mg/dL Glucose 104 H (74-99) mg/dL Urine Protein 1+ H (Negative) Urine Glucose (UA) 3+ H (Negative) Urine Blood Large H (Negative) Ur Leukocyte Esterase Large H (Negative) Urine RBC >182 H (0-5) /hpf Urine WBC 23 H (0-5) /hpf Urine WBC Clumps Few H (None) /hpf Urine Mucus Rare H (None) /hpf Ur Random Microalbumin 14.7 H (0.0-1.9) mg/dL Microalb/Creat Ratio 253 H (0-30) mg/g Cr Assessment and Plan Assessment: #1 nonoliguric acute kidney injury secondary to hemodynamic ATN -Baseline creatinine around 2.0 MG per DL. #2 chronic kidney disease stage III. Suspected nephrosclerosis. #3 hypotension with bradycardia secondary to antihypertensive agents and AV mary blockers. #4 atrial fibrillation #5 lower extremity edema #6 anion gap metabolic acidosis secondary to acute kidney injury #7 hyperkalemia secondary to acute kidney injury/lisinopril/Aldactone. Plan: #1 hemodynamically stable. Agree with holding lisinopril and Aldactone for now and at discharge. #2 continue with Lasix 40 mg by mouth daily as his home medication. #3 creatinine improving. #4 stable from nephrology for discharge to be followed up in office.
--- NOTE | 2023-08-12 13:51 | P.DS ---
Providers Date of admission: 08/10/23 17:40 Expected date of discharge: 08/12/23 Attending physician: Shereen Titus DO Consults: 08/10/23 17:40 Consult Physician Stat Consulting Provider: Gianfranco Song Consult Reason/Comments: Sinus bradycardia, borderline hypotension Do you want consulting provider notified?: Already Contacted Consult Physician Urgent Consulting Provider: Jorge L Hayes Consult Reason/Comments: Sinus bradycardia, borderline hypotension, acute renal insufficiency Do you want consulting provider notified?: Already Contacted 08/10/23 19:26 Consult Physician Routine Consulting Provider: Choco Noyola Consult Reason/Comments: SAMI on CKD Do you want consulting provider notified?: Yes 08/11/23 15:44 Consult Physician Routine Consulting Provider: Agustín Toribio Consult Reason/Comments: hematuria Do you want consulting provider notified?: Already Contacted Primary care physician: [facility] Course: This is a 68-year-old gentleman with a medical history significant for atrial fibrillation status post watchman device due to prior GI bleeds, CHF, COPD, CAD and hypertension who presented with symptomatically bradycardia. He was initially on a dopamine drip and his AV mary blockers were held. TVP was also done. His bradycardia resolved and he became tachycardic therefore cardiology resumed metoprolol. On evaluation today, he is back to baseline. No chest pain. No shortness of breath at rest. He chronically has shortness of breath with ambulation due to COPD. Heart rate is controlled in the 90s. On reevaluation later on the day, he is still asymptomatic. He has been cleared for discharge by cardiology and other consulting services. He is asked to continue holding his Aldactone and Cardizem. He is advised follow-up with cardiology, his PCP and nephrology outpatient. All questions were answered. Advised to return with any new or worsening symptoms. Discharge diagnoses 1. Symptomatically bradycardia status post TVP, likely secondary to combination of AV node blockers, resolved 2. Acute kidney injury on CKD, prerenal, improved 3. Paroxysmal A. fib status post watchman device 4. Hematuria likely secondary to traumatic Soto, resolved 5. Hyperkalemia, resolved Discharge coordination time greater than 30 minutes Patient Condition at Discharge: Stable Plan - Discharge Summary Discharge Rx Participant: No New Discharge Prescriptions: Continue Dofetilide 125 mcg PO BID Ferrous Sulfate [Iron (65 MG Elemental)] 325 mg PO DAILY Furosemide [Lasix] 40 mg PO DAILY Magnesium Oxide [Magox 400] 400 mg PO HS Fluticasone/Vilanterol [Breo Ellipta 200-25 Mcg Inhaler] 1 puff INHALATION RT-DAILY Aspirin EC [Ecotrin Low Dose] 81 mg PO DAILY Albuterol Sulfate [Albuterol Sulfate Hfa] 2 puff INHALATION RT-Q4H PRN PRN Reason: Shortness Of Breath Changed Metoprolol Tartrate [Lopressor] 50 mg PO BID #60 tab Discontinued lisinopriL [Zestril] 10 mg PO DAILY 30 Days #30 tab dilTIAZem HCL [Cardizem CD] 240 mg PO DAILY Spironolactone [Aldactone] 25 mg PO DAILY Discharge Medication List Albuterol Sulfate [Albuterol Sulfate Hfa] 2 puff INHALATION RT-Q4H PRN 08/10/23 [History] Aspirin EC [Ecotrin Low Dose] 81 mg PO DAILY 08/10/23 [History] Dofetilide 125 mcg PO BID 08/10/23 [History] Ferrous Sulfate [Iron (65 MG Elemental)] 325 mg PO DAILY 08/10/23 [History] Fluticasone/Vilanterol [Breo Ellipta 200-25 Mcg Inhaler] 1 puff INHALATION RT- DAILY 08/10/23 [History] Furosemide [Lasix] 40 mg PO DAILY 08/10/23 [History] Magnesium Oxide [Magox 400] 400 mg PO HS 08/10/23 [History] Metoprolol Tartrate [Lopressor] 50 mg PO BID #60 tab 08/12/23 [Rx] Follow up Appointment(s)/Referral(s): Gianfranco Song MD [STAFF PHYSICIAN] - 1 Week Fitz Barton MD [Primary Care Provider] - 1-2 days Choco Noyola DO [STAFF PHYSICIAN] - 2 Weeks (Patient states he has an appt scheduled in early august.) Ambulatory/Diagnostic Orders: Basic Metabolic Panel [LAB.AMB] Time Frame: 3 Days, Location: None Selected Activity/Diet/Wound Care/Special Instructions: Please discontinue your home Cardizem and spironolactone Please take metoprolol 50 mg twice a day, new prescription was sent to her pharmacy Please follow-up with the section weaver, your primary care provider, the hand spinner and urologist outpatient Please return with any new or worsening symptoms If you develop any blood in her urine please ask your primary care provider to refer him to urologist Please have repeat labs outpatient to monitor your kidney function before following up with her hand spinner. Please hold your lisinopril on discharge.
[2023-08-12 14:33] VITALS: BP 142/88; PULSE 91; RESP 16; TEMP 99.6
[2023-08-12] MEDS ORDERED: METOPROLOL TARTRATE 50 MG TAB PO SCH (21:00)
--- NOTE | 2023-08-14 21:39 | CDI ---
Documentation Clarification Form Date: 08/14/2023 09:23:18 PM From: Georgina Gomez Phone: Admit Date: 08/10/2023 05:40:00 PM Patient Name: Moy Gallardo Visit Number: [id number] Discharge Date: 08/12/2023 03:45:00 PM ATTENTION: The Clinical Documentation Specialists (CDI) and [facility] Coding Staff appreciate your assistance in clarifying documentation. Please respond to the clarification below the line at the bottom and electronically sign. The CDI & [facility] Coding staff will review the response and follow-up if needed. Please note: Queries are made part of the Legal Health Record. If you have any questions, please contact the author of this message via ITS. Dr. Shereen Titus Your patient has the documented diagnosis of unspecified CHF per Medical History Notes. Additional information regarding the type and acuity of CHF is requested. History/Risk Factors: 68yo M, Symptomaticallybradycardia, hypotension d/t Rx, ATN on CKD3, PAF, LE edema, metabolic acidosis, hyperkalemia Clinical Indicators: VS/Pulse OX: 93-100 Echocardiogram Results: MildlyimpairedLV function. The EF is 45-50% Chest x ray: The heart is stable. Treatment: Lasix 40 mg IV push once today Lasix 40 mg by mouth daily as his home medication In your professional opinion, can you please clarify the type and acuity of CHF if known? [ ] Acute Systolic Heart Failure (reduced EF) [ ] Chronic Systolic Heart Failure (reduced EF) [ ] Acute on Chronic Systolic Heart Failure (reduced EF) [ ] Acute Diastolic Heart Failure (preserved EF) [ ] Chronic Diastolic Heart Failure (preserved EF) [ ] Acute on Chronic Diastolic Heart Failure (preserved EF) [ ] Acute Systolic & Diastolic Heart Failure [ ] Chronic Systolic & Diastolic Heart Failure [ ] Acute on Chronic Heart Failure Systolic & Diastolic Heart Failure [ X] Other, please specify [ ] Unable to determine (Template Last Revised: October 2020) Systolic cardiomyopathy MTDD
== END 2023-08-12 15:45 | disposition home or self-care (01) | DRG 260 ==
LOC: EC 14:33 → 2SICU 17:40
PROVIDERS: ADMIT Internal Medicine; ATTEND Internal Medicine
PROC: 3E033XZ Introduction of Vasopressor into Peripheral Vein, Percutaneous Approach (ICD-10-PCS; 2023-08-10)
PROC: 5A1223Z Performance of Cardiac Pacing, Continuous (ICD-10-PCS; 2023-08-10)
PROC: 02PA3MZ Removal of Cardiac Lead from Heart, Percutaneous Approach (ICD-10-PCS; principal; 2023-08-11)
DX: I95.2 Hypotension due to drugs (principal); N17.0 Acute kidney failure with tubular necrosis; E87.20 Acidosis, unspecified; I47.19 Other supraventricular tachycardia; H53.122 Transient visual loss, left eye; I42.8 Other cardiomyopathies; T46.5X5A Adverse effect of other antihypertensive drugs, initial encounter; R00.1 Bradycardia, unspecified; I13.10 Hypertensive heart and chronic kidney disease without heart failure, with stage 1 through stage 4 chronic kidney disease, or unspecified chronic kidney disease; N18.32 Chronic kidney disease, stage 3b; J44.9 Chronic obstructive pulmonary disease, unspecified; F10.10 Alcohol abuse, uncomplicated; I48.0 Paroxysmal atrial fibrillation; T44.7X5A Adverse effect of beta-adrenoreceptor antagonists, initial encounter; H91.92 Unspecified hearing loss, left ear; E78.5 Hyperlipidemia, unspecified; K62.7 Radiation proctitis; N14.19 Nephropathy induced by other drugs, medicaments and biological substances; T50.0X5A Adverse effect of mineralocorticoids and their antagonists, initial encounter; R01.1 Cardiac murmur, unspecified; E87.5 Hyperkalemia; Y84.6 Urinary catheterization as the cause of abnormal reaction of the patient, or of later complication, without mention of misadventure at the time of the procedure; Y73.1 Therapeutic (nonsurgical) and rehabilitative gastroenterology and urology devices associated with adverse incidents; R31.0 Gross hematuria; Y84.2 Radiological procedure and radiotherapy as the cause of abnormal reaction of the patient, or of later complication, without mention of misadventure at the time of the procedure; Z95.818 Presence of other cardiac implants and grafts; Z87.891 Personal history of nicotine dependence; Z92.3 Personal history of irradiation; Z79.82 Long term (current) use of aspirin; Z79.51 Long term (current) use of inhaled steroids; Z88.2 Allergy status to sulfonamides; Z79.899 Other long term (current) drug therapy; Z87.19 Personal history of other diseases of the digestive system; Z85.46 Personal history of malignant neoplasm of prostate
CPT/HCPCS: 33210; 36415; 70450; 71045; 80048; 80053; 81001; 82043; 82570; 82803; 83605; 83735; 84439; 84443; 84484; 85025; 85027; 85610; 85730; 87636; 93005; 93306; 94640; 94660; 96361; 96365; 96375; 99291; 99292

== ENCOUNTER 2023-10-09 14:48 | Observation (INO) | payer MEDICARE ==
[2023-10-09 16:23] LABS: Basophils # (A) 0.1 k/uL (0-0.2); Basophils % (A) 1 %; Eosinophils # (A) 0.2 k/uL (0-0.7); Eosinophils % (A) 2 %; HCT 42.5 % (39.0-53.0); HGB 13.9 gm/dL (13.0-17.5); Lymphocytes # (A) 1.3 k/uL (1.0-4.8); Lymphocytes % (A) 14 %; MCH 33.1 pg (25.0-35.0); MCHC 32.8 g/dL (31.0-37.0); MCV 100.8 fL (80.0-100.0); Macrocytosis Slight; Mean Platelet Volume 9.2; Monocytes # (A) 0.7 k/uL (0-1.0); Monocytes % (A) 7 %; Neutrophils # (A) 6.7 k/uL (1.3-7.7); Neutrophils % (A) 73 %; Platelet Count 259 k/uL (150-450); RBC 4.21 m/uL (4.30-5.90); RDW 14.3 % (11.5-15.5); WBC 9.3 k/uL (3.8-10.6)
[2023-10-09 16:39] LABS: ALT 19 U/L (4-49); AST 34 U/L (17-59); African American GFR (CKD) 71 (>60 ml/min/1.73 sqM); Albumin 4.3 g/dL (3.5-5.0); Alkaline Phosphatase 163 U/L (38-126); Anion Gap 8 mmol/L; Blood Urea Nitrogen 23 mg/dL (9-20); Carbon Dioxide 28 mmol/L (22-30); Chloride 103 mmol/L (98-107); Glucose 106 mg/dL (74-99); Magnesium 1.8 mg/dL (1.6-2.3); Non-African American GFR(CKD) 62 (>60 ml/min/1.73 sqM); Sodium 139 mmol/L (137-145); Total Protein 7.6 g/dL (6.3-8.2)
[2023-10-09 16:46] LABS: Prothrombin Time 11.1 sec (10.0-12.5)
[2023-10-09 16:47] LABS: NT-Pro-B-Type Natriuretic Pept 1130 pg/mL; Potassium 4.9 mmol/L (3.5-5.1)
--- NOTE | 2023-10-09 16:47 | XR ---
EXAMINATION TYPE: XR chest 2V DATE OF EXAM: 10/09/2023 4:21 PM CLINICAL INDICATION:Male, 68 years old with history of dysrhythmia; PHH COMPARISON: Chest radiographs from 08/10/2023 TECHNIQUE: XR chest 2V Frontal and lateral views of the chest. FINDINGS: Lungs/Pleura: Prominent interstitial lung markings are seen scattered throughout the lungs. No eviden ce of focal consolidation, pneumothorax or pleural effusion. Pulmonary vascularity: Unremarkable. Heart/mediastinum: Cardiomediastinal silhouette is unremarkable. Musculoskeletal: No acute osseous pathology. Other findings: None Lines/Tubes: IMPRESSION: Chronic changes without acute pulmonary process. No significant change from prior.
[2023-10-09] MEDS ORDERED: METOPROLOL TARTRATE 50 MG TAB PO STA (17:36)
[2023-10-09 18:03] LABS: Appearance,Urine Clear (Clear); Bilirubin,Urine Negative (Negative); Blood,Urine Negative (Negative); Color,Urine Yellow; Glucose,Urine (UA) Negative (Negative); Ketones,Urine Negative (Negative); Leukocyte Esterase,Urine Negative (Negative); Nitrite,Urine Negative (Negative); PH, Urine 5.5 (5.0-8.0); Protein,Urine Negative (Negative); Specific Gravity,Urine 1.018 (1.001-1.035); Urobilinogen,Urine <2.0 mg/dL (<2.0)
[2023-10-09] MEDS ORDERED: METOPROLOL TARTRATE 25 MG TAB PO STA (18:42)
[2023-10-09] MEDS ORDERED: FUROSEMIDE 10 MG/ML 4 ML VIAL IV STA (18:43)
[2023-10-09] MEDS ORDERED: NALOXONE 0.4 MG/ML 1 ML VIAL IV PRN (19:05)
[2023-10-09] MEDS ORDERED: ALBUTEROL NEBULIZED 2.5 MG/3 ML INHALATION PRN (19:09)
[2023-10-09] MEDS ORDERED: IPRATROPIUM-ALBUTEROL 3 ML NEB INHALATION PRN (19:09)
--- NOTE | 2023-10-09 19:20 | ED ---
General Adult HPI - General Chief complaint: Arrhythmia/Palpitations Stated complaint: Increased Heart Rate Time Seen by Provider: 10/09/23 15:42 Source: patient, RN notes reviewed, old records reviewed Mode of arrival: ambulatory Limitations: no limitations - History of Present Illness Initial comments: Patient is a 68-year-old male who presents with Department complaining of his A. fib acting out. Noticed his heart rate was fast at home. Has a history of atrial fibrillation. Is on tikosyn as well as metoprolol which has obtained good rate control. However back in July around he was admitted for bradycardia due to these medications being too high and medications were adjusted at that time. He is not on blood thinners as he does have a history of a watchman device. Denies any worsening orthopnea, exertional dyspnea as well as he is in sinus rhythm. States he can feel when his heart rate increases and that's when he feels short of breath, only when the A. fib is kicking in. Denies any chest pain. Denies any abdominal pain, nausea, vomiting. Denies any fevers, chills, cough. Has been compliant with medications. Denies any significant worsening lower extremity edema. Presents for further evaluation at this time.At rest, patient has no symptoms. Currently has no symptoms. He is not in A. fib. - Related Data Home Medications Medication Instructions Recorded Confirmed Albuterol Sulfate [Albuterol 2 puff INHALATION RT-Q4H PRN 08/10/23 10/09/23 Sulfate Hfa] Aspirin EC [Ecotrin Low Dose] 81 mg PO DAILY 08/10/23 10/09/23 Dofetilide 125 mcg PO BID 08/10/23 10/09/23 Fluticasone/Vilanterol [Breo 1 puff INHALATION RT-DAILY 08/10/23 10/09/23 Ellipta 200-25 Mcg Inhaler] Furosemide [Lasix] 40 mg PO DAILY 08/10/23 10/09/23 Magnesium Oxide [Magox 400] 400 mg PO HS 08/10/23 10/09/23 Ipratropium-Albuterol Nebulize 3 ml INHALATION RT-TID PRN 10/09/23 10/09/23 [Duoneb 0.5 mg-3 mg/3 ml Soln] Vitamin D3(Unknown Dose) 1 tab PO DAILY 10/09/23 10/09/23 Previous Rx's Medication Instructions Recorded Metoprolol Tartrate [Lopressor] 50 mg PO BID #60 tab 08/12/23 Allergies Allergy/AdvReac Type Severity Reaction Status Date / Time Sulfa (Sulfonamide Allergy dizzy,lightheaded/hives Verified 10/09/23 16:19 Antibiotics) all over body Review of Systems ROS Statement: Those systems with pertinent positive or pertinent negative responses have been documented in the HPI. Review of Systems: CONST: Denies fever EYES: Denies blurry vision ENT: Denies nasal congestion C/V: Denies Chest pain RESP: Denies shortness of breath GI: Denies abdominal pain : Denies dysuria SKIN: Denies rash. MSK: Denies joint pain. NEURO: Denies headache ROS Other: All systems not noted in ROS Statement are negative. Past Medical History Past Medical History: Atrial Fibrillation, Cancer, Heart Failure, COPD, Hearing Disorder / Deafness, Hypertension Additional Past Medical History / Comment(s): Hx Prostate Cancer 3-4 yrs ago. Hard of hearing in left ear. kidney disease History of Any Multi-Drug Resistant Organisms: None Reported Past Surgical History: Cardiac Ablation, Orthopedic Surgery Additional Past Surgical History / Comment(s): Cardioversion X2, right shoulder surgery. colonoscopy 10/2021, watchman Past Anesthesia/Blood Transfusion Reactions: No Reported Reaction Past Psychological History: No Psychological Hx Reported Smoking Status: Former smoker - Past Family History Mother Family Medical History: No Reported History family Family Medical History: Diabetes Mellitus General Exam - General Exam Comments Initial Comments: General: Appears in no acute distress. HEAD: Normal with no signs of head trauma. EYES: PERRLA, EOMI, conjunctiva normal, no discharge. ENT: Hearing grossly intact, normal oropharynx. RESPIRATORY: Clear breath sounds bilaterally. No wheezes, rales, or rhonchi. C/V: Currently normal sinus rhythm.. S1 and S2 auscultated, symmetrical pitting edema, peripheral pulses 2+ and intact throughout ABD: Abd is soft, nontender, nondistended EXT: Normal range of motion, no obvious deformity SKIN: No rashes or lesions observed on exposed skin. NEURO: Alert and oriented x 4. Limitations: no limitations Course Vital Signs 10/09/23 10/09/23 10/09/23 15:16 17:48 18:58 Temperature 97.9 F Pulse Rate 165 H 84 84 Respiratory 18 18 16 Rate Blood Pressure 133/89 140/80 156/90 O2 Sat by Pulse 94 L 95 94 L Oximetry Medical Decision Making - Medical Decision Making Was pt. sent in by a medical professional or institution (, [facility], [facility] [employer], urgent care, hospital, or assisted...) When possible be specific @ -No Did you speak to anyone other than the patient for history (EMS, parent, family, police, friend...)? What history was obtained from this source @ -Spoke with patient's who helped the patient's past medical history. Did you review nursing and triage notes (agree or disagree)? Why? @ -I reviewed and agree with nursing and triage notes Were old charts reviewed (outside hosp., previous admission, EMS record, old EKG, old radiological studies, urgent care reports/EKG's, assisted records)? Report findings @ -Old charts reviewed Differential Diagnosis (chest pain, altered mental status, abdominal pain women, abdominal pain men, vaginal bleeding, weakness, fever, dyspnea, syncope, headache, dizziness, GI bleed, back pain, seizure, CVA, palpatations, mental health, musculoskeletal)? @ -Differential Palpitations Ventricular arrhythmias, atrial arrhythmias, myocardial infarction, anemia, thyrotoxicosis, electrolyte imbalance, hypokalemia, pulmonary embolism, pulmonary disease, drugs, alcohol, anxiety, stress.... This is not meant to be an all-inclusive list. EKG interpreted by me (3pts min.). @ -As above X-rays interpreted by me (1pt min.). @ -Chest x-ray reveals no obvious acute cardio pulmonary process. CT interpreted by me (1pt min.). @ -None done U/S interpreted by me (1pt. min.). @ -None done What testing was considered but not performed or refused? (CT, X-rays, U/S, labs)? Why? @ -None What meds were considered but not given or refused? Why? @ -None Did you discuss the management of the patient with other professionals (professionals i.e. [facility] Cavanaugh, [facility] [employer], lab, RT, psych nurse, social work coordinator, turkey pinner, teacher, complaint investigations officer, community case manager)? Give summary @ -Discussed with the admitting physician Dr. Javed who accepted the patient. Was smoking cessation discussed for >3mins.? @ -No Was critical care preformed (if so, how long)? @ -No Were there social determinants of health that impacted care today? How? (Homelessness, low income, unemployed, alcoholism, drug addiction, transportation, low edu. Level, literacy, decrease access to med. care, [facility], rehab)? @ -No Was there de-escalation of care discussed even if they declined (Discuss DNR or withdrawal of care, Hospice)? DNR status @ -No What co-morbidities impacted this encounter? (DM, HTN, Smoking, COPD, CAD, Cancer, CVA, ARF, Chemo, Hep., AIDS, mental health diagnosis, sleep apnea, morbid obesity)? @ -Atrial fibrillation Was patient admitted / discharged? Hospital course, mention meds given and route, prescriptions, significant lab abnormalities, going to OR and other pertinent info. @ -Patient presents with episodes of atrial fibrillation on exertion. States that when he goes into A. fib, he feels palpitations and becomes mildly short of breath. At rest symptoms resolved, A. fib resolves. This is not a regular occurrence for him. Began today. Presents for further evaluation at this time. Denies any other symptoms. Denies chest pain. Presents for further evaluation. Vital signs within acceptable limits. I evaluated the patient when she was placed in room 2. EKG shows normal sinus rhythm. No signs of acute ischemia. Patient's laboratory studies are all within acceptable limits except for mildly elevated BNP of 1100. Chest x-ray unremarkable. No obvious pulmonary vessel congestion. When patient got up to use the restroom, he did go back into atrial fibrillation. It is nearly time for metoprolol this time. Patient will be given his regular evening dose and we will observe to see if he goes back in atrial fibrillation again. He was in agreement this plan. I ambulated the patient approximate 40 minutes after he received metoprolol. He was good for a length of the emergency department in normal sinus rhythm but on the way back to his room back and atrial fibrillation with RVR. Lasted approximately 5 minutes. Terminated on its own to normal sinus rhythm. I did discuss with the patient, and him and his are concerned that they will come back and if he goes back and atrial fibrillation at home. I believe this is reasonable. As they were making some medication adjustments recently I did recommend we administered an additional dose of 25 mg Lopressor and admit for cardiology evaluation. He will also be given a small dose of IV Lasix. Patient agreement this plan. Patient currently in normal sinus rhythm. Unable to quickly obtain an EKG for A. fib with RVR however he is in A. fib with RVR on the monitor after activity.. I spoke with the admitting physician, Dr. Javed who accepted the patient. Cardiology consulted. Restarted home medications including Tikosyn and metoprolol. Undiagnosed new problem with uncertain prognosis? @ -No Drug Therapy requiring intensive monitoring for toxicity (Heparin, Nitro, Insulin, Cardizem)? @ -No Were any procedures done? @ -No Diagnosis/symptom? @ -Paroxysmal atrial fibrillation with RVR on exertion Acute, or Chronic, or Acute on Chronic? @ -Acute Uncomplicated (without systemic symptoms) or Complicated (systemic symptoms)? @ -Complicated Side effects of treatment? @ -No Exacerbation, Progression, or Severe Exacerbation? @ -No Poses a threat to life or bodily function? How? (Chest pain, USA, LA, pneumonia, PE, COPD, DKA, ARF, appy, cholecystitis, CVA, Diverticulitis, Homicidal, Suicidal, threat to staff... and all critical care pts) @ -yes - Lab Data Result diagrams: 10/09/23 15:56 10/09/23 15:56 Lab Results 10/09/23 10/09/23 10/09/23 Range/Units 15:56 15:56 15:56 WBC 9.3 (3.8-10.6) k/uL RBC 4.21 L (4.30-5.90) m/uL Hgb 13.9 (13.0-17.5) gm/dL Hct 42.5 (39.0-53.0) % MCV 100.8 H (80.0-100.0) fL MCH 33.1 (25.0-35.0) pg MCHC 32.8 (31.0-37.0) g/dL RDW 14.3 (11.5-15.5) % Plt Count 259 (150-450) k/uL MPV 9.2 Neutrophils % 73 % Lymphocytes % 14 % Monocytes % 7 % Eosinophils % 2 % Basophils % 1 % Neutrophils # 6.7 (1.3-7.7) k/uL Lymphocytes # 1.3 (1.0-4.8) k/uL Monocytes # 0.7 (0-1.0) k/uL Eosinophils # 0.2 (0-0.7) k/uL Basophils # 0.1 (0-0.2) k/uL Macrocytosis Slight PT 11.1 (10.0-12.5) sec INR 1.0 (<1.2) APTT 25.0 (22.0-30.0) sec Sodium 139 (137-145) mmol/L Potassium 4.9 (3.5-5.1) mmol/L Chloride 103 (98-107) mmol/L Carbon Dioxide 28 (22-30) mmol/L Anion Gap 8 mmol/L BUN 23 H (9-20) mg/dL Creatinine 1.19 (0.66-1.25) mg/dL Est GFR (CKD-EPI)AfAm 71 (>60 ml/min/1.73 sqM) Est GFR (CKD-EPI)NonAf 62 (>60 ml/min/1.73 sqM) Glucose 106 H (74-99) mg/dL Calcium 10.0 (8.4-10.2) mg/dL Magnesium 1.8 (1.6-2.3) mg/dL Total Bilirubin 1.0 (0.2-1.3) mg/dL AST 34 (17-59) U/L ALT 19 (4-49) U/L Alkaline Phosphatase 163 H (38-126) U/L Troponin I (0.000-0.034) ng/mL NT-Pro-B Natriuret Pep 1130 pg/mL Total Protein 7.6 (6.3-8.2) g/dL Albumin 4.3 (3.5-5.0) g/dL TSH 1.160 (0.465-4.680) mIU/L Urine Color Urine Appearance (Clear) Urine pH (5.0-8.0) Ur Specific Nixon (1.001-1.035) Urine Protein (Negative) Urine Glucose (UA) (Negative) Urine Ketones (Negative) Urine Blood (Negative) Urine Nitrite (Negative) Urine Bilirubin (Negative) Urine Urobilinogen (<2.0) mg/dL Ur Leukocyte Esterase (Negative) Influenza Type A (PCR) (Not Detectd) Influenza Type B (PCR) (Not Detectd) RSV (PCR) (Not Detectd) SARS-CoV-2 (PCR) (Not Detectd) 10/09/23 10/09/23 10/09/23 Range/Units 15:56 15:56 17:30 WBC (3.8-10.6) k/uL RBC (4.30-5.90) m/uL Hgb (13.0-17.5) gm/dL Hct (39.0-53.0) % MCV (80.0-100.0) fL MCH (25.0-35.0) pg MCHC (31.0-37.0) g/dL RDW (11.5-15.5) % Plt Count (150-450) k/uL MPV Neutrophils % % Lymphocytes % % Monocytes % % Eosinophils % % Basophils % % Neutrophils # (1.3-7.7) k/uL Lymphocytes # (1.0-4.8) k/uL Monocytes # (0-1.0) k/uL Eosinophils # (0-0.7) k/uL Basophils # (0-0.2) k/uL Macrocytosis PT (10.0-12.5) sec INR (<1.2) APTT (22.0-30.0) sec Sodium (137-145) mmol/L Potassium (3.5-5.1) mmol/L Chloride (98-107) mmol/L Carbon Dioxide (22-30) mmol/L Anion Gap mmol/L BUN (9-20) mg/dL Creatinine (0.66-1.25) mg/dL Est GFR (CKD-EPI)AfAm (>60 ml/min/1.73 sqM) Est GFR (CKD-EPI)NonAf (>60 ml/min/1.73 sqM) Glucose (74-99) mg/dL Calcium (8.4-10.2) mg/dL Magnesium (1.6-2.3) mg/dL Total Bilirubin (0.2-1.3) mg/dL AST (17-59) U/L ALT (4-49) U/L Alkaline Phosphatase (38-126) U/L Troponin I <0.012 (0.000-0.034) ng/mL NT-Pro-B Natriuret Pep pg/mL Total Protein (6.3-8.2) g/dL Albumin (3.5-5.0) g/dL TSH (0.465-4.680) mIU/L Urine Color Yellow Urine Appearance Clear (Clear) Urine pH 5.5 (5.0-8.0) Ur Specific Nixon 1.018 (1.001-1.035) Urine Protein Negative (Negative) Urine Glucose (UA) Negative (Negative) Urine Ketones Negative (Negative) Urine Blood Negative (Negative) Urine Nitrite Negative (Negative) Urine Bilirubin Negative (Negative) Urine Urobilinogen <2.0 (<2.0) mg/dL Ur Leukocyte Esterase Negative (Negative) Influenza Type A (PCR) Not Detected (Not Detectd) Influenza Type B (PCR) Not Detected (Not Detectd) RSV (PCR) Not Detected (Not Detectd) SARS-CoV-2 (PCR) Not Detected (Not Detectd) - EKG Data -: EKG Interpreted by Me EKG Comments: 12-lead Electrocardiogram Interpretation Note EKG was reviewed and interpreted by myself. 12-lead ECG performed at 1532 is interpreted by me as revealing normal sinus rhythm at a rate of 84 beats per minute. [place] is normal. ND interval is 130 ms, QRS duration is 72 ms, QTc is 398 ms.. There were no ST or T wave abnormalities to suggest myocardial ischemia or injury. R wave progression across the precordium was satisfactory. By my interpretation this EKG is non-diagnostic for acute ischemia. Disposition Clinical Impression: Atrial fibrillation with RVR Disposition: ADMITTED IP TO THIS HOSP Condition: Stable Referrals: Fitz Barton MD [Primary Care Provider] - 1-2 days Time of Disposition: 18:59
[2023-10-09] MEDS: SYMBICORT 160-4.5 MCG INHALER INHALATION SCH (19:51)
[2023-10-09] MEDS: HEPARIN SODIUM,PORCINE 5,000 UNIT/ML 1 ML VIAL SQ SCH (19:53)
[2023-10-09] MEDS: DOFETILIDE 125 MCG CAP PO SCH (20:31)
[2023-10-09] MEDS: MAGNESIUM OXIDE 400 MG TAB PO SCH (20:31)
[2023-10-10] MEDS: HEPARIN SODIUM,PORCINE 5,000 UNIT/ML 1 ML VIAL SQ SCH ×3 (00:16→15:28)
--- NOTE | 2023-10-10 03:10 | P.HPIM ---
History of Present Illness H&P Date: 10/09/23 Chief Complaint: A-fib with RVR 68-year-old male with A-fib status post cardioversion and Watchman procedure and ablation Patient coming in for with complaints of recurrent palpitations. Upon my evaluation patient was already converted to normal sinus rhythm however he cla ims that when he tried to walk around earlier with the ED doctor's are not immediately jumped into the 140s that is when he started feeling shortness of breath which she describes as similar to what happened earlier today at home when he decided to come in for evaluation due to recurrent episodes of symptomatic A-fib with RVR. He was recently seen and treated for bradycardia back around end of July of last year for which his medications were adjusted. He currently denies any fevers chills nausea vomiting headache cough sore throat abdominal pain changes in bowel or urinary habits Patient is not on blood thinner he has a history of cardiac ablation and Watchman procedure for A-fib Patient denies tobacco smoking illicit drugs or heavy alcohol Again patient denies any chest pain dizziness or lightheadedness he reports very mild shortness of breath with the episodes but mainly palpitations that he feels which triggers that he comes in for evaluation Today's episode happened suddenly after he showered he was planning to go to see his doctor for routine visit however his heart started acting out and he decided to come into the ED review of systems Pertinent positives as noted in HPI. All other systems were reviewed and are negative on exam Constitutional: No acute distress, conversant, pleasant Eyes: Anicteric sclerae, moist conjunctiva, Pupils equal round reactive to light ENMT: NC/AT Oropharynx clear, no erythema, or exudates Neck: Supple, no masses, or JVD No carotid bruits No thyromegaly Lungs: Clear to auscultation Clear to percussion Normal respiratory effort, no accessory muscle use Cardiovascular: Heart regular in rate and rhythm, No murmurs, gallops, or rubs No peripheral edema Abdominal: Soft Nontender, no guarding, rebound or rigidity Abdomen moving with respiration Normoactive bowel sounds No hepatomegaly, No splenomegaly No palpable mass No abdominal wall hernia noted Extremities: No digital cyanosis No clubbing Pedal pulses intact and symmetrical Radial pulses intact and symmetrical No calf tenderness Psychiatric: Alert and oriented to person, place and time Appropriate affect fair judgement Neuro Muscles Strength 5/5 in all 4 extremities Sensation to light touch grossly present throughout Cranial nerves II-XII grossly intact Lymphatics: no palpable cervical or supraclavicular lymph nodes Past Medical History Past Medical History: Atrial Fibrillation, Cancer, Heart Failure, COPD, Hearing Disorder / Deafness, Hypertension Additional Past Medical History / Comment(s): Hx Prostate Cancer 3-4 yrs ago. Hard of hearing in left ear. kidney disease History of Any Multi-Drug Resistant Organisms: None Reported Past Surgical History: Cardiac Ablation, Orthopedic Surgery Additional Past Surgical History / Comment(s): Cardioversion X2, right shoulder surgery. colonoscopy 10/2021, watchman Past Anesthesia/Blood Transfusion Reactions: No Reported Reaction Past Psychological History: No Psychological Hx Reported Smoking Status: Former smoker - Past Family History Mother Family Medical History: No Reported History family Family Medical History: Diabetes Mellitus Medications and Allergies Home Medications Medication Instructions Recorded Confirmed Type Albuterol Sulfate [Albuterol 2 puff INHALATION RT-Q4H PRN 08/10/23 10/09/23 History Sulfate Hfa] Aspirin EC [Ecotrin Low Dose] 81 mg PO DAILY 08/10/23 10/09/23 History Dofetilide 125 mcg PO BID 08/10/23 10/09/23 History Fluticasone/Vilanterol [Breo 1 puff INHALATION RT-DAILY 08/10/23 10/09/23 History Ellipta 200-25 Mcg Inhaler] Furosemide [Lasix] 40 mg PO DAILY 08/10/23 10/09/23 History Magnesium Oxide [Magox 400] 400 mg PO HS 08/10/23 10/09/23 History Metoprolol Tartrate [Lopressor] 50 mg PO BID #60 tab 08/12/23 10/09/23 Rx Ipratropium-Albuterol Nebulize 3 ml INHALATION RT-TID PRN 10/09/23 10/09/23 History [Duoneb 0.5 mg-3 mg/3 ml Soln] Vitamin D3(Unknown Dose) 1 tab PO DAILY 10/09/23 10/09/23 History Allergies Allergy/AdvReac Type Severity Reaction Status Date / Time Sulfa (Sulfonamide Allergy dizzy,lightheaded/hives Verified 10/09/23 16:19 Antibiotics) all over body Physical Exam Vitals: Vital Signs Temp Pulse Resp BP Pulse Ox 10/09/23 18:58 84 16 156/90 94 L 01/22/24 17:48 84 18 140/80 95 10/09/23 15:16 97.9 F 165 H 18 133/89 94 L Intake and Output 10/09/23 10/09/23 10/09/23 06:59 14:59 22:59 Other: Weight 129.274 kg Results CBC & Chem 7: 10/09/23 15:56 10/09/23 15:56 Labs: Abnormal Lab Results - Last 24 Hours (Table) 10/09/23 10/09/23 Range/Units 15:56 15:56 RBC 4.21 L (4.30-5.90) m/uL MCV 100.8 H (80.0-100.0) fL BUN 23 H (9-20) mg/dL Glucose 106 H (74-99) mg/dL Alkaline Phosphatase 163 H (38-126) U/L Assessment and Plan Assessment: 5-year-old male with atrial fibrillation, COPD hypertension coming in for palpitations I discussed case with ED doctor accepted the admission for recurrent episodes of A-fib with RVR with anticipated length of stay more than 2 midnights A-fib with RVR currently converted to normal sinus rhythm Continue Tikosyn and metoprolol Cardiology consult Blood work unremarkable white count 9.3 hemoglobin 13.9 BUN 33 creatinine 1.1 sodium 139 potassium 3.9 Troponin is negative Acute respiratory viral panel negative Urinalysis negative Most recent left ventricular ejection fraction from July 2023 was 45-50% Patient currently seems to be compensated Will continue with supportive care Cardiology consult Continue with decreasing and metoprolol EKG currently showing normal sinus rhythm Chest x-ray no acute pathology Chronic conditions COPD compensated Continue with inhalers as needed Full code DVT prophylaxis heparin subcu 3 times daily
[2023-10-10] MEDS: SYMBICORT 160-4.5 MCG INHALER INHALATION SCH ×2 (07:55→20:12)
[2023-10-10] MEDS: ASPIRIN 81 MG PO SCH (08:02)
[2023-10-10] MEDS: FUROSEMIDE 40 MG TAB PO SCH (08:02)
[2023-10-10] MEDS ORDERED: METOPROLOL TARTRATE 50 MG TAB PO SCH (09:00)
[2023-10-10] MEDS: DOFETILIDE 125 MCG CAP PO SCH ×2 (09:08→21:18)
--- NOTE | 2023-10-10 10:21 | P.CRDCN ---
History of Present Illness Consult date: 10/10/23 Consult reason: atrial fibrillation (With RVR) History of present illness: History of present illness: This is a 68-year-old male patient follows with cardiology out of [place] with past medical history of paroxysmal atrial fibrillation status post Watchman procedure, history of atrial tachycardia, hypertension, dyslipidemia, bradycardia. Patient was last seen here by cardiology in July 2023 at which time he presented with symptomatic bradycardia, hyperkalemia with acute renal failure and temporary pacemaker implantation was done at that time, medication changes were made at that time and he did not require permanent pacemaker. He h as had subsequent follow-up with his wood cut engraver as well as his flat bed operator. Yesterday, patient could feel that his heart rate was elevated and heart rate was up to 183 bpm. He states he has been taking all of his medications as directed. Patient's heart rate is jumping between 65 and 107 noted to be in and out of atrial fibrillation on telemetry. EKG sinus rhythm at 84 bpm Chest x-ray: Chronic changes without acute pulmonary process. CBC is unremarkable. D-dimer 0.55. INR 1. Electrolytes normal. BUN 23 creatinine 1.19. Blood sugar 106. Troponin negative x 3. Alkaline phosphatase 163 otherwise liver function test are normal. proBNP 1130. TSH 1.16. Urinalysis negative. Influenza A, influenza B, RSV, COVID-19 not detected. Home cardiac medications: Aspirin 81 mg daily, dofetilide 125 mcg twice daily, Lasix 40 mg daily, magnesium oxide 400 mg at bedtime, Lopressor 50 mg twice daily Echocardiogram performed 08/07/2023 revealed EF of 45 to 50%. Mild mitral regurgitation, mild tricuspid regurgitation. Review Of Systems: At the time of my evaluation: Constitutional: No fever, no chills. No weakness, fatigue or lethargy. EENT: No headache. No dizziness. Lungs: No shortness of breath, cough, no sputum production. No wheezing. Cardiovascular: No chest pain, + lower extremity edema. No palpitations. No paroxysmal nocturnal dyspnea. No orthopnea. No lightheadedness or dizziness. No syncopal episodes. Abdominal: No abdominal pain. No nausea, vomiting. No diarrhea. No constipation. No bloody or tarry stools. Genitourinary: No dysuria.. No urinary retention. Musculoskeletal: No myalgias. No muscle weakness, no frequent falls. No back pain. No neck pain. Integumentary: No wounds. No rash. No unusual bruising. Neurologic: No aphasia. No facial droop. No change in mentation. No head injury. No headache. Physical examination: Gen: This is a 68-year-old male. He appears to be in no acute distress. VS: reviewed HEENT: Head is atraumatic, normocephalic. Pupils equal, round. Sclerae is anicteric. NECK: Supple. No JVD. . LUNGS: Clear to auscultation. No wheezes or rhonchi. No intercostal retractions. HEART: Regular rate and rhythm. No murmur. ABDOMEN: Soft No tenderness. EXTREMITIES: 1+ pedal edema. No calf tenderness. NEUROLOGICAL: Patient is awake, alert and oriented x3. Assessment: Paroxysmal atrial fibrillation with RVR History of atrial tachycardia Hypertension Dyslipidemia History of bradycardia History of Watchman procedure Plan: Resume patient's home cardiac medications Increase metoprolol tartrate frequency to 3 times daily, 50 mg Telemetry monitoring overnight with probable discharge home tomorrow Further recommendations to follow based upon clinical course Thank you kindly for this consultation. Nurse practitioner note has been reviewed, I agree with documented findings and plan of care. Patient was seen and examined. Past Medical History Past Medical History: Atrial Fibrillation, Cancer, Heart Failure, COPD, Hearing Disorder / Deafness, Hypertension Additional Past Medical History / Comment(s): Hx Prostate Cancer 3-4 yrs ago. Hard of hearing in left ear. kidney disease History of Any Multi-Drug Resistant Organisms: None Reported Past Surgical History: Cardiac Ablation, Orthopedic Surgery Additional Past Surgical History / Comment(s): Cardioversion X2, right shoulder surgery. colonoscopy 10/2021, watchman Past Anesthesia/Blood Transfusion Reactions: No Reported Reaction Past Psychological History: No Psychological Hx Reported Smoking Status: Former smoker - Past Family History Mother Family Medical History: No Reported History family Family Medical History: Diabetes Mellitus Medications and Allergies Home Medications Medication Instructions Recorded Confirmed Type Albuterol Sulfate [Albuterol 2 puff INHALATION RT-Q4H PRN 08/10/23 10/09/23 History Sulfate Hfa] Aspirin EC [Ecotrin Low Dose] 81 mg PO DAILY 08/10/23 10/09/23 History Dofetilide 125 mcg PO BID 08/10/23 10/09/23 History Fluticasone/Vilanterol [Breo 1 puff INHALATION RT-DAILY 08/10/23 10/09/23 History Ellipta 200-25 Mcg Inhaler] Furosemide [Lasix] 40 mg PO DAILY 08/10/23 10/09/23 History Magnesium Oxide [Magox 400] 400 mg PO HS 08/10/23 10/09/23 History Metoprolol Tartrate [Lopressor] 50 mg PO BID #60 tab 08/12/23 10/09/23 Rx Ipratropium-Albuterol Nebulize 3 ml INHALATION RT-TID PRN 10/09/23 10/09/23 History [Duoneb 0.5 mg-3 mg/3 ml Soln] Vitamin D3(Unknown Dose) 1 tab PO DAILY 10/09/23 10/09/23 History Allergies Allergy/AdvReac Type Severity Reaction Status Date / Time Sulfa (Sulfonamide Allergy dizzy,lightheaded/hives Verified 10/09/23 16:19 Antibiotics) all over body Physical Exam Vitals: Vital Signs Temp Pulse Pulse Resp BP BP Pulse Ox 10/10/23 08:00 97.8 F 140 H 14 155/87 93 L 10/10/23 06:00 82 18 150/93 95 10/10/23 02:00 81 18 141/85 95 10/09/23 20:30 80 18 158/89 97 10/09/23 18:58 84 16 156/90 94 L 10/09/23 17:48 84 18 140/80 95 10/09/23 15:16 97.9 F 165 H 18 133/89 94 L Intake and Output 10/09/23 10/10/23 10/10/23 22:59 06:59 14:59 Other: Weight 129.274 kg Results 10/09/23 15:56 10/09/23 15:56 Cardiac Enzymes 10/09/23 10/09/23 10/09/23 Range/Units 15:56 15:56 21:04 AST 34 (17-59) U/L Troponin I <0.012 <0.012 (0.000-0.034) ng/mL 10/10/23 Range/Units 00:34 AST (17-59) U/L Troponin I <0.012 (0.000-0.034) ng/mL Coagulation 10/09/23 Range/Units 15:56 PT 11.1 (10.0-12.5) sec APTT 25.0 (22.0-30.0) sec CBC 10/09/23 Range/Units 15:56 WBC 9.3 (3.8-10.6) k/uL RBC 4.21 L (4.30-5.90) m/uL Hgb 13.9 (13.0-17.5) gm/dL Hct 42.5 (39.0-53.0) % Plt Count 259 (150-450) k/uL Comprehensive Metabolic Panel 10/09/23 Range/Units 15:56 Sodium 139 (137-145) mmol/L Potassium 4.9 (3.5-5.1) mmol/L Chloride 103 (98-107) mmol/L Carbon Dioxide 28 (22-30) mmol/L BUN 23 H (9-20) mg/dL Creatinine 1.19 (0.66-1.25) mg/dL Glucose 106 H (74-99) mg/dL Calcium 10.0 (8.4-10.2) mg/dL AST 34 (17-59) U/L ALT 19 (4-49) U/L Alkaline Phosphatase 163 H (38-126) U/L Total Protein 7.6 (6.3-8.2) g/dL Albumin 4.3 (3.5-5.0) g/dL Current Medications Generic Name Dose Route Start Last Admin Trade Name Freq PRN Reason Stop Dose Admin Albuterol Sulfate 2.5 mg 10/09/23 19:09 Albuterol Nebulized 2.5 Mg/3 Ml INHALATION RT-Q4H PRN Shortness Of Breath Albuterol/Ipratropium 3 ml 10/09/23 19:09 Ipratropium-Albuterol 3 Ml Neb INHALATION RT-TID PRN Shortness Of Breath Aspirin 81 mg 10/10/23 09:00 10/10/23 08:02 Aspirin 81 Mg PO 81 mg DAILY ANA ROSA Administration Budesonide/Formoterol Fumarate 2 puff 10/10/23 08:00 10/10/23 07:55 Symbicort 160-4.5 Mcg Inhaler INHALATION 2 puff RT-BID ANA ROSA Administration Dofetilide 125 mcg 10/09/23 21:00 10/10/23 09:08 Dofetilide 125 Mcg Cap PO 125 mcg BID ANA ROSA Administration Furosemide 40 mg 10/10/23 09:00 10/10/23 08:02 Furosemide 40 Mg Tab PO 40 mg DAILY ANA ROSA Administration Heparin Sodium (Porcine) 5,000 unit 10/09/23 19:15 10/10/23 09:07 Heparin Sodium,Porcine 5,000 Unit/Ml 1 Ml Vial SQ 5,000 unit Q8HR ANA ROSA Administration Magnesium Oxide 400 mg 10/09/23 21:00 10/09/23 20:31 Magnesium Oxide 400 Mg Tab PO 400 mg HS ANA ROSA Administration Metoprolol Tartrate 50 mg 10/10/23 16:00 Metoprolol Tartrate 50 Mg Tab PO TID ANA ROSA Naloxone HCl 0.2 mg 10/09/23 19:05 Naloxone 0.4 Mg/Ml 1 Ml Vial IV Q2M PRN Opioid Reversal Intake and Output 10/09/23 10/10/23 10/10/23 22:59 06:59 14:59 Other: Weight 129.274 kg 10/09/23 15:56 10/09/23 15:56
--- NOTE | 2023-10-10 12:53 | P.PN ---
Subjective Progress Note Date: 10/10/23 Hospital course Patient is a 68-year-old male with a past medical history of atrial fibrillation status post cardioversion and Watchman procedure and ablation who presents to the ED with recurrent palpitations. In the ED patient had converted to normal sinus rhythm. However he did have an episode in the ED where he had palpitations and his heart rate jumped up to the 140s. Patient was admitted for further evaluation by cardiology. Patient seen by cardiology the following day and his metoprolol dose was increased. Patient will be monitored overnight. Patient was seen this morning. He is currently in normal sinus rhythm. He denies any palpitations lightheadedness or chest pain. Physical exam General examination - Alert and Oriented 3 in NAD Heart - + S1S2 no murmurs Lungs - Clear to auscultation Abdomen soft NT ND +ve BS Extremities - No edema COUNTER SERVER - Moving all 4 extremities spontaneously Psych - Calm and cooperative Assessment and plan A-fib with RVR Currently in normal sinus rhythm Continue with Tikosyn and increase dose of metoprolol to 50 mg 3 times daily Troponins are negative Reviewed cardiology progress note COPD Stable DVT prophylaxis: Subcu heparin Labs are unremarkable so no need to trend Anticipate patient be ready for discharge tomorrow as long as heart rate is controlled on increased dose of metoprolol Objective - Vital Signs Vital signs: Vital Signs Temp 97.8 F 10/10/23 08:00 Pulse 140 H 10/10/23 08:00 Resp 14 10/10/23 08:00 BP 155/87 10/10/23 08:00 Pulse Ox 93 L 10/10/23 08:00 FiO2 Intake & Output 10/09/23 10/10/23 10/10/23 18:59 06:59 18:59 Weight 129.274 kg 129.274 kg - Labs CBC & Chem 7: 10/09/23 15:56 10/09/23 15:56 Labs: Abnormal Lab Results - Last 24 Hours (Table) 10/09/23 10/09/23 Range/Units 15:56 15:56 RBC 4.21 L (4.30-5.90) m/uL MCV 100.8 H (80.0-100.0) fL BUN 23 H (9-20) mg/dL Glucose 106 H (74-99) mg/dL Alkaline Phosphatase 163 H (38-126) U/L
[2023-10-10 13:43] LABS: Basophils # (A) 0.06 X 10*3/uL (0.00-0.10); Basophils % (A) 0.8 %; Eosinophils # (A) 0.16 X 10*3/uL (0.04-0.35); Eosinophils % (A) 2.2 %; HCT 44.3 % (39.6-50.0); HGB 13.9 g/dL (13.0-17.0); Lymphocytes # (A) 1.25 X 10*3/uL (0.90-5.00); MCH 32.4 pg (27.0-32.0); MCHC 31.4 g/dL (32.0-37.0); MCV 103.3 FL (80.0-97.0); Mean Platelet Volume 10.7 FL (9.5-12.2); Monocytes # (A) 0.81 X 10*3/uL (0.20-1.00); NRBC Per 100 WBC 0 X 10*3/uL (0.00-0.01); Neutrophils # (A) 5.05 X 10*3/uL (1.80-7.70); Neutrophils % (A) 68.7 %; Platelet Count 279 X 10*3/uL (140-440); RBC 4.29 X 10*6/uL (4.40-5.60); RDW 14.5 % (11.5-14.5); WBC 7.35 X 10*3/uL (4.50-10.00)
[2023-10-10 13:50] LABS: BUN/Creat Ratio 13.46 Ratio (12.00-20.00); Blood Urea Nitrogen 17.5 mg/dL (9.0-27.0); Calcium 10.3 mg/dL (8.7-10.3); Carbon Dioxide 28.6 mmol/L (21.6-31.8); Chloride 102 mmol/L (96-109); Glucose 106 mg/dL (70-110); Potassium 4.1 mmol/L (3.5-5.5); Sodium 144 mmol/L (135-145)
[2023-10-10] MEDS: METOPROLOL TARTRATE 50 MG TAB PO SCH ×2 (15:16→21:18)
[2023-10-10] MEDS ORDERED: ACETAMINOPHEN TAB 325 MG TAB PO PRN (15:20)
[2023-10-10 18:13] VITALS: RESP 16
[2023-10-10] MEDS: MAGNESIUM OXIDE 400 MG TAB PO SCH (21:18)
[2023-10-11] MEDS: HEPARIN SODIUM,PORCINE 5,000 UNIT/ML 1 ML VIAL SQ SCH ×2 (01:23→09:41)
[2023-10-11 07:46] VITALS: BP 150/90; PULSE 84; TEMP 97.2
[2023-10-11] MEDS: SYMBICORT 160-4.5 MCG INHALER INHALATION SCH (09:35)
[2023-10-11] MEDS: DOFETILIDE 125 MCG CAP PO SCH (09:41)
[2023-10-11] MEDS: FUROSEMIDE 40 MG TAB PO SCH (09:41)
[2023-10-11] MEDS: ASPIRIN 81 MG PO SCH (09:41)
[2023-10-11] MEDS: METOPROLOL TARTRATE 50 MG TAB PO SCH (09:41)
--- NOTE | 2023-10-11 12:05 | P.DS ---
Providers Date of admission: 10/09/23 19:09 Attending physician: Jeronimo Javed MD Consults: 10/09/23 19:05 Consult Physician Routine Consulting Provider: [facility] Consult Reason/Comments: exertional afib with rvr Do you want consulting provider notified?: Yes Primary care physician: Fitz Barton Hospital Course: Discharge Diagnosis: Atrial fibrillation with RVR COPD Hospital Course: Patient is a 68-year-old male with a past medical history of atrial fibrillation status post cardioversion and Watchman procedure and ablation who presents to the ED with recurrent palpitations. In the ED patient had converted to normal sinus rhythm. However he did have an episode in the ED where he had palpitations and his heart rate jumped up to the 140s. Patient was admitted for further evaluation by cardiology. Patient seen by cardiology the following day and his metoprolol dose was increased. Patient was then monitored overnight. He remained in normal sinus rhythm. He was seen by cardiology on the day of discharge in the morning and was cleared for discharge. Patient also looking forward to going home. Patient seen and examined at bedside on 10/11/2023.[] Vital signs reviewed and stable. General examination - Alert and Oriented 3 in NAD Heart - + S1S2 no murmurs Lungs - Clear to auscultation Abdomen soft NT ND +ve BS Extremities - No edema GUEST ATTENDANT - Moving all 4 extremities spontaneously Psych - Calm and cooperative A total of [33] minutes of time were spent preparing this complex discharge summary . Patient Condition at Discharge: Stable Plan - Discharge Summary New Discharge Prescriptions: New Metoprolol Tartrate [Lopressor] 50 mg PO TID tab Continue Dofetilide 125 mcg PO BID Furosemide [Lasix] 40 mg PO DAILY Magnesium Oxide [Magox 400] 400 mg PO HS Fluticasone/Vilanterol [Breo Ellipta 200-25 Mcg Inhaler] 1 puff INHALATION RT-DAILY Vitamin D3(Unknown Dose) 1 tab PO DAILY Aspirin EC [Ecotrin Low Dose] 81 mg PO DAILY Albuterol Sulfate [Albuterol Sulfate Hfa] 2 puff INHALATION RT-Q4H PRN PRN Reason: Shortness Of Breath Ipratropium-Albuterol Nebulize [Duoneb 0.5 mg-3 mg/3 ml Soln] 3 ml INHALATION RT-TID PRN PRN Reason: Shortness Of Breath Discontinued Metoprolol Tartrate [Lopressor] 50 mg PO BID #60 tab Discharge Medication List Albuterol Sulfate [Albuterol Sulfate Hfa] 2 puff INHALATION RT-Q4H PRN 08/10/23 [History] Aspirin EC [Ecotrin Low Dose] 81 mg PO DAILY 08/10/23 [History] Dofetilide 125 mcg PO BID 08/10/23 [History] Fluticasone/Vilanterol [Breo Ellipta 200-25 Mcg Inhaler] 1 puff INHALATION RT- DAILY 08/10/23 [History] Furosemide [Lasix] 40 mg PO DAILY 08/10/23 [History] Magnesium Oxide [Magox 400] 400 mg PO HS 08/10/23 [History] Ipratropium-Albuterol Nebulize [Duoneb 0.5 mg-3 mg/3 ml Soln] 3 ml INHALATION RT-TID PRN 10/09/23 [History] Vitamin D3(Unknown Dose) 1 tab PO DAILY 10/09/23 [History] Metoprolol Tartrate [Lopressor] 50 mg PO TID tab 10/11/23 [Rx] Follow up Appointment(s)/Referral(s): Gianfranco Song MD [STAFF PHYSICIAN] - 1 Week Fitz Barton MD [Primary Care Provider] - 1-2 days Discharge Disposition: HOME SELF-CARE
--- NOTE | 2023-10-11 13:53 | P.PN ---
Subjective Progress Note Date: 10/11/23 Consult reason: atrial fibrillation (With RVR) History of present illness: History of present illness: This is a 68-year-old male patient follows with cardiology out of [place] with past medical history of paroxysmal atrial fibrillation status post Watchman procedure, history of atrial tachycardia, hypertension, dyslipidemia, bradycardia. Patient was last seen here by cardiology in July 2023 at which time he presented with symptomatic bradycardia, hyperkalemia with acute renal failure and temporary pacemaker implantation was done at that time, medication changes were made at that time and he did not require permanent pacemaker. He has had subsequent follow-up with his cashier and salesperson as well as his brand attendant. Yesterday, patient could feel that his heart rate was elevated and heart rate was up to 183 bpm. He states he has been taking all of his medications as directed. Patient's heart rate is jumping between 65 and 107 noted to be in and out of atrial fibrillation on telemetry. EKG sinus rhythm at 84 bpm Chest x-ray: Chronic changes without acute pulmonary process. CBC is unremarkable. D-dimer 0.55. INR 1. Electrolytes normal. BUN 23 creatinine 1.19. Blood sugar 106. Troponin negative x 3. Alkaline phosphatase 163 otherwise liver function test are normal. proBNP 1130. TSH 1.16. Urinalysis negative. Influenza A, influenza B, RSV, COVID-19 not detected. Home cardiac medications: Aspirin 81 mg daily, dofetilide 125 mcg twice daily, Lasix 40 mg daily, magnesium oxide 400 mg at bedtime, Lopressor 50 mg twice daily Echocardiogram performed 08/07/2023 revealed EF of 45 to 50%. Mild mitral regurgitation, mild tricuspid regurgitation. 10/11 Patient is seen today on the observation unit. Patient remains in sinus rhythm. He denies having any palpitations, no chest pain, no lightheadedness or dizziness. We increased his metoprolol tartrate frequency to 3 times daily yesterday. Physical examination: Gen: This is a 68-year-old male. He appears to be in no acute distress. VS: reviewed HEENT: Head is atraumatic, normocephalic. Pupils equal, round. Sclerae is anicteric. LUNGS: Clear to auscultation. No wheezes or rhonchi. No intercostal retractions. HEART: Regular rate and rhythm. No murmur. EXTREMITIES: 1+ pedal edema. No calf tenderness. NEUROLOGICAL: Patient is awake, alert and oriented x3. Assessment: Paroxysmal atrial fibrillation with RVR History of atrial tachycardia Hypertension Dyslipidemia History of bradycardia History of Watchman procedure Plan: Continue patient's home cardiac medications Continue metoprolol tartrate 50 mg 3 times daily Patient is cleared for discharge from cardiology and may follow-up with his primary cashier and salesperson in [place] in 1 to 2 weeks. Nurse practitioner note has been reviewed, I agree with documented findings and plan of care. Patient was seen and examined. Objective - Vital Signs Vital signs: Vital Signs Temp 97.2 F L 10/11/23 07:00 Pulse 84 10/11/23 07:00 Resp 16 10/11/23 07:00 BP 150/90 10/11/23 07:00 Pulse Ox 96 10/11/23 07:00 FiO2 Intake & Output 10/10/23 10/11/23 10/11/23 18:59 06:59 18:59 Weight 129.274 kg Other: # Voids 3 1 - Labs CBC & Chem 7: 10/10/23 07:09 10/10/23 07:09 Labs: Abnormal Lab Results - Last 24 Hours (Table) 10/10/23 10/10/23 Range/Units 07:09 07:09 RBC 4.29 L (4.40-5.60) X 10*6/uL MCV 103.3 H (80.0-97.0) FL MCH 32.4 H (27.0-32.0) pg MCHC 31.4 L (32.0-37.0) g/dL Anion Gap 13.40 H (4.00-12.00) mmol/L Est GFR (CKD-EPI) 59 L (>=60)
== END 2023-10-11 13:09 | disposition home or self-care (01) ==
LOC: EC 14:48 → 6NMEDSUR 19:09
PROVIDERS: ADMIT Internal Medicine; ATTEND Internal Medicine
DX: I48.0 Paroxysmal atrial fibrillation (principal); J44.9 Chronic obstructive pulmonary disease, unspecified; I11.0 Hypertensive heart disease with heart failure; I50.9 Heart failure, unspecified; E78.5 Hyperlipidemia, unspecified; Z20.822 Contact with and (suspected) exposure to COVID-19; Z85.46 Personal history of malignant neoplasm of prostate; Z87.891 Personal history of nicotine dependence; Z79.82 Long term (current) use of aspirin; Z79.899 Other long term (current) drug therapy; Z88.2 Allergy status to sulfonamides
CPT/HCPCS: 96372 ×3; 96374; 99285; 36415; 94640 ×4; 93005; 85379; 83880; 80053; 80048; 83735; 84443; 84484 ×2; 85025 ×2; 85610; 85730; 81003; 87636; 71046; G0378 ×3; J1644 ×3; J1940

== ENCOUNTER → 2024-09-26 | Outpatient (CLI) | payer MEDICARE ==
--- NOTE | 2024-09-27 06:55 | CTL ---
EXAMINATION TYPE: CT Low Dose Lung DATE OF EXAM ORDERED: 09/26/2024 COMPARISON: Prior noncontrast chest CT September 06, 2021 CLINICAL INDICATION: Male, 69 years old with history of Z12.2 LUNG CA SCR Z87.891 FORMER SMOKER; [facility], Former smoker, 1 ppd x 40 years, Lung cancer screening, History of Smoking/tobacco use. TECHNIQUE: Low dose computed tomography scan was performed through the chest at 1 mm thick sections a nd reconstructed images in multiple planes at 1 mm and [address] DLP: 152.[address] CTDI: 4.3 mGy Automated exposure control for dose reduction was used. CT DIAGNOSTIC QUALITY: Satisfactory FINDINGS: Nodules: RUL: None. RML: None. RLL: There is a new 5 mm peripheral nodule axial image 218. ALEJANDRA: Also new medial 8 x 6 mm nodule at site of groundglass opacity medial left upper lobe axial carlos ge 41. LLL: At site of prior reticulation and groundglass opacity superior left lower lobe there is new nod ule or nodular consolidation measuring 1.5 x 1.1 cm axial image 62. LUNGS: COPD: Severity: None Fibrosis: Severity: None Lymph nodes: None Other findings: None RIGHT PLEURAL SPACE: Effusion: None Calcification: None Thickening: None Pneumothorax: None LEFT PLEURAL SPACE: Effusion: None Calcification: None Thickening: None Pneumothorax: None HEART: Heart Size: Normal Coronary Calcification: Moderate; possible right coronary artery 1.8 cm aneurysm series 5 image 42 is stable Pericardial Effusion: None Pericardial calcifications are redemonstrated. Surgical change to the left atrium again seen. OTHER FINDINGS: Upper abdomen: None Bony thorax: None Supraclavicular region: None Other: None IMPRESSION: New pulmonary nodules require follow-up. CT LUNG RAD AND CT CHEST RECOMMENDATION: Lung-Rad 4B or 4X Very Suspicious: Follow-up Chest CT with o r without contrast or PET/CT and/or tissue sampling. PET/CT may be used when there is a > 8 mm solid component. S Modifier (other clinically significant findings): S Cannot exclude right coronary artery aneurysm but stable. PET/CT follow-up advised to rule out malignancy. [facility], Workstation: [email or web address], 09/27/2024 6:53 AM
== END | disposition home or self-care (01) ==
LOC: RADCTMAIN 11:29
PROVIDERS: ATTEND Internal Medicine Critical Care Medicine
DX: Z12.2 Encounter for screening for malignant neoplasm of respiratory organs (principal); Z87.891 Personal history of nicotine dependence; R91.8 Other nonspecific abnormal finding of lung field
CPT/HCPCS: 71271

== ENCOUNTER → 2024-10-10 | Outpatient (CLI) | payer MEDICARE ==
--- NOTE | 2024-10-12 09:00 | PE ---
EXAMINATION TYPE: PET CT fusion skull to thigh DATE OF EXAM: 10/10/2024 CLINICAL INDICATION:Male, 69 years old with history of R91.8 LUNG NODULE; TECHNIQUE: Following the intravenous administration of 9.76 mCi of F-18 FDG, whole body images are performed from the skull base to the Mid thigh. Images are reviewed on the computer in the coronal, axial, and sagittal planes. Reconstructed rotating images are created on independent workstation and reviewed on the computer. A non-contrast CT is performed in conjunction with the PET scan. Glucose level 96 mg/dL CT DLP: 1196 mGycm, Automated exposure control for dose reduction was used. COMPARISON: CT 09/26/2024, PET/CT None, MRI: None FINDINGS: Mediastinal SUV mean is 2.2. Hepatic parenchyma SUV mean is 3.0. SKULL BASE AND NECK: No suspicious radiotracer activity. CHEST, MEDIASTINUM, AND HILAR REGION: Pulmonary nodules do not have abnormal uptake on PET imaging. Example includes * Left upper lobe 12 mm Max SUV 1.2 * Left lower lobe superior segment 15 mm SUV 2.0 * Right lower lobe 5 mm max SUV 0.8. ABDOMEN AND PELVIS: No suspicious radiotracer activity. MUSCULOSKELETAL STRUCTURES: No suspicious radiotracer activity. OTHER CT: Mild cardiomegaly. Opacifications along the myocardium suggestive of prior myocarditis. Lef t atrial appendage occlusion device present. Coronary artery atherosclerosis. Atherosclerosis of the arterial vasculature. Few scattered colonic diverticula. Fatty changes to the inguinal canals bilater ally with small left fat-containing inguinal hernia. IMPRESSION: 3 pulmonary nodules with FDG levels below background. CT surveillance recommended of these nodules. [facility], , 10/12/2024 8:58 AM
== END | disposition home or self-care (01) ==
LOC: RADPETMAIN 07:33
PROVIDERS: ATTEND Internal Medicine Critical Care Medicine
DX: R91.8 Other nonspecific abnormal finding of lung field (principal); I25.10 Atherosclerotic heart disease of native coronary artery without angina pectoris; K40.10 Bilateral inguinal hernia, with gangrene, not specified as recurrent
CPT/HCPCS: 78815; A9552

== ENCOUNTER → 2025-03-31 | Outpatient (CLI) | payer MEDICARE ==
[2025-03-31 12:35] LABS: African American GFR (CKD) 75 (>60 ml/min/1.73 sqM); Blood Urea Nitrogen 21 mg/dL (9-20); Non-African American GFR(CKD) 65 (>60 ml/min/1.73 sqM)
--- NOTE | 2025-03-31 13:52 | CT ---
EXAMINATION TYPE: CT chest w con CT DLP: 588 mGycm, Automated exposure control for dose reduction was used. DATE OF EXAM: 03/31/2025 1:20 PM COMPARISON: Head CT 10/10/2024, C2 low-dose lung 09/26/2024, CT chest 09/06/2021 CLINICAL INDICATION:Male, 70 years old with history of R91.8 OTHER NONSPECIFIC ABNORMAL FINDING OF RAMONITA NG F; PHH, Abnormal findings on lung gimenez. TECHNIQUE: Multiple axial images were obtained through the chest following the administration of 100 cc of Isovue 300. . Coronal and sagittal reformats reviewed. FINDINGS: LUNGS/ PLEURA: No pleural effusion, pneumothorax, focal consolidation. Stable left apical 14 mm groun dglass pulmonary nodule (series 4, image 9). Stable superior segment left lower lobe 15 mm pulmonary nodular opacity abutting the left major fissure (series 4, image 15). Previously seen right lower lob e 5 mm pulmonary nodules no longer visualized. Linear atelectasis within the posterior upper lobe. De velopment of patchy consolidation within the medial aspect of the right upper lobe (series 4, image 2 7). AIRWAY: Patent and unremarkable.. HEART: Mildly enlarged.Left atrial appendage device.. No pericardial effusion. Pericardial calcificat ions. Moderate coronary artery calcifications present. MEDIASTINUM: No gross evidence of adenopathy. VASCULATURE: No aortic aneurysm. Metastatic calcification of the aorta and its branches. Moderate st enosis suggested involving the origin of the left subclavian artery. MUSCULOSKELETAL: No acute osseous abnormalities. Multilevel anterior osteophytosis of the mid to lowe r thoracic spine. No aggressive osseous lesion. SOFT TISSUES/LYMPH NODES: Bilateral gynecomastia. LOWER NECK: No significant findings. UPPER ABDOMEN: No significant findings. IMPRESSION: 1. There are 2 stable left lung pulmonary nodules. Previously seen right lower lobe 5 mm pulmonary no dules no longer visualized. Follow-up CT chest in 1 year is recommended. 2. Development of medial right upper lobe patchy consolidative opacity possibly representing atelecta sis versus developing pneumonia. Correlate clinically. Attention on follow-up exam. [facility], , 03/31/2025 1:50 PM
== END | disposition home or self-care (01) ==
LOC: RADCTMAIN 11:54
PROVIDERS: ATTEND Internal Medicine Critical Care Medicine
DX: R91.8 Other nonspecific abnormal finding of lung field (principal)
CPT/HCPCS: 82565; 84520; 71260; 36415; Q9967